=== PATIENT | female | born 1935 | race Caucasian/White ===

== ENCOUNTER 2018-02-20 09:49 | Observation (INO) | payer OTHER ==
[2018-02-20 10:09] LABS: Absolute Monocytes 0.6 K/uL (0.1-1.3); Absolute Neutrophil 5.6 K/uL (1.8-8.0); Basophils % 1.3 % (0-1.3); Eosinophils % 2.1 % (0-4.4); Hematocrit 35.9 % (36.0-45.0); Lymphocytes % 12.9 % (15.3-44.8); MCH 31.4 pg (27.0-35.0); MCV 96.4 fL (80-100); MPV 7.4 fL (7.6-11.3); Monocytes % 8.5 % (3.3-12.3); RBC Red Blood Cell Count 3.72 M/uL (3.86-4.86)
[2018-02-20 10:16] LABS: Protime INR 1.02
--- NOTE | 2018-02-20 10:17 | RAD REPORT ---
EXAM DESCRIPTION: CT - [id number] - 02/20/2018 10:03 am CLINICAL HISTORY: Syncope, fall, head and neck injury COMPARISON: CT head July 2016, CT spine September 2012 TECHNIQUE: Axial 5 mm thick images of the head were obtained. Axial 2 mm thick images of the cervic al spine were obtained with sagittal and coronal reconstruction images generated and reviewed. All CT scans are performed using dose optimization technique as appropriate and may include automated exposure control or mA/KV adjustment according to patient size. FINDINGS: No intracranial hemorrhage, mass, edema or acute intracranial finding. No acute cortical based infarc tion. The patient has underlying mild to moderate atrophy and chronic ischemic change. 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 This is stable. Ventricular size is in proportion to vo lume loss. No extra-axial fluid collections. Mastoid air cells and paranasal sinuses are clear. No gl obe or orbit abnormality seen. Cervical body height and alignment are normal. C4-5, C5-6 and C6-7 disc space narrowing present. Righ t C3-4 prominent facet degenerative change with mild right foraminal stenosis. There is mild right fo raminal stenosis at C4-5 and mild bilateral C5-6. Right C6-7 foramen shows a mild stenosis. No fractu re or acute bony abnormality. Central canal detail is inherently limited. No paraspinal mass or hematoma. 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 No hemorrhage or acute intracranial finding. Cervical spine degenerative changes are present. No acute finding and no significant change from 201 3.
[2018-02-20] MEDS ORDERED: NA CHLORIDE 0.9% 1,000 ML ONE (10:29)
--- NOTE | 2018-02-20 10:35 | RAD REPORT ---
EXAM DESCRIPTION: RAD - Chest Single View - 02/20/2018 10:29 am CLINICAL HISTORY: Hypertension, syncope. COMPARISON: 03/25/2017 FINDINGS: Portable technique limits examination quality. The lungs are grossly clear. The heart is normal in size. No displaced fractures. IMPRESSION: No acute intrathoracic process suspected.
[2018-02-20 10:40] LABS: Potassium 4.5 mEq/L (3.6-5.0)
[2018-02-20 10:47] LABS: Albumin 3.4 g/dL (3.2-5.5); Bilirubin Direct 0.1 mg/dL (0-0.2); Bilirubin Total 0.7 mg/dL (0.3-1.2); Magnesium 1.8 mg/dL (1.8-2.5); Protein, Total 6.2 g/dL (6.0-8.3)
[2018-02-20 10:48] LABS: CKMB Creatine Kinase MB 2.2 ng/ml (0.3-4.0)
--- NOTE | 2018-02-20 10:59 | RAD REPORT ---
EXAM DESCRIPTION: ANGE Montes CP - 02/20/2018 10:52 am CLINICAL HISTORY: Dizziness, syncope COMPARISON: None. TECHNIQUE: Real-time sonographic evaluation of both carotid systems was performed. Doppler interroga tion was performed with waveform tracing bilaterally. FINDINGS: Normal high resistance waveforms are noted in both external carotid arteries. The common c arotid arteries and internal carotid arteries show normal low resistance waveforms. Minimal plaquing changes are present in each carotid bulb. No significant luminal narrowing. No disse ction identified. Peak systolic and end diastolic velocity values and the ICA/CCA ratios are in the n on-hemodynamically significant range. Antegrade flow seen in both vertebral arteries. Velocity values and ratios were recorded and are retained in the patient's imaging records. IMPRESSION: Minimal carotid bulb atherosclerotic plaquing. No evidence of a hemodynamically significant stenosis.
--- NOTE | 2018-02-20 11:38 | EDPHYS ---
Physician Documentation [facility] Name: Connie Dos Santos Age: 82 yrs Sex: Female : 1935 Arrival Date: 02/20/2018 Time: 09:46 Bed External Waiting [facility] MD: Cheko Esquivel V ED Physician Joel Silverman HPI: 02/20 10:18 This 82 yrs old Female presents to ER via EMS with complaints of Fall Injury. caryl 10:18 Details of fall: The patient fell from an upright position, while standing. Onset: The caryl symptoms/episode began/occurred just prior to arrival. Associated injuries: The patient sustained injury to the head, neck injury. Severity of symptoms: At their worst the symptoms were mild, in the emergency department the symptoms are unchanged. The patient has not experienced similar symptoms in the past. Historical: - Allergies: 10:04 Sulfa (Sulfonamide Antibiotics); hb - Home Meds: 10:04 amitriptyline 25 mg Oral tab 1 tab once daily [Active]; Benicar 20 mg Oral tab 1 tab hb once daily [Active]; clopidogrel 75 mg Oral tab 1 tab once daily [Active]; metoprolol tartrate 50 mg Oral tab 1 tab once daily [Active]; paroxetine HCl 10 mg Oral tab 1 tab once daily [Active]; Vesicare 5 mg Oral tab 1 tab once daily [Active]; Vitamin B-12 Oral daily [Active]; Vitamin D Oral daily [Active]; - PMHx: 10:04 Hypertension; TIA; Depression; hb - PSHx: 10:04 Hysterectomy; ; hb - Immunization history:: Adult Immunizations up to date. - Social history:: Smoking status: Patient/guardian denies using tobacco. - Immunization history: Last tetanus immunization: - up to date. - Ebola Screening: : No symptoms or risks identified at this time. ROS: 10:18 Constitutional: Negative for fever, chills, and weight loss, Eyes: Negative for injury, caryl pain, redness, and discharge, ENT: Negative for injury, pain, and discharge, Neck: Negative for injury, pain, and swelling, Cardiovascular: Negative for chest pain, palpitations, and edema, Respiratory: Negative for shortness of breath, cough, wheezing, and pleuritic chest pain, Abdomen/GI: Negative for abdominal pain, nausea, vomiting, diarrhea, and constipation, Back: Negative for injury and pain, : Negative for injury, bleeding, discharge, and swelling, MS/Extremity: Negative for injury and deformity, Skin: Negative for injury, rash, and discoloration, Psych: Negative for depression, anxiety, suicide ideation, homicidal ideation, and hallucinations, Allergy/Immunology: Negative for hives, rash, and allergies, Endocrine: Negative for neck swelling, polydipsia, polyuria, polyphagia, and marked weight changes, Hematologic/Lymphatic: Negative for swollen nodes, abnormal bleeding, and unusual bruising. 10:18 Neuro: Positive for dizziness, syncope, weakness. Exam: 10:18 Constitutional: This is a well developed, well nourished patient who is awake, alert, caryl and in no acute distress. Head/Face: Normocephalic, atraumatic. Eyes: Pupils equal round and reactive to light, extra-ocular motions intact. Lids and lashes normal. Conjunctiva and sclera are non-icteric and not injected. Cornea within normal limits. Periorbital areas with no swelling, redness, or edema. ENT: Nares patent. No nasal discharge, no septal abnormalities noted. Tympanic membranes are normal and external auditory canals are clear. Oropharynx with no redness, swelling, or masses, exudates, or evidence of obstruction, uvula midline. Mucous membranes moist. Chest/axilla: Normal chest wall appearance and motion. Nontender with no deformity. No lesions are appreciated. Cardiovascular: Regular rate and rhythm with a normal S1 and S2. No gallops, murmurs, or rubs. Normal PMI, no JVD. No pulse deficits. Respiratory: Lungs have equal breath sounds bilaterally, clear to auscultation and percussion. No rales, rhonchi or wheezes noted. No increased work of breathing, no retractions or nasal flaring. Abdomen/GI: Soft, non-tender, with normal bowel sounds. No distension or tympany. No guarding or rebound. No evidence of tenderness throughout. Back: No spinal tenderness. No costovertebral tenderness. Full range of motion. Female : Normal external genitalia. Skin: Warm, dry with normal turgor. Normal color with no rashes, no lesions, and no evidence of cellulitis. MS/ Extremity: Pulses equal, no cyanosis. Neurovascular intact. Full, normal range of motion. Neuro: Awake and alert, GCS 15, oriented to person, place, time, and situation. Cranial nerves II-XII grossly intact. Motor strength 5/5 in all extremities. Sensory grossly intact. Cerebellar exam normal. Normal gait. Psych: Awake, alert, with orientation to person, place and time. Behavior, mood, and affect are within normal limits. 10:18 Neck: External neck: is normal, no acute changes, C-spine: no acute changes, Thyroid: appears normal, Trachea: is midline with no obvious abnormalities. Vital Signs: 09:51 BP 120 / 60; Pulse 66; Resp 15; Temp 98; Pulse Ox 100% on R/A; Pain 3/10; rv 10:48 BP 120 / 66; Pulse 66; Resp 17; Pulse Ox 100% on R/A; Pain 1/10; hb 11:58 BP 145 / 70; Pulse 63; Resp 18; Pulse Ox 100% ; sv 13:25 BP 153 / 74; Pulse 66; Resp 18; Pulse Ox 99% ; sv NIH Stroke Scale Scores: 13:37 NIHSS Score: 0 caryl Montrell Coma Score: 09:51 Eye Response: spontaneous(4). Verbal Response: oriented(5). Motor Response: obeys rv commands(6). Total: 15. Trauma Score (Adult): 09:51 Eye Response: spontaneous(1); Verbal Response: oriented(1); Motor Response: obeys rv commands(2); Systolic BP: > 89 mm Hg(4); Respiratory Rate: 10 to 29 per min(4); [place] Score: 15; Trauma Score: 12 10:48 Eye Response: spontaneous(1); Verbal Response: oriented(1); Motor Response: obeys hb commands(2); Systolic BP: > 89 mm Hg(4); Respiratory Rate: 10 to 29 per min(4); Montrell Score: 15; Trauma Score: 12 11:30 Eye Response: spontaneous(1); Verbal Response: oriented(1); Motor Response: obeys hb commands(2); Systolic BP: > 89 mm Hg(4); Respiratory Rate: 10 to 29 per min(4); Montrell Score: 15; Trauma Score: 12 12:30 Eye Response: spontaneous(1); Verbal Response: oriented(1); Motor Response: obeys hb commands(2); Systolic BP: > 89 mm Hg(4); Respiratory Rate: 10 to 29 per min(4); [place] Score: 15; Trauma Score: 12 13:30 Eye Response: spontaneous(1); Verbal Response: oriented(1); Motor Response: obeys hb commands(2); Systolic BP: > 89 mm Hg(4); Respiratory Rate: 10 to 29 per min(4); Montrell Score: 15; Trauma Score: 12 MDM: 09:54 Patient medically screened. [facility] 10:27 Data reviewed: vital signs, nurses notes, lab test result(s), EKG, radiologic studies, [facility] CT scan, doppler, plain films, ultrasound. 02/20 09:49 Order name: Basic Metabolic Panel; Complete Time: 11:35 02/20 09:49 Order name: BNP; Complete Time: 11:35 02/20 09:49 Order name: CBC with Diff; Complete Time: 10:25 02/20 09:49 Order name: Ckmb; Complete Time: 11:35 02/20 09:49 Order name: CPK; Complete Time: 11:35 02/20 09:49 Order name: LFT's; Complete Time: 11:35 02/20 09:49 Order name: Magnesium; Complete Time: 11:35 02/20 09:49 Order name: PT-INR; Complete Time: 11:35 02/20 09:49 Order name: Ptt, Activated; Complete Time: 11:35 02/20 09:49 Order name: Troponin (emerg Dept Use Only); Complete Time: 11:35 02/20 10:08 Order name: Urine Culture [facility] 02/20 11:51 Order name: Basic Metabolic Panel [facility] 02/20 11:51 Order name: Basic Metabolic Panel [facility] 02/20 11:51 Order name: CBC with Automated Diff [facility] 02/20 09:49 Order name: XRAY Chest (1 view); Complete Time: 11:35 02/20 09:49 Order name: EKG; Complete Time: 09:50 02/20 09:49 Order name: CT Head C Spine; Complete Time: 10:25 02/20 10:18 Order name: Echo w/ Doppler [facility] 02/20 10:18 Order name: US Carotid Artery Bilateral; Complete Time: 11:35 [facility] 02/20 11:49 Order name: MRI Stroke Protocol iw 02/20 11:51 Order name: Regular EDGA 02/20 11:51 Order name: CBC with Automated Diff [facility] 02/20 11:51 Order name: Troponin I [facility] 02/20 11:51 Order name: Troponin I [facility] 02/20 11:51 Order name: Troponin I [facility] 02/20 12:55 Order name: Urine Dipstick--Ancillary (enter results) ag 02/20 13:02 Order name: MRI EDGA 02/20 13:24 Order name: Urine Dipstick-Ancillary [facility] 02/20 09:49 Order name: Cardiac monitoring; Complete Time: 10:41 sv 02/20 09:49 Order name: EKG - Nurse/Tech; Complete Time: 10:41 sv 02/20 09:49 Order name: IV Saline Lock; Complete Time: 10:41 sv 02/20 09:49 Order name: Labs collected and sent; Complete Time: 10:41 sv 02/20 09:49 Order name: O2 Per Protocol; Complete Time: 10:42 sv 02/20 09:49 Order name: O2 Sat Monitoring; Complete Time: 10:42 sv 02/20 11:51 Order name: EKG Electrocardiogram [facility] 02/20 11:51 Order name: EKG Electrocardiogram [facility] 02/20 11:51 Order name: EKG Electrocardiogram [facility] 02/20 11:51 Order name: EKG Electrocardiogram EDGA Administered Medications: 10:15 Drug: NS 0.9% 500 ml Route: IV; Rate: bolus; Site: right femoral; hb 10:41 Drug: NS 0.9% 1000 ml Route: IV; Rate: 125 ml/hr; Site: right antecubital; hb Disposition: 02/20/18 11:38 Hospitalization ordered by Cheko Esquivel for Observation. Preliminary diagnosis are Syncope and collapse, Acute kidney failure. - Bed requested for Telemetry/MedSurg (observation). - Status is Observation. iw - Condition is Stable. - Problem is new. - Symptoms have improved. UTI on Admission? No NIH Stroke Scale - NIH Stroke Score Date: 02/20/2018 Time: 13:37 Total Score = 0 1a. Level of Consciousness (LOC) - 0(Alert) 1b. Level of Consciousness (LOC) (Year \T\ Age) - 0(Both) 1c. LOC Commands (Open \T\ Closes Eyes/Preparation Center Coordinator) - 0(Both) 2. Best Gaze (Lateral Gaze Paresis) - 0(Normal) 3. Visual Field Loss - 0(No visual loss) 4. Facial Palsy - 0(Normal) 5a. Left Arm: Motor (10-second hold) - 0(No drift) 5b. Right Arm: Motor (10-second hold) - 0(No drift) 6a. Left Leg: Motor (5-second hold - always test supine) - 0(No drift) 6b. Right Leg: Motor (5-second hold - always test supine) - 0(No drift) 7. Limb Ataxia (finger/nose \T\ heel/palafox - test with eyes open) - 0(Absent) 8. Sensory Loss (pinprick arms/legs/face) - 0(Normal) 9. Best Language: Aphasia (description/naming/reading) - 0(No aphasia) 10. Dysarthria (speech clarity - read or repeat words) - 0(Normal) 11. Extinction and Inattention (visual/tactile/auditory/spatial/personal) - 0(No abnormality) Initials: caryl Signatures: Dispatcher [employer] EDMS Cele Rutherford RN Mely Garces RN RN dw Anderson, Corey, MD MD cha Williams, Irene, RN RN iw Baxter, Heather, RN RN hb Vicente, Ronaldo RN RN rv Corrections: (The following items were deleted from the chart) 12:45 11:38 Hospitalization Ordered by Cheko Esquivel MD for Observation. Preliminary diagnosis is Syncope and collapse; Acute kidney failure. Bed requested for Telemetry/MedSurg (observation). Status is Observation. Condition is Stable. Problem is new. Symptoms have improved. UTI on Admission? No. caryl 13:27 12:45 02/20/2018 11:38 Hospitalization Ordered by Chkeo Esquivel MD for sv Observation. Preliminary diagnosis is Syncope and collapse; Acute kidney failure. Bed requested for Telemetry/MedSurg (observation). Status is Observation. Condition is Stable. Problem is new. Symptoms have improved. UTI on Admission? No. dw 13:39 13:27 02/20/2018 11:38 Hospitalization Ordered by Cheko Esquivel MD for iw Observation. Preliminary diagnosis is Syncope and collapse; Acute kidney failure. Bed requested for Telemetry/MedSurg (observation). Status is Observation. Condition is Stable. Problem is new. Symptoms have improved. UTI on Admission? No. sv
--- NOTE | 2018-02-20 11:38 | ER ---
Nurse's Notes [facility] Name: Connie Dos Santos Age: 82 yrs Sex: Female : 1935 Arrival Date: 02/20/2018 Time: 09:46 Bed External Waiting Private MD: Cheko Esquivel V Diagnosis: Syncope and collapse;Acute kidney failure Presentation: 02/20 09:27 Presenting complaint: EMS states: Pt was standing up, had witness syncopal episode, rv witness reported LOC for a few seconds. Dried blood noted to bilateral nares. Takes Plavix. Care prior to arrival: IV initiated. 22 GA, in the right antecubital area, Glucose check: 142. Mechanism of Injury: Fall from standing position. Trauma event details: Injury occurred in the [facility], Injury occurred: at home. Injury occurred: February 20, 2018 Injury occurred at: 09:30. 09:27 Acuity: BRANDY 2 rv 09:27 Method Of Arrival: EMS: [facility] rv 09:30 Transition of care: patient was not received from another setting of care. Onset of hb symptoms was February 20, 2018. Risk Assessment: Do you want to hurt yourself or someone else? Patient reports no desire to harm self or others. Initial Sepsis Screen: Does the patient meet any 2 criteria? No. Patient's initial sepsis screen is negative. Does the patient have a suspected source of infection? No. Patient's initial sepsis screen is negative. Trauma Activation: Alert Physician: ED Physician; Name: ; Notified At: ; Arrived At: Physician: General Surgeon; Name: ; Notified At: ; Arrived At: Physician: Radiology; Name: ; Notified At: ; Arrived At: Physician: Respiratory; Name: ; Notified At: ; Arrived At: Physician: Lab; Name: ; Notified At: ; Arrived At: Historical: - Allergies: 10:04 Sulfa (Sulfonamide Antibiotics); hb - Home Meds: 10:04 amitriptyline 25 mg Oral tab 1 tab once daily [Active]; Benicar 20 mg Oral tab 1 tab hb once daily [Active]; clopidogrel 75 mg Oral tab 1 tab once daily [Active]; metoprolol tartrate 50 mg Oral tab 1 tab once daily [Active]; paroxetine HCl 10 mg Oral tab 1 tab once daily [Active]; Vesicare 5 mg Oral tab 1 tab once daily [Active]; Vitamin B-12 Oral daily [Active]; Vitamin D Oral daily [Active]; - PMHx: 10:04 Hypertension; TIA; Depression; hb - PSHx: 10:04 Hysterectomy; ; hb - Immunization history:: Adult Immunizations up to date. - Social history:: Smoking status: Patient/guardian denies using tobacco. - Immunization history: Last tetanus immunization: - up to date. - Ebola Screening: : No symptoms or risks identified at this time. Screenin:30 Nutritional screening: No deficits noted. Fall Risk Total Newman Fall Scale indicates hb Low Risk Score (25-44 pts). Fall prevention measures have been instituted. Side Rails Up X 2 Frequent Obs/Assesments occuring As available Patient and Family Educated on Fall Prevention Program and strategies. 09:51 Abuse screen: Denies threats or abuse. Denies injuries from another. Tuberculosis rv screening: No symptoms or risk factors identified. 11:00 Patient has been NPO before screening. The patient is alert, able to follow commands. hb The patient does not exhibit slurred or garbled speech The patient is not exhibiting difficulty speaking. The patient does not exhibit difficulty understanding words. The patient is able to swallow own secretions with no drooling or need for suction. Patient tolerated one teaspoon of water. No drooling, immediate coughing, gurgling, or clearing of the throat was noted. The patient tolerated 90mL of water. No drooling, immediate coughing, gurgling, or clearing of the throat was noted. The patient passed the bedside swallow screening. Oral medications may be given as ordered. Contact Physician for further diet orders. Primary Survey: 09:52 A: Airway: patent, No supplemental oxygen in use on arrival. Breathing/Chest: hb Respiratory pattern: regular, Respiratory effort: spontaneous, unlabored, Breath sounds: clear, bilaterally. Chest inspection: symmetrical rise and fall of the chest. Circulation: Pulses: palpable . Skin color: pink, Skin temperature: warm, dry. Disability Alert. 10:45 Reassessment Airway Airway Patent Oxygen No O2 Breathing/Chest Respiratory pattern hb Regular Respiratory effort Spontaneous Unlabored Breath sounds Clear Chest inspection Symmetrical Circulation Color [place] Temperature Warm Dry Disability Alert. 11:45 Reassessment Airway Airway Patent Oxygen No O2 Breathing/Chest Respiratory pattern hb Regular Respiratory effort Spontaneous Unlabored Chest inspection Symmetrical Circulation Color [place] Temperature Warm Dry Disability Alert. 12:45 Reassessment Airway Airway Patent Oxygen No O2 Breathing/Chest Respiratory pattern hb Regular Respiratory effort Spontaneous Unlabored Chest inspection Symmetrical Circulation Color [place] Temperature Warm Dry Disability Alert. Secondary Survey: 09:52 HEENT: Head Other contusion to left occipital area noted. Gastrointestinal: No deficits hb noted. : No signs and/or symptoms were reported regarding the genitourinary system. Musculoskeletal: No signs and/or symptoms reported regarding the musculoskeletal system. Assessment: 09:55 General: Appears in no apparent distress. Behavior is calm, cooperative. Pain: Pain hb currently is 3 out of 10 on a pain scale. Neuro: Level of Consciousness is awake, alert, obeys commands, Oriented to person, place, time, situation, Pupils are PERRLA. EENT: Nares with bleeding noted. Cardiovascular: Heart tones S1 S2 present Capillary refill < 3 seconds Patient's skin is warm and dry. Rhythm is atrial fibrillation. Respiratory: Airway is patent Trachea midline Respiratory effort is even, unlabored, Respiratory pattern is regular, symmetrical, Breath sounds are clear bilaterally. GI: No signs and/or symptoms were reported involving the gastrointestinal system. : No signs and/or symptoms were reported regarding the genitourinary system. Derm: No signs and/or symptoms reported regarding the dermatologic system. Skin is intact, is healthy with good turgor, Skin is pink, warm \T\ dry. Musculoskeletal: No signs and/or symptoms reported regarding the musculoskeletal system. Circulation, motion, and sensation intact. Injury Description: contusion to left back of head. 10:05 Reassessment: Pt transported to radiology via stretcher with tech. 10:47 Reassessment: Pt returned from radiology via stretcher with tech. Family at bedside. hb 11:30 Reassessment: Patient appears in no apparent distress at this time. Patient and/or hb family updated on plan of care and expected duration. Pain level reassessed. Patient is alert, oriented x 3, equal unlabored respirations, skin warm/dry/pink. 12:30 Reassessment: Patient appears in no apparent distress at this time. No changes from hb previously documented assessment. Patient and/or family updated on plan of care and expected duration. Pain level reassessed. Patient is alert, oriented x 3, equal unlabored respirations, skin warm/dry/pink. Admission ordered, awaiting room assignment at this time. Family remains at bedside. 13:30 Reassessment: Patient appears in no apparent distress at this time. No changes from hb previously documented assessment. Patient and/or family updated on plan of care and expected duration. Pain level reassessed. Patient is alert, oriented x 3, equal unlabored respirations, skin warm/dry/pink. Vital Signs: 09:51 BP 120 / 60; Pulse 66; Resp 15; Temp 98; Pulse Ox 100% on R/A; Pain 3/10; rv 10:48 BP 120 / 66; Pulse 66; Resp 17; Pulse Ox 100% on R/A; Pain 1/10; hb 11:58 BP 145 / 70; Pulse 63; Resp 18; Pulse Ox 100% ; sv 13:25 BP 153 / 74; Pulse 66; Resp 18; Pulse Ox 99% ; sv [place] Coma Score: 09:51 Eye Response: spontaneous(4). Verbal Response: oriented(5). Motor Response: obeys rv commands(6). Total: 15. Trauma Score (Adult): 09:51 Eye Response: spontaneous(1); Verbal Response: oriented(1); Motor Response: obeys rv commands(2); Systolic BP: > 89 mm Hg(4); Respiratory Rate: 10 to 29 per min(4); [place] Score: 15; Trauma Score: 12 10:48 Eye Response: spontaneous(1); Verbal Response: oriented(1); Motor Response: obeys hb commands(2); Systolic BP: > 89 mm Hg(4); Respiratory Rate: 10 to 29 per min(4); [place] Score: 15; Trauma Score: 12 11:30 Eye Response: spontaneous(1); Verbal Response: oriented(1); Motor Response: obeys hb commands(2); Systolic BP: > 89 mm Hg(4); Respiratory Rate: 10 to 29 per min(4); [place] Score: 15; Trauma Score: 12 12:30 Eye Response: spontaneous(1); Verbal Response: oriented(1); Motor Response: obeys hb commands(2); Systolic BP: > 89 mm Hg(4); Respiratory Rate: 10 to 29 per min(4); [place] Score: 15; Trauma Score: 12 13:30 Eye Response: spontaneous(1); Verbal Response: oriented(1); Motor Response: obeys hb commands(2); Systolic BP: > 89 mm Hg(4); Respiratory Rate: 10 to 29 per min(4); [place] Score: 15; Trauma Score: 12 NIH Stroke Scale Scores: 13:37 NIHSS Score: 0 caryl ED Course: 09:35 Thermoregulation: warm blanket given to patient. hb 09:45 Patient has correct armband on for positive identification. Placed in gown. Bed in low hb position. Call light in reach. Side rails up X 1. 09:46 Patient arrived in ED. rv 09:51 Triage completed. rv 09:51 Patient maintains SpO2 saturation greater than 95% on room air. rv 09:52 Cassie Davalos RN is Primary Nurse. hb 09:52 Arm band placed on left wrist. rv 09:53 Joel Silverman MD is Attending Physician. caryl 10:00 EKG done, by process controls technician. reviewed by Joel Silverman MD. at1 10:02 CT completed. Patient tolerated procedure well. Patient moved to CT via stretcher. Patient moved back from CT. 10:03 CT Head C Spine In Process Unspecified. EDMS 10:22 Cheko Esquivel MD is Private Physician. sb2 10:27 X-ray completed. Portable x-ray completed in exam room. Patient tolerated procedure ml well. 10:29 XRAY Chest (1 view) In Process Unspecified. EDMS 10:50 Ultrasound completed. Patient tolerated well. sg3 10:52 US Carotid Artery Bilateral In Process Unspecified. EDMS 11:37 Cheko Esquivel MD is Hospitalizing Provider. caryl 12:28 Patient moved to MRI via wheelchair. em2 13:04 No provider procedures requiring assistance completed. Patient admitted, IV remains in sv place. intact. 13:37 Primary Nurse role handed off by Cassie Davalos, ALFIE ag Administered Medications: 10:15 Drug: NS 0.9% 500 ml Route: IV; Rate: bolus; Site: right femoral; hb 10:41 Drug: NS 0.9% 1000 ml Route: IV; Rate: 125 ml/hr; Site: right antecubital; hb Intake: 13:06 PO: 0ml; Total: 0ml. sv Output: 13:06 Urine: 300ml (Voided); Total: 300ml. sv Outcome: 11:38 Decision to Hospitalize by Provider. caryl 13:06 Admitted to Tele accompanied by tech, via stretcher, room 415, with chart, Report sv called to Yuli JUDGE 13:06 Condition: stable 13:06 Instructed on the need for admit. 13:27 Patient left the ED. sv 13:30 Patient's length of stay in the Emergency Department was greater than 2 hours. pt hb admitted, awaiting room assignmentPatient's length of stay extended due to 13:39 Patient left the ED. NIH Stroke Scale - NIH Stroke Score Date: 02/20/2018 Time: 13:37 Total Score = 0 1a. Level of Consciousness (LOC) - 0(Alert) 1b. Level of Consciousness (LOC) (Year \T\ Age) - 0(Both) 1c. LOC Commands (Open \T\ Closes Eyes/Regulator Mechanic) - 0(Both) 2. Best Gaze (Lateral Gaze Paresis) - 0(Normal) 3. Visual Field Loss - 0(No visual loss) 4. Facial Palsy - 0(Normal) 5a. Left Arm: Motor (10-second hold) - 0(No drift) 5b. Right Arm: Motor (10-second hold) - 0(No drift) 6a. Left Leg: Motor (5-second hold - always test supine) - 0(No drift) 6b. Right Leg: Motor (5-second hold - always test supine) - 0(No drift) 7. Limb Ataxia (finger/nose \T\ heel/palafox - test with eyes open) - 0(Absent) 8. Sensory Loss (pinprick arms/legs/face) - 0(Normal) 9. Best Language: Aphasia (description/naming/reading) - 0(No aphasia) 10. Dysarthria (speech clarity - read or repeat words) - 0(Normal) 11. Extinction and Inattention (visual/tactile/auditory/spatial/personal) - 0(No abnormality) Initials: caryl Signatures: Dispatcher [employer] Cele Beltran RN RN sv Anderson, Corey, MD MD cha Jones, Ronda Jovel RN RN iw Josette Hoover Enrique em2 kedar, Piper, sleep manager EKG Tat1 Ivana Granger ag Cassie Davalos RN RN Sally Andrade sg3 Tracey Shukla2 Josesito Maurice, RN RN rv
[2018-02-20] MEDS ORDERED: ONDANSETRON 4 MG/2 ML VIAL IV PRN (11:48)
[2018-02-20] MEDS ORDERED: ACETAMINOPHEN 500 MG TAB PO PRN (11:48)
[2018-02-20] MEDS ORDERED: NA CHLORIDE 0.9% 1,000 ML IV SCH (12:00)
--- NOTE | 2018-02-20 13:00 | RAD REPORT ---
EXAM DESCRIPTION: MRI - Brain Wo Cont - 02/20/2018 12:49 pm CLINICAL HISTORY: Syncope, fall, head injury. COMPARISON: 02/20/2018, 08/18/2016 TECHNIQUE: Multi-sequence, multiplanar MR imaging of the brain was performed without contrast. FINDINGS: No intracranial hemorrhage, hydrocephalus or extra-axial fluid collections.Left frontal lo be gliosis noted likely related to previous head trauma or CVA. Mild generalized brain atrophy is pre sent with mild periventricular and deep white matter chronic microvascular ischemic changes. No edema or shift of midline structures. No findings to suspect brain mass. DWI is negative for acute CVA. Midline structures are normally formed. Mastoid air cells and paranasal sinuses are clear. IMPRESSION: Negative for acute CVA or other acute intracranial abnormality. Gliosis is seen left frontal lobe compatible with old head trauma or CVA.
[2018-02-20 13:23] LABS: Urine Blood NEGATIVE (NEG); Urine Glucose NEGATIVE (NEG); Urine Protein NEGATIVE (NEG); Urine Specific Gravity 1.015 (1.005-1.030)
--- NOTE | 2018-02-20 13:35 | P.HP ---
Certification for Inpatient Patient admitted to: Observation With expected LOS: <2 Midnights Practitioner: I am a practitioner with admitting privileges, knowledge of patient current condition, hospital course, and medical plan of care. Services: Services provided to patient in accordance with Admission requirements found in Title 42 Section 412.3 of the Code of Federal Regulations Patient History Date of Service: 02/20/18 Reason for admission: PASSED OUT AT HOME History of Present Illness: MS. GREGORY WHILE STANDING AT HOME , TALKING TO FRIENDS SHE PASSED OUT AND FELL BACKWARDS , HIT A TABLE. SHE HAS NO CHEST PAIN, NAUSEA, WEAKNESS OR PARALYSIS. SHE HAS NO NAUSEA, VOMITING OR DIARRHEA. Allergies Sulfa (Sulf Allergy (Uncoded 10/30/17 11:04) Unknown Home Medications: Alprazolam [Xanax*] 0.25 mg PO DAILY 10/09/12 Amitriptyline [Elavil*] 50 mg PO BEDTIME 10/09/12 Cyanocobalamin (Vitamin B-12) [Vitamin B-12] 1,200 mcg PO DAILY 10/09/12 Metoprolol Succinate 50 mg PO BID 10/09/12 Olmesartan Medoxomil [Benicar] 20 mg PO [id number] 10/09/12 Vitamin D [Drisdol*] 50,000 unit PO DAILY 10/09/12 Clopidogrel Bisulfate [Plavix*] 75 mg PO DAILY #30 tablet 10/13/12 Cranberry Fruit Concentrate [[employer] [facility]] 450 mg PO DAILY 10/30/17 Vit A/Vit C/Vit E/Zinc/Copper [Icaps Areds Formula Dr Tablet] 1 each PO DAILY - Past Medical/Surgical History Diabetic: No - Social History Alcohol use: No CD- Drugs: No Caffeine use: Yes Review of Systems 10-point ROS is otherwise unremarkable General: Weakness, Malaise Physical Examination - Physical Exam General: Alert, In no apparent distress HEENT: Atraumatic, PERRLA, Mucous membr. moist/pink, EOMI, Sclerae nonicteric Neck: Supple, 2+ carotid pulse no bruit, No LAD, Without JVD or thyroid abnormality Respiratory: Clear to auscultation bilaterally, Normal air movement Cardiovascular: Regular rate/rhythm, Normal S1 S2 Gastrointestinal: Normal bowel sounds, No tenderness Musculoskeletal: No tenderness Integumentary: No rashes Neurological: Normal gait, Normal speech, Normal strength at 5/5 x4 extr, Normal tone, Normal affect Lymphatics: No axilla or inguinal lymphadenopathy - Studies Laboratory Data (last 24 hrs) 02/20/18 09:55: PT 12.0, INR 1.02, APTT 22.7 L 02/20/18 09:55: WBC 7.4, Hgb 11.7 L, Hct 35.9 L, Plt Count 225 02/20/18 09:55: B-Natriuretic Peptide 90 02/20/18 09:55: Sodium 138, Potassium 4.5, BUN 23 H, Creatinine 1.23 H, Glucose 111, Magnesium 1.8, Total Bilirubin 0.7, AST 23, ALT 16, Alkaline Phosphatase 47 Assessment and Plan - Problems (Diagnosis) (1) Syncope Current Visit: Yes Status: Acute Plan: DOES NOT LOOK LIKE STROKE. SHE HAS NO NEURO SYMPTOMS. NO CARDIAC SYMPTOMS I SEE HE BUN AND CREAT ARE MILD HIGH SUGGESTIVE OF DEHYDRATION. NONE OF HER MEDS DEHYDRATE HER. (2) Syncope due to orthostatic hypotension Current Visit: Yes Status: Acute Plan: ABOVE. STABLE WILL DO PT AND ADVISE ORAL INTAKE. - Advance Directives Does patient have a Living Will: Yes Does patient have a Durable POA for Healthcare: Yes
[2018-02-20 15:37] VITALS: BMI 21.2
[2018-02-20] MEDS: NA CHLORIDE 0.9% 1,000 ML IV SCH (17:07)
--- NOTE | 2018-02-20 17:39 | EKG ---
Test Date: 2018-02-20 Test Time: 09:49:22 Cabin Outfitter: MIGUEL MEASUREMENT RESULTS: Intervals: Rate: 62 WV: 142 QRSD: 80 QT: 426 QTc: 432 [place]: P: 79 WV: 142 QRS: 255 T: 57 INTERPRETIVE STATEMENTS: Normal sinus rhythm Right superior axis deviation Septal infarct, age undetermined Abnormal ECG Compared to ECG 03/25/2017 09:27:24 No significant changes Electronically Signed On 02-20-18 17:36:56 CDT by Quique Renteria
--- NOTE | 2018-02-20 18:01 | ECHO ---
HEIGHT: 5 ft 8 in WEIGHT: 140 lb 0 oz DATE OF STUDY: 02/20/[address]: Joel Silverman MD 2-DIMENSIONAL: YES M.MODE: YES DOPPLER: YES COLOR FLOW: YES TDS: PORTABLE: DEFINITY: BUBBLE STUDY: DIAGNOSIS: SYNCOPE CARDIAC HISTORY: CATHERIZATION: NO SURGERY: NO PROSTHETIC VALVE: NO PACEMAKER: NO MEASUREMENTS (cm) DIASTOLIC (NORMALS) SYSTOLIC (NORMALS) IVSd 0.9 (0.6-1.2) LA Diam 3.1 (1.9-4.0) LVEF 79% LVIDd 3.9 (3.5-5.7) LVIDs 2.1 (2.0-3.5) %FS 47% LVPWd 0.9 (0.6-1.2) Ao Diam 2.5 (2.0-3.7) 2 DIMENSIONAL ASSESSMENT: RIGHT ATRIUM: NORMAL LEFT ATRIUM: NORMAL RIGHT VENTRICLE: NORMAL LEFT VENTRICLE: NORMAL TRICUSPID VALVE: NORMAL MITRAL VALVE: NORMAL PULMONIC VALVE: NORMAL AORTIC VALVE: NORMAL PERICARDIAL EFFUSION: NONE AORTIC ROOT: NORMAL LEFT VENTRICULAR WALL MOTION: NORMAL DOPPLER/COLOR FLOW: NORMAL COMMENTS: NORMAL 2-DIMENSIONAL ECHOCARDIOGRAM WITH DOPPLER. NO WALL MOTION ABNORMALITY. NO EFFUSION. TECHNOLOGIST: YURIDIA MILLS
[2018-02-21 05:22] LABS: Absolute Lymphocytes (CBC) 0.8 K/uL (0.7-4.9); Absolute Monocytes 0.6 K/uL (0.1-1.3); Absolute Neutrophil 7.3 K/uL (1.8-8.0); Basophils % 0.5 % (0-1.3); Eosinophils % 1.7 % (0-4.4); Hematocrit 32.2 % (36.0-45.0); Lymphocytes % 9.4 % (15.3-44.8); MCH 32.7 pg (27.0-35.0); MCV 95.1 fL (80-100); MPV 7.2 fL (7.6-11.3); Monocytes % 6.9 % (3.3-12.3); RBC Red Blood Cell Count 3.39 M/uL (3.86-4.86)
[2018-02-21 05:46] LABS: Potassium 3.9 mEq/L (3.6-5.0)
[2018-02-21 08:00] VITALS: O2SAT 94
[2018-02-21] MEDS ORDERED: ASPIRIN EC 81 MG TAB PO SCH (09:00)
[2018-02-21] MEDS: NA CHLORIDE 0.9% 1,000 ML IV SCH (09:13)
--- NOTE | 2018-02-21 11:08 | P.DS ---
Admission Date: 02/20/18 Discharge Date: 02/21/18 Disposition: ROUTINE DISCHARGE Discharge Condition: FAIR Reason for Admission: PASSED OUT AT HOME - Problems (1) Syncope Current Visit: Yes Status: Acute (2) Syncope due to orthostatic hypotension Current Visit: Yes Status: Acute Brief History of Present Illness: MS. GREGORY WHILE STANDING AT HOME , TALKING TO FRIENDS SHE PASSED OUT AND FELL BACKWARDS , HIT A TABLE. SHE HAS NO CHEST PAIN, NAUSEA, WEAKNESS OR PARALYSIS. SHE HAS NO NAUSEA, VOMITING OR DIARRHEA. MS Magdalena GREGORY IS DOING GREAT, HAS NO SYMPTOMS, HAS WALKED AROUND WITHOUT ANY DIZZINESS OR SYNCOPE. HER RHYTHM HAS BEEN NORMAL SINUS. MRI NEG, CAROTID NEGATIVE AND SHE HAS BEEN TO DR. MAN. MOST LIKELY SHE HAD SYNCOPE FROM ORTHOSTASIS. HER MEDICINE ELAVIL CAN HAVE THAT EFFECT ESPECIALLY WITH HOT WEATHER. I REDUCED THE DOSE AND WILL TAPER HER OFF ELAVIL. SHE WILL COME TO OFFICE FOR FU. Vital Signs/Physical Exam: Temp Pulse Resp BP Pulse Ox 97.7 F 73 18 137/63 98 02/21/18 07:42 02/21/18 07:42 02/21/18 07:42 02/21/18 07:42 02/21/18 07:42 Laboratory Data at Discharge: WBC 9.0 K/uL (4.3-10.9) D 02/21/18 04:37 Hgb 11.1 g/dL (12.0-15.0) L 02/21/18 04:37 Hct 32.2 % (36.0-45.0) L 02/21/18 04:37 Plt Count 196 K/uL (152-406) 02/21/18 04:37 PT 12.0 SECONDS (9.5-12.5) 02/20/18 09:55 INR 1.02 02/20/18 09:55 APTT 22.7 SECONDS (24.3-36.9) L 02/20/18 09:55 Sodium 140 mEq/L (135-145) 02/21/18 04:37 Potassium 3.9 mEq/L (3.6-5.0) 02/21/18 04:37 BUN 17 mg/dL (6-20) 02/21/18 04:37 Creatinine 0.94 mg/dL (0.44-1.00) 02/21/18 04:37 Glucose 97 mg/dL (65-120) 02/21/18 04:37 Magnesium 1.8 mg/dL (1.8-2.5) 02/20/18 09:55 Total Bilirubin 0.7 mg/dL (0.3-1.2) 02/20/18 09:55 AST 23 IU/L (10-42) 02/20/18 09:55 ALT 16 IU/L (10-60) 02/20/18 09:55 Alkaline Phosphatase 47 IU/L (42-121) 02/20/18 09:55 Troponin I < 0.03 ng/mL (<0.03) 02/20/18 18:35 B-Natriuretic Peptide 90 pg/ml (<=100) 02/20/18 09:55 Home Medications: Metoprolol Succinate 50 mg PO BID 10/09/12 Olmesartan Medoxomil [Benicar] 20 mg PO [id number] 10/09/12 Clopidogrel Bisulfate [Plavix*] 75 mg PO DAILY #30 tablet 10/13/12 Cranberry Fruit Concentrate [[facility]] 450 mg PO DAILY 10/30/17 Paroxetine HCl [Paxil*] 10 mg PO BEDTIME 02/20/18 Amitriptyline [Elavil*] 25 mg PO BEDTIME #30 tab 02/21/18 New Medications: Amitriptyline [Elavil*] 25 mg PO BEDTIME #30 tab Patient Discharge Instructions: REDUCE ELAVIL TO HALF THE DOSE EVERY NIGHT. I WILL CALL IN 25 MG QHS. COME TO OFFICE IN 10 DAYS OR SO AND VISIT DR. MAN FOR SYNCOPE FOLLOW UP. Activity: Fall precautions
[2018-02-21 11:38] VITALS: BP 139/65; TEMP 98.6
== END 2018-02-21 12:53 | disposition home or self-care (01) ==
LOC: ER 09:49 → ERHOLD 11:46 → 4TH 13:06
PROVIDERS: ADMIT Internal Medicine; ATTEND Internal Medicine
DX: I95.2 Hypotension due to drugs (principal); T43.015A Adverse effect of tricyclic antidepressants, initial encounter; Y92.009 Unspecified place in unspecified non-institutional (private) residence as the place of occurrence of the external cause; Z88.2 Allergy status to sulfonamides
CPT/HCPCS: 36415; 70450; 70551; 71045; 72125; 80048 ×2; 80076; 81003; 82550; 82553; 83735; 83880; 84484 ×3; 85025 ×2; 85610; 85730; 87086; 87088; 93005; 93306; 93880; 97163; 99285; G0378 ×2; J7030 ×3

== ENCOUNTER 2019-11-12 09:48 | Emergency (ER) | payer OTHER ==
[2019-11-12 10:26] LABS: Protime INR 1.04
[2019-11-12 10:27] LABS: Basophils % 1.1 % (0-1.3); Hematocrit 37.3 % (36.0-45.0); Lymphocytes % 13.4 % (15.3-44.8); MPV 7.1 fL (7.6-11.3); RBC Red Blood Cell Count 3.87 M/uL (3.86-4.86)
[2019-11-12] MEDS ORDERED: NA CHLORIDE 0.9% 1,000 ML ONE (10:28)
--- NOTE | 2019-11-12 10:36 | RAD REPORT ---
EXAM DESCRIPTION: Nena Single View11/12/2019 10:24 am CLINICAL HISTORY: Chest pain COMPARISON: 2017 FINDINGS: The lungs appear clear of acute infiltrate. The heart is borderline enlarged IMPRESSION: No acute abnormalities displayed
[2019-11-12 10:44] LABS: ALT/SGPT 12 U/L (12-78); AST/SGOT 22 U/L (15-37); Albumin 3.2 g/dL (3.4-5.0); Alkaline Phosphatase 54 U/L (45-117); BUN Blood Urea Nitrogen 18 mg/dL (7-18); Bicarbonate 26 mmol/L (21-32); Bilirubin Direct 0.2 mg/dL (0-0.2); Bilirubin Total 0.6 mg/dL (0.2-1.0); Glucose Level 101 mg/dL (74-106); Magnesium 1.6 mg/dL (1.8-2.4); NT PRO-BNP 537 pg/mL (<450); Potassium 3.7 mmol/L (3.5-5.1); Protein, Total 6.5 g/dL (6.4-8.2); Sodium Level 141 mmol/L (136-145); Troponin (Emerg Dept Use Only) < 0.02 ng/mL (0.0-0.045)
[2019-11-12] MEDS ORDERED: Magnesium Sulfate 2gm IVPB 2 G/50 ML BAG IV ONE (11:25)
--- NOTE | 2019-11-12 11:58 | EDPHYS ---
Physician Documentation [facility] Name: Connie Dos Santos Age: 84 yrs Sex: Female : 1935 Arrival Date: 11/12/2019 Time: 09:55 Bed 13 Private MD: JILLIAN Physician Joel Silverman HPI: 11/12 11:51 This 84 yrs old Female presents to ER via EMS with complaints of Dizziness, kb General Weakness. 11:51 The patient presents with dizziness. Onset: The symptoms/episode began/occurred just kb prior to arrival. Context: occurred at home, occurred while the patient was standing, just prior to the episode the patient experienced no apparent symptoms. Modifying factors: The symptoms are alleviated by nothing, the symptoms are aggravated by changing position. Associated signs and symptoms: The patient has no apparent associated signs or symptoms. Severity of symptoms: At their worst the symptoms were moderate in the emergency department the symptoms have improved moderately. Patient's baseline: Neuro: alert and fully oriented, Motor: no deficits, Ambulation: walks without assistance, Speech: normal. The patient has not experienced similar symptoms in the past. The patient has not recently seen a physician. 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 When she went to sit down to eat she felt dizzy so they called 911. EMS reports hypotension on scene that has improved after IV fluids. . Historical: - Allergies: 10:01 Sulfa (Sulfonamide Antibiotics); tw2 - Home Meds: 10:01 amitriptyline 25 mg Oral tab 1 tab once daily [Active]; Benicar 20 mg Oral tab 1 tab tw2 once daily [Active]; clopidogrel 75 mg Oral tab 1 tab once daily [Active]; metoprolol tartrate 50 mg Oral tab 1 tab once daily [Active]; paroxetine HCl 10 mg Oral tab 1 tab once daily [Active]; Vesicare 5 mg Oral tab 1 tab once daily [Active]; Vitamin B-12 Oral daily [Active]; Vitamin D Oral daily [Active]; - PMHx: 10:01 Depression; Hypertension; TIA; tw2 - PSHx: 10:01 Hysterectomy; ; tw2 - Immunization history:: Adult Immunizations. - Coronavirus screen:: The patient has NOT traveled to [place] in the past 14 days. - Social history:: Smoking status: . - Ebola Screening: : Patient denies travel to an Ebola-affected area in the 21 days before illness onset. ROS: 11:51 Constitutional: Negative for fever, chills, and weight loss, Eyes: Negative for injury, kb pain, redness, and discharge, ENT: Negative for injury, pain, and discharge, Neck: Negative for injury, pain, and swelling, Cardiovascular: Negative for chest pain, palpitations, and edema, Respiratory: Negative for shortness of breath, cough, wheezing, and pleuritic chest pain, Abdomen/GI: Negative for abdominal pain, nausea, vomiting, diarrhea, and constipation, Back: Negative for injury and pain, MS/Extremity: Negative for injury and deformity, Skin: Negative for injury, rash, and discoloration. 11:51 Neuro: Positive for dizziness. Exam: 11:55 Constitutional: This is a well developed, well nourished patient who is awake, alert, kb and in no acute distress. Head/Face: Normocephalic, atraumatic. Eyes: Pupils equal round and reactive to light, extra-ocular motions intact. Lids and lashes normal. Conjunctiva and sclera are non-icteric and not injected. Cornea within normal limits. Periorbital areas with no swelling, redness, or edema. ENT: Nares patent. No nasal discharge, no septal abnormalities noted. Tympanic membranes are normal and external auditory canals are clear. Oropharynx with no redness, swelling, or masses, exudates, or evidence of obstruction, uvula midline. Mucous membranes moist. Neck: Trachea midline, no thyromegaly or masses palpated, and no cervical lymphadenopathy. Supple, full range of motion without nuchal rigidity, or vertebral point tenderness. No Meningismus. Chest/axilla: Normal chest wall appearance and motion. Nontender with no deformity. No lesions are appreciated. Cardiovascular: Regular rate and rhythm with a normal S1 and S2. No gallops, murmurs, or rubs. Normal PMI, no JVD. No pulse deficits. Respiratory: Lungs have equal breath sounds bilaterally, clear to auscultation and percussion. No rales, rhonchi or wheezes noted. No increased work of breathing, no retractions or nasal flaring. Abdomen/GI: Soft, non-tender, with normal bowel sounds. No distension or tympany. No guarding or rebound. No evidence of tenderness throughout. Skin: Warm, dry with normal turgor. Normal color with no rashes, no lesions, and no evidence of cellulitis. MS/ Extremity: Pulses equal, no cyanosis. Neurovascular intact. Full, normal range of motion. Neuro: Awake and alert, GCS 15, oriented to person, place, time, and situation. Cranial nerves II-XII grossly intact. Motor strength 5/5 in all extremities. Sensory grossly intact. Cerebellar exam normal. Normal gait. 13:22 ECG was reviewed by the Attending Physician. kb Vital Signs: 09:58 BP 119 / 58; Pulse 58; Resp 16; Temp 97.9(TE); Pulse Ox 95% on R/A; Weight 56.7 kg (R); tw2 Height 5 ft. 8 in. (172.72 cm); Pain 0/10; 10:12 BP 106 / 57 Supine; Pulse 63; tw2 10:12 BP 104 / 55 Sitting; Pulse 62; Resp 17; tw2 10:12 BP 87 / 56 Standing; Pulse 62; tw2 10:23 BP 134 / 66 Supine; Pulse 58; tw2 11:28 BP 138 / 75 Standing; Pulse 61; Resp 16; Pulse Ox 100% on R/A; tw2 09:58 Body Mass Index 19.01 (56.70 kg, 172.72 cm) tw2 10:12 "i feel like i need to sit on the bed" pt states when taking standing BP tw2 MDM: 09:57 Patient medically screened. kb 11:54 Data reviewed: vital signs, nurses notes. Data reviewed: lab test result(s), EKG, kb radiologic studies. Data interpreted: Pulse oximetry: on room air is 100 %. Interpretation: normal. Counseling: I had a detailed discussion with the patient and/or guardian regarding: the historical points, exam findings, and any diagnostic results supporting the discharge/admit diagnosis, lab results, radiology results, the need for outpatient follow up, a family practitioner, to return to the emergency department if symptoms worsen or persist or if there are any questions or concerns that arise at home. 11:55 ED course: Symptoms resolved after IV fluids. Pt able to change positions without kb dizziness and vital signs remain stable. . 11/12 10:01 Order name: Basic Metabolic Panel kb 11/12 10:01 Order name: CBC with Diff kb 11/12 10:01 Order name: LFT's kb 11/12 10:01 Order name: Magnesium kb 11/12 10:01 Order name: NT PRO-BNP kb 11/12 10:01 Order name: PT-INR kb 11/12 10:01 Order name: Troponin (emerg Dept Use Only) kb 11/12 10:31 Order name: CBC with Automated Diff; Complete Time: 11:03 EDMS 11/12 10:38 Order name: Protime (+INR); Complete Time: 11:03 EDMS 11/12 10:46 Order name: Basic Metabolic Panel; Complete Time: 11:03 EDMS 11/12 10:46 Order name: Liver (Hepatic) Function; Complete Time: 11:03 EDMS 11/12 10:46 Order name: Troponin (Emerg Dept Use Only); Complete Time: 11:03 EDMS 11/12 10:46 Order name: NT PRO-BNP; Complete Time: 11:03 EDMS 11/12 10:46 Order name: Magnesium; Complete Time: 11:03 EDMS 11/12 10:01 Order name: XRAY Chest (1 view) kb 11/12 10:01 Order name: EKG; Complete Time: 10:03 kb 11/12 10:01 Order name: Cardiac monitoring; Complete Time: 10:04 kb 11/12 10:01 Order name: EKG - Nurse/Tech; Complete Time: 10:04 kb 11/12 10:01 Order name: IV Saline Lock; Complete Time: 10:04 kb 11/12 10:01 Order name: Labs collected and sent; Complete Time: 10:04 kb 11/12 10:01 Order name: O2 Per Protocol; Complete Time: 10: kb 11/12 10:01 Order name: O2 Sat Monitoring; Complete Time: 10:22 kb 11/12 10:03 Order name: Orthostatics; Complete Time: 10: kb 11/12 10:52 Order name: RAD; Complete Time: 11:03 EDMS EC:22 Rate is 59 beats/min. Rhythm is regular. Left axis deviation noted. WI interval is kb normal at 144 msec. QRS interval is normal at 82 msec. QT interval is normal at 454 msec. Administered Medications: 10:27 Drug: NS 0.9% 1000 ml Route: IV; Rate: 1000 ml; Site: right antecubital; tw2 11:45 Follow up: Response: No adverse reaction; IV Status: Completed infusion; IV Intake: tw2 1000ml 11:29 Drug: Magnesium Sulfate 2 grams Route: IVPB; Infused Over: 1 hrs; Site: right tw2 antecubital; 12:29 Follow up: IV Status: Completed infusion aj1 Disposition: 13:47 Co-signature as Attending Physician, Joel Silverman MD I agree with the assessment and caryl plan of care. Disposition: 11/12/19 11:57 Discharged to Home. Impression: Hypomagnesemia, Dehydration, Orthostatic hypotension. - Condition is Stable. - Discharge Instructions: Dehydration, Elderly, Orthostatic Hypotension. - Medication Reconciliation Form, Thank You Letter, Antibiotic Education, Prescription Opioid Use form. - Follow up: Emergency Department; When: As needed; Reason: Worsening of condition. Follow up: Private Physician; When: 2 - 3 days; Reason: Recheck today's complaints, Continuance of care, Re-evaluation by your physician. Signatures: Dispatcher [employer] EDDebbie Wright, MAKAYLA-C MAKAYLA-Laurence Thomas, RN RN aj1 Joel Silverman MD MD cha Wise, Tara, RN RN tw2 Corrections: (The following items were deleted from the chart) 11:57 11:57 11/12/2019 11:57 Discharged to Home. Impression: Hypomagnesemia; Dehydration. kb Condition is Stable. Forms are Medication Reconciliation Form, Thank You Letter, Antibiotic Education, Prescription Opioid Use. Follow up: Emergency Department; When: As needed; Reason: Worsening of condition. Follow up: Private Physician; When: 2 - 3 days; Reason: Recheck today's complaints, Continuance of care, Re-evaluation by your physician. kb 12:31 11:57 11/12/2019 11:57 Discharged to Home. Impression: Hypomagnesemia; Dehydration; aj1 Orthostatic hypotension. Condition is Stable. Discharge Instructions: Dehydration, Elderly, Orthostatic Hypotension. Forms are Medication Reconciliation Form, Thank You Letter, Antibiotic Education, Prescription Opioid Use. Follow up: Emergency Department; When: As needed; Reason: Worsening of condition. Follow up: Private Physician; When: 2 - 3 days; Reason: Recheck today's complaints, Continuance of care, Re-evaluation by your physician. kb
--- NOTE | 2019-11-12 11:58 | ER ---
Nurse's Notes [facility] Name: Connie Dos Santos Age: 84 yrs Sex: Female : 1935 Arrival Date: 11/12/2019 Time: 09:55 Bed 13 Private MD: Diagnosis: Hypomagnesemia;Dehydration;Orthostatic hypotension Presentation: 11/12 09:47 Presenting complaint: EMS states: pt was at home playing bridge with friends, became tw2 weak, friends ambulated with her to her cough and she was sweating profusely, she said that this has happened before but she doesn't remember what the doctors said about it from about 2 years ago, initially bp 70/40's, then about 400 ns she said she feels better, her last bp was 90/60's hr 60, she did have increase in dizziness and hr when standing during orthostatic pressures. bgl 129. Transition of care: patient was not received from another setting of care. Onset of symptoms was November 12, 2019. Risk Assessment: Do you want to hurt yourself or someone else? Patient reports no desire to harm self or others. Initial Sepsis Screen: Does the patient meet any 2 criteria? No. Patient's initial sepsis screen is negative. Does the patient have a suspected source of infection? No. Patient's initial sepsis screen is negative. Care prior to arrival: None. 09:47 Method Of Arrival: EMS: [facility] tw2 09:47 Acuity: BRANDY 3 tw2 Triage Assessment: 09:47 General: Appears in no apparent distress. Behavior is calm, cooperative, appropriate tw2 for age. Pain: Denies pain. Historical: - Allergies: 10:01 Sulfa (Sulfonamide Antibiotics); tw2 - Home Meds: 10:01 amitriptyline 25 mg Oral tab 1 tab once daily [Active]; Benicar 20 mg Oral tab 1 tab tw2 once daily [Active]; clopidogrel 75 mg Oral tab 1 tab once daily [Active]; metoprolol tartrate 50 mg Oral tab 1 tab once daily [Active]; paroxetine HCl 10 mg Oral tab 1 tab once daily [Active]; Vesicare 5 mg Oral tab 1 tab once daily [Active]; Vitamin B-12 Oral daily [Active]; Vitamin D Oral daily [Active]; - PMHx: 10:01 Depression; Hypertension; TIA; tw2 - PSHx: 10:01 Hysterectomy; ; tw2 - Immunization history:: Adult Immunizations. - Coronavirus screen:: The patient has NOT traveled to [place] in the past 14 days. - Social history:: Smoking status: . - Ebola Screening: : Patient denies travel to an Ebola-affected area in the 21 days before illness onset. Screenin:31 Abuse screen: Denies threats or abuse. Nutritional screening: No deficits noted. tw2 Tuberculosis screening: No symptoms or risk factors identified. Fall Risk Secondary diagnosis (15 points) impaired mobility. Assessment: 09:55 General: Appears in no apparent distress. well groomed, Behavior is calm, cooperative, tw2 appropriate for age. Pain: Denies pain. Neuro: Level of Consciousness is awake, alert, obeys commands, Oriented to person, place, time, situation. Cardiovascular: Heart tones S1 S2 Patient's skin is warm and dry. Respiratory: Airway is patent Respiratory effort is even, unlabored, Respiratory pattern is regular, symmetrical, Breath sounds are clear bilaterally. GI: No signs and/or symptoms were reported involving the gastrointestinal system. Abdomen is flat, Bowel sounds present X 4 quads. : No signs and/or symptoms were reported regarding the genitourinary system. EENT: No signs and/or symptoms were reported regarding the EENT system. Derm: No signs and/or symptoms reported regarding the dermatologic system. Musculoskeletal: Circulation, motion, and sensation intact. Range of motion: intact in all extremities. 10:30 Reassessment: Patient appears in no apparent distress at this time. No changes from tw2 previously documented assessment. Patient and/or family updated on plan of care and expected duration. Pain level reassessed. Patient is alert, oriented x 3, equal unlabored respirations, skin warm/dry/pink. 11:31 Reassessment: Patient appears in no apparent distress at this time. No changes from tw2 previously documented assessment. Patient and/or family updated on plan of care and expected duration. Pain level reassessed. Patient is alert, oriented x 3, equal unlabored respirations, skin warm/dry/pink. 12:30 Reassessment: Patient discharge pending completion of IV Magnesium. aj1 Vital Signs: 09:58 BP 119 / 58; Pulse 58; Resp 16; Temp 97.9(TE); Pulse Ox 95% on R/A; Weight 56.7 kg (R); tw2 Height 5 ft. 8 in. (172.72 cm); Pain 0/10; 10:12 BP 106 / 57 Supine; Pulse 63; tw2 10:12 BP 104 / 55 Sitting; Pulse 62; Resp 17; tw2 10:12 BP 87 / 56 Standing; Pulse 62; tw2 10:23 BP 134 / 66 Supine; Pulse 58; tw2 11:28 BP 138 / 75 Standing; Pulse 61; Resp 16; Pulse Ox 100% on R/A; tw2 09:58 Body Mass Index 19.01 (56.70 kg, 172.72 cm) tw2 10:12 "i feel like i need to sit on the bed" pt states when taking standing BP tw2 ED Course: 09:47 Placed in gown. Bed in low position. Call light in reach. Side rails up X2. Cardiac tw2 monitor on. Pulse ox on. NIBP on. Warm blanket given. 09:55 Patient arrived in ED. tw2 09:57 Debbie Umanzor FNP-C is PHCP. kb 09:57 Joel Silverman MD is Attending Physician. kb 09:58 Triage completed. tw2 09:59 Arm band placed on. tw2 10:01 EKG done, by fibre technologist. reviewed by Debbie BERRY. at1 10:04 Shayy Garcia RN is Primary Nurse. tw2 12:00 Report given to ALFIE Jeong. tw2 12:30 No provider procedures requiring assistance completed. IV discontinued, intact, aj1 bleeding controlled, No redness/swelling at site. Pressure dressing applied. Administered Medications: 10:27 Drug: NS 0.9% 1000 ml Route: IV; Rate: 1000 ml; Site: right antecubital; tw2 11:45 Follow up: Response: No adverse reaction; IV Status: Completed infusion; IV Intake: tw2 1000ml 11:29 Drug: Magnesium Sulfate 2 grams Route: IVPB; Infused Over: 1 hrs; Site: right tw2 antecubital; 12:29 Follow up: IV Status: Completed infusion aj1 Intake: 11:45 IV: 1000ml; Total: 1000ml. tw2 Outcome: 11:57 Discharge ordered by . kb 12:30 Discharged to home via wheelchair, with family. aj1 12:30 Condition: good 12:30 Discharge instructions given to patient, family, Instructed on discharge instructions, follow up and referral plans. Demonstrated understanding of instructions, follow-up care. 12:31 Patient left the ED. aj1 Signatures: Debbie Umanzor, SOLID WASTE FACILITY OPERATOR-C SOLID WASTE FACILITY OPERATOR-Laurence Thomas, RN RN aj1 Piper Doyle, champion of sustainable design EKG Tat1 Shayy Garcia RN RN tw2
--- NOTE | 2019-11-12 13:33 | EKG ---
Test Date: 2019-11-12 Test Time: 09:53:05 [employer] Supervisor: MIGUEL MEASUREMENT RESULTS: Intervals: Rate: 59 TX: 144 QRSD: 82 QT: 454 QTc: 449 [place]: P: 70 TX: 144 QRS: -86 T: 58 INTERPRETIVE STATEMENTS: Sinus bradycardia Left axis deviation Septal infarct, age undetermined Abnormal ECG Compared to ECG 02/20/2018 09:49:22 Left-axis deviation now present Sinus rhythm no longer present Right superior axis no longer present Myocardial infarct finding still present Electronically Signed On 11-12-19 13:32:36 WORT EXTRACTOR by Angus Goodrich
[2019-11-12 19:39] VITALS: TEMP 97.9
[2019-11-12 19:42] VITALS: BP 138/75; O2SAT 100
== END 2019-11-12 12:31 | disposition home or self-care (01) ==
LOC: ER 09:48
DX: I95.1 Orthostatic hypotension (principal); E86.0 Dehydration; E83.42 Hypomagnesemia; Z88.2 Allergy status to sulfonamides; Z86.73 Personal history of transient ischemic attack (TIA), and cerebral infarction without residual deficits; F32.9 Major depressive disorder, single episode, unspecified
CPT/HCPCS: 96365; 96361; 93005; 85025; 80048; 36415; 83735; 85610; 80076; 84484; 83880; 71045; 99284; J3475; J7030

== ENCOUNTER 2020-09-04 05:22 | Emergency (ER) | payer OTHER ==
[2020-09-04] MEDS ORDERED: LORazepam 2 MG/ML VIAL ONE (05:40)
--- NOTE | 2020-09-04 06:49 | ER ---
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 Pt with no Hx of anxiety. Coronavirus screen: Client denies travel out of the [place] in the last 14 days. At this time, the client does not indicate any symptoms associated with coronavirus-19. Ebola Screen: Patient negative for fever greater than or equal to 101.5 degrees Fahrenheit, and additional compatible Ebola Virus Disease symptoms Patient denies exposure to infectious person. Initial Sepsis Screen: Does the patient meet any 2 criteria? RR > 20 per min. HR > 90 bpm. No. Patient's initial sepsis screen is negative. Does the patient have a suspected source of infection? No. Patient's initial sepsis screen is negative. Risk Assessment: Do you want to hurt yourself or someone else? Patient reports no desire to harm self or others. Onset of symptoms was September 04, 2020. 05:29 Method Of Arrival: EMS: [facility] 05:29 Acuity: BRANDY 4 Historical: - Allergies: 05:29 Sulfa (Sulfonamide Antibiotics); wh - PMHx: 05:29 Depression; Hypertension; TIA; wh - Immunization history:: Adult Immunizations unknown. - Social history:: Smoking status: Patient/guardian denies using. Screenin:30 Abuse screen: Denies threats or abuse. Denies injuries from another. Nutritional screening: No deficits noted. Tuberculosis screening: No symptoms or risk factors identified. Fall Risk None identified. Assessment: 05:31 General: Appears distressed, Behavior is anxious. Pain: Denies pain. Neuro: Level of wh Consciousness is awake, alert, obeys commands, Oriented to person, place, time, situation. Cardiovascular: Capillary refill < 3 seconds. Respiratory: Airway is patent Respiratory effort is even, unlabored, Respiratory pattern is hyperventilation. GI: Abdomen is flat, non-distended. : No signs and/or symptoms were reported regarding the genitourinary system. EENT: No signs and/or symptoms were reported regarding the EENT system. Derm: Skin is intact, is healthy with good turgor, Skin is pink, warm \T\ dry. normal. Musculoskeletal: Circulation, motion, and sensation intact. 06:30 Reassessment: Patient appears in no apparent distress at this time. Son at bedside with lp1 patient; Patient appears calm, happy, interactive with son. 06:47 Reassessment: Patient appears in no apparent distress at this time. No changes from previously documented assessment. Patient and/or family updated on plan of care and expected duration. Pain level reassessed. Patient is alert, oriented x 3, equal unlabored respirations, skin warm/dry/pink. Vital Signs: 05:29 BP 115 / 60; Pulse 108; Resp 24; Temp 97.5; Pulse Ox 100% on R/A; wh 06:00 BP 142 / 63; Pulse 96; Resp 20; Pulse Ox 100% on R/A; lp1 06:30 BP 135 / 76; Pulse 90; Resp 19; Pulse Ox 98% on R/A; lp1 ED Course: 05:23 Patient arrived in ED. ag3 05:27 Misty Patten is Primary Nurse. 05:30 Triage completed. 05:32 Patient has correct armband on for positive identification. Bed in low position. Call light in reach. Side rails up X 1. disintegrator operator on. Pulse ox on. NIBP on. 05:32 Arm band placed on right wrist. 05:36 Yousuf Hernandez MD is Attending Physician. tw4 05:57 Misty Patten is Primary Nurse. 07:08 No provider procedures requiring assistance completed. Patient did not have IV access during this emergency room visit. Administered Medications: 05:35 Drug: Ativan 1 mg {Note: RASS 0.} Route: IM; Site: right vastus lateralis; 06:48 Follow up: Response: No adverse reaction; RASS: Alert and Calm (0) Outcome: 06:49 Discharge ordered by . tw4 07:08 Discharged to home via wheelchair, with family. 07:08 Condition: stable 07:08 Discharge instructions given to patient, family, Instructed on discharge instructions, follow up and referral plans. no drinking with medication, no driving heavy equipment, medication usage, POC Demonstrated understanding of instructions, follow-up care, medications, POC Prescriptions given X 1. 07:09 Patient left the ED. Signatures: Ivana Cohen RN RN lp1 Misty Patten Terrence, MD MD tw4 Estela Zavaleta ag3 Corrections: (The following items were deleted from the chart) 05:59 05:31 Neuro: Level of Consciousness is awake, alert, obeys commands, Oriented to person, place, time, situation, Appropriate for age
--- NOTE | 2020-09-04 06:50 | EDPHYS ---
Physician Documentation [facility] Name: Connie Dos Santos Age: 85 yrs Sex: Female : 1935 Arrival Date: 09/04/2020 Time: 05:23 Bed 6 Private MD: ED Physician Yousuf Hernandez HPI: 09/04 05:39 This 85 yrs old Female presents to ER via EMS with complaints of Anxiety. tw4 05:39 The patient presents to the emergency department with anxiety, over unknown tw4 circumstances. Onset: The symptoms/episode began/occurred just prior to arrival. Past psychiatric history: Prior diagnosis: no previous psychiatric diagnosis known. Associated signs and symptoms: The patient has no apparent associated signs or symptoms. The patient has not experienced similar symptoms in the past. Historical: - Allergies: 05:29 Sulfa (Sulfonamide Antibiotics); wh - PMHx: 05:29 Depression; Hypertension; TIA; wh - Immunization history:: Adult Immunizations unknown. - Social history:: Smoking status: Patient/guardian denies using. ROS: 05:39 Constitutional: Negative for fever, chills, and weight loss, Eyes: Negative for injury, tw4 pain, redness, and discharge, Cardiovascular: Negative for chest pain, palpitations, and edema, Respiratory: Negative for shortness of breath, cough, wheezing, and pleuritic chest pain, Abdomen/GI: Negative for abdominal pain, nausea, vomiting, diarrhea, and constipation, Back: Negative for injury and pain, Skin: Negative for injury, rash, and discoloration, Neuro: Negative for headache, weakness, numbness, tingling, and seizure. Exam: 05:39 Constitutional: This is a well developed, well nourished patient who is awake, alert, tw4 and in no acute distress. Head/Face: Normocephalic, atraumatic. Chest/axilla: Normal chest wall appearance and motion. Nontender with no deformity. No lesions are appreciated. Cardiovascular: Regular rate and rhythm with a normal S1 and S2. No gallops, murmurs, or rubs. Normal PMI, no JVD. No pulse deficits. Respiratory: Lungs have equal breath sounds bilaterally, clear to auscultation and percussion. No rales, rhonchi or wheezes noted. No increased work of breathing, no retractions or nasal flaring. Abdomen/GI: Soft, non-tender, with normal bowel sounds. No distension or tympany. No guarding or rebound. No evidence of tenderness throughout. Back: No spinal tenderness. No costovertebral tenderness. Full range of motion. MS/ Extremity: Pulses equal, no cyanosis. Neurovascular intact. Full, normal range of motion. Neuro: Awake and alert, GCS 15, oriented to person, place, time, and situation. Cranial nerves II-XII grossly intact. Motor strength 5/5 in all extremities. Sensory grossly intact. Cerebellar exam normal. Normal gait. 05:39 Psych: Behavior/mood is anxious, Affect is animated, Patient has no thoughts/intents to harm self or others. Vital Signs: 05:29 BP 115 / 60; Pulse 108; Resp 24; Temp 97.5; Pulse Ox 100% on R/A; 06:00 BP 142 / 63; Pulse 96; Resp 20; Pulse Ox 100% on R/A; lp1 06:30 BP 135 / 76; Pulse 90; Resp 19; Pulse Ox 98% on R/A; lp1 MDM: 05:36 Patient medically screened. tw4 Administered Medications: 05:35 Drug: Ativan 1 mg {Note: RASS 0.} Route: IM; Site: right vastus lateralis; 06:48 Follow up: Response: No adverse reaction; RASS: Alert and Calm (0) Disposition: 09/04/20 06:49 Discharged to Home. Impression: Panic disorder [episodic paroxysmal anxiety] without agoraphobia. - Condition is Stable. - Discharge Instructions: Panic Attacks. - Prescriptions for Ativan 0.5 mg Oral Tablet - take 1 tablet by ORAL route every 8 hours As needed; 10 tablet. - Medication Reconciliation Form, Thank You Letter, Antibiotic Education, Prescription Opioid Use form. - Follow up: Private Physician; When: Upon discharge from the Emergency Department; Reason: Recheck today's complaints, Continuance of care, Re-evaluation by your physician. - Problem is new. - Symptoms have improved. Signatures: Misty Patten Yousuf Hernandez MD MD tw4 Corrections: (The following items were deleted from the chart) 07:09 06:49 09/04/2020 06:49 Discharged to Home. Impression: Panic disorder [episodic wh paroxysmal anxiety] without agoraphobia. Condition is Stable. Forms are Medication Reconciliation Form, Thank You Letter, Antibiotic Education, Prescription Opioid Use. Follow up: Private Physician; When: Upon discharge from the Emergency Department; Reason: Recheck today's complaints, Continuance of care, Re-evaluation by your physician. Problem is new. Symptoms have improved. tw4
[2020-09-07 18:21] VITALS: TEMP 97.5
[2020-09-07 18:23] VITALS: BP 135/76; O2SAT 98
== END 2020-09-04 07:09 | disposition home or self-care (01) ==
LOC: ER 05:22
DX: F41.0 Panic disorder [episodic paroxysmal anxiety] (principal); I10 Essential (primary) hypertension; Z88.2 Allergy status to sulfonamides
CPT/HCPCS: 96372; 99284

== ENCOUNTER 2020-09-06 05:25 | Observation (INO) | payer OTHER ==
[2020-09-06] MEDS ORDERED: NA CHLORIDE 0.9% 1,000 ML ONE (06:50)
[2020-09-06] MEDS ORDERED: NA CHLORIDE 0.9% 500 ML ONE (06:50)
[2020-09-06 07:08] LABS: Hematocrit 35.6 % (36.0-45.0); Lymphocytes % 14.7 % (15.3-44.8); MPV 7.4 fL (7.6-11.3); RBC Red Blood Cell Count 3.72 M/uL (3.86-4.86)
[2020-09-06 07:21] LABS: Protime INR 0.99
[2020-09-06 07:51] LABS: Albumin 3.2 g/dL (3.4-5.0); Bilirubin Direct 0.2 mg/dL (0-0.2); Bilirubin Total 0.9 mg/dL (0.2-1.0); Magnesium 2.1 mg/dL (1.8-2.4); Potassium 3.6 mmol/L (3.5-5.1); Protein, Total 7.1 g/dL (6.4-8.2); Troponin (Emerg Dept Use Only) 0.03 ng/mL (0.0-0.045)
--- NOTE | 2020-09-06 08:05 | EDPHYS ---
Physician Documentation [facility] Name: Connie Dos Santos Age: 85 yrs Sex: Female : 1935 Arrival Date: 09/06/2020 Time: 05:27 Bed 12 Private MD: ED Physician HPI: 09/06 05:51 This 85 yrs old Female presents to ER via Unassigned with complaints of caryl Breathing Difficulty. 05:51 The patient has shortness of breath at rest, with light activity. Onset: The caryl symptoms/episode began/occurred 2 day(s) ago. Duration: The symptoms are continuous, and are steadily getting worse. The patient's shortness of breath has no apparent modifying factors. Associated signs and symptoms: Pertinent positives: non-productive cough. Severity of symptoms: At their worst the symptoms were mild moderate in the emergency department the symptoms are unchanged. The patient has not experienced similar symptoms in the past. Historical: - Allergies: 05:55 Sulfa (Sulfonamide Antibiotics); sg - PMHx: 05:55 Depression; Hypertension; TIA; sg - Immunization history:: Adult Immunizations. - Social history:: Smoking status: Patient denies any tobacco usage or history of. - Family history:: not pertinent. ROS: 05:52 Constitutional: Negative for fever, chills, and weight loss, Eyes: Negative for injury, caryl pain, redness, and discharge, ENT: Negative for injury, pain, and discharge, Neck: Negative for injury, pain, and swelling, Cardiovascular: Negative for chest pain, palpitations, and edema, Respiratory: Negative for shortness of breath, cough, wheezing, and pleuritic chest pain, Abdomen/GI: Negative for abdominal pain, nausea, vomiting, diarrhea, and constipation, Back: Negative for injury and pain, : Negative for injury, bleeding, discharge, and swelling, MS/Extremity: Negative for injury and deformity, Psych: Negative for depression, anxiety, suicide ideation, homicidal ideation, and hallucinations, Allergy/Immunology: Negative for hives, rash, and allergies, Endocrine: Negative for neck swelling, polydipsia, polyuria, polyphagia, and marked weight changes, Hematologic/Lymphatic: Negative for swollen nodes, abnormal bleeding, and unusual bruising. 05:52 Skin: Positive for pallor. 05:52 Neuro: Positive for near syncope, weakness. Exam: 05:52 Constitutional: This is a well developed, well nourished patient who is awake, alert, caryl and in no acute distress. Head/Face: Normocephalic, atraumatic. Eyes: Pupils equal round and reactive to light, extra-ocular motions intact. Lids and lashes normal. Conjunctiva and sclera are non-icteric and not injected. Cornea within normal limits. Periorbital areas with no swelling, redness, or edema. ENT: Nares patent. No nasal discharge, no septal abnormalities noted. Tympanic membranes are normal and external auditory canals are clear. Oropharynx with no redness, swelling, or masses, exudates, or evidence of obstruction, uvula midline. Mucous membranes moist. Neck: Trachea midline, no thyromegaly or masses palpated, and no cervical lymphadenopathy. Supple, full range of motion without nuchal rigidity, or vertebral point tenderness. No Meningismus. Chest/axilla: Normal chest wall appearance and motion. Nontender with no deformity. No lesions are appreciated. Cardiovascular: Regular rate and rhythm with a normal S1 and S2. No gallops, murmurs, or rubs. Normal PMI, no JVD. No pulse deficits. Respiratory: Lungs have equal breath sounds bilaterally, clear to auscultation and percussion. No rales, rhonchi or wheezes noted. No increased work of breathing, no retractions or nasal flaring. Abdomen/GI: Soft, non-tender, with normal bowel sounds. No distension or tympany. No guarding or rebound. No evidence of tenderness throughout. Back: No spinal tenderness. No costovertebral tenderness. Full range of motion. Female : Normal external genitalia. MS/ Extremity: Pulses equal, no cyanosis. Neurovascular intact. Full, normal range of motion. Neuro: Awake and alert, GCS 15, oriented to person, place, time, and situation. Cranial nerves II-XII grossly intact. Motor strength 5/5 in all extremities. Sensory grossly intact. Cerebellar exam normal. Normal gait. 05:52 Musculoskeletal/extremity: Exam is negative for DVT Exam: No signs of deep vein thrombosis. no pain, no swelling, no tenderness, negative Homans' sign noted on exam, no appreciated bluish discoloration, no erythema, no increased warmth. 05:52 Skin: Appearance: Color: pale, Temperature: normal temperature, Moisture: normal moisture, petechiae, not noted, ecchymosis, not noted. 05:52 Psych: Behavior/mood is pleasant, cooperative, anxious, Affect is animated, Oriented to person, place, time, Patient has no thoughts/intents to harm self or others. Judgement / Insight is normal. Memory is normal. Delusions/hallucinations are not present. 06:31 ECG was reviewed by the Attending Physician. caryl Vital Signs: 05:52 Pulse 87; Resp 19 S; Pulse Ox 100% on R/A; sg 06:49 BP 141 / 85; Pulse 65; Resp 20; Temp 98.9; Pulse Ox 98% ; ea 08:14 Weight 66.2 kg (M); em NIH Stroke Scale Scores: 05:52 NIHSS Score: 0 caryl MDM: 05:30 Patient medically screened. caryl 05:54 Differential diagnosis: Anemia Anxiety Reaction CHF exacerbation, pulmonary edema, caryl reactive airway disease, Sepsis Unstable Angina. Antibiotic administration: Not indicated. Differential Diagnosis: emotional response, GI bleed, idiopathic syncope, vasovagal episode, electrolyte abnormality, hypoglycemia, pneumonia, TIA, UTI, volume depletion. The patient's Wells Deep Vein Thrombosis Score was calculated as follows: Total Score: 0-2 Pts- Low Risk. The patient's pulmonary embolism risk score was calculated as follows: Total Score: 0-2 points. This patient was found to be at low risk for a pulmonary embolism by using the Well's assessment criteria. Immunization status: Pneumococcal vaccine: Influenza vaccine: Data reviewed: vital signs, nurses notes, lab test result(s), EKG, radiologic studies, CT scan, plain films. Data interpreted: security monitor: rate is 65 beats/min, rhythm is regular, Pulse oximetry: on room air is 96 %. Test interpretation: by ED physician or midlevel provider: ECG, plain radiologic studies. 09/06 05:50 Order name: Basic Metabolic Panel [facility] 09/06 05:50 Order name: CBC with Diff [facility] 09/06 05:50 Order name: LFT's [facility] 09/06 05:50 Order name: Magnesium [facility] 09/06 05:50 Order name: NT PRO-BNP [facility] 09/06 05:50 Order name: PT-INR [facility] 09/06 05:50 Order name: Troponin (emerg Dept Use Only) [facility] 09/06 05:50 Order name: Lipase [facility] 09/06 05:50 Order name: ABG: room air [facility] 09/06 05:50 Order name: Urine Culture [facility] 09/06 05:50 Order name: Basic Metabolic Panel; Complete Time: 07:59 EDMS 09/06 05:50 Order name: CBC with Automated Diff; Complete Time: 07:24 EDMS 09/06 05:50 Order name: Liver (Hepatic) Function; Complete Time: 07:59 EDMS 09/06 05:51 Order name: COVID-19 [facility] 09/06 05:50 Order name: XRAY Chest (1 view); Complete Time: 18:52 [facility] 09/06 05:51 Order name: D-Dimer [facility] 09/06 07:11 Order name: Lipase; Complete Time: 07:24 EDMS 09/06 07:20 Order name: D-Dimer; Complete Time: 07:24 EDMS 09/06 07:35 Order name: Protime (+INR); Complete Time: 07:59 EDMS 12 07:56 Order name: Troponin (Emerg Dept Use Only); Complete Time: 07:59 EDMS 09/06 07:56 Order name: NT PRO-BNP; Complete Time: 07:59 EDMS 09/06 07:56 Order name: Magnesium; Complete Time: 07:59 EDMS 09/06 08:02 Order name: US Extremity Venous W Compression Ovi; Complete Time: 13:07 [facility] 09/06 09:07 Order name: [facility] 09/06 09:59 Order name: SARS-COV-2 RT PCR; Complete Time: 18:52 EDMS 12 10:31 Order name: Urine Culture [facility] 09/06 14:16 Order name: Troponin I; Complete Time: 18:52 [facility] 09/06 18:03 Order name: Troponin I; Complete Time: 18:52 [facility] 09/06 05:50 Order name: EKG; Complete Time: 05:51 [facility] 09/06 05:50 Order name: Cardiac monitoring; Complete Time: 06:32 [facility] 09/06 05:50 Order name: EKG - Nurse/Tech; Complete Time: 06:32 [facility] 09/06 05:50 Order name: IV Saline Lock; Complete Time: 06:32 [facility] 09/06 05:50 Order name: Labs collected and sent; Complete Time: 06:32 [facility] 09/06 05:50 Order name: O2 Per Protocol; Complete Time: 06:32 caryl 09/06 05:50 Order name: O2 Sat Monitoring; Complete Time: 06:32 caryl 09/06 12:18 Order name: Diet Ada 1800 Alhaji; Complete Time: 12:18 em EC:31 Rate is 70 beats/min. QRS [place] is Normal. NV interval is normal. QRS interval is caryl normal. QT interval is normal. No Q waves. T waves are Normal. No ST changes noted. Clinical impression: NSR w/ Non-specific ST/T Changes and No evidence of ischemia. Interpreted by me. Reviewed by me. Administered Medications: 06:48 Drug: NS 0.9% 500 ml Route: IV; Rate: bolus; Site: right forearm; ea 06:48 Drug: NS 0.9% 1000 ml Route: IV; Rate: 125 ml/hr; Site: right forearm; ea 09:46 Not Given (Patient Refused): Pepcid 20 mg IVP once em 09:46 Not Given (Patient Refused; states she takes plavix ): Lovenox 1 mg/kg Sub-Q once em Disposition: 09/06/20 08:05 Hospitalization ordered by Cheko Esquivel for Observation. Preliminary diagnosis are Dyspnea, Anxiety disorder, unspecified, Unspecified kidney failure - chronic. - Bed requested for [facility] ER HOLD. - Status is Observation. iw - Condition is Fair. - Problem is new. - Symptoms have improved. NIH Stroke Scale - NIH Stroke Score Date: 09/06/2020 Time: 05:52 Total Score = 0 1a. Level of Consciousness (LOC) - 0(Alert) 1b. Level of Consciousness (LOC) (Year \T\ Age) - 0(Both) 1c. LOC Commands (Open \T\ Closes Eyes/Photoengraving Etcher) - 0(Both) 2. Best Gaze (Lateral Gaze Paresis) - 0(Normal) 3. Visual Field Loss - 0(No visual loss) 4. Facial Palsy - 0(Normal) 5a. Left Arm: Motor (10-second hold) - 0(No drift) 5b. Right Arm: Motor (10-second hold) - 0(No drift) 6a. Left Leg: Motor (5-second hold - always test supine) - 0(No drift) 6b. Right Leg: Motor (5-second hold - always test supine) - 0(No drift) 7. Limb Ataxia (finger/nose \T\ heel/palafox - test with eyes open) - 0(Absent) 8. Sensory Loss (pinprick arms/legs/face) - 0(Normal) 9. Best Language: Aphasia (description/naming/reading) - 0(No aphasia) 10. Dysarthria (speech clarity - read or repeat words) - 0(Normal) 11. Extinction and Inattention (visual/tactile/auditory/spatial/personal) - 0(No abnormality) Initials: [facility] Signatures: Dispatcher [employer] EDMS Kaiser ElliCele Banerjee RN Rasheed Lara RN Joel Castro MD MD cha Mickail, Joel, PA PA jmm Williams, Irene RN ALFIE iw Mavis Carpio RN Azael Alan ea, RN em Corrections: (The following items were deleted from the chart) 08:00 07:26 Chest For PE Angio+CT.RAD.BRZ ordered. EDWY EDMS 10:29 08:05 Hospitalization Ordered by Cheko Esquivel MD for Observation. Preliminary bd diagnosis is Dyspnea; Anxiety disorder, unspecified; Unspecified kidney failure - chronic. Bed requested for Telemetry/MedSurg (observation). Status is Observation. Condition is Fair. Problem is new. Symptoms have improved. caryl 19:10 10:29 09/06/2020 08:05 Hospitalization Ordered by Cheko Esquivel MD for sv Observation. Preliminary diagnosis is Dyspnea; Anxiety disorder, unspecified; Unspecified kidney failure - chronic. Bed requested for [facility] ER HOLD. Status is Observation. Condition is Fair. Problem is new. Symptoms have improved. bd 21:09 19:10 09/06/2020 08:05 Hospitalization Ordered by Cheko Esquivel MD for iw Observation. Preliminary diagnosis is Dyspnea; Anxiety disorder, unspecified; Unspecified kidney failure - chronic. Bed requested for [facility] ER HOLD. Status is Observation. Condition is Fair. Problem is new. Symptoms have improved. sv
--- NOTE | 2020-09-06 08:05 | ER ---
Nurse's Notes [facility] Name: Connie Dos Santos Age: 85 yrs Sex: Female : 1935 Arrival Date: 09/06/2020 Time: 05:27 Bed 12 Private MD: Diagnosis: Dyspnea;Anxiety disorder, unspecified;Unspecified kidney failure-chronic Presentation: 09/06 05:52 Chief complaint: Patient's son or daughter states: She woke me up this morning and was sg shouting that she couldn't catch her breath, no fever chills at home, no other symptoms reported. pt appears anxious at this time. Coronavirus screen: shortness of breath, shaking Client presents with at least one sign or symptom that may indicate coronavirus-19. Provider contacted for isolation considerations. Ebola Screen: Patient negative for fever greater than or equal to 101.5 degrees Fahrenheit, and additional compatible Ebola Virus Disease symptoms Patient denies exposure to infectious person. Patient denies travel to an Ebola-affected area in the 21 days before illness onset. No symptoms or risks identified at this time. Initial Sepsis Screen: Does the patient meet any 2 criteria? No. Patient's initial sepsis screen is negative. Does the patient have a suspected source of infection? No. Patient's initial sepsis screen is negative. Risk Assessment: Do you want to hurt yourself or someone else? Patient reports no desire to harm self or others. Onset of symptoms was September 06, 2020. Care prior to arrival: None. Transition of care: patient was not received from another setting of care. 05:52 Method Of Arrival: Wheelchair 05:52 Acuity: BRANDY 3 sg Triage Assessment: 06:33 General: Appears in no apparent distress. Behavior is drowsy. Pain: Denies pain. Neuro: ea Level of Consciousness is obeys commands, Oriented to person. Neuro: Oriented to. Respiratory:. Respiratory: Airway is patent Respiratory effort is even, unlabored, Respiratory pattern is regular, symmetrical. Derm: Skin is pink, warm \T\ dry. Historical: - Allergies: 05:55 Sulfa (Sulfonamide Antibiotics); sg - PMHx: 05:55 Depression; Hypertension; TIA; sg - Immunization history:: Adult Immunizations. - Social history:: Smoking status: Patient denies any tobacco usage or history of. - Family history:: not pertinent. Screenin:32 Abuse screen: Denies threats or abuse. Nutritional screening: No deficits noted. ea Tuberculosis screening: No symptoms or risk factors identified. Fall Risk IV access (20 points). Assessment: 07:30 General: Appears in no apparent distress. comfortable, Behavior is calm, cooperative, em Denies fever. Pain: Denies pain. Neuro: Level of Consciousness is awake, alert, obeys commands, Oriented to person, place, time, situation, Appropriate for age. Cardiovascular: Rhythm is regular. Respiratory: Airway is patent Breath sounds are clear bilaterally. Derm: Skin is intact, is fragile, is thin, Skin is pink, warm \T\ dry. Musculoskeletal: Capillary refill < 3 seconds, Range of motion: intact in all extremities. 08:30 Reassessment: Patient appears in no apparent distress at this time. Patient and/or em family updated on plan of care and expected duration. Pain level reassessed. Patient is alert, oriented x 3, equal unlabored respirations, skin warm/dry/pink. 09:30 Reassessment: Patient appears in no apparent distress at this time. Patient and/or em family updated on plan of care and expected duration. Pain level reassessed. Patient is alert, oriented x 3, equal unlabored respirations, skin warm/dry/pink. 10:30 Reassessment: Patient appears in no apparent distress at this time. Patient and/or em family updated on plan of care and expected duration. Pain level reassessed. Patient is alert, oriented x 3, equal unlabored respirations, skin warm/dry/pink. 19:15 Reassessment: Pt son asking if she can get anxiolytic before going home, notified wh Primary Alvin asking for call back. 19:45 Reassessment: [facility] Primary Alvin with orders made and carried out. Awaiting Son who is wh just picking up prescription for meds at home. Vital Signs: 05:52 Pulse 87; Resp 19 S; Pulse Ox 100% on R/A; sg 06:49 BP 141 / 85; Pulse 65; Resp 20; Temp 98.9; Pulse Ox 98% ; ea 08:14 Weight 66.2 kg (M); em NIH Stroke Scale Scores: 05:52 NIHSS Score: 0 caryl ED Course: 05:27 Patient arrived in ED. ag3 05:30 Joel Silverman MD is Attending Physician. caryl 05:52 Arm band placed on. sg 05:55 Triage completed. sg 06:32 Patient has correct armband on for positive identification. Bed in low position. Call ea light in reach. Side rails up X2. site monitor on. Pulse ox on. NIBP on. 06:32 Inserted saline lock: 20 gauge in right forearm, using aseptic technique. Blood ea collected. 06:38 XRAY Chest (1 view) In Process Unspecified. EDMS 07:19 Azael Christianson RN is Primary Nurse. em 07:19 Notified ED physician of a critical lab result(s). DDIMER [id number]. hb 08:04 Cheko Esquivel MD is Hospitalizing Provider. caryl 08:40 US Extremity Venous W Compression Ovi In Process Unspecified. EDMS 16:19 No provider procedures requiring assistance completed. em 19:10 Primary Nurse role handed off by Azael Christianson RN mw2 19:18 Attending Physician role handed off by Joel Silverman MD wh Administered Medications: 06:48 Drug: NS 0.9% 500 ml Route: IV; Rate: bolus; Site: right forearm; ea 06:48 Drug: NS 0.9% 1000 ml Route: IV; Rate: 125 ml/hr; Site: right forearm; ea 09:46 Not Given (Patient Refused): Pepcid 20 mg IVP once em 09:46 Not Given (Patient Refused; states she takes plavix ): Lovenox 1 mg/kg Sub-Q once em Outcome: 08:05 Decision to Hospitalize by Provider. caryl 19:10 Patient left the ED. sv 21:09 Patient left the ED. iw NIH Stroke Scale - NIH Stroke Score Date: 09/06/2020 Time: 05:52 Total Score = 0 1a. Level of Consciousness (LOC) - 0(Alert) 1b. Level of Consciousness (LOC) (Year \T\ Age) - 0(Both) 1c. LOC Commands (Open \T\ Closes Eyes/Bariatric Physician) - 0(Both) 2. Best Gaze (Lateral Gaze Paresis) - 0(Normal) 3. Visual Field Loss - 0(No visual loss) 4. Facial Palsy - 0(Normal) 5a. Left Arm: Motor (10-second hold) - 0(No drift) 5b. Right Arm: Motor (10-second hold) - 0(No drift) 6a. Left Leg: Motor (5-second hold - always test supine) - 0(No drift) 6b. Right Leg: Motor (5-second hold - always test supine) - 0(No drift) 7. Limb Ataxia (finger/nose \T\ heel/palafox - test with eyes open) - 0(Absent) 8. Sensory Loss (pinprick arms/legs/face) - 0(Normal) 9. Best Language: Aphasia (description/naming/reading) - 0(No aphasia) 10. Dysarthria (speech clarity - read or repeat words) - 0(Normal) 11. Extinction and Inattention (visual/tactile/auditory/spatial/personal) - 0(No abnormality) Initials: caryl Signatures: Dispatcher [employer] Cele Beltran, Rasheed Lara RN RN Joel Castro MD MD cha Munoz, Edgar RN Ronda Herring, RN Cassie Hines RN RN hb Antunez, Elena RN Misty Savage ea, [facility] Estela Zavaleta 3
--- NOTE | 2020-09-06 09:23 | RAD REPORT ---
EXAM DESCRIPTION: RAD - Chest Single View - 09/06/2020 6:39 am CLINICAL HISTORY: DYSPNEA COMPARISON: Portable November 12 TECHNIQUE: AP portable chest image was obtained 09/06/2020 6:39 am . FINDINGS: Scattered interstitial fibrotic changes are present matching comparison. No failure, infil trate or mass identifiable. Heart and vasculature are normal. No measurable pleural effusion and no p neumothorax. No acute bony abnormality seen. No acute aortic findings suspected. IMPRESSION: No acute cardiopulmonary process. No significant change from comparison study.
--- NOTE | 2020-09-06 09:32 | RAD REPORT ---
EXAM DESCRIPTION: US - Extrem Venous W Compress Ovi - 09/06/2020 8:40 am CLINICAL HISTORY: PAIN COMPARISON: None. TECHNIQUE: Real-time sonographic evaluation of the bilateral lower extremity common femoral, superfi cial femoral, popliteal and posterior tibial veins was performed. FINDINGS: Normal compressibility, flow augmentation, phasic flow and spontaneous flow are identified in the left and right lower extremity common femoral, superficial femoral, popliteal and posterior t ibial veins. No intraluminal filling defects seen. IMPRESSION: No DVT in either lower extremity.
[2020-09-06] MEDS ORDERED: FAMOTIDINE 20 MG/2 ML VIAL IV SCH (10:27)
[2020-09-06] MEDS ORDERED: MORPHINE 2 MG/ML SYR IV PRN (10:27)
[2020-09-06] MEDS ORDERED: ASPIRIN EC 81 MG TAB PO SCH (10:27)
[2020-09-06] MEDS ORDERED: ONDANSETRON 4 MG/2 ML VIAL IV PRN (10:27)
[2020-09-06] MEDS ORDERED: ACETAMINOPHEN 325 MG TABLET PO PRN (10:27)
[2020-09-06] MEDS ORDERED: ENOXAPARIN 60 MG/0.6 ML SQ SCH (10:27)
[2020-09-06] MEDS ORDERED: LORazepam 2 MG/ML VIAL ONE (11:12)
[2020-09-06] MEDS ORDERED: LORazepam 2 MG/ML VIAL IV ONE (11:21)
--- NOTE | 2020-09-06 11:41 | EKG ---
Test Date: 2020-09-06 Test Time: 06:20:17 Mechanical Meter Tester: JONATHAN MEASUREMENT RESULTS: Intervals: Rate: 70 TX: 140 QRSD: 74 QT: 376 QTc: 406 [place]: P: 67 TX: 140 QRS: -83 T: 101 INTERPRETIVE STATEMENTS: Sinus rhythm with premature atrial complexes Left axis deviation Pulmonary disease pattern Septal infarct, age undetermined Abnormal ECG Compared to ECG 11/12/2019 09:53:05 Atrial premature complex(es) now present Sinus bradycardia no longer present Myocardial infarct finding still present Electronically Signed On 09-06-20 11:40:41 LOSS PREVENTION OPERATIONS MANAGER by Quique Renteria
[2020-09-06 13:15] VITALS: O2SAT 100
[2020-09-06] MEDS ORDERED: ENOXAPARIN 60 MG/0.6 ML SQ ONE (15:06)
[2020-09-06] MEDS ORDERED: ASPIRIN 81 MG CHEWABLE TABLET ONE (15:06)
[2020-09-06] MEDS ORDERED: FAMOTIDINE 20 MG/2 ML VIAL IV ONE (15:06)
[2020-09-06 16:35] VITALS: BP 137/89; TEMP 98.8
[2020-09-06 18:35] VITALS: BMI 22.7
--- NOTE | 2020-09-06 18:44 | P.SSS ---
Patient History Date of Service: 09/06/20 Reason for admission: ANXIETY AND PANIC History of Present Illness: MS. GREGORY WHO HAS CHRONIC ANXIETY AND MILD TO MODERATE DEMENTIA IS NOW HAVING PANIC ATTACKS. SHAKING ALL OVER [place] PER SON. HE BRINGS HER TO ER. SOMEHOW DR. GOLDEN ORDERS D DIMER AND IT IS MILD HIGH. HE WANTED TO ADMIT HER . SHE HAS NO MAJLOR RISKS FOR D DIMER. SHE COULD NOT TOLERATE THE MASK FOR VQ SCAN. SHE CAN'T DO CT ANGIO CREAT IS MILD HIGH. PER [facility] CRITERIA SHE IS LOW RISK FOR PE. SHE REALLY CALMED DOWN WHEN WE GAVE HER IV ATIVAN. SON LIVES WITH HER. I CALLED JESSICA AND RAISED PAXIL TO CONTROL HER DISORDER. SON IS HAVING HARD TIME CONTROLLING HER AT HOME. SHE WILL END UP IN GERIPSYCH IF SHE IS GETS UNCONTROLLED AGAIN. SHE IS STABLE TO GO HOME. THERE IS NO ACUTE MEDICAL REASON TO ADMIT. SHE HAS MILD DEHYDRATION THAT WILL IMPROVE IF SHE EATS AND DR HALL WELL. Allergies Sulfa (Sulfonamide Antibiotics) Allergy (Verified 02/20/18 14:21) Unknown Home Medications: Metoprolol Succinate 50 mg PO BID 10/09/12 Olmesartan Medoxomil [Benicar] 20 mg PO [id number] 10/09/12 Clopidogrel Bisulfate [Plavix*] 75 mg PO DAILY #30 tablet 10/13/12 Cranberry Fruit Concentrate [[employer]] 450 mg PO DAILY 10/30/17 PARoxetine HCL [Paxil*] 10 mg PO BEDTIME 02/20/18 Amitriptyline [Elavil*] 25 mg PO BEDTIME #30 tab 02/21/18 - Past Medical/Surgical History Diabetic: No -: HTN -: Hysterectomy -: appenectomy - Social History Alcohol use: Yes CD- Drugs: Yes Caffeine use: Yes Physical Examination - Vital Signs Temperature: 98.8 F Blood Pressure: 137/89 Pulse: 78 Respirations: 18 Pulse Ox (%): 100 - Physical Exam General: Oriented x3, Moderate distress (ANXIOUS , PANICKY FACIAL EXPRESSIONS.) HEENT: Atraumatic, PERRLA, Mucous membr. moist/pink, EOMI, Sclerae nonicteric Neck: Supple, 2+ carotid pulse no bruit, No LAD, Without JVD or thyroid abnormality Respiratory: Clear to auscultation bilaterally, Normal air movement Cardiovascular: Regular rate/rhythm, Normal S1 S2 Gastrointestinal: Normal bowel sounds, No tenderness Musculoskeletal: No tenderness Integumentary: No rashes Neurological: Normal gait, Normal speech, Normal strength at 5/5 x4 extr, Normal tone, Normal affect Lymphatics: No axilla or inguinal lymphadenopathy - Studies Laboratory Data (last 24 hrs) 09/06/20 06:27: Lipase 150 09/06/20 06:27: PT 11.7, INR 0.99 09/06/20 06:27: WBC 6.5, Hgb 11.9 L, Hct 35.6 L, Plt Count 235 09/06/20 06:27: Sodium 142, Potassium 3.6, BUN 22 H, Creatinine 1.86 H, Glucose 93, Magnesium 2.1 D, Total Bilirubin 0.9, AST 35, ALT 26, Alkaline Phosphatase 49 - Diagnosis (Problem(s)) (1) Panic anxiety syndrome Current Visit: Yes Status: Acute Plan: MED CHANGED KLONPIN GIVE YESTERDAY AT OFFICE. NOW ADDED XANAX PRN AND PAXIL RAISED. PSYCH REF. OP BASIS. (2) D-dimer, elevated Current Visit: Yes Status: Acute Plan: THERE WAS NO MEDICAL REASON TO ORDER THIS TEST. - Disposition Disposition: ROUTINE DISCHARGE Condition: FAIR
[2020-09-06] MEDS ORDERED: LORAZEPAM 0.5 MG TABLET PO ONE (19:46)
--- NOTE | 2020-09-07 12:56 | ECHO ---
HEIGHT: 5 ft 7 in WEIGHT: 145 lb 0 oz DATE OF STUDY: 09/06/[address]: Joel Silverman MD 2-DIMENSIONAL: YES M.MODE: YES DOPPLER: YES COLOR FLOW: YES TDS: YES PORTABLE: YES DEFINITY: NO BUBBLE STUDY: NO DIAGNOSIS: SHORTNESS OF BREATH, CONGESTIVE HEART FAILURE CARDIAC HISTORY: CATHERIZATION: NO SURGERY: NO PROSTHETIC VALVE: NO PACEMAKER: NO MEASUREMENTS (cm) DIASTOLIC (NORMALS) SYSTOLIC (NORMALS) IVSd 1.0 (0.6-1.2) LA Diam 2.8 (1.9-4.0) LVEF 65% LVIDd 4.0 (3.5-5.7) LVIDs 2.6 (2.0-3.5) %FS 35% LVPWd 1.0 (0.6-1.2) Ao Diam 2.0 (2.0-3.7) 2 DIMENSIONAL ASSESSMENT: RIGHT ATRIUM: NORMAL LEFT ATRIUM: NORMAL RIGHT VENTRICLE: NORMAL LEFT VENTRICLE: NORMAL TRICUSPID VALVE: NORMAL MITRAL VALVE: NORAML PULMONIC VALVE: NORMAL AORTIC VALVE: NORMAL PERICARDIAL EFFUSION: NONE AORTIC ROOT: NORMAL LEFT VENTRICULAR WALL MOTION: NORMAL DOPPLER/COLOR FLOW: NORMAL COMMENTS: NORMAL 2D ECHOCARDIOGRAM. NO WALL MOTION ABNORMALITY. NO MITRAL VALVE PROLAPSE. TECHNOLOGIST: Hieu CLEMONS
== END 2020-09-06 19:09 | disposition home or self-care (01) ==
LOC: ER 05:25 → ERHOLD 08:54
PROVIDERS: ADMIT Internal Medicine; ATTEND Internal Medicine
DX: F41.0 Panic disorder [episodic paroxysmal anxiety] (principal); I10 Essential (primary) hypertension; F03.90 Unspecified dementia, unspecified severity, without behavioral disturbance, psychotic disturbance, mood disturbance, and anxiety; R79.1 Abnormal coagulation profile; Z20.828 Contact with and (suspected) exposure to other viral communicable diseases; R94.31 Abnormal electrocardiogram [ECG] [EKG]
CPT/HCPCS: 93005; 93306; 85025; 80048; 36415; 83735; 85610; 85379; 80076; 84484 ×3; 83690; 83880; 71045; 93970; 99284; U0003; J1650; J7040; J7030; G0378 ×2

== ENCOUNTER 2021-10-03 09:08 | Inpatient (IN) | payer OTHER ==
--- NOTE | 2021-10-03 10:19 | RAD REPORT ---
EXAM DESCRIPTION: RAD - Chest Single View - 10/03/2021 9:56 am CLINICAL HISTORY: COUGH COMPARISON: Chest Single View dated 09/06/2020; Chest Single View dated 11/12/2019; Chest Single View dated 02/20/2018; Chest Single View dated 03/25/2017 FINDINGS: Lines: None. Lungs: Opacities present the left lung base. Pleural: Blunted left costophrenic angle. Cardiac: The heart size is within normal limits. Bones: No acute fractures. Other: IMPRESSION: Partial obscuration of the left lung base may be secondary to underpenetration versus un derlying airspace disease/effusion. A standard PA and lateral could better evaluate.
[2021-10-03 10:37] LABS: Urine Blood 1+ (Negative); Urine Glucose Negative (Negative); Urine Protein 2+ (Negative); Urine Specific Gravity 1.015 (1.005-1.030)
[2021-10-03 10:50] LABS: Urine Bacteria <20 /HPF (<20); Urine RBC <5 /HPF (NONE SEEN)
[2021-10-03 10:51] LABS: Urine Amorphous Sediment 1+ /HPF (NONE SEEN)
[2021-10-03 10:58] LABS: Protime INR 1.25
[2021-10-03 11:15] LABS: ALT/SGPT 25 U/L (12-78); AST/SGOT 13 U/L (15-37); Albumin 1.9 g/dL (3.4-5.0); Alkaline Phosphatase 120 U/L (45-117); BUN Blood Urea Nitrogen 72 mg/dL (7-18); Bicarbonate 23 mmol/L (21-32); Bilirubin Direct 0.7 mg/dL (0-0.2); Bilirubin Total 1.3 mg/dL (0.2-1.0); Ferritin 549.7 ng/mL (8-388); Glucose Level 116 mg/dL (74-106); Lipase 227 U/L (73-393); Potassium 3.2 mmol/L (3.5-5.1); Protein, Total 6.6 g/dL (6.4-8.2); Sodium Level 137 mmol/L (136-145); Troponin (Emerg Dept Use Only) < 0.02 ng/mL (0.0-0.045)
[2021-10-03 11:46] LABS: Absolute Lymphocytes (CBC) 0.5 K/uL (0.7-4.9); Hematocrit 36.4 % (36.0-45.0); Lymphocytes % 3.2 % (15.3-44.8); MPV 10.1 fL (7.6-11.3); RBC Red Blood Cell Count 3.99 M/uL (3.86-4.86)
--- NOTE | 2021-10-03 12:00 | ER ---
Nurse's Notes [facility] Name: Connie Dos Santos Age: 86 yrs Sex: Female : 1935 Arrival Date: 10/03/2021 Time: 09:14 Bed 15 Private MD: Diagnosis: Weakness;Dehydration;Coronavirus infection, unspecified Presentation: 10/03 09:18 Chief complaint: EMS states: son called for generalized weakness that started this am. cb5 Pt was dx with COVID this last Friday and has no current s/s other than the weakness this am. Coronavirus screen: Vaccine status: Patient reports receiving the 2nd dose of the covid vaccine. Ebola Screen: Patient denies travel to an Ebola-affected area in the 21 days before illness onset. Initial Sepsis Screen: Does the patient meet any 2 criteria? Temp <36.0*C (96.8*F)) or > 38.3*C (100.9*F). Does the patient have a suspected source of infection? Yes: Other: covid +. Risk Assessment: Do you want to hurt yourself or someone else? Patient reports no desire to harm self or others. Onset of symptoms was October 03, 2021. 09:18 Method Of Arrival: EMS: [facility] cb5 09:18 Acuity: BRANDY 2 cb5 Triage Assessment: : General: Appears ill, slender, well groomed, well nourished, Behavior is calm, cb5 cooperative. Pain: Pain currently is 3 out of 10 on a pain scale. Quality of pain is described as aching, Pain began 2-3 days ago. Is continuous, Alleviated by repositioning, Aggravated by exercise, increased activity. Historical: - Allergies: : Sulfa (Sulfonamide Antibiotics); cb5 - PMHx: : Depression; Hypertension; TIA; cb5 - Immunization history:: Client reports receiving the 2nd dose of the Covid vaccine. - Social history:: Smoking status: Patient denies any tobacco usage or history of. Screenin:21 Abuse screen: Denies threats or abuse. Nutritional screening: No deficits noted. cb5 Tuberculosis screening: No symptoms or risk factors identified. Fall Risk Secondary diagnosis (15 points) impaired mobility, IV access (20 points). Assessment: 09:24 General: Appears in no apparent distress. comfortable, Behavior is calm, cooperative. cb5 Pain:. Neuro: No deficits noted. Cardiovascular: No deficits noted. Respiratory: Airway is patent Trachea midline Respiratory effort is even, unlabored, Respiratory pattern is regular, symmetrical. 10/04 08:00 Reassessment: Pt awake and alert, states "I don't feel well", BG checked 174, temp eo2 98.5, other vitals stable, IV site redressed, confirmed to be working. Pt otherwise in NAD. Comfort measures met, will continue to monitor. Vital Signs: 10/03 09:18 BP 123 / 59; Pulse 57; Resp 20; Temp 96.6(O); Pulse Ox 98% on R/A; Weight 57.15 kg; cb5 Height 5 ft. 8 in. (172.72 cm); Pain 3/10; 09:50 BP 122 / 50; Pulse 65; Resp 20; Pulse Ox 100% ; jh6 10/04 08:00 BP 150 / 73; Pulse 77; Resp 22; Temp 98.5; Pulse Ox 100% on R/A; Pain 0/10; eo2 10/03 09:18 Body Mass Index 19.16 (57.15 kg, 172.72 cm) cb5 Vitals: 10/03 09:50 Cardiac Rhythm Assessment Regular. [facility] ED Course: 09:14 Patient arrived in ED. 5 09:15 Debbie [facility]zor [facility]C [facility]. kb 09:15 Rogelio Gillette MD is Attending Physician. kb 09:18 Susanna Collado, ALFIE is Primary Nurse. cb5 09:21 Triage completed. cb5 09:23 Arm band placed on Patient placed on a stretcher. cb5 09:25 Bed in low position. Call light in reach. Side rails up X2. cb5 09:32 EKG done, by ED staff, reviewed by Rogelio Gillette MD. Inserted saline lock: 20 gauge in [facility] right antecubital area, using aseptic technique. Maintain EMS IV. Dressing intact. Good blood return noted. Site clean \\T\\ dry. Gauge \\T\\ site: 20g rt ac. 09:45 X-ray(s) taken. 6 09:45 Inserted saline lock: 20 gauge antecubital area, using aseptic technique. [facility] 09:56 Chest Single View XRAY In Process Unspecified. EDMS 11:59 Cheko Esquivel MD is Hospitalizing Provider. kb 10/04 09:31 Report given to Nicholas JUDGE. eo2 09:36 No provider procedures requiring assistance completed. eo2 09:36 Inserted Patient admitted, IV remains in place. eo2 Administered Medications: 10/03 12:39 Drug: NS 0.9% 1000 ml Route: IV; Rate: 1000 ml; Site: right forearm; cb5 21:44 Drug: Rocephin (cefTRIAXone) 1 grams Route: IV; Rate: calculated rate; Site: left mr2 antecubital; Intake: 11:54 PO: 100ml; Total: 100ml. cb5 Output: 11:54 Urine: 400ml; Total: 400ml. cb5 Outcome: 11:59 Decision to Hospitalize by Provider. kb 10/04 09:36 Admitted to Tele accompanied by tech. eo2 Condition: stable Instructed on the need for admit. 09:50 Patient left the ED. ss Signatures: Dispatcher [employer] EDMS Debbie Umanzor, ELECTROLYTIC ETCHER-C ELECTROLYTIC ETCHER-Rox Ashley RN RN China Rosales [facility] Campbell Remy RN RN mr2 Arlene De Los Santos RN RN jh6 Shoshana Samson RN RN eo2 Susanna Collado, RN RN cb5
--- NOTE | 2021-10-03 12:00 | EDPHYS ---
Physician Documentation [facility] Name: Connie Dos Santos Age: 86 yrs Sex: Female : 1935 Arrival Date: 10/03/2021 Time: 09:14 Bed 15 Private MD: ED Physician Rogelio Gillette HPI: 10/03 10:31 This 86 yrs old Female presents to ER via EMS with complaints of weakness. kb 10:31 The patient presents with generalized weakness. Onset: The symptoms/episode kb began/occurred this morning. Context: occurred at home, occurred while the patient was sitting. Modifying factors: The symptoms are alleviated by nothing, the symptoms are aggravated by nothing. Associated signs and symptoms: The patient has no apparent associated signs or symptoms. Severity of symptoms: At their worst the symptoms were moderate in the emergency department the symptoms are unchanged. The patient has not experienced similar symptoms in the past. The patient has not recently seen a physician. EMS reports pt lives with son. He told them pt tested positive for covid on Friday and today was unable to ambulate on her own due to weakness. States she normally ambulates without assist. EMS also reports pt urinated when they were on scene and it had a foul odor. . 11:56 Patient's baseline: Neuro: alert but confused, Motor: no deficits, Ambulation: walks kb without assistance, Speech: normal. Historical: - Allergies: 09:22 Sulfa (Sulfonamide Antibiotics); cb5 - PMHx: 09:22 Depression; Hypertension; TIA; cb5 - Immunization history:: Client reports receiving the 2nd dose of the Covid vaccine. - Social history:: Smoking status: Patient denies any tobacco usage or history of. ROS: 11:56 Constitutional: Negative for fever, chills, and weight loss. kb 11:56 MS/extremity: Positive for pain, of the right knee. 11:56 Neuro: Positive for weakness. 11:56 All other systems are negative. Exam: 11:57 Constitutional: This is a well developed, well nourished patient who is awake, alert, kb and in no acute distress. Head/Face: Normocephalic, atraumatic. ENT: Moist Mucous membranes Cardiovascular: Regular rate and rhythm with a normal S1 and S2. No gallops, murmurs, or rubs. No pulse deficits. Respiratory: Respirations even and unlabored. No increased work of breathing. Talking in full sentences Skin: Warm, dry with normal turgor. Normal color. 11:57 Musculoskeletal/extremity: Extremities: grossly normal except: noted in the right knee: pain, ROM: limited active range of motion due to pain, in the right knee, Circulation is intact in all extremities. Sensation intact. 11:57 Neuro: Exam negative for acute changes. Vital Signs: 09:18 BP 123 / 59; Pulse 57; Resp 20; Temp 96.6(O); Pulse Ox 98% on R/A; Weight 57.15 kg; cb5 Height 5 ft. 8 in. (172.72 cm); Pain 3/10; 09:50 BP 122 / 50; Pulse 65; Resp 20; Pulse Ox 100% ; jh6 10/04 08:00 BP 150 / 73; Pulse 77; Resp 22; Temp 98.5; Pulse Ox 100% on R/A; Pain 0/10; eo2 10/03 09:18 Body Mass Index 19.16 (57.15 kg, 172.72 cm) cb5 MDM: 10/03 09:15 Patient medically screened. kb 10:33 Data reviewed: vital signs, nurses notes. Data interpreted: Pulse oximetry: on room air kb is 100 %. Interpretation: normal. 11:56 Counseling: I had a detailed discussion with the patient and/or guardian regarding: the kb historical points, exam findings, and any diagnostic results supporting the discharge/admit diagnosis, lab results, radiology results, the need for further work-up and treatment in the hospital. Physician consultation: Cheko Esquivel MD was contacted at 11:56, regarding admission, to the medical/surgical unit. patient's condition, and will see patient in inpatient room. 10/03 09:16 Order name: BMP; Complete Time: 11:18 kb 10/03 09:16 Order name: Blood Culture Adult (2) kb 10/03 09:16 Order name: C-Reactive Protein; Complete Time: 11:18 kb 10/03 09:16 Order name: CBC with Diff; Complete Time: 12:30 kb 10/03 09:16 Order name: Ferritin; Complete Time: 11:18 kb 10/03 09:16 Order name: LFT's; Complete Time: 11:18 kb 10/03 09:16 Order name: Lactate; Complete Time: 11:18 kb 10/03 09:16 Order name: Lipase; Complete Time: 11:18 kb 10/03 09:16 Order name: PT-INR; Complete Time: 11:58 kb 10/03 09:16 Order name: Procalcitonin; Complete Time: 12:00 kb 10/03 09:16 Order name: Ptt, Activated; Complete Time: 11:58 kb 10/03 09:16 Order name: Strep; Complete Time: 11:02 kb 10/03 09:16 Order name: Troponin (emerg Dept Use Only); Complete Time: 11:18 kb 10/03 09:16 Order name: Urine Microscopic Only; Complete Time: 10:56 kb 10/03 09:16 Order name: EKG; Complete Time: 09:17 kb 10/03 09:16 Order name: Cardiac monitoring; Complete Time: 09:25 kb 10/03 09:16 Order name: Droplet/Contact Precautions; Complete Time: 09:25 kb 10/03 09:16 Order name: EKG - Nurse/Tech; Complete Time: 09:25 kb 10/03 09:16 Order name: COVID-19 SARS RT PCR (Document "Date of Onset" if Symptomatic); Complete kb Time: 10:33 10/03 09:16 Order name: Chest Single View XRAY; Complete Time: 10:20 kb 10/03 10:37 Order name: Urine Dipstick-Ancillary; Complete Time: 10:37 EDMS 10/03 11:02 Order name: Throat Culture EDMS 10/03 11:58 Order name: Knee Right 3 View XRAY kb 10/03 12:29 Order name: Manual Differential; Complete Time: 12:30 EDMS 10/03 12:42 Order name: RAD; Complete Time: 12:42 EDMS 10/04 03:26 Order name: CBC with Automated Diff EDMS 10/04 04:21 Order name: Basic Metabolic Panel EDMS 10/04 08:15 Order name: Glucose, Ancillary Testing EDMS 10/03 09:16 Order name: IV Start; Complete Time: 09:25 kb 10/03 09:16 Order name: Labs collected and sent; Complete Time: 09:25 kb 10/03 09:16 Order name: O2 Per Protocol; Complete Time: 09:26 kb 10/03 09:16 Order name: O2 Sat Monitoring; Complete Time: 09:26 kb 10/03 09:16 Order name: Urine Dipstick-Ancillary (obtain specimen); Complete Time: 10:38 kb 10/03 10:57 Order name: Labs - recollect needed; Complete Time: 14:59 mh5 Administered Medications: 12:39 Drug: NS 0.9% 1000 ml Route: IV; Rate: 1000 ml; Site: right forearm; cb5 21:44 Drug: Rocephin (cefTRIAXone) 1 grams Route: IV; Rate: calculated rate; Site: left mr2 antecubital; Disposition: 18:58 Co-signature as Attending Physician, Rogelio Gillette MD I agree with the assessment and rn plan of care. Attestation: The patient's history, exam findings, diagnostics, and a summary of any interventions or procedures was reviewed in detail with Debbie BERRY. Disposition Summary: 10/03/21 11:59 Hospitalization Ordered Hospitalization Status: Observation kb Provider: Cheko Esquivel Condition: Stable kb Problem: new kb Symptoms: are unchanged kb Bed/Room Type: Standard kb Location: Telemetry/MedSurg (Inpatient)(10/04/21 07:09) ds4 Room Assignment: 408(10/04/21 07:09) ds4 Diagnosis - Weakness kb - Dehydration kb - Coronavirus infection, unspecified kb Forms: - Medication Reconciliation Form kb - SBAR form kb Signatures: Dispatcher [employer] EDMS Debbie Umanzor FNP-C FNP-Malathi Yang RN RN bb Nieto, Roman, MD MD rn Smirch, Shelby, RN RN [place]ango [place] 4 China Rosales Campbell Rodriguez RN RN mr2 Susanna Collado, RN RN cb5 Corrections: (The following items were deleted from the chart) 11:56 11:56 Physician consultation: Cheko Esquivel MD was contacted at 11:56, regarding kb admission, to the medical/surgical unit. patient's condition, and will see patient in ED, kb 14:57 11:59 Telemetry/MedSurg (observation) kb ss 14:57 11:59 kb ss 10/04 07:09 10/03 14:57 [facility] ER HOLD ss ds4 10/04 07:09 10/03 14:57 ERHOLD- ss ds4
[2021-10-03 12:28] LABS: Blood Morphology Comment NOT SEEN (NOT SEEN); Platelet Estimate ADEQ
[2021-10-03] MEDS ORDERED: NA CHLORIDE 0.9% 1,000 ML ONE (12:35)
--- NOTE | 2021-10-03 12:42 | RAD REPORT ---
EXAM DESCRIPTION: RAD - Knee Right 3 View - 10/03/2021 12:34 pm CLINICAL HISTORY: Right knee pain FINDINGS: No fracture or dislocation is seen. Mild narrowing of the joint spaces. Chondrocalcinosis is present. Bony/calcific density within the in tercondylar notch may indicate a loose body
--- NOTE | 2021-10-03 21:03 | P.HP ---
Certification for Inpatient Patient admitted to: Inpatient With expected LOS: >2 Midnights Practitioner: I am a practitioner with admitting privileges, knowledge of patient current condition, hospital course, and medical plan of care. Services: Services provided to patient in accordance with Admission requirements found in Title 42 Section 412.3 of the Code of Federal Regulations Patient History Date of Service: 10/03/21 Reason for admission: WEAKNESS, NOT ABLE TO WALK History of Present Illness: CHARLES HAS BASELINE MILD TO MODERATE ALZHEIMER'S DISEASE. SHE COMES AFTER GETTING SICK AT HOME WITH COVID. SHE GOT WEAKER, DID NOT EAT WELL AND IS DEHYDRATED NOW. SHE IS NOT COMPLAINING OF ANYTHING AT PRESENT. I SAW HER AT LUNCH TIME. TALKED TO SON AND DISCUSSED THE PLAN. Allergies Sulfa (Sulfonamide Antibiotics) Allergy (Verified 02/20/18 14:21) Unknown Home medications list reviewed: Yes Home Medications: Metoprolol Succinate 50 mg PO BID 10/09/12 Olmesartan Medoxomil [Benicar] 20 mg PO [id number] 10/09/12 Clopidogrel Bisulfate [Plavix*] 75 mg PO DAILY #30 tablet 10/13/12 Cranberry Fruit Concentrate [[employer]] 450 mg PO DAILY 10/30/17 PARoxetine HCL [Paxil*] 10 mg PO BEDTIME 02/20/18 Amitriptyline [Elavil*] 25 mg PO BEDTIME #30 tab 02/21/18 - Past Medical/Surgical History Diabetic: No -: HTN -: Hysterectomy -: appenectomy - Social History Alcohol use: Yes CD- Drugs: Yes Caffeine use: Yes Review of Systems 10-point ROS is otherwise unremarkable General: Weakness, Malaise Physical Examination - Physical Exam General: Alert, Oriented x2, Mild distress, Moderate distress HEENT: Atraumatic, PERRLA, Mucous membr. moist/pink, EOMI, Sclerae nonicteric Neck: Supple, 2+ carotid pulse no bruit, No LAD, Without JVD or thyroid abnormality Respiratory: Clear to auscultation bilaterally, Normal air movement Cardiovascular: Regular rate/rhythm, Normal S1 S2 Gastrointestinal: Normal bowel sounds, No tenderness Musculoskeletal: No tenderness Integumentary: No rashes Neurological: Normal gait, Normal speech, Normal strength at 5/5 x4 extr, Normal tone, Normal affect Lymphatics: No axilla or inguinal lymphadenopathy - Studies Laboratory Data (last 24 hrs) 10/03/21 11:20: PT 14.4 H, INR 1.25, APTT 20.4 L 10/03/21 11:20: WBC 16.80 H, Hgb 12.0, Hct 36.4, Plt Count 83 L 10/03/21 10:43: Sodium 137, Potassium 3.2 L, BUN 72 H, Creatinine 1.55 H, Glucose 116 H, Total Bilirubin 1.3 H, AST 13 L, ALT 25, Alkaline Phosphatase 120 H, Lipase 227 Microbiology Data (last 24 hrs): 10/03/21 10:30 Throat Group A Streptococcus Rapid Screen - Final Assessment and Plan - Problems (Diagnosis) (1) Pneumonia due to COVID-19 virus Current Visit: Yes Status: Acute Plan: SUPPORTIVE CARE. SHE IS STABLE AND WILL NEED ANTIBODY THAT IS OUT OF SUPPLY AT [facility] ANYWAY. (2) Bacterial pneumonia Current Visit: Yes Status: Acute Plan: WBC IS HIGH AT 16K PROCALCITONIN IS HIGH. SUPER ADDED BACTERIAL PNEUMONIA IS POSSIBLE. ADDED ROCEPHIN AND CALLED DR. SANTIZO TO TAKE CARE OF IT TONIGHT. (3) Dehydration Current Visit: Yes Status: Acute Plan: I ASKED THE ER INTERNAL GRINDER TENDER TO ADD D5HALF NS AT 75 ML PER HOUR AND ORDER DAILY LAB. (4) Alzheimer disease Current Visit: Yes Status: Chronic Plan: AT THIS POINT SON IS NOT ABLE TO TAKE CARE OF HER. SHE WILL NEED NH AND THEN ASSISTED LIVING OR [facility]IDENTIAL. (5) Hypokalemia Current Visit: Yes Status: Acute - Advance Directives Does patient have a Living Will: No Does patient have a Durable POA for Healthcare: Yes
[2021-10-03] MEDS ORDERED: CEFTRIAXONE 1000 MG/VIAL ONE (21:55)
[2021-10-03] MEDS ORDERED: POTASSIUM CL SA 10 MEQ TAB PO SCH (22:00)
[2021-10-03] MEDS: D5 0.45 NS 1,000 ML IV SCH (23:44)
[2021-10-04 03:22] LABS: Absolute Lymphocytes (CBC) 0.4 K/uL (0.7-4.9); Hematocrit 37.2 % (36.0-45.0); Lymphocytes % 2.2 % (15.3-44.8); MPV 9.7 fL (7.6-11.3); RBC Red Blood Cell Count 4.09 M/uL (3.86-4.86)
[2021-10-04] MEDS ORDERED: D5 0.45 NS 1,000 ML IV ONE (04:23)
[2021-10-04] MEDS ORDERED: CEFTRIAXONE 1,000 MG in NA CHLORIDE 0.9% 50 ML IVPB SCH (09:00)
[2021-10-04] MEDS: D5 0.45 NS 1,000 ML IV SCH (12:32)
[2021-10-04 12:40] VITALS: BMI 19.1
--- NOTE | 2021-10-04 13:16 | P.PN ---
Subjective Date of Service: 10/04/21 Chief Complaint: WEAKNESS, NOT ABLE TO WALK Subjective: Improving SHE IS STRONGER AND FEELS BETTER. Physical Examination - Vital Signs Temperature: 99.3 F Blood Pressure: 141/72 Pulse: 77 Respirations: 24 Pulse Ox (%): 97 - Physical Exam General: Mild distress HEENT: Atraumatic, PERRLA, EOMI Neck: Supple, JVD not distended Respiratory: Clear to auscultation bilaterally, Normal air movement Cardiovascular: Regular rate/rhythm, Normal S1 S2 Gastrointestinal: Normal bowel sounds, No tenderness Musculoskeletal: No tenderness Integumentary: No rashes Neurological: Normal speech, Normal tone, Normal affect Lymphatics: No axilla or inguinal lymphadenopathy - Studies Microbiology Data (last 24 hrs): 10/03/21 10:30 Throat Group A Streptococcus Rapid Screen - Final Medications List Reviewed: Yes Assessment And Plan - Current Problems (Diagnosis) (1) Pneumonia due to COVID-19 virus Current Visit: Yes Status: Acute Plan: SUPPORTIVE CARE. SHE IS STABLE AND WILL NEED ANTIBODY THAT IS OUT OF SUPPLY AT [facility] ANYWAY. PT CONSULT (2) Bacterial pneumonia Current Visit: Yes Status: Acute Plan: WBC IS HIGH AT 16K PROCALCITONIN IS HIGH. SUPER ADDED BACTERIAL PNEUMONIA IS POSSIBLE. ADDED ROCEPHIN AND CALLED DR. SANTIZO TO TAKE CARE OF IT TONIGHT. (3) Dehydration Current Visit: Yes Status: Acute Plan: I ASKED THE ER STEM MAKER TO ADD D5HALF NS AT 75 ML PER HOUR AND ORDER DAILY LAB. IMPROVED CLINICALLY. (4) Alzheimer disease Current Visit: Yes Status: Chronic Plan: AT THIS POINT SON IS NOT ABLE TO TAKE CARE OF HER. SHE WILL NEED NH AND THEN ASSISTED LIVING OR [facility]. (5) Hypokalemia Current Visit: Yes Status: Acute Plan: CONT RX.
[2021-10-04] MEDS: POTASSIUM CL SA 10 MEQ TAB PO SCH (13:44)
[2021-10-04] MEDS: ACETAMINOPHEN 500 MG TAB PO PRN (16:39)
[2021-10-05] MEDS: D5 0.45 NS 1,000 ML IV SCH ×3 (02:24→15:44)
[2021-10-05 06:41] LABS: Absolute Lymphocytes (CBC) 0.5 K/uL (0.7-4.9); Hematocrit 34.5 % (36.0-45.0); MPV 9.7 fL (7.6-11.3); RBC Red Blood Cell Count 3.81 M/uL (3.86-4.86)
[2021-10-05 07:03] LABS: Albumin 1.7 g/dL (3.4-5.0); Bilirubin Direct 0.7 mg/dL (0-0.2); Bilirubin Total 1.9 mg/dL (0.2-1.0); Magnesium 1.6 mg/dL (1.8-2.4); Protein, Total 6.1 g/dL (6.4-8.2)
[2021-10-05 07:07] LABS: Potassium 2.9 mmol/L (3.5-5.1)
[2021-10-05] MEDS: METOPROLOL XL 50 MG TAB PO SCH ×2 (08:38→20:42)
[2021-10-05] MEDS: CEFTRIAXONE 1,000 MG in NA CHLORIDE 0.9% 50 ML IVPB SCH (08:38)
[2021-10-05] MEDS: CLOPIDOGREL 75 MG TABLET PO SCH (08:38)
[2021-10-05] MEDS: AZITHROMYCIN IV 500 MG in NA CHLORIDE 0.9% 250 ML IVPB SCH (08:40)
[2021-10-05] MEDS: KCL 20 MEQ/100 mL IVPB 20 MEQ/100 ML BAG IV SCH ×3 (08:41→20:40)
[2021-10-05] MEDS: POTASSIUM CL SA 10 MEQ TAB PO SCH (08:41)
[2021-10-05] MEDS ORDERED: JUVEN PACKET PO SCH (09:00)
[2021-10-05] MEDS ORDERED: VALSARTAN 80 MG TAB PO SCH (09:00)
--- NOTE | 2021-10-05 10:23 | RAD REPORT ---
EXAM DESCRIPTION: CT - Chest For Pe Angio - 10/05/2021 9:40 am CLINICAL HISTORY: D DIMER ELEVATION. COMPARISON: Chest Single View dated 10/03/2021 TECHNIQUE: Dynamically enhanced 3 mm thick images of the chest were obtained during administration o f approximately 150mL Isovue 370 IV contrast. Coronal and oblique MIP reconstruction images were gene rated and reviewed. Exam utilizes a protocol to evaluate the pulmonary arterial tree. All CT scans are performed using dose optimization technique as appropriate and may include automated exposure control or mA/KV adjustment according to patient size. FINDINGS: No pulmonary emboli are identified. The aorta as imaged shows no acute or suspicious finding. No pericardial thickening or effusion. Posterior left gutter parenchymal opacification is believed to be atelectasis rather than pneumonia. Trace atelectasis noted posterior gutter on the right. A few areas of subpleural scarring noted. No p neumothorax. No mediastinal or hilar suspicious masses. No chest wall masses or abnormal axillary lymphadenopathy. IMPRESSION: No pulmonary emboli identified. Posterior left gutter parenchymal opacification is favored to be atelectasis rather than infiltrate.
[2021-10-05] MEDS: RIVASTIGMINE 4.6 MG/24 HR PATCH TD SCH (11:10)
[2021-10-05] MEDS ORDERED: MAGNESIUM SULFATE 1 gm IVPB 1 GM/100 ML BAG IV ONE (11:22)
[2021-10-05] MEDS: ACETAMINOPHEN 500 MG TAB PO PRN ×2 (12:02→20:42)
--- NOTE | 2021-10-05 17:06 | P.PN ---
Subjective Date of Service: 10/05/21 Chief Complaint: WEAKNESS, NOT ABLE TO WALK Subjective: No new changes SHE IS STRONGER AND FEELS BETTER. SHE IS CONFUSED AT BASELINE. IS ABLE TO BREATH, DOES NOT SEEM IN DISTRESS. Physical Examination - Vital Signs Temperature: 97.9 F Blood Pressure: 132/66 Pulse: 92 Respirations: 24 Pulse Ox (%): 96 - Physical Exam General: Mild distress, Confused HEENT: Atraumatic, PERRLA, EOMI Neck: Supple, JVD not distended Respiratory: Clear to auscultation bilaterally, Normal air movement Cardiovascular: Regular rate/rhythm, Normal S1 S2 Gastrointestinal: Normal bowel sounds, No tenderness Musculoskeletal: No tenderness Integumentary: No rashes Neurological: Normal speech, Normal tone, Normal affect Lymphatics: No axilla or inguinal lymphadenopathy - Studies Microbiology Data (last 24 hrs): 10/03/21 10:30 Throat Culture & Sensitivity - Final NORMAL UPPER RESPIRATORY GEOVANNA GROWN. Medications List Reviewed: Yes Assessment And Plan - Current Problems (Diagnosis) (1) Pneumonia due to COVID-19 virus Current Visit: Yes Status: Acute Plan: SUPPORTIVE CARE. SHE IS STABLE AND WILL NEED ANTIBODY THAT IS OUT OF SUPPLY AT [facility] ANYWAY. PT CONSULT CT SCAN SHOWS ATELECTASIS MORE THAN PNEUMONIA CONTINUE ABX HER WBC COUNT IS HIGH. (2) Bacterial pneumonia Current Visit: Yes Status: Acute Plan: WBC IS HIGH AT 16K PROCALCITONIN IS HIGH. SUPER ADDED BACTERIAL PNEUMONIA IS POSSIBLE. ADDED ROCEPHIN AND CALLED DR. SANTIZO TO TAKE CARE OF IT TONIGHT. (3) Dehydration Current Visit: Yes Status: Acute Plan: I ASKED THE ER FOAM RUBBER FABRICATOR TO ADD D5HALF NS AT 75 ML PER HOUR AND ORDER DAILY LAB. IMPROVED CLINICALLY. (4) Alzheimer disease Current Visit: Yes Status: Chronic Plan: AT THIS POINT SON IS NOT ABLE TO TAKE CARE OF HER. SHE WILL NEED NH AND THEN ASSISTED LIVING OR [facility]. (5) Hypokalemia Current Visit: Yes Status: Acute Plan: CONT RX. (6) Protein calorie malnutrition Current Visit: Yes Status: Acute Plan: CONSULT TELEPHONE DIRECTORY DELIVERER SHE IS NOT EATING WELL. ZORAIDA BID DAILY. TALKED TO SON ON DAY OF ADMISSION AND TODAY. Qualifiers: Protein-calorie malnutrition severity: moderate Qualified Code(s): E44.0 - Moderate protein-calorie malnutrition
[2021-10-05 17:56] LABS: MPV 9.2 fL (7.6-11.3)
[2021-10-05] MEDS: ENSURE ENLIVE 237 ML CAN PO SCH (20:41)
[2021-10-05] MEDS: TRAMADOL HCL 50 MG TAB PO PRN (23:09)
[2021-10-05] MEDS: QUETIAPINE 25 MG TAB PO SCH (23:09)
[2021-10-06 04:22] LABS: Magnesium 1.7 mg/dL (1.8-2.4); Potassium 3.6 mmol/L (3.5-5.1)
[2021-10-06] MEDS ORDERED: MAGNESIUM SULFATE 1 gm IVPB 1 GM/100 ML BAG IV ONE (05:32)
[2021-10-06] MEDS ORDERED: HOME MED 1 EA UNK (Olmesartan Medoxomil [Benicar] 20 MG Tablet) PO SCH (06:00)
[2021-10-06] MEDS: D5 0.45 NS 1,000 ML IV SCH ×2 (06:29→14:06)
[2021-10-06] MEDS: KCL 20 MEQ/100 mL IVPB 20 MEQ/100 ML BAG IV SCH ×2 (06:30→06:40)
[2021-10-06] MEDS: VALSARTAN 80 MG TAB PO SCH (06:32)
[2021-10-06] MEDS ORDERED: CEFTRIAXONE 1000 MG/VIAL ONE (07:27)
[2021-10-06] MEDS ORDERED: AZITHROMYCIN 500 MG INJ IVPB ONE (07:39)
[2021-10-06] MEDS ORDERED: NA CHLORIDE 0.9% 50 ML ONE (07:40)
[2021-10-06] MEDS: AZITHROMYCIN IV 500 MG in NA CHLORIDE 0.9% 250 ML IVPB SCH (07:57)
[2021-10-06] MEDS: CEFTRIAXONE 1,000 MG in NA CHLORIDE 0.9% 50 ML IVPB SCH (07:57)
[2021-10-06] MEDS: CLOPIDOGREL 75 MG TABLET PO SCH (07:58)
[2021-10-06] MEDS: ENOXAPARIN 40 MG/0.4 ML SQ SCH (07:58)
[2021-10-06] MEDS: POTASSIUM CL SA 10 MEQ TAB PO SCH (07:58)
[2021-10-06] MEDS: RIVASTIGMINE 4.6 MG/24 HR PATCH TD SCH (07:58)
[2021-10-06] MEDS: ENSURE ENLIVE 237 ML CAN PO SCH ×2 (08:00→20:06)
[2021-10-06] MEDS: METOPROLOL XL 50 MG TAB PO SCH ×2 (08:02→20:09)
--- NOTE | 2021-10-06 11:43 | RAD REPORT ---
EXAM DESCRIPTION: RAD - Hip Right 2 View - 10/06/2021 10:29 am CLINICAL HISTORY: pain COMPARISON: No comparisons FINDINGS: The bones are significantly demineralized. Moderate osteoarthritis affects the right hip. No definitive fracture seen. Given the degree of osteopenia, if patient pain persists, MR imaging wou ld be suggested.
--- NOTE | 2021-10-06 13:55 | P.PN ---
Subjective Date of Service: 10/06/21 Chief Complaint: WEAKNESS, NOT ABLE TO WALK Subjective: Improving SHE IS STRONGER AND FEELS BETTER. SHE IS CONFUSED AT BASELINE. IS ABLE TO BREATH, DOES NOT SEEM IN DISTRESS. SHE IS WEAK, CONFUSED MORE HERE. R KNEE PAIN WHEN MOVED. DR. CONN IS CALLED IN. Review of Systems 10-point ROS is otherwise unremarkable General: Weakness Neurological: Confusion Physical Examination - Vital Signs Temperature: 98.0 F Blood Pressure: 149/65 Pulse: 111 Respirations: 23 Pulse Ox (%): 95 - Physical Exam General: Oriented x2, Oriented x1, Mild distress, Confused HEENT: Atraumatic, PERRLA, EOMI Neck: Supple, JVD not distended Respiratory: Clear to auscultation bilaterally, Normal air movement Cardiovascular: Regular rate/rhythm, Normal S1 S2 Gastrointestinal: Normal bowel sounds, No tenderness Musculoskeletal: No tenderness, Swelling (R KNEE) Integumentary: No rashes Neurological: Normal speech, Normal tone, Normal affect Lymphatics: No axilla or inguinal lymphadenopathy - Studies Microbiology Data (last 24 hrs): 10/03/21 10:30 Throat Culture & Sensitivity - Final NORMAL UPPER RESPIRATORY GEOVANNA GROWN. Medications List Reviewed: Yes Assessment And Plan - Current Problems (Diagnosis) (1) Pneumonia due to COVID-19 virus Current Visit: Yes Status: Acute Plan: SUPPORTIVE CARE. SHE IS STABLE AND WILL NEED ANTIBODY THAT IS OUT OF SUPPLY AT [facility] ANYWAY. PT CONSULT CT SCAN SHOWS ATELECTASIS MORE THAN PNEUMONIA CONTINUE ABX HER WBC COUNT IS HIGH. (2) Bacterial pneumonia Current Visit: Yes Status: Acute Plan: WBC IS HIGH AT 16K PROCALCITONIN IS HIGH. SUPER ADDED BACTERIAL PNEUMONIA IS POSSIBLE. ADDED ROCEPHIN AND CALLED DR. SANTIZO TO TAKE CARE OF IT TONIGHT. CT DOES NOT SUPPORT THIS BUT HAS LEUKOCYTOSIS WILL REDO LAB IN AM. I SEE NO OTHER ISSUES TO EXPLAIN LEUKOCYTOSIS. (3) Dehydration Current Visit: Yes Status: Acute Plan: I ASKED THE ER GEOLOGICAL E LOGGER TO ADD D5HALF NS AT 75 ML PER HOUR AND ORDER DAILY LAB. IMPROVED CLINICALLY. (4) Alzheimer disease Current Visit: Yes Status: Chronic Plan: AT THIS POINT SON IS NOT ABLE TO TAKE CARE OF HER. SHE WILL NEED NH AND THEN ASSISTED LIVING OR [facility]. (5) Hypokalemia Current Visit: Yes Status: Acute Plan: CONT RX. (6) Protein calorie malnutrition Current Visit: Yes Status: Acute Plan: CONSULT CUSTOMER SUPPORT AGENT SHE IS NOT EATING WELL. ZORAIDA BID DAILY. TALKED TO SON ON DAY OF ADMISSION AND TODAY. Qualifiers: Protein-calorie malnutrition severity: moderate Qualified Code(s): E44.0 - Moderate protein-calorie malnutrition
[2021-10-06] MEDS: TRAMADOL HCL 50 MG TAB PO PRN ×2 (17:45→23:04)
[2021-10-06] MEDS: QUETIAPINE 25 MG TAB PO SCH (20:05)
--- NOTE | 2021-10-06 20:45 | CON ---
Date of Consultation: 10/06/2021 History Of Present Illness: I came to see Ms. Dos Santos who is an 86-year-old female who unfortunately does apparently have a touch of pneumonia. She also has a swollen right knee. She is also complaining of neck pain. She was admitted by her primary care physician for these issues. On review of x-rays, she had multiple view x-ray of right knee which demonstrates significant arthritic changes, especially of the patellofemoral joint. Also seen is some changes which may be consistent with chondrocalcinosis. An x-ray was taken of her hip and this was without any fracture or dislocation. Upon physical examination, she does have a 1+ effusion to her right knee. She has pain with palpation and manipulation with pain behaviors for any body part. She does hold her right knee, however, in a position of flexion. There is no erythema to the right knee, and gentle range of motion of the knee does not appear to cause more pain than she has with a simple palpation of any other body part. Moving of the right hip generally does not cause any increase in pain response, but again she does have pain response with throughout the examination. Assessment: This is an 86-year-old female, now with a 1+ effusion to her right knee. I spoke with her PCP that could be from simple trauma or chondrocalcinosis, could be an arthritic flare. Although she does have a high white count, I think that this is not consistent at all with a septic knee. Plan: I spoke with Dr. Esquivel as well as the clinical course appears to be doing better today than she was doing yesterday. Difficult to tell from patient because of mentation. Dr. Esquivel says that she is [id number] demented and normally walks and they could not get her out of the bed. At this point, we will probably see how she does tomorrow and if she fails to improve, I have spoken with Dr. Esquivel with a consideration of a corticosteroid injection in the knee. SE/MODL Voice ID: [id number] Report ID: [id number] CAYLA
[2021-10-07 04:46] LABS: Absolute Lymphocytes (CBC) 0.9 K/uL (0.7-4.9); Hematocrit 31.1 % (36.0-45.0); Lymphocytes % 5.1 % (15.3-44.8); MPV 9.3 fL (7.6-11.3); RBC Red Blood Cell Count 3.37 M/uL (3.86-4.86)
[2021-10-07 05:07] LABS: Potassium 3.8 mmol/L (3.5-5.1)
[2021-10-07] MEDS: VALSARTAN 80 MG TAB PO SCH (06:25)
[2021-10-07] MEDS: AZITHROMYCIN IV 500 MG in NA CHLORIDE 0.9% 250 ML IVPB SCH (08:24)
[2021-10-07] MEDS: CEFTRIAXONE 1,000 MG in NA CHLORIDE 0.9% 50 ML IVPB SCH (08:24)
[2021-10-07] MEDS: ENOXAPARIN 40 MG/0.4 ML SQ SCH (08:25)
[2021-10-07] MEDS: THIAMINE 200 MG/2 ML INJ IVP SCH (08:25)
[2021-10-07] MEDS: ENSURE ENLIVE 237 ML CAN PO SCH ×2 (08:26→21:47)
[2021-10-07] MEDS: RIVASTIGMINE 4.6 MG/24 HR PATCH TD SCH (08:26)
[2021-10-07] MEDS: METOPROLOL XL 50 MG TAB PO SCH ×2 (08:26→21:46)
[2021-10-07] MEDS: CLOPIDOGREL 75 MG TABLET PO SCH (08:26)
[2021-10-07] MEDS: POTASSIUM CL SA 10 MEQ TAB PO SCH (08:26)
[2021-10-07] MEDS ORDERED: POTASSIUM 25 MEQ EFFERV TAB PO ONE (09:00)
[2021-10-07] MEDS: D5 0.45 NS 1,000 ML IV SCH ×2 (10:06→21:56)
--- NOTE | 2021-10-07 11:30 | RAD REPORT ---
EXAM DESCRIPTION: US - Abdomen Exam Complete - 10/06/2021 10:42 pm CLINICAL HISTORY: Abdominal pain. Leukocytosis COMPARISON: none FINDINGS: Evaluation of distal abdominal aorta, gallbladder, spleen, pancreas and portion of the lef t kidney limited secondary to patient being unable to suspend breathing. . Liver has a normal echotexture. The right kidney measures 10 centimeters with a normal echotexture. The left kidney measures 10 centimeters with a normal echotexture. The proximal and mid abdominal aorta and inferior vena cava appear unremarkable IMPRESSION: Limited examination demonstrating no gross abnormality
--- NOTE | 2021-10-07 11:33 | P.PN ---
Subjective Date of Service: 10/07/21 Chief Complaint: HIGH WBC COUNT, FEVER BLISTERS. Subjective: Worsening SHE IS WEAK, FATIGUED, LAYING SHIRLEY. HAS FEVER BLISTERS. DENIES ANY DYSPNEA OR COUGH. Review of Systems 10-point ROS is otherwise unremarkable General: Weakness, Malaise Physical Examination - Vital Signs Temperature: 98.7 F Blood Pressure: 168/68 Pulse: 91 Respirations: 19 Pulse Ox (%): 93 - Physical Exam General: Mild distress, Confused (AT BASELINE.) HEENT: Atraumatic, PERRLA, EOMI Neck: Supple, JVD not distended Respiratory: Clear to auscultation bilaterally, Normal air movement Cardiovascular: Regular rate/rhythm, Normal S1 S2 Gastrointestinal: Normal bowel sounds, No tenderness Musculoskeletal: No tenderness Integumentary: No rashes Neurological: Normal speech, Normal tone, Normal affect Lymphatics: No axilla or inguinal lymphadenopathy - Studies Medications List Reviewed: Yes Assessment And Plan - Current Problems (Diagnosis) (1) Pneumonia due to COVID-19 virus Current Visit: Yes Status: Acute Plan: SUPPORTIVE CARE. SHE IS STABLE AND WILL NEED ANTIBODY THAT IS OUT OF SUPPLY AT [facility] ANYWAY. I CHANGES ABX TO LEVAQUIN WBC IS HIGH AND ROCEPHIN/ZITH DID NOT WORK. CXR SHOWS BIBASILAR PNEUMONIA NEW FROM BEFORE PER DR. LACKEY SONOGRAM SHOWS NO ISSUES. (2) Bacterial pneumonia Current Visit: Yes Status: Acute Plan: WBC IS HIGH AT 16K PROCALCITONIN IS HIGH. SUPER ADDED BACTERIAL PNEUMONIA IS POSSIBLE. ADDED ROCEPHIN AND CALLED DR. SANTIZO TO TAKE CARE OF IT TONIGHT. CT DOES NOT SUPPORT THIS BUT HAS LEUKOCYTOSIS WILL REDO LAB IN AM. I SEE NO OTHER ISSUES TO EXPLAIN LEUKOCYTOSIS. (3) Dehydration Current Visit: Yes Status: Acute Plan: I ASKED THE ER TOLL SETTLEMENT CLERK TO ADD D5HALF NS AT 75 ML PER HOUR AND ORDER DAILY LAB. IMPROVED CLINICALLY. (4) Alzheimer disease Current Visit: Yes Status: Chronic Plan: AT THIS POINT SON IS NOT ABLE TO TAKE CARE OF HER. SHE WILL NEED NH AND THEN ASSISTED LIVING OR ASSISTED [facility]. (5) Hypokalemia Current Visit: Yes Status: Acute Plan: CONT RX. (6) Protein calorie malnutrition Current Visit: Yes Status: Acute Plan: CONSULT STRATEGY CONSULTANT SHE IS NOT EATING WELL. ZORAIDA BID DAILY. TALKED TO SON ON DAY OF ADMISSION AND TODAY. Qualifiers: Protein-calorie malnutrition severity: moderate Qualified Code(s): E44.0 - Moderate protein-calorie malnutrition
--- NOTE | 2021-10-07 11:36 | RAD REPORT ---
EXAM DESCRIPTION: Nena Single View10/07/2021 10:31 am CLINICAL HISTORY: Chest pain COMPARISON: October 05, 2020 FINDINGS: Mild bilateral pulmonary opacities. Heart remains enlarged IMPRESSION: Mild bilateral pulmonary opacities may represent pneumonia or pulmonary edema
[2021-10-07] MEDS: ACYCLOVIR IVPB SCH ×2 (11:51→16:38)
[2021-10-07] MEDS: NA CHLORIDE 0.9% IVPB SCH ×2 (11:51→16:38)
--- NOTE | 2021-10-07 11:59 | P.CNS ---
Date of Consult: 10/07/21 Reason for Consult: Elevated white count Chief Complaint: HIGH WBC COUNT, FEVER BLISTERS. History of Present Illness: Patient is 86 years of age with significant dementia was diagnosed with coronavirus. Recent fever blisters elevated white count she currently denies any shortness of breath poor appetite Allergies Sulfa (Sulfonamide Antibiotics) Allergy (Verified 02/20/18 14:21) Unknown Home Medications: Metoprolol Succinate 50 mg PO BID 10/09/12 Olmesartan Medoxomil [Benicar] 20 mg PO [id number] 10/09/12 Clopidogrel Bisulfate [Plavix*] 75 mg PO DAILY #30 tablet 10/13/12 Rivastigmine Patch [Exelon 4.6 mg Patch] 1 each TD DAILY 10/04/21 - Past Medical/Surgical History Diabetic: No -: HTN -: Hysterectomy -: appenectomy - Social History Smoking Status: Never smoker Alcohol use: Yes CD- Drugs: Yes Caffeine use: Yes Review of Systems 10-point ROS is otherwise unremarkable Physical Examination Temp Pulse Resp BP Pulse Ox 98.7 F 91 H 19 168/68 H 93 10/07/21 11:37 10/07/21 11:37 10/07/21 11:37 10/07/21 11:37 10/07/21 11:37 General: Alert, Oriented x2 Respiratory: Clear to auscultation bilaterally Cardiovascular: No edema, Regular rate/rhythm Gastrointestinal: Normal bowel sounds, Soft and benign - Problems (1) Coronavirus infection Current Visit: Yes Status: Acute Plan: Patient is 86 years of age admitted with coronavirus infection not eating or drinking poor appetite White count remains persistently elevated CT pulmonary angiogram does not show any evidence of coronavirus lung damage or pulmonary embolism patient has some cardiomegaly fever blisters vital signs oxygenation all stable patient's white count was elevated on admission patient has tested positive for coronavirus white count was elevated on admission no obvious etiology of her elevated white count cultures are also all negative recommend withholding antibiotics for now
[2021-10-07] MEDS ORDERED: Levofloxacin500mg IV 500 MG/100 ML BAG IV SCH (13:00)
[2021-10-07] MEDS: TRAMADOL HCL 50 MG TAB PO PRN (18:34)
[2021-10-07] MEDS: QUETIAPINE 25 MG TAB PO SCH (21:47)
[2021-10-08] MEDS: NA CHLORIDE 0.9% IVPB SCH ×3 (01:10→17:19)
[2021-10-08] MEDS: ACYCLOVIR IVPB SCH ×3 (01:10→17:19)
[2021-10-08 04:23] LABS: Potassium 4.3 mmol/L (3.5-5.1)
[2021-10-08] MEDS: D5 0.45 NS 1,000 ML IV SCH ×2 (06:06→17:20)
[2021-10-08] MEDS: VALSARTAN 80 MG TAB PO SCH (06:11)
[2021-10-08 06:43] LABS: Absolute Lymphocytes (CBC) 0.9 K/uL (0.7-4.9); Hematocrit 31.1 % (36.0-45.0); Lymphocytes % 4.8 % (15.3-44.8); MPV 9.5 fL (7.6-11.3); RBC Red Blood Cell Count 3.34 M/uL (3.86-4.86)
[2021-10-08 07:44] LABS: Blood Morphology Comment NOT SEEN (NOT SEEN); Platelet Estimate ADEQ
[2021-10-08] MEDS: ENSURE ENLIVE 237 ML CAN PO SCH ×2 (09:00→20:01)
[2021-10-08] MEDS: ENOXAPARIN 40 MG/0.4 ML SQ SCH (09:15)
[2021-10-08] MEDS: THIAMINE 200 MG/2 ML INJ IVP SCH (09:16)
[2021-10-08] MEDS: METOPROLOL XL 50 MG TAB PO SCH ×2 (09:16→20:01)
[2021-10-08] MEDS: POTASSIUM CL SA 10 MEQ TAB PO SCH (09:16)
[2021-10-08] MEDS: CLOPIDOGREL 75 MG TABLET PO SCH (09:17)
[2021-10-08] MEDS: RIVASTIGMINE 4.6 MG/24 HR PATCH TD SCH (09:17)
[2021-10-08] MEDS: Levofloxacin 250mg IV 250 MG/50 ML BAG IV SCH (13:38)
[2021-10-08] MEDS: TRAMADOL HCL 50 MG TAB PO PRN (16:44)
[2021-10-08] MEDS: QUETIAPINE 25 MG TAB PO SCH (20:01)
--- NOTE | 2021-10-08 20:50 | P.PN ---
Subjective Date of Service: 10/08/21 Chief Complaint: HIGH WBC COUNT, FEVER BLISTERS. Subjective: No new changes SHE IS WEAK, FATIGUED, LAYING SHIRLEY. HAS FEVER BLISTERS. DENIES ANY DYSPNEA OR COUGH. CHARLES IS STABLE BUT WEAK, NOT IMPROVING. SHE IS NOT ABLE TO EXPRESS ANY COMPLAINTS SHE HAS DEMENTIA. THIS AM SHE WAS COLD AND I ASKED THE AIDE TO BRING ONE MORE BLANKET. Review of Systems is unable to be obtained Physical Examination - Vital Signs Temperature: 98.3 F Blood Pressure: 125/61 Pulse: 94 Respirations: 19 Pulse Ox (%): 99 - Physical Exam General: Oriented x1, Mild distress, Confused HEENT: Atraumatic, PERRLA, Other (HERPES LABIALIS BOTH LIPS.), EOMI Neck: Supple, JVD not distended Respiratory: Diminished Cardiovascular: Regular rate/rhythm, Normal S1 S2 Gastrointestinal: Normal bowel sounds, No tenderness Musculoskeletal: No tenderness Integumentary: No rashes Neurological: Normal speech, Normal tone, Normal affect Lymphatics: No axilla or inguinal lymphadenopathy - Studies Microbiology Data (last 24 hrs): 10/03/21 09:48 Blood - Blood Aerobic Blood Culture - Final No growth in 5 days. 10/03/21 09:48 Blood - Blood Anaerobic Blood Culture - Final No growth in 5 days. 10/03/21 09:58 Blood - Blood Aerobic Blood Culture - Final No growth in 5 days. 10/03/21 09:58 Blood - Blood Anaerobic Blood Culture - Final No growth in 5 days. Medications List Reviewed: Yes Assessment And Plan - Current Problems (Diagnosis) (1) Pneumonia due to COVID-19 virus Current Visit: Yes Status: Acute Plan: SUPPORTIVE CARE. SHE IS STABLE AND WILL NEED ANTIBODY THAT IS OUT OF SUPPLY AT [facility]WAY. I CHANGES ABX TO LEVAQUIN WBC IS HIGH AND ROCEPHIN/ZITH DID NOT WORK. CXR SHOWS BIBASILAR PNEUMONIA NEW FROM BEFORE PER DR. LACKEY SONOGRAM SHOWS NO ISSUES. (2) Bacterial pneumonia Current Visit: Yes Status: Acute Plan: WBC IS STILL RISING DESPITE LEVAQUIN SHE DOES NOT HAVE ANY BIG PNEUMONIA TO WORRY ABOUT BUT WE ARE STILL TREATING THIS ATYPICAL PNEUMONIA. (3) Dehydration Current Visit: Yes Status: Acute Plan: I ASKED THE ER SEWING ROOM SUPERVISOR TO ADD D5HALF NS AT 75 ML PER HOUR AND ORDER DAILY LAB. IMPROVED CLINICALLY. (4) Alzheimer disease Current Visit: Yes Status: Chronic Plan: AT THIS POINT SON IS NOT ABLE TO TAKE CARE OF HER. SHE WILL NEED NH AND THEN ASSISTED LIVING OR [facility]. (5) Hypokalemia Current Visit: Yes Status: Acute Plan: CONT RX. (6) Protein calorie malnutrition Current Visit: Yes Status: Acute Plan: CONSULT VIBRATING SCREED OPERATOR SHE IS NOT EATING WELL. ZORAIDA BID DAILY. TALKED TO SON ON DAY OF ADMISSION AND TODAY. Qualifiers: Protein-calorie malnutrition severity: moderate Qualified Code(s): E44.0 - Moderate protein-calorie malnutrition
[2021-10-09] MEDS: TRAMADOL HCL 50 MG TAB PO PRN ×3 (01:21→18:09)
[2021-10-09] MEDS: D5 0.45 NS 1,000 ML IV SCH ×3 (01:40→22:06)
[2021-10-09] MEDS: ACETAMINOPHEN 500 MG TAB PO PRN (03:10)
[2021-10-09] MEDS: VALSARTAN 80 MG TAB PO SCH (05:22)
[2021-10-09 05:53] LABS: Potassium 3.8 mmol/L (3.5-5.1)
[2021-10-09 07:22] LABS: Hematocrit 27.8 % (36.0-45.0); Lymphocytes % 8.1 % (15.3-44.8); RBC Red Blood Cell Count 3.08 M/uL (3.86-4.86)
[2021-10-09] MEDS: ENOXAPARIN 40 MG/0.4 ML SQ SCH (08:08)
[2021-10-09] MEDS: POTASSIUM CL SA 10 MEQ TAB PO SCH (08:08)
[2021-10-09] MEDS: CLOPIDOGREL 75 MG TABLET PO SCH (08:08)
[2021-10-09] MEDS: METOPROLOL XL 50 MG TAB PO SCH ×2 (08:08→20:26)
[2021-10-09] MEDS: RIVASTIGMINE 4.6 MG/24 HR PATCH TD SCH (08:09)
[2021-10-09] MEDS: THIAMINE 200 MG/2 ML INJ IVP SCH (08:09)
[2021-10-09] MEDS: ENSURE ENLIVE 237 ML CAN PO SCH ×2 (08:11→20:27)
[2021-10-09] MEDS: ACYCLOVIR IVPB SCH ×3 (10:05)
[2021-10-09] MEDS: NA CHLORIDE 0.9% IVPB SCH ×3 (10:05)
--- NOTE | 2021-10-09 12:42 | RAD REPORT ---
EXAM DESCRIPTION: RAD - Chest Single View - 10/09/2021 12:34 pm CLINICAL HISTORY: pneumonia COMPARISON: Portable October 07, CT chest October 05 TECHNIQUE: AP portable chest image was obtained 10/09/2021 12:34 pm . FINDINGS: Lung volumes remain low. Left base pleural and parenchymal opacification remain obscuring the left heart border and left hemidiaphragm. No new or progressive lung parenchymal finding. Heart and vasculature are normal. No pneumothorax. Minimal left pleural effusion has not changed. Pa tient could have a small right pleural effusion. There is atelectasis at the right base. No acute bon y abnormality seen. No acute aortic findings suspected. IMPRESSION: Left base pleural and parenchymal opacification similar to October 07. No new or progressive finding confirmed on this study.
--- NOTE | 2021-10-09 13:00 | P.PN ---
Subjective Date of Service: 10/09/21 Chief Complaint: HIGH WBC COUNT, FEVER BLISTERS. Subjective: Improving SHE IS WEAK, FATIGUED, LAYING SHIRLEY. HAS FEVER BLISTERS. DENIES ANY DYSPNEA OR COUGH. CHARLES IS STABLE BUT WEAK, NOT IMPROVING. SHE IS NOT ABLE TO EXPRESS ANY COMPLAINTS SHE HAS DEMENTIA. THIS AM SHE WAS COLD AND I ASKED THE AIDE TO BRING ONE MORE BLANKET. SHE IS IN PAIN FROM R KNEE. DR. GIL IS WORKING ON IT. SHE ALSO HAS BACK PAIN. Physical Examination - Vital Signs Temperature: 98.1 F Blood Pressure: 140/66 Pulse: 90 Respirations: 20 Pulse Ox (%): 97 - Physical Exam General: Moderate distress, Confused HEENT: Atraumatic, PERRLA, EOMI Neck: Supple, JVD not distended Respiratory: Clear to auscultation bilaterally, Normal air movement Cardiovascular: Regular rate/rhythm, Normal S1 S2 Gastrointestinal: Normal bowel sounds, No tenderness Musculoskeletal: No tenderness Integumentary: No rashes Neurological: Normal speech, Normal tone, Normal affect Lymphatics: No axilla or inguinal lymphadenopathy - Studies Microbiology Data (last 24 hrs): 10/03/21 09:48 Blood - Blood Aerobic Blood Culture - Final No growth in 5 days. 10/03/21 09:48 Blood - Blood Anaerobic Blood Culture - Final No growth in 5 days. 10/03/21 09:58 Blood - Blood Aerobic Blood Culture - Final No growth in 5 days. 10/03/21 09:58 Blood - Blood Anaerobic Blood Culture - Final No growth in 5 days. Medications List Reviewed: Yes Assessment And Plan - Current Problems (Diagnosis) (1) Pneumonia due to COVID-19 virus Current Visit: Yes Status: Acute Plan: SUPPORTIVE CARE. SHE IS STABLE AND WILL NEED ANTIBODY THAT IS OUT OF SUPPLY AT [facility] ANYWAY. I CHANGES ABX TO LEVAQUIN WBC IS HIGH AND ROCEPHIN/ZITH DID NOT WORK. CXR SHOWS BIBASILAR PNEUMONIA NEW FROM BEFORE PER DR. LACKEY SONOGRAM SHOWS NO ISSUES. (2) Bacterial pneumonia Current Visit: Yes Status: Acute Plan: WBC IS STILL RISING DESPITE LEVAQUIN SHE DOES NOT HAVE ANY BIG PNEUMONIA TO WORRY ABOUT BUT WE ARE STILL TREATING THIS ATYPICAL PNEUMONIA. WBC COMING DOWN ON LEVAQUIN. (3) Dehydration Current Visit: Yes Status: Acute Plan: I ASKED THE ER STEAM SHOVEL OPERATING ENGINEER TO ADD D5HALF NS AT 75 ML PER HOUR AND ORDER DAILY LAB. IMPROVED CLINICALLY. (4) Alzheimer disease Current Visit: Yes Status: Chronic Plan: AT THIS POINT SON IS NOT ABLE TO TAKE CARE OF HER. SHE WILL NEED NH AND THEN ASSISTED LIVING OR [facility] LONG [facility]. I TALKED TO SON AND ADVISED NH SHE IS NOT GOOD ENOUGH FOR ASSISTED LIVING. (5) Hypokalemia Current Visit: Yes Status: Acute Plan: CONT RX. (6) Protein calorie malnutrition Current Visit: Yes Status: Acute Plan: CONSULT EPILEPSY PHYSICIAN SHE IS NOT EATING WELL. ZORAIDA BID DAILY. TALKED TO SON ON DAY OF ADMISSION AND TODAY. Qualifiers: Protein-calorie malnutrition severity: moderate Qualified Code(s): E44.0 - Moderate protein-calorie malnutrition
[2021-10-09] MEDS: Levofloxacin 250mg IV 250 MG/50 ML BAG IV SCH (13:39)
[2021-10-09] MEDS: ACYCLOVIR 400 MG TABLET PO SCH ×2 (14:21→20:26)
[2021-10-09] MEDS: QUETIAPINE 25 MG TAB PO SCH (20:26)
[2021-10-10 04:51] LABS: Hematocrit 30.2 % (36.0-45.0); Lymphocytes % 7.9 % (15.3-44.8); MPV 8.2 fL (7.6-11.3)
[2021-10-10] MEDS: VALSARTAN 80 MG TAB PO SCH (06:00)
--- NOTE | 2021-10-10 07:05 | RAD REPORT ---
EXAM DESCRIPTION: RAD - Chest Single View - 10/10/2021 5:13 am CLINICAL HISTORY: pneumonia COMPARISON: Portable October 09 TECHNIQUE: AP portable chest image was obtained 10/10/2021 5:13 am . FINDINGS: Left base pleural and parenchymal opacification are still present. Left hemidiaphragm ori ins obscured. Right heart border is partially obscured with hazy right base opacification also stable . No new upper lung field finding. Trachea is midline. Heart size and upper lobe vasculature within range of normal for portable imaging . No pneumothorax seen. No enlarging pleural effusion. No acute bony abnormality seen. No acute aortic findings suspected. IMPRESSION: Stable portable chest as detailed.
[2021-10-10] MEDS: THIAMINE 200 MG/2 ML INJ IVP SCH (09:05)
[2021-10-10] MEDS: METOPROLOL XL 50 MG TAB PO SCH ×2 (09:07→20:53)
[2021-10-10] MEDS: CLOPIDOGREL 75 MG TABLET PO SCH (09:08)
[2021-10-10] MEDS: ACYCLOVIR 400 MG TABLET PO SCH ×3 (09:08→20:53)
[2021-10-10] MEDS: ENOXAPARIN 40 MG/0.4 ML SQ SCH (09:08)
[2021-10-10] MEDS: RIVASTIGMINE 4.6 MG/24 HR PATCH TD SCH (09:08)
[2021-10-10] MEDS: POTASSIUM CL SA 10 MEQ TAB PO SCH (09:08)
[2021-10-10] MEDS: ENSURE ENLIVE 237 ML CAN PO SCH ×2 (09:09→20:53)
[2021-10-10] MEDS: TRAMADOL HCL 50 MG TAB PO PRN ×2 (09:11→22:47)
[2021-10-10] MEDS: Levofloxacin 250mg IV 250 MG/50 ML BAG IV SCH (13:09)
--- NOTE | 2021-10-10 13:37 | RAD REPORT ---
EXAM DESCRIPTION: RAD - Lumbar Spine 3 Views - 10/10/2021 12:16 pm CLINICAL HISTORY: PAIN COMPARISON: LUMBAR SPINE 3 VIEWS dated 10/22/2012 FINDINGS/IMPRESSION: No acute fracture lumbar spine. Dextroscoliotic curvature centered at L4. Multi level degenerative disc disease is present with moderate to severe disc height loss which is diffuse. Vacuum disc phenomenon is present at L4-5.
[2021-10-10] MEDS: D5 0.45 NS 1,000 ML IV SCH ×2 (13:50→18:06)
[2021-10-10 14:39] LABS: Arterial Blood Carboxyhemoglob 1.6 % (0-1.5); Blood Gas Oxyhemoglobin 95.2 % (94-97); Blood O2 Saturation 97.8 % (92-98.5)
[2021-10-10] MEDS ORDERED: LORazepam 2 MG/ML VIAL IV ONE (16:50)
--- NOTE | 2021-10-10 20:35 | P.PN ---
Subjective Date of Service: 10/10/21 Chief Complaint: CONFUSION WORSE Subjective: No C/O voiced SHE IS WEAK, FATIGUED, LAYING SHIRLEY. HAS FEVER BLISTERS. DENIES ANY DYSPNEA OR COUGH. CHARLES IS STABLE BUT WEAK, NOT IMPROVING. SHE IS NOT ABLE TO EXPRESS ANY COMPLAINTS SHE HAS DEMENTIA. THIS AM SHE WAS COLD AND I ASKED THE AIDE TO BRING ONE MORE BLANKET. SHE IS IN PAIN FROM R KNEE. DR. GIL IS WORKING ON IT. SHE ALSO HAS BACK PAIN. SHE IS NOT ABLE TO COMPLAIN A WHOLE LOT WITH DEMENTIA. SHE COULD NOT DO MRI EVEN AFTER ATIVAN IV SHE WAS NOT ABLE TO COOPERATE. NURSE NOTED MORE CONFUSION SO MRI WAS ORDERED. I EXPECT IT OF LOW YIELD. Review of Systems is unable to be obtained Physical Examination - Vital Signs Temperature: 97.2 F Blood Pressure: 149/66 Pulse: 88 Respirations: 18 Pulse Ox (%): 95 - Physical Exam General: Oriented x1, Mild distress, Other (AGITATED.) HEENT: Atraumatic, PERRLA, EOMI Neck: Supple, JVD not distended Respiratory: Clear to auscultation bilaterally, Normal air movement Cardiovascular: Regular rate/rhythm, Normal S1 S2 Gastrointestinal: Normal bowel sounds, No tenderness Musculoskeletal: No tenderness Integumentary: No rashes Neurological: Normal speech, Normal tone, Normal affect Lymphatics: No axilla or inguinal lymphadenopathy - Studies Medications List Reviewed: Yes Assessment And Plan - Current Problems (Diagnosis) (1) Pneumonia due to COVID-19 virus Current Visit: Yes Status: Acute Plan: SUPPORTIVE CARE. SHE IS STABLE AND WILL NEED ANTIBODY THAT IS OUT OF SUPPLY AT [facility] ANYWAY. I CHANGES ABX TO LEVAQUIN WBC IS HIGH AND ROCEPHIN/ZITH DID NOT WORK. CXR SHOWS BIBASILAR PNEUMONIA NEW FROM BEFORE PER DR. LACKEY SONOGRAM SHOWS NO ISSUES. I AM NOT SURE IF COVID CAN LEAVE SOMEONE WITH ENCEPHALOPATHY BUT IT IS ALWAYS POSSIBLE. (2) Bacterial pneumonia Current Visit: Yes Status: Acute Plan: WBC IS STILL RISING DESPITE LEVAQUIN SHE DOES NOT HAVE ANY BIG PNEUMONIA TO WORRY ABOUT BUT WE ARE STILL TREATING THIS ATYPICAL PNEUMONIA. WBC COMING DOWN ON LEVAQUIN. WBC IS DOWN TO 12.5 K. (3) Dehydration Current Visit: Yes Status: Acute Plan: I ASKED THE ER SEED CLEANER TO ADD D5HALF NS AT 75 ML PER HOUR AND ORDER DAILY LAB. IMPROVED CLINICALLY. (4) Alzheimer disease Current Visit: Yes Status: Chronic Plan: AT THIS POINT SON IS NOT ABLE TO TAKE CARE OF HER. SHE WILL NEED NH AND THEN ASSISTED LIVING OR PRISON SENIOR LIVING. I TALKED TO SON AND ADVISED NH SHE IS NOT GOOD ENOUGH FOR ASSISTED LIVING. INSURANCE e[employer] by [employer] IS TAKING ITS SWEET TIME TO DECIDE ABOUT HER PLACEMENT USUAL. THEY DON'T CARE ABOUT OCCUPATION OF A BED WHEN MANY SICK PATIENTS ARE WAITING IN ER. (5) Hypokalemia Current Visit: Yes Status: Acute Plan: CONT RX. (6) Protein calorie malnutrition Current Visit: Yes Status: Acute Plan: CONSULT THREADER SHE IS NOT EATING WELL. ZORAIDA BID DAILY. TALKED TO SON ON DAY OF ADMISSION AND TODAY. Qualifiers: Protein-calorie malnutrition severity: moderate Qualified Code(s): E44.0 - Moderate protein-calorie malnutrition
[2021-10-10] MEDS: QUETIAPINE 25 MG TAB PO SCH (20:53)
[2021-10-11 04:23] LABS: Absolute Lymphocytes (CBC) 1.3 K/uL (0.7-4.9); Hematocrit 26.6 % (36.0-45.0); Lymphocytes % 11.2 % (15.3-44.8); MPV 8.1 fL (7.6-11.3)
[2021-10-11] MEDS: VALSARTAN 80 MG TAB PO SCH (05:56)
[2021-10-11] MEDS: ENSURE ENLIVE 237 ML CAN PO SCH ×2 (09:00→20:04)
[2021-10-11] MEDS: CLOPIDOGREL 75 MG TABLET PO SCH (10:00)
[2021-10-11] MEDS: POTASSIUM CL SA 10 MEQ TAB PO SCH (10:00)
[2021-10-11] MEDS: METOPROLOL XL 50 MG TAB PO SCH ×2 (10:00→20:07)
[2021-10-11] MEDS: RIVASTIGMINE 4.6 MG/24 HR PATCH TD SCH (10:00)
[2021-10-11] MEDS: ENOXAPARIN 40 MG/0.4 ML SQ SCH (10:00)
[2021-10-11] MEDS: ACYCLOVIR 400 MG TABLET PO SCH ×3 (10:01→20:04)
[2021-10-11] MEDS: THIAMINE 200 MG/2 ML INJ IVP SCH (10:13)
[2021-10-11] MEDS: Levofloxacin 250mg IV 250 MG/50 ML BAG IV SCH (12:22)
--- NOTE | 2021-10-11 12:49 | P.PN ---
Subjective Date of Service: 10/11/21 Chief Complaint: CONFUSION WORSE Subjective: No new changes SHE IS WEAK, FATIGUED, LAYING SHIRLEY. HAS FEVER BLISTERS. DENIES ANY DYSPNEA OR COUGH. CHARLES IS STABLE BUT WEAK, NOT IMPROVING. SHE IS NOT ABLE TO EXPRESS ANY COMPLAINTS SHE HAS DEMENTIA. THIS AM SHE WAS COLD AND I ASKED THE AIDE TO BRING ONE MORE BLANKET. SHE IS IN PAIN FROM R KNEE. DR. GIL IS WORKING ON IT. SHE ALSO HAS BACK PAIN. SHE IS NOT ABLE TO COMPLAIN A WHOLE LOT WITH DEMENTIA. SHE COULD NOT DO MRI EVEN AFTER ATIVAN IV SHE WAS NOT ABLE TO COOPERATE. NURSE NOTED MORE CONFUSION SO MRI WAS ORDERED. I EXPECT IT OF LOW YIELD. SHE HAS NO NEW ACUTE FINDINGS. SHE RECOGNIZED ME TODAY. Physical Examination - Vital Signs Temperature: 98 F Blood Pressure: 128/57 Pulse: 90 Respirations: 22 Pulse Ox (%): 98 - Physical Exam General: Oriented x1, Mild distress HEENT: Atraumatic, PERRLA, EOMI Neck: Supple, JVD not distended Respiratory: Clear to auscultation bilaterally, Normal air movement Cardiovascular: Regular rate/rhythm, Normal S1 S2 Gastrointestinal: Normal bowel sounds, No tenderness Musculoskeletal: No tenderness Integumentary: No rashes Neurological: Normal speech, Normal tone, Normal affect Lymphatics: No axilla or inguinal lymphadenopathy - Studies Medications List Reviewed: Yes Assessment And Plan - Current Problems (Diagnosis) (1) Pneumonia due to COVID-19 virus Current Visit: Yes Status: Acute Plan: SUPPORTIVE CARE. SHE IS STABLE AND WILL NEED ANTIBODY THAT IS OUT OF SUPPLY AT [facility] ANYWAY. I CHANGES ABX TO LEVAQUIN WBC IS HIGH AND ROCEPHIN/ZITH DID NOT WORK. CXR SHOWS BIBASILAR PNEUMONIA NEW FROM BEFORE PER DR. LACKEY SONOGRAM SHOWS NO ISSUES. I AM NOT SURE IF COVID CAN LEAVE SOMEONE WITH ENCEPHALOPATHY BUT IT IS ALWAYS POSSIBLE. (2) Bacterial pneumonia Current Visit: Yes Status: Acute Plan: WBC IS STILL RISING DESPITE LEVAQUIN SHE DOES NOT HAVE ANY BIG PNEUMONIA TO WORRY ABOUT BUT WE ARE STILL TREATING THIS ATYPICAL PNEUMONIA. WBC COMING DOWN ON LEVAQUIN. WBC IS DOWN TO 12.5 K. (3) Dehydration Current Visit: Yes Status: Acute Plan: I ASKED THE ER SAFETY SPECIALIST TO ADD D5HALF NS AT 75 ML PER HOUR AND ORDER DAILY LAB. IMPROVED CLINICALLY. (4) Alzheimer disease Current Visit: Yes Status: Chronic Plan: AT THIS POINT SON IS NOT ABLE TO TAKE CARE OF HER. SHE WILL NEED NH AND THEN ASSISTED LIVING OR TILE FIN[employer]ER [employer]RECTION. I TALKED TO SON AND ADVISED NH SHE IS NOT GOOD ENOUGH FOR ASSISTED LIVING. INSURANCE COMPANY IS TAKING ITS SWEET TIME TO DECIDE ABOUT HER PLACEMENT USUAL. THEY DON'T CARE ABOUT OCCUPATION OF A BED WHEN MANY SICK PATIENTS ARE WAITING IN ER. SHE MAY TRY EXELON AGAIN. SOMEHOW IT WAS STOPPED BEFORE. (5) Hypokalemia Current Visit: Yes Status: Acute Plan: CONT RX. (6) Protein calorie malnutrition Current Visit: Yes Status: Acute Plan: CONSULT AGILE TEST LEAD SHE IS NOT EATING WELL. ZORAIDA BID DAILY. TALKED TO SON ON DAY OF ADMISSION AND TODAY. Qualifiers: Protein-calorie malnutrition severity: moderate Qualified Code(s): E44.0 - Moderate protein-calorie malnutrition
[2021-10-11] MEDS: D5 0.45 NS 1,000 ML IV SCH (13:15)
[2021-10-11] MEDS: QUETIAPINE 25 MG TAB PO SCH (20:04)
[2021-10-12 05:55] LABS: Absolute Lymphocytes (CBC) 1.4 K/uL (0.7-4.9); Hematocrit 27.2 % (36.0-45.0); Lymphocytes % 11.9 % (15.3-44.8); MPV 7.8 fL (7.6-11.3); RBC Red Blood Cell Count 2.99 M/uL (3.86-4.86)
[2021-10-12] MEDS: VALSARTAN 80 MG TAB PO SCH (06:21)
[2021-10-12] MEDS: ACYCLOVIR 400 MG TABLET PO SCH ×3 (08:43→22:20)
[2021-10-12] MEDS: METOPROLOL XL 50 MG TAB PO SCH ×2 (08:43→22:20)
[2021-10-12] MEDS: CLOPIDOGREL 75 MG TABLET PO SCH (08:43)
[2021-10-12] MEDS: POTASSIUM CL SA 10 MEQ TAB PO SCH (08:43)
[2021-10-12] MEDS: THIAMINE 200 MG/2 ML INJ IVP SCH (08:44)
[2021-10-12] MEDS: ENSURE ENLIVE 237 ML CAN PO SCH ×2 (08:45→21:00)
[2021-10-12] MEDS: RIVASTIGMINE 9.5 MG/24 HR PATCH TD SCH (08:45)
[2021-10-12] MEDS: D5 0.45 NS 1,000 ML IV SCH ×2 (08:47→10:06)
[2021-10-12] MEDS: Levofloxacin 250mg IV 250 MG/50 ML BAG IV SCH (12:32)
[2021-10-12] MEDS: ACETAMINOPHEN 500 MG TAB PO PRN (13:18)
--- NOTE | 2021-10-12 16:30 | P.PN ---
Subjective Date of Service: 10/12/21 Chief Complaint: CONFUSION WORSE Subjective: No new changes SHE IS WEAK, FATIGUED, LAYING SHIRLEY. HAS FEVER BLISTERS. DENIES ANY DYSPNEA OR COUGH. CHARLES IS STABLE BUT WEAK, NOT IMPROVING. SHE IS NOT ABLE TO EXPRESS ANY COMPLAINTS SHE HAS DEMENTIA. THIS AM SHE WAS COLD AND I ASKED THE AIDE TO BRING ONE MORE BLANKET. SHE IS IN PAIN FROM R KNEE. DR. GIL IS WORKING ON IT. SHE ALSO HAS BACK PAIN. SHE IS NOT ABLE TO COMPLAIN A WHOLE LOT WITH DEMENTIA. SHE COULD NOT DO MRI EVEN AFTER ATIVAN IV SHE WAS NOT ABLE TO COOPERATE. NURSE NOTED MORE CONFUSION SO MRI WAS ORDERED. I EXPECT IT OF LOW YIELD. SHE HAS NO NEW ACUTE FINDINGS. SHE RECOGNIZED ME TODAY. SHE IS CONFUSED ENOUGH NOT TO HAVE MUCH OF INTELLIGENT CONVERSATION. THERE ARE NO NEW ISSUES. Review of Systems 10-point ROS is otherwise unremarkable General: Weakness, Malaise Physical Examination - Vital Signs Temperature: 98.6 F Blood Pressure: 146/70 Pulse: 80 Respirations: 16 Pulse Ox (%): 97 - Physical Exam General: Oriented x1, Mild distress HEENT: Atraumatic, PERRLA, EOMI Neck: Supple, JVD not distended Respiratory: Clear to auscultation bilaterally, Normal air movement Cardiovascular: Regular rate/rhythm, Normal S1 S2 Gastrointestinal: Normal bowel sounds, No tenderness Musculoskeletal: No tenderness Integumentary: No rashes Neurological: Normal speech, Normal tone, Normal affect, Dementia Lymphatics: No axilla or inguinal lymphadenopathy - Studies Medications List Reviewed: Yes Assessment And Plan - Current Problems (Diagnosis) (1) Pneumonia due to COVID-19 virus Current Visit: Yes Status: Acute Plan: SUPPORTIVE CARE. SHE IS STABLE AND WILL NEED ANTIBODY THAT IS OUT OF SUPPLY AT [facility] ANYWAY. I CHANGES ABX TO LEVAQUIN WBC IS HIGH AND ROCEPHIN/ZITH DID NOT WORK. CXR SHOWS BIBASILAR PNEUMONIA NEW FROM BEFORE PER DR. LACKEY SONOGRAM SHOWS NO ISSUES. I AM NOT SURE IF COVID CAN LEAVE SOMEONE WITH ENCEPHALOPATHY BUT IT IS ALWAYS POSSIBLE. (2) Bacterial pneumonia Current Visit: Yes Status: Acute Plan: WBC IS STILL RISING DESPITE LEVAQUIN SHE DOES NOT HAVE ANY BIG PNEUMONIA TO WORRY ABOUT BUT WE ARE STILL TREATING THIS ATYPICAL PNEUMONIA. WBC COMING DOWN ON LEVAQUIN. WBC IS DOWN TO 12.5 K. WBC CONTINUES TO GO DOWN (3) Dehydration Current Visit: Yes Status: Acute Plan: I ASKED THE ER MOTORCYCLE MAKER TO ADD D5HALF NS AT 75 ML PER HOUR AND ORDER DAILY LAB. IMPROVED CLINICALLY. (4) Alzheimer disease Current Visit: Yes Status: Chronic Plan: CONTINUES TO HAVE CONFUSION AT BASELINE DESPITE EXELON, SEROQUEL AND THIAMINE. NH IS A GOOD IDEA AT THIS POINT. DISCUSSED WITH SON IN DETAIL AGAIN YESTERDAY. (5) Hypokalemia Current Visit: Yes Status: Acute Plan: CONT RX. (6) Protein calorie malnutrition Current Visit: Yes Status: Acute Plan: CONSULT DESIZING MACHINE BACK TENDER SHE IS NOT EATING WELL. ZORAIDA BID DAILY. TALKED TO SON ON DAY OF ADMISSION AND TODAY. Qualifiers: Protein-calorie malnutrition severity: moderate Qualified Code(s): E44.0 - Moderate protein-calorie malnutrition
[2021-10-12] MEDS: QUETIAPINE 25 MG TAB PO SCH (22:20)
[2021-10-13 04:36] LABS: Absolute Lymphocytes (CBC) 1.2 K/uL (0.7-4.9); Hematocrit 27.3 % (36.0-45.0); Lymphocytes % 10.5 % (15.3-44.8); MPV 7.9 fL (7.6-11.3); RBC Red Blood Cell Count 2.94 M/uL (3.86-4.86)
[2021-10-13] MEDS: VALSARTAN 80 MG TAB PO SCH (05:10)
[2021-10-13] MEDS: D5 0.45 NS 1,000 ML IV SCH (05:10)
[2021-10-13] MEDS: THIAMINE 200 MG/2 ML INJ IVP SCH (08:55)
[2021-10-13] MEDS: ACYCLOVIR 400 MG TABLET PO SCH ×2 (08:56→14:17)
[2021-10-13] MEDS: RIVASTIGMINE 9.5 MG/24 HR PATCH TD SCH (08:56)
[2021-10-13] MEDS: METOPROLOL XL 50 MG TAB PO SCH (08:56)
[2021-10-13] MEDS: CLOPIDOGREL 75 MG TABLET PO SCH (08:56)
[2021-10-13] MEDS: POTASSIUM CL SA 10 MEQ TAB PO SCH (08:56)
[2021-10-13] MEDS: ENSURE ENLIVE 237 ML CAN PO SCH (08:57)
[2021-10-13] MEDS: Levofloxacin 250mg IV 250 MG/50 ML BAG IV SCH (12:13)
[2021-10-13 12:37] VITALS: O2SAT 97
[2021-10-13 17:14] VITALS: BP 164/67; TEMP 97.1
--- NOTE | 2021-10-14 10:42 | DS ---
Date of Discharge: 10/13/2021 Hospital Course: Connie comes in with COVID related pneumonia and dehydration with obtundation, confu yrn, disorientation, encephalopathy. It takes a few days to improve her, white count did not come d own until we started her on Levaquin, which I will continue for about 10 days. She also has severe f ever blisters in the lips area which has been treated by acyclovir IV and then p.o. She continues to deteriorate regarding her dementia, does not eat properly. Her abdomen stays low, immunosuppressed condition continues because of aging and hypoalbuminemia. She went to [facility] from here with ho pe of recovery, but I am not sure whether she will recover or not. She should be in [facility] for long duration. At the same time, I recommended to son that if she continues to deteriorate, conside r hospice care for dementia as I see no point of putting her back to emergency room and going to the same routine again, which in the long run is not helping her. She is deteriorating clinically. Her prognosis remains overall poor. RVD/MODL Voice ID: [id number] Report ID: [id number]
--- NOTE | 2021-10-15 02:32 | P.DS ---
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 SHE COMES AFTER GETTING SICK AT HOME WITH COVID. SHE GOT WEAKER, DID NOT EAT WELL AND IS DEHYDRATED NOW. SHE IS NOT COMPLAINING OF ANYTHING AT PRESENT. I SAW HER AT LUNCH TIME. TALKED TO SON AND DISCUSSED THE PLAN. Hospital Course: Patient done well during hospital stay. Patient clinically is stable to transfer back to [facility]. Vital Signs/Physical Exam: Temp Pulse Resp BP Pulse Ox 97.1 F 77 18 164/67 H 97 10/13/21 16:00 10/13/21 16:00 10/13/21 16:00 10/13/21 16:00 10/13/21 16:00 General: Alert, In no apparent distress, Demented Laboratory Data at Discharge: WBC 11.90 K/uL (4.3-10.9) H 10/13/21 03:37 Hgb 9.1 g/dL (12.0-15.0) L 10/13/21 03:37 Hct 27.3 % (36.0-45.0) L 10/13/21 03:37 Plt Count 488 K/uL (152-406) H 10/13/21 03:37 PT 14.4 SECONDS (9.5-12.5) H 10/03/21 11:20 INR 1.25 10/03/21 11:20 APTT 20.4 SECONDS (24.3-36.9) L 10/03/21 11:20 Sodium 139 mmol/L (136-145) 10/09/21 05:22 Potassium 3.8 mmol/L (3.5-5.1) 10/09/21 05:22 BUN 26 mg/dL (7-18) H 10/09/21 05:22 Creatinine 1.00 mg/dL (0.55-1.3) 10/09/21 05:22 Glucose 106 mg/dL (74-106) 10/09/21 05:22 Magnesium Cancelled 10/06/21 05:00 Total Bilirubin 1.9 mg/dL (0.2-1.0) H 10/05/21 06:03 AST 17 U/L (15-37) 10/05/21 06:03 ALT 19 U/L (12-78) 10/05/21 06:03 Alkaline Phosphatase 143 U/L (45-117) H 10/05/21 06:03 Lipase 227 U/L (73-393) 10/03/21 10:43 Home Medications: Metoprolol Succinate 50 mg PO BID 10/09/12 Olmesartan Medoxomil [Benicar] 20 mg PO [id number] 10/09/12 Clopidogrel Bisulfate [Plavix*] 75 mg PO DAILY #30 tablet 10/13/12 Quetiapine [Seroquel*] 25 mg PO DAILY #30 tab 10/12/21 Rivastigmine Patch [Exelon 9.5 mg Patch] 9.5 mg TD DAILY patch 10/12/21 Thiamine HCl [Vitamin B-1*] 100 mg PO DAILY #100 tablet 10/12/21 levoFLOXacin [Levaquin*] 500 mg PO DAILY #5 tab 10/13/21 New Medications: levoFLOXacin [Levaquin*] 500 mg PO DAILY #5 tab Quetiapine [Seroquel*] 25 mg PO DAILY #30 tab Thiamine HCl [Vitamin B-1*] 100 mg PO DAILY #100 tablet Physician Discharge Instructions: OK TO DC IV AND discharge back to [facility] FOLLOW-UP WITH PRIMARY CARE PROVIDER IN 1-2 WEEKS RETURN TO THE ER IF symptoms worsen CALL or TEXT DR. MARTINEZ AT [phone] IF ANY QUESTIONS REGARDING HOSPITAL STAY. PLEASE CALL THE FLOOR AT [phone] IF ANY MEDICATION OR NURSING QUESTIONS. Diet: Regular Activity: Fall precautions Followup: Cheko Esquivel MD [Primary Care Provider] - Time spent managing pt's care (in minutes): 35
== END 2021-10-13 17:52 | DRG 177 ==
LOC: ER 09:08 → ERHOLD 12:02 → OBSVTOIN 21:37 → 4TH 10-04 07:54
PROVIDERS: ADMIT Internal Medicine; ATTEND Internal Medicine
DX: U07.1 COVID-19 (principal); J12.82 Pneumonia due to coronavirus disease 2019; J15.9 Unspecified bacterial pneumonia; E44.0 Moderate protein-calorie malnutrition; Z68.1 Body mass index [BMI] 19.9 or less, adult; G93.40 Encephalopathy, unspecified; M25.461 Effusion, right knee; M54.2 Cervicalgia; E88.09 Other disorders of plasma-protein metabolism, not elsewhere classified; E87.6 Hypokalemia; I10 Essential (primary) hypertension; E86.0 Dehydration; G30.9 Alzheimer's disease, unspecified; F02.80 Dementia in other diseases classified elsewhere, unspecified severity, without behavioral disturbance, psychotic disturbance, mood disturbance, and anxiety; S00.521A Blister (nonthermal) of lip, initial encounter; Z86.73 Personal history of transient ischemic attack (TIA), and cerebral infarction without residual deficits; Z79.02 Long term (current) use of antithrombotics/antiplatelets; Z88.1 Allergy status to other antibiotic agents; Z79.899 Other long term (current) drug therapy; Z90.710 Acquired absence of both cervix and uterus
CPT/HCPCS: 36415; 71045; 71275; 72100; 76700; 80048; 80076; 81003; 81015; 82607; 82728; 82805; 82947; 83605; 83690; 83735; 83880; 84132; 84145; 84443; 84484; 85025; 85049; 85610; 85730; 86140; 87040; 87070; 87081; 87086; 87088; 93005; 96374; 97110; 97161; 97530; 99285; G0378; J0133; J0456; J1650; J3411; J3475; J3480; J7030; J7050; J7799; Q9967; U0003

== ENCOUNTER 2022-12-18 00:42 | Emergency (ER) | payer OTHER ==
--- OUTSIDE RECORDS SUMMARY | 2022-12-18 00:45 | XMS REPORT | Continuity of Care Document ---
:1935 Author Organization [facility] t Address [address] [facility] [address] [place] [address] Care Team Providers Name Role Phone Diego Bravo Attending Clinician Problems Condition Condition Condition Status Onset Resolution Last Treating Co mments Source Name Details Category Date Date Treatment Clinician Date Amnesia Amnesia Problem Active 2022-07-27 Me moria (finding) (finding) 05:05:22 l Active [place] [facility] Ess[facility] Essential Problem Active 2022-07-27 Memoria tremor tremor 05:05:22 l (disorder) (disorder) He rmann Active Problem [facility]20[facility] Hypertensi Hypertens Problem Active 2022-07-27 Memoria ve eddie 05:05:22 l disorder, disorder, Herm jian systemic systemic arterial arterial (disorder) (disorder) Active Problem 07[place]20[place] [facility] D[place] Dementia Problem Active 2022-07-27 Memoria (disorder) (disorder) 05:05:22 l Active [place] Problem 07/27/20[place] [facility] Allergies, Adverse Reactions, Alerts This patient has no known allergies or adverse reactions. Social History Smoking Status Start Date Stop Date Source Tobacco smoking status [facility] Medications Ordered Filled Start Stop Current Ordering Indication Dosage Frequency Signature Comments Components Source Medication Medication Date Date Medication? Clinician (SIG) Name Name Namenda 2021-09 Yes 5 mg = 1 Juanjose torri mg oral 0-18 tab, PO, l tablet 20:18: BID, # 180 Anny nn 00 tab, 3 Refill(s), Pharmacy: [facility], 165.1, cm, 02/22/22 14:56:00 CDT, Height, 54.545, kg, 02/22/22 14:56:00 CDT, Weight Namenda 5 Yes 5 mg = 1 Juanjose torri mg oral 5-09 tab, PO, l tablet 15:27: BID, # 180 Anny nn 00 tab, 3 Refill(s), Pharmacy: [facility] #[id number], 165.1, cm, 01/11/22 15:35:00 CDT, Height, 55, kg, 01/11/22 15:35:00 CDT, Weight Namenda 5 Yes 5 mg = 1 Juanjoes torri mg oral 4-15 tab, PO, l tablet 21:22: BID, # 60 Sal n 00 tab, 3 Refill(s), 165.1, cm, 01/11/22 15:35:00 CDT, Height, 55, kg, 01/11/22 15:35:00 CDT, Weight trazodone Yes 50 mg = 1 Mem oria 50 mg oral 4-15 tab, PO, l tablet 21:15: Bedtime, # Anny nn 00 30 tab, 1 Refill(s) LORazepam Yes 0.5 mg = 1 Me moria 0.5 mg oral 4-15 tab, PO, l tablet 20:48: PRN, 0 [place] 00 Refill(s) mirtazapine Yes 30 mg = 1 M emoria 30 mg oral 4-15 tab, PO, l tablet 20:47: Bedtime, # Anny nn 00 90 tab, 0 Refill(s) divalproex Yes 500 mg = 2 M emoria sodium 250 4-15 tab, PO, l mg oral 20:47: Daily, 0 Sal n tablet, 00 Refill(s) extended release (Depakote ER) divalproex No 500 mg = 2 M emoria sodium 250 4-15 tab, PO, l mg oral 20:46: Daily, 0 Sal n tablet, 00 Refill(s) extended release (Depakote ER) 24 HR Yes = 1 patch, Memori a rivastigmin 1-12 TOP, l e 0.192 21:41: Daily, [place] MG/HR 00 apply to Transdermal area that Patch is [Exelon] clean/dry/ hairless & free of redness/ir ritation/b urns/cuts, # 30 patch, 3 Refill(s), Pharmacy: [facility] #[id number], 172.72, cm, 10/10/20 15:14:00 INFORMATICS MANAGER, Height, 64.091, kg, 10/10/20 15:14:00 INFORMATICS MANAGER, Weight 24 HR 2020-0 Yes = 1 patch, Memori a rivastigmin 1-12 TOP, l e 0.192 21:41: Daily, [place] MG/HR 00 apply to Transdermal area that Patch is [Exelon] clean/dry/ hairless & free of redness/ir ritation/b urns/cuts, # 30 patch, 3 Refill(s), Pharmacy: [facility] #[id number], 172.72, cm, 10/10/20 15:14:00 INFORMATICS MANAGER, Height, 64.091, kg, 10/10/20 15:14:00 INFORMATICS MANAGER, Weight metoprolol 2019-09 Yes 50 mg = 1 Me moria tartrate 50 2-15 tab, PO, l mg oral 22:26: BID, 0 [place] tablet 00 Refill(s) clopidogrel 2019-09 Yes 75 mg = 1 M emoria 75 MG Oral 2-15 tab, PO, l Tablet 22:26: Daily, 0 [place] [Plavix] 00 Refill(s) citalopram 2019-09 Yes 10 mg = 1 Me moria 10 mg oral 2-15 tab, PO, l tablet 22:26: Daily, 0 [place] 00 Refill(s) olmesartan 2019-09 Yes 20 mg = 1 Me moria 20 mg oral 2-15 tab, PO, l tablet 22:26: Daily, 0 [place] 00 Refill(s) amitriptyli 2019-09 Yes 10 mg = 1 M emoria ne 10 mg 2-15 tab, PO, l oral tablet 22:26: Bedtime, 0 [place] 00 Refill(s) Plavix 75 2019-09 Yes 75 mg = 1 Mem oria mg oral 2-15 tab, PO, l tablet 22:26: Daily, 0 [place] 00 Refill(s) metoprolol 2019-09 Yes 50 mg = 1 Me moria tartrate 50 2-15 tab, PO, l mg oral 22:26: BID, 0 [place] tablet 00 Refill(s) clopidogrel 2019-09 Yes 75 mg = 1 M emoria 75 MG Oral 2-15 tab, PO, l Tablet 22:26: Daily, 0 [place] [Plavix] 00 Refill(s) citalopram 2019-09 Yes 10 mg = 1 Me moria 10 mg oral 2-15 tab, PO, l tablet 22:26: Daily, 0 [place] 00 Refill(s) olmesartan 2019-09 Yes 20 mg = 1 Me moria 20 mg oral 2-15 tab, PO, l tablet 22:26: Daily, 0 [place] 00 Refill(s) amitriptyli 2019-09 Yes 10 mg = 1 M emoria ne 10 mg 2-15 tab, PO, l oral tablet 22:26: Bedtime, 0 [place] 00 Refill(s) Vital Signs Vital Name Observation Time Observation Value Comments Source Systolic (mm Hg) 2022-07-24 20:24:00 Juanjose rial [place] Diastolic (mm Hg) 2022-07-24 20:24:00 Mem orial [place] Heart Rate 2022-07-24 20:24:00 [facility] [place] Height 2022-07-24 20:24:00 5 [ft_i] [facility] [place] Weight 2022-07-24 20:24:00 [facility] [place] BMI Calculated 2022-07-24 20:24:00 Memori al [place] Systolic (mm Hg) 2022-02-22 19:50:00 Juanjose rial [place] Diastolic (mm Hg) 2022-02-22 19:50:00 Mem orial [place] Heart Rate 2022-02-22 19:50:00 [facility] [place] Respitory Rate 2022-02-22 19:50:00 Memori al [place] Height 2022-02-22 19:50:00 165.1 cm [facility] [place] Weight 2022-02-22 19:50:00 [facility] Calculated 2022-02-22 19:50:00 Memori al [place] Systolic (mm Hg) 2022-01-11 20:35:00 Juanjose rial [place] Diastolic (mm Hg) 2022-01-11 20:35:00 Mem orial [place] Heart Rate 2022-01-11 20:35:00 [facility] [place] Respitory Rate 2022-01-11 20:35:00 Memori al [place] Height 2022-01-11 20:35:00 165.1 cm [facility] [place] Weight 2022-01-11 20:35:00 [facility] [place] BMI Calculated 2022-01-11 20:35:00 Memori al [place] Systolic (mm Hg) 2020-12-06 16:30:00 Juanjose rial [place] Diastolic (mm Hg) 2020-12-06 16:30:00 Mem orial [place] Heart Rate 2020-12-06 16:30:00 [facility] [place] Respitory Rate 2020-12-06 16:30:00 Memori al [place] Height 2020-12-06 16:30:00 167.64 cm [facility] [place] Weight 2020-12-06 16:30:00 [facility] [place] BMI Calculated 2020-12-06 16:30:00 Memori al [place] Systolic (mm Hg) 2020-10-10 20:50:00 Juanjose rial [place] Diastolic (mm Hg) 2020-10-10 20:50:00 Mem orial [place] Heart Rate 2020-10-10 20:50:00 [facility] [place] Respitory Rate 2020-10-10 20:50:00 Memori al [place] Height 2020-10-10 20:50:00 172.72 cm [facility] [place] Weight 2020-10-10 20:50:00 [facility] [place] BMI Calculated 2020-10-10 20:50:00 Memori al [place] Systolic (mm Hg) 2020-09-12 22:19:00 Juanjose rial [place] Diastolic (mm Hg) 2020-09-12 22:19:00 Mem orial [place] Heart Rate 2020-09-12 22:19:00 [facility] [place] Respitory Rate 2020-09-12 22:19:00 Memori al [place] Height 2020-09-12 22:19:00 165.1 cm [facility] [place] Weight 2020-09-12 22:19:00 [facility] [place] BMI Calculated 2020-09-12 22:19:00 Memori al [place] Procedures This patient has no known procedures. Encounters Start End Encounter Admission Attending Care Care Encounter Source Date/Time Date/Time Type Type Clinicians Facility Department ID 2023-01-22 2023-01-22 [id number] Memoria 13:15:00 13:15:00 09 guadalupe Escobedo 2022-07-24 2022-07-25 Outpatient nullFlavo MNA [id number] Memoria 20:15:00 04:59:59 r Neurology 08 guadalupe Escobedo 2022-07-24 2022-07-24 [id number] 15:15:00 23:59:59 Diego 08 Sung 2022-07-24 2022-07-24 Outpatient MHIE MHIE [id number] Memoria 15:15:00 15:15:00 08 guadalupe Escobedo 2022-05-31 2022-05-31 Ambulatory nullFlavo MNA [id number] Memoria 19:45:00 19:45:00 Pre-Reg r Neurology 07 guadalupe Stanfordann 2022-05-31 2022-05-31 Outpatient MHIE MHIE [id number] Memoria 14:45:00 14:45:00 07 guadalupe [place] 2022-05-31 2022-05-31 [facility] [id number] 14:45:00 14:45:00 Diego 07 Sung 2022-02-22 2022-02-23 Outpatient nullFlavo MNA [id number] Memoria 20:00:00 04:59:59 r Neurology 06 guadalupe Cornejo [place] 2022-02-22 2022-02-22 [facility] [id number] 15:00:00 23:59:59 Diego 06 Sung 2022-02-22 2022-02-22 Outpatient MHIE MHIE [id number] Memoria 15:00:00 15:00:00 06 guadalupe [place] 2022-01-11 2022-01-12 Outpatient nullFlavo MNA [id number] Memoria 20:45:00 04:59:59 r Neurology 05 guadalupe [place] 2022-01-11 2022-01-11 Outpatient FAUSTINO BravoARSCHER MHMISCHER [id number] 15:45:00 23:59:59 Diego 05 Sung 2022-01-11 2022-01-11 Outpatient MHIE MHIE [id number] Memoria 15:45:00 15:45:00 05 guadalupe Escobedo 2021-12-05 2021-12-05 Ambulatory nullFlavo MNA [id number] Memoria 15:30:00 15:30:00 Pre-Reg r Neurology 04 l Clemente Escobedo 2021-12-05 2021-12-05 Outpatient MHIE MHIE [id number] Memoria 09:30:00 09:30:00 04 guadalupe Escobedo 2021-12-05 2021-12-05 Outpatient MHIE MHIE [id number] Memoria 09:30:00 09:30:00 04 guadalupe Escobedo 2021-12-05 2021-12-05 Outpatient Shelly MISCHER MHMISCHER [id number] 09:30:00 09:30:00 Diego 04 Sung 2021-06-07 2021-06-08 Outpatient nullFlavo MNA [id number] Memoria 14:15:00 04:59:59 r Neurology 03 l Clemente Escobedo 2021-06-07 2021-06-08 Outpatient nullFlavo MNA [id number] Memoria 14:15:00 04:59:59 r Neurology 03 l Clemente Escobedo 2021-06-07 2021-06-07 [facility] [id number] 09:15:00 23:59:59 Diego 03 Sung 2021-06-07 2021-06-07 Outpatient MHIE IE [id number] Memoria 09:15:00 09:15:00 03 guadalupe Escobedo 2020-12-06 2020-12-07 Outpatient nullFlavo MNA [id number] Memoria 16:30:00 05:59:59 r Neurology 02 l Clemente Escobedo 2020-12-06 2020-12-07 Outpatient nullFlavo MNA [id number] Memoria 16:30:00 05:59:59 r Neurology 02 l Clemente Escobedo 2020-12-06 2020-12-06 Outpatient FAUSTINO BravoMISCHER MHMISCHER [id number] 10:30:00 23:59:59 Diego 02 Sung 2020-12-06 2020-12-06 Outpatient MHIE MHIE [id number] Memoria 10:30:00 10:30:00 02 l [place] 2020-10-10 2020-10-11 Outpatient nullFlavo MNA [id number] Memoria 20:45:00 05:59:59 r Neurology 01 l Clemente Escobedo 2020-10-10 2020-10-11 Outpatient nullFlavo MNA [id number] Memoria 20:45:00 05:59:59 r Neurology 01 l Clemente Escobedo 2020-10-10 2020-10-10 [facility] [id number] 14:45:00 23:59:59 Diego 01 Sung 2020-10-10 2020-10-10 Outpatient MHIE MHIE [id number] Memoria 14:45:00 14:45:00 01 guadalupe Escobedo 2020-09-12 2020-09-13 Outpatient nullFlavo MNA [id number] Memoria 22:00:00 05:59:59 r Neurology 00 l Clemente Stanfordann 2020-09-12 2020-09-13 Outpatient nullFlavo MNA [id number] Memoria 22:00:00 05:59:59 r Neurology 00 l Clemente Stanfordann 2020-09-12 2020-09-12 [facility] [id number] 16:00:00 23:59:59 Diego 00 Sung 2020-09-12 2020-09-12 Outpatient MHIE MHIE [id number] Memoria 16:00:00 16:00:00 00 [facility] Results Test Description Test Time Test Comments Results Result Comments Source CHEM PANEL 2022-02-13 12:39:00 Test Item Value Reference Range Interpretation Comme nts BUN (test code = BUN) 24 - [facility] [id number] 12:39:00 Test Item Value Reference Range Interpretation Comments Creatinine Lvl (test code = Creatinine 1.17 0.60-0.88 Lvl) [facility] [id number] 12:39:00 Test Item Value Reference Range Interpretation Comments eGFR NON-AFR. IVORIAN (test code = 43 eGFR NON-AFR. IVORIAN) [facility] [id number] 12:39:00 Test Item Value Reference Range Interpretation Comments eGFR (test code = eGFR 50 ) [facility] [id number] 12:39:00 Test Item Value Reference Range Interpretation Comments B/C Ratio (test code = B/C Ratio) 03-20 [facility]
--- NOTE | 2022-12-18 01:49 | EDPHYS ---
Physician Documentation [facility] Name: Connie Dos Santos Age: 87 yrs Sex: Female : 1935 Arrival Date: 12/18/2022 Time: 00:44 Bed 3 Private MD: ED Physician Bari Garcia HPI: 12/18 01:01 This 87 yrs old Female presents to ER via Unassigned with complaints of head injury. jmm 01:01 The patient or guardian reports injury. The complaints affect the forehead, right eye jmm and left eye. Onset: The symptoms/episode began/occurred today. Is an 87-year-old female with history of dementia that presents emerged department with complaints of swelling to her face, right wrist and hand pain. Patient was found by staff at alf in her bed with facial swelling. Unsure of the time the patient injured herself.. Historical: - Allergies: 01:11 Sulfa (Sulfonamide Antibiotics); lg3 - Home Meds: 01:11 Plavix Oral [Active]; Depakote Oral [Active]; Ativan Oral [Active]; lg3 - PMHx: 01:11 Depression; Hypertension; TIA; Alzheimer's disease; Dementia; lg3 - PSHx: 01:11 Unable to Obtain; lg3 - Immunization history: Last tetanus immunization: unknown. - Social history:: Smoking status: Patient denies any tobacco usage or history of. Patient/guardian denies using alcohol, street drugs. ROS: 01:01 Constitutional: Negative for fever, chills, and weight loss, Cardiovascular: Negative jmm for chest pain, palpitations, and edema, Respiratory: Negative for shortness of breath, cough, wheezing, and pleuritic chest pain. 01:01 MS/extremity: Positive for pain. 01:01 Neuro: Positive for headache. 01:01 All other systems are negative. Exam: 01:01 Constitutional: This is a well developed, well nourished patient who is awake, alert, jmm and in no acute distress. 01:01 ENT: Moist Mucus Membranes Neck: Trachea midline, Supple Chest/axilla: Normal chest wall appearance and motion. Cardiovascular: Regular rate and rhythm. No edema appreciated Respiratory: Normal respirations, no respiratory distress appreciated Abdomen/GI: Non distended Back: Normal ROM 01:01 Head/face: Noted is hematoma, that is moderate, of the forehead, raccoon eye(s), on the right, on the left. 01:01 Musculoskeletal/extremity: ROM: intact in all extremities. 01:01 Skin: Ecchymosis noted to the right hand. 01:01 Neuro: Orientation: unable to test, the patient has a history of dementia, Mentation: no acute changes, per EMS. 01:01 Psych: Behavior/mood is pleasant, cooperative. Vital Signs: 01:00 BP 137 / 69; Pulse 85; Resp 18 S; Temp 97.6(O); Pulse Ox 100% on R/A; Weight 77.11 kg lg3 (R); Height 5 ft. 5 in. (R); 01:00 Body Mass Index 28.29 (77.11 kg, 165.1 cm) lg3 Montrell Coma Score: 01:00 Eye Response: spontaneous(4). Motor Response: obeys commands(6). Verbal Response: lg3 oriented(5). Total: 15. Trauma Score (Adult): 01:00 Eye Response: spontaneous(1); Verbal Response: oriented(1); Motor Response: obeys lg3 commands(2); Systolic BP: > 89 mm Hg(4); Respiratory Rate: 10 to 29 per min(4); Montrell Score: 15; Trauma Score: 12 MDM: 00:50 Patient medically screened. mauricio 01:46 Differential diagnosis: Hematoma on Intracranial bleed- Concussion cerebral contusion. cathie Data reviewed: vital signs, nurses notes, radiologic studies. Independent interpretation of the following test(s) in the Emergency Department X-Ray: My interpretation is No fracture appreciated. Counseling: I had a detailed discussion with the patient and/or guardian regarding: the historical points, exam findings, and any diagnostic results supporting the discharge/admit diagnosis, radiology results, the need for outpatient follow up, to return to the emergency department if symptoms worsen or persist or if there are any questions or concerns that arise at home. 12/18 01:16 Order name: Glucose, Ancillary Testing; Complete Time: 01:29 EDPR 12/18 00:54 Order name: CT Head C Spine [facility] 12/18 00:54 Order name: CT Facial Bones W/O Con [facility] 12/18 00:55 Order name: Hand Right 3 View XRAY mauricio Administered Medications: No medications were administered Disposition Summary: 12/18/22 01:49 Discharge Ordered Location: Home [facility] Condition: Stable jm Diagnosis - Unspecified injury of head, initial encounter jmm - Contusion of hand jm Followup: jmm - With: Private Physician - When: 2 - 3 days - Reason: Recheck today's complaints, Continuance of care, Re-evaluation by your physician Discharge Instructions: - Discharge Summary Sheet jmm - Hand Contusion jmm - Head Injury, Adult jmm - Hematoma jm Forms: - Medication Reconciliation Form jm - Thank You Letter jmm - Antibiotic Education jmm - Prescription Opioid Use jm Signatures: Dispatcher [employer] EDMS Liban Giang PA PA jmm Gibson, Lacie, RN RN lg3 Corrections: (The following items were deleted from the chart) 00:59 00:56 Wrist Right 3 View+[id number] ordered. EDMS EDMS
--- NOTE | 2022-12-18 01:49 | ER ---
Nurse's Notes [facility] Name: Connie Dos Santos Age: 87 yrs Sex: Female : 1935 Arrival Date: 12/18/2022 Time: 00:44 Bed 3 Private MD: Diagnosis: Unspecified injury of head, initial encounter;Contusion of hand Presentation: 12/18 01:00 Chief complaint: EMS states: toned out to memory care facility for unwitnessed fall. pt lg3 found in bed with facial swelling and bruising. pt with history of dementia and Alzheimer's and does not recall falling. complaints of pain to forehead and right arm. unknown LOC. Care prior to arrival: None. Mechanism of Injury: Fall. Trauma event details: Injury occurred in the [facility], Injury occurred: at home. Injury occurred: December 18, 2022. 01:00 Acuity: BRANDY 2 lg3 01:00 Method Of Arrival: EMS: [facility] lg3 01:11 Coronavirus screen: Client denies travel out of the [place] in the last 14 days. At this lg3 time, the client does not indicate any symptoms associated with coronavirus-19. Ebola Screen: No symptoms or risks identified at this time. Initial Sepsis Screen: Does the patient meet any 2 criteria? No. Patient's initial sepsis screen is negative. Does the patient have a suspected source of infection? No. Patient's initial sepsis screen is negative. Risk Assessment: Do you want to hurt yourself or someone else? Patient reports no desire to harm self or others. Onset of symptoms is unknown. Triage Assessment: 01:11 Pain: Complains of pain in right arm and left eye and right eye and forehead. lg3 Trauma Activation: Alert Physician: ED Physician; Name: ; Notified At: 00:39; Arrived At: Physician: General Surgeon; Name: ; Notified At: 00:39; Arrived At: Physician: Radiology; Name: ; Notified At: 00:39; Arrived At: Physician: Respiratory; Name: ; Notified At: 00:39; Arrived At: Physician: Lab; Name: ; Notified At: 00:39; Arrived At: Historical: - Allergies: 01:11 Sulfa (Sulfonamide Antibiotics); lg3 - Home Meds: 01:11 Plavix Oral [Active]; Depakote Oral [Active]; Ativan Oral [Active]; lg3 - PMHx: 01:11 Depression; Hypertension; TIA; Alzheimer's disease; Dementia; lg3 - PSHx: 01:11 Unable to Obtain; lg3 - Immunization history: Last tetanus immunization: unknown. - Social history:: Smoking status: Patient denies any tobacco usage or history of. Patient/guardian denies using alcohol, street drugs. Screenin:00 Abuse screen: Denies threats or abuse. Denies injuries from another. Tuberculosis lg3 screening: No symptoms or risk factors identified. 01:14 [facility] ED Fall Risk Assessment (Adult) History of falling in the last 3 months, lg3 including since admission Yes- fall prone (multiple falls) (3 pts) Confusion or Disorientation Yes (5 pts) Intoxicated or Sedated No (0 pts) Impaired Gait Yes (1 pt) Mobility Assist Device Used Yes (1 pt) Altered Elimination No (0 pt) Score/Fall Risk Level 3 or more points = High Risk Oriented to surroundings, Maintained a safe environment, Educated pt \T\ family on fall prevention, incl call for assistance when getting out of bed, Provided non-skid footwear, Apply high fall risk patient identification: yellow non skid footwear/ fall signage, Offered frequent toileting (1:1 observation). Nutritional screening: No deficits noted. Primary Survey: 01:00 NO uncontrolled hemorrhage observed. A: The client is awake and alert. The airway is lg3 patent. The client responds to verbal stimuli. Airway: patent. Breathing/Chest: Spontaneous respiratory effort, equal unlabored respirations, breath sounds clear bilaterally, regular pattern, symmetrical chest rise and fall. Respiratory effort: spontaneous, unlabored. Circulation: No external hemorrhage present. Regular and strong central pulse, skin warm/dry/normal color. Disability Pupils are equal, round, reactive to light and accommodation. Client is alert. Client responds to verbal stimuli. Exposure/Environment: All clothing and personal items were removed. Forensic evidence collection is not deemed to be indicated at this time. Items placed in patient belonging bag. There is no evidence of uncontrolled external bleeding. A warming method has been applied: A warm blanket has been provided to the patient. Reassessment Alertness and Airway: Awake and alert. The airway is patent. Airway Patent Breathing: Spontaneous respiratory effort, equal unlabored respirations, breath sounds clear bilaterally, regular pattern with symmetrical chest rise and fall. Respiratory effort Spontaneous Unlabored Circulation: No external hemorrhage noted. Regular and strong central pulse, skin warm/dry/normal color. Disability: Pupils Pupils are equal, round, reactive to light and accomodation. Alert Verbal stimuli. Assessment: 01:00 General: Appears in no apparent distress. comfortable, Behavior is calm, cooperative, lg3 appropriate for age. Pain: Complains of pain in right arm and left eye and right eye and forehead. Neuro: Rivas Agitation-Sedation Scale (RASS): 0 - Alert and Calm Level of Consciousness is awake, alert, obeys commands, Oriented to person, place. EENT: Eyes swelling and bruising noted. Reports pain in left eye and right eye. Cardiovascular: No deficits noted. Denies chest pain, shortness of breath, Capillary refill < 3 seconds Clubbing of nail beds is absent JVD is absent Patient's skin is warm and dry. Respiratory: No deficits noted. Airway is patent Trachea midline Respiratory effort is even, unlabored, Respiratory pattern is regular, symmetrical. GI: No deficits noted. No signs and/or symptoms were reported involving the gastrointestinal system. Abdomen is round non-distended, Bowel sounds present X 4 quads. Abd is soft and non tender X 4 quads. : No deficits noted. No signs and/or symptoms were reported regarding the genitourinary system. Derm: Bruising that is dark purple, on right arm and left eye and right eye and forehead. Musculoskeletal: Swelling present in right arm and left eye and right eye and forehead. Injury Description: Head injury. Vital Signs: 01:00 BP 137 / 69; Pulse 85; Resp 18 S; Temp 97.6(O); Pulse Ox 100% on R/A; Weight 77.11 kg lg3 (R); Height 5 ft. 5 in. (R); 01:00 Body Mass Index 28.29 (77.11 kg, 165.1 cm) lg3 Montrell Coma Score: 01:00 Eye Response: spontaneous(4). Motor Response: obeys commands(6). Verbal Response: lg3 oriented(5). Total: 15. Trauma Score (Adult): 01:00 Eye Response: spontaneous(1); Verbal Response: oriented(1); Motor Response: obeys lg3 commands(2); Systolic BP: > 89 mm Hg(4); Respiratory Rate: 10 to 29 per min(4); Montrell Score: 15; Trauma Score: 12 ED Course: 00:44 Patient arrived in ED. em1 00:50 Liban Giang PA is PHCP. jmm 00:50 Bari Garcia MD is Attending Physician. jmm 00:56 CT Head C Spine In Process Unspecified. EDMS 00:59 CT Facial Bones W/O Con In Process Unspecified. EDMS 01:00 Ana Laura Alvarez, ALFIE is Primary Nurse. lg3 01:00 Patient has correct armband on for positive identification. Placed in gown. Bed in low lg3 position. Call light in reach. Side rails up X2. Patient maintains SpO2 saturation greater than 95% on room air. Client placed on continuous cardiac and pulse oximetry monitoring. NIBP monitoring applied. fire chief on. 01:00 Patient maintains SpO2 saturation greater than 95% on room air. lg3 01:04 Triage completed. lg3 01:11 Arm band placed on left wrist. lg3 01:13 Hand Right 3 View XRAY In Process Unspecified. EDMS 01:14 Door closed. Noise minimized. Warm blanket given. lg3 01:15 Thermoregulation: warm blanket given to patient. lg3 02:40 Patient did not have IV access during this emergency room visit. pf1 02:40 No provider procedures requiring assistance completed. pf1 Administered Medications: No medications were administered Medication: 02:40 VIS not applicable for this client. pf1 Intake: 02:40 PO: 0ml; Total: 0ml. pf1 Output: 02:40 Urine: 0ml; Total: 0ml. pf1 Outcome: 01:49 Discharge ordered by . jmm 02:40 Patient's length of stay was not longer than 2 hours. pf1 02:44 Discharged to custodial. pf1 02:44 Condition: stable 02:44 Discharge instructions given to custodial, Instructed on discharge instructions, follow up and referral plans. Demonstrated understanding of instructions, follow-up care. 03:19 Patient left the ED. pf1 Signatures: Dispatcher [employer] EDKY Liban Giang PA PA jmm Bobby, Osbaldo em1 Ana Laura Alvarez, RN RN lg3 Sloane grant, RN RN pf1
[2022-12-18 03:24] VITALS: BP 137/69; TEMP 97.6; O2SAT 100
--- NOTE | 2022-12-18 12:29 | RAD REPORT ---
EXAM DESCRIPTION: CT - Facial Bones W/ Mpr - 12/18/2022 6:44 am CLINICAL HISTORY: The patient is 87 years old and is Female; fall TECHNIQUE: Axial computed tomography images of the face without intravenous contrast. Sagittal and coronal reformatted images were created and reviewed. This CT exam was performed using one or more of the following dose reduction techniques: automated exposure control, adjustment of the mA and/o r kV according to patient size, and/or use of iterative reconstruction technique. COMPARISON: No relevant prior studies available. FINDINGS: BONES/JOINTS: The orbital floors and rivas are intact. The zygomatic arches and pteryg oid plates are intact. The visualized maxilla and mandible are intact. SOFT TISSUES: Large frontal scalp hematoma is present. ORBITS: The globes, extraocular muscles, and optic nerve complexes are within normal limits. SINUSES: Mucoperiosteal thickening of the ethmoid air cells and maxillary sinuses is noted. Th e visualized paranasal sinuses are clear. No air-fluid levels. NASAL CAVITY/SEPTUM: The nasal bones are intact. IMPRESSION: No acute facial fracture. Large frontal scalp hematoma. Electronically signed by: Radha Bell MD 12/18/2022 1:11 AM CDT Due to temporary technical issues with the PACS/Fluency reporting system, reports are being signed by the in house radiologists without review as a courtesy to insure prompt reporting. The interpreting radiologist is fully responsible for the content of the report.
--- NOTE | 2022-12-18 12:37 | RAD REPORT ---
EXAM DESCRIPTION: RAD - Hand Right 3 View - 12/18/2022 1:11 am CLINICAL HISTORY: The patient is 87 years old and is Female; fall TECHNIQUE: Frontal, lateral and oblique views of the right hand. COMPARISON: No relevant prior studies available. FINDINGS: BONES/JOINTS: The bones are diffusely osteopenic. Degenerative change of the bones of th e hand is noted with joint space narrowing and sclerosis. No acute fracture. No dislocation. SOFT TISSUES: Extensive soft tissue swelling along the dorsum of the hand is present. No radio paque foreign body. IMPRESSION: Extensive soft tissue swelling along the dorsum of the hand is present. No underlying acute bony abnormality. Electronically signed by: Radha Bell MD 12/18/2022 2:08 AM CDT Due to temporary technical issues with the PACS/Fluency reporting system, reports are being signed by the in house radiologists without review as a courtesy to insure prompt reporting. The interpreting radiologist is fully responsible for the content of the report.
--- NOTE | 2022-12-18 12:41 | RAD REPORT ---
EXAM DESCRIPTION: CT - Head C Spine Mpr Wo Con - 12/18/2022 6:44 am CLINICAL HISTORY: The patient is 87 years old and is Female; fall TECHNIQUE: Axial computed tomography images of the head/brain and cervical spine without intravenous contrast. Sagittal and coronal reformatted images were created and reviewed. This CT exam was pe rformed using one or more of the following dose reduction techniques: automated exposure control, a djustment of the mA and/or kV according to patient size, and/or use of iterative reconstruction techn ique. COMPARISON: CT February 20, 2018 FINDINGS: BRAIN: Encephalomalacia within the left frontal lobe is noted. There is diffuse cerebral atrophy present, consistent with this patient's age. There is patchy hypoattenuation of the deep w roberto carlos matter which is non-specific, but most likely owing to chronic small vessel ischemic change in a patient of this age group. No intracranial hemorrhage, mass effect or midline shift is seen. There are no extra-axial fluid collections. VENTRICLES: Unremarkable. No ventriculomegaly. SKULL: Linear lucency along the right occipital bone extending into the foramen magnum is presen t. This is unchanged from prior exam and may be secondary to a nutrient groove versus chronic fractur e. There is no acute skull fracture noted. SINUSES: Unremarkable as visualized. No acute sinusitis. MASTOID AIR CELLS: Unremarkable as visualized. No mastoid effusion. VERTEBRAE: Straightening of the normal cervical curvature is present. The vertebral body heigh ts and alignment are maintained. There is no acute fracture. DISCS/SPINAL CANAL/NEURAL FORAMINA: There is multi-level intervertebral disc height loss. There are disc-osteophyte complexes at several levels, with associated mild spinal canal narrowing. There i s also facet hypertrophy and uncovertebral joint osteophytosis, with associated multilevel neural for aminal narrowing. SOFT TISSUES: Large frontal scalp hematoma is present. LUNG APICES: Unremarkable as visualized. IMPRESSION: 1. No acute intracranial hemorrhage. Large frontal scalp hematoma. 2. Straightening of the normal cervical curvature is present. Findings may be secondary to patien t position versus muscle spasm. Electronically signed by: Radha Bell MD 12/18/2022 1:18 AM CDT Due to temporary technical issues with the PACS/Fluency reporting system, reports are being signed by the in house radiologists without review as a courtesy to insure prompt reporting. The interpreting radiologist is fully responsible for the content of the report.
== END 2022-12-18 03:19 | disposition home or self-care (01) ==
LOC: ER 00:42
DX: S00.83XA Contusion of other part of head, initial encounter (principal); S60.221A Contusion of right hand, initial encounter; G30.9 Alzheimer's disease, unspecified; F02.80 Dementia in other diseases classified elsewhere, unspecified severity, without behavioral disturbance, psychotic disturbance, mood disturbance, and anxiety; I10 Essential (primary) hypertension; Z86.73 Personal history of transient ischemic attack (TIA), and cerebral infarction without residual deficits; Z79.01 Long term (current) use of anticoagulants; Z88.2 Allergy status to sulfonamides
CPT/HCPCS: 70450; 70486; 72125; 76377; 82947; 99284

== ENCOUNTER 2023-09-24 18:29 | Inpatient (IN) | payer OTHER ==
[2023-09-24] MEDS ORDERED: NA CHLORIDE 0.9% 1,000 ML ONE (19:21)
[2023-09-24] MEDS ORDERED: METOPROLOL TARTRATE 5 MG/5 ML INJ IV ONE ×2 (19:21→22:23)
[2023-09-24 19:30] LABS: Hematocrit 35.6 % (36.0-45.0); Lymphocytes % 12.5 % (15.3-44.8); MCV 100.6 fL (80-100); MPV 7.5 fL (7.6-11.3); Platelets 225 thou/uL (152-406); RBC Red Blood Cell Count 3.54 M/uL (3.86-4.86)
[2023-09-24 19:48] LABS: Potassium 3.8 mEq/L (3.5-5.1); Troponin High Sensitivity 22.8 pg/mL (<58.9)
[2023-09-24 19:57] LABS: Protime INR 1.06
--- NOTE | 2023-09-24 20:17 | RAD REPORT ---
EXAM DESCRIPTION: RAD - Chest Single View - 09/24/2023 7:49 pm CLINICAL HISTORY: PALPITATIONS Chest pain. COMPARISON: Chest Single View dated 10/10/2021; Chest Single View dated 10/09/2021; Chest Single View dated 10/07/2021; Chest Single View dated 10/03/2021 FINDINGS: Portable technique limits examination quality. The lungs are emphysematous but grossly clear. The heart is mildly enlarged in size. No displaced fra ctures. IMPRESSION: COPD.
[2023-09-24] MEDS ORDERED: DIGOXIN 0.25 MG/ML AMP ONE (20:44)
[2023-09-24] MEDS ORDERED: MAGNESIUM SULFATE 1 gm IVPB 1 GM/100 ML BAG IV ONE (20:45)
--- NOTE | 2023-09-24 22:03 | RAD REPORT ---
EXAM DESCRIPTION: CT - Chest For Pe Angio - 09/24/2023 9:49 pm CLINICAL HISTORY: Chest pain. eval for pe COMPARISON: Chest For Pe Angio dated 10/05/2021 TECHNIQUE: CT angiogram of the pulmonary arteries was performed with MIP. All CT scans are performed using dose optimization technique as appropriate and may include automated exposure control or mA/KV adjustment according to patient size. FINDINGS: No evidence of pulmonary thromboembolism. No acute aortic finding demonstrated. Mild emphysema with linear atelectasis in both lung bases. Trace bilateral pleural effusions. No concerning bony finding. IMPRESSION: No evidence of pulmonary thromboembolism. Mild atelectasis in both lung bases with trace pleural effusions.
[2023-09-24] MEDS ORDERED: METOPROLOL TAR 50 MG TAB ONE (22:22)
--- NOTE | 2023-09-24 22:26 | ER ---
Nurse's Notes [facility] Name: Connie Dos Santos Age: 88 yrs Sex: Female : 1935 Arrival Date: 09/24/2023 Time: 18:29 Bed 13 Private MD: Diagnosis: Unspecified atrial flutter-2:1;Tachycardia, unspecified;Dementia in other diseases classified elsewhere without behavioral disturbance;Persistent atrial fibrillation Presentation: 09/24 18:46 Chief complaint: EMS states: Pt was sent from the memory care unit at [facility]. The kd3 doctor was making his evening rounds and noted that the patient had a heart rate in the 140's. Doctor put in an order to send to the ED. Pt takes metoprolol twice a day for heart rate and had not received her evening dose this afternoon. Pt is alert and oriented and has no complaints; states "I don't really know why i am here". Coronavirus screen: Vaccine status: unknown. Ebola Screen: No symptoms or risks identified at this time. Risk Assessment: Do you want to hurt yourself or someone else? Patient reports no desire to harm self or others. Onset of symptoms was September 24, 2023. 18:46 Method Of Arrival: EMS: [facility] 3 18:46 Acuity: BRANDY 3 kd3 09/25 01:52 Initial Sepsis Screen: Does the patient meet any 2 criteria? HR > 90 bpm. No. Patient's tm6 initial sepsis screen is negative. Does the patient have a suspected source of infection? No. Patient's initial sepsis screen is negative. Triage Assessment: 09/24 18:49 General: Appears in no apparent distress. Behavior is calm, cooperative. Pain: Denies kd3 pain. Historical: - Allergies: 18:49 Sulfa (Sulfonamide Antibiotics); kd3 - PMHx: 18:49 Alzheimer's disease; Dementia; Depression; Hypertension; TIA; kd3 - Immunization history:: Adult Immunizations up to date. - Social history:: Smoking status: unknown. Screenin/28 00:13 [facility] ED Fall Risk Assessment (Adult) History of falling in the last 3 months, tm6 including since admission No falls in past 3 months (0 pts). Abuse screen: Denies threats or abuse. Denies injuries from another. Nutritional screening: No deficits noted. Tuberculosis screening: No symptoms or risk factors identified. Assessment: 09/24 19:18 General: Appears in no apparent distress. Behavior is calm, cooperative. Pain: Denies kd3 pain. Neuro: Level of Consciousness is awake, alert, obeys commands, Oriented to person, place, time, situation. Cardiovascular: Capillary refill < 3 seconds Patient's skin is warm and dry. Respiratory: Airway is patent Trachea midline Respiratory effort is even, unlabored, Respiratory pattern is regular, symmetrical. 19:51 Reassessment: Patient appears in no apparent distress at this time. Patient and/or tm6 family updated on plan of care and expected duration. Pain level reassessed. Patient is alert, oriented x 3, equal unlabored respirations, skin warm/dry/pink. 20:24 Reassessment: patient assisted to bedside commode. tm6 22:16 Reassessment: Patient appears in no apparent distress at this time. Patient and/or tm6 family updated on plan of care and expected duration. Pain level reassessed. 09/25 00:11 Reassessment: Patient and/or family updated on plan of care and expected duration. Pain tm6 level reassessed. patient not oriented to time, place, or situation. Patient agitated. Patient refusing EKG. Patient refusing to move to hospital bed. Patient trying to remove VS monitoring. ER MD notified. 00:20 Reassessment: patient refusing medications. tm6 Vital Signs: 09/24 19:18 BP 129 / 92; Pulse 144; Resp 15; Temp 98.2(O); Pulse Ox 98% on R/A; kd3 19:31 BP 128 / 85; Pulse 144; Resp 24; Pulse Ox 99% ; tm6 19:39 BP 123 / 84; Pulse 142; Resp 19; Pulse Ox 100% ; tm6 19:47 BP 121 / 89; Pulse 140; Resp 16; Pulse Ox 98% ; tm6 20:57 BP 132 / 82; Pulse 140; Pulse Ox 99% on R/A; tm6 22:16 BP 134 / 90; Pulse 110; Resp 20; Pulse Ox 99% on R/A; tm6 09/25 00:11 BP 139 / 96; Pulse 96; Pulse Ox 94% on R/A; tm6 01:52 Pulse 76; tm6 ED Course: 09/24 18:41 Patient arrived in ED. iw 18:41 Christine, Marvel, MD is Attending Physician. ec2 18:46 Rosita Mohr, ALFIE is Primary Nurse. kd3 18:49 Triage completed. kd3 18:49 Arm band placed on right wrist. kd3 19:51 XRAY Chest (1 view) In Process Unspecified. EDMS 20:29 Attending Physician role handed off by Marvel Christine MD caryl 20:29 Joel Silverman MD is Attending Physician. caryl 21:51 CT Chest For PE Angio In Process Unspecified. EDMS 22:24 Cheko Esquivel MD is Hospitalizing Provider. caryl 09/25 00:13 Patient has correct armband on for positive identification. Placed in gown. Call light tm6 in reach. Side rails up X2. sitter at bedside. Provided Education on: plan of care. Client placed on continuous cardiac and pulse oximetry monitoring. NIBP monitoring applied. jig hand on. Door closed. Noise minimized. Lights dimmed. 00:13 Warm blanket given. Pillow given. tm6 00:13 No provider procedures requiring assistance completed. Inserted saline lock: 22 gauge tm6 in right antecubital area, using aseptic technique. Maintain EMS IV. Dressing intact. Good blood return noted. Site clean \\T\\ dry. Gauge \\T\\ site: 22g LFA. IV is patent. 01:34 Tom Chappell MD is Hospitalizing Provider. [facility] 01:53 Patient admitted, IV remains in place. tm6 Administered Medications: 09/24 19:34 Drug: Metoprolol IVP 5 mg IVP every 5 minutes; Hold for SBP < 100 or HR < 60. x3 Route: tm6 IVP; Site: left forearm; 19:34 Drug: NS 0.9% IV 1000 ml IV at 1 bolus Per protocol; 1000 mL bolus Route: IV; Rate: 1 tm6 bolus; Site: left forearm; 19:39 Drug: Metoprolol IVP 5 mg IVP every 5 minutes; Hold for SBP < 100 or HR < 60. x3 Route: tm6 IVP; Site: left forearm; 19:47 Drug: Metoprolol IVP 5 mg IVP every 5 minutes; Hold for SBP < 100 or HR < 60. x3 Route: tm6 IVP; Site: left forearm; 21:07 Drug: Magnesium Sulfate IVPB 1 grams IVPB once over 1 hrs Route: IVPB; Infused Over: 1 tm6 hrs; Site: left forearm; 21:07 Drug: Digoxin IVP 0.5 mg IVP once Route: IVP; Site: left forearm; tm6 22:23 Not Given (Duplicate Order): metoprolol5 mg IVP once; Hold for SBP <100 or HR <60. [facility] 23:11 Drug: Metoprolol PO 50 mg PO once Route: PO; tm6 23:11 Drug: Metoprolol IVP 2.5 mg IVP once; Hold for SBP <100 or HR <60. Route: IVP; Site: tm6 right antecubital; 23:24 Drug: Metoprolol IVP 2.5 mg IVP once; Hold for SBP <100 or HR <60. Route: IVP; Site: tm6 right antecubital; Medication: 09/25 01:52 VIS not applicable for this client. tm6 Outcome: 09/24 22:26 Decision to Hospitalize by Provider. [facility] 09/25 01:53 Admitted to Med/surg accompanied by tech, via stretcher, room 230, with chart, Report tm6 called to Taty RN Condition: stable Instructed on the need for admit, 01:57 Patient left the ED. tm6 Signatures: Dispatcher [employer] Joel Li MD MD cha Williams, Irene, RN RN iw Doucette, Kyli, RN RN kd3 Marvel Christine MD MD ec2 Madelaine Ceja RN RN tm6 Corrections: (The following items were deleted from the chart) 00:12 09/24 22:16 Reassessment: Patient appears in no apparent distress at this time. Patient tm6 and/or family updated on plan of care and expected duration. Pain level reassessed. Patient is alert, oriented x 3, equal unlabored respirations, skin warm/dry/pink. tm6 09/25 00:13 00:11 Reassessment: Patient and/or family updated on plan of care and expected tm6 duration. Pain level reassessed. Patient is alert, oriented x 3, equal unlabored respirations, skin warm/dry/pink. tm6 00:21 00:11 Reassessment: Patient and/or family updated on plan of care and expected tm6 duration. Pain level reassessed. patient not oriented to time, place, or situation. Patient agitated. Patient refusing EKG. Patient refusing to move to hospital bed. Patient trying to remove VS monitoring. tm6
--- NOTE | 2023-09-24 22:26 | EDPHYS ---
Physician Documentation [facility] Name: Connie Dos Santos Age: 88 yrs Sex: Female : 1935 Arrival Date: 09/24/2023 Time: 18:29 Bed 13 Private MD: ED Physician Joel Silverman HPI: 09/24 19:03 This 88 yrs old Female presents to ER via EMS with complaints of fast heart rate. ec2 19:03 Patient arrives today for evaluation of tachycardia. Patient was having her typical ec2 vital signs taken at her nursing facility and they noted her have a heart rate in the 140s and subsequently sent her here for evaluation. Patient reports no chest pain, no difficulty breathing, no leg swelling. Patient is on Plavix. Patient also takes metoprolol. Looking at their external records it shows that they have had documented heart rates in the 140s that have been responsive to metoprolol in the past.. 22:22 The patient presents with a history of irregular heart beat, heart racing. Context: The caryl symptoms occur at rest. Onset: The symptoms/episode began/occurred today. Duration: The patient or guardian reports a single episode, that is still ongoing. Modifying factors: The symptoms are aggravated by nothing. The symptoms are alleviated by nothing. Associated signs and symptoms: The patient has no apparent associated signs or symptoms. Severity of symptoms: At their worst the symptoms were moderate in the emergency department the symptoms are unchanged. It is unknown whether or not the patient has had similar symptoms in the past. Historical: - Allergies: 18:49 Sulfa (Sulfonamide Antibiotics); kd3 - PMHx: 18:49 Alzheimer's disease; Dementia; Depression; Hypertension; TIA; kd3 - Immunization history:: Adult Immunizations up to date. - Social history:: Smoking status: unknown. ROS: 19:03 Constitutional: as per hpi ec2 Exam: 19:03 Constitutional: GEN: NAD Head: atraumatic Eyes: EOMI Ears: External ears are ec2 normal. CV: Tachycardia noted, no lower extremity edema LUNGS: no respiratory distress ABD: non-distended SKIN: no evidence of rashes MSK: no evidence of trauma NEURO: moves all extremities equally 09/25 01:50 ECG was reviewed by the Attending Physician. caryl 01:51 ECG was reviewed by the Attending Physician. caryl Vital Signs: 09/24 19:18 BP 129 / 92; Pulse 144; Resp 15; Temp 98.2(O); Pulse Ox 98% on R/A; kd3 19:31 BP 128 / 85; Pulse 144; Resp 24; Pulse Ox 99% ; tm6 19:39 BP 123 / 84; Pulse 142; Resp 19; Pulse Ox 100% ; tm6 19:47 BP 121 / 89; Pulse 140; Resp 16; Pulse Ox 98% ; tm6 20:57 BP 132 / 82; Pulse 140; Pulse Ox 99% on R/A; tm6 22:16 BP 134 / 90; Pulse 110; Resp 20; Pulse Ox 99% on R/A; tm6 09/25 00:11 BP 139 / 96; Pulse 96; Pulse Ox 94% on R/A; tm6 01:52 Pulse 76; tm6 MDM: 09/24 19:02 Patient medically screened. ec2 19:03 Data reviewed: vital signs. ED course: Patient arrives today for evaluation of ec2 tachycardia. Examination remarkable for tachycardic individual was otherwise in no acute distress with reassuring cardiopulmonary examination otherwise. Will obtain lab work, EKG, chest x-ray for further assessment of the patient complaint. Currently considering arrhythmia, electrolyte disturbances, ACS, PE. Will also send a D-dimer.. 19:04 ED course: EKG independently reviewed and interpreted by me, shows tachycardia, rate ec2 144, no acute ST segment elevations however does have diffuse ST depressions in the inferior leads. Rhythm is possibly A flutter with flutter waves vs sinus tachycardia. Given nursing facilities were giving metoprolol with good response, I will also attempt this.. 20:08 ED course: Metabolic profile is reassuring, electrolytes reassuring, renal function is ec2 diminished with a GFR of 34 and a creatinine 1.5. CBC is reassuring. BNP is elevated at 7500, D-dimer is below our upper limit threshold. Troponin is within normal ranges at 22.8. After metoprolol interventions, patient with no improvement in heart rate control. Will proceed with CT scan. Patient signed out to Dr. Silverman with pending imaging and reassessment.. 22:21 Differential diagnosis: arrythmia, dehydration. Consideration of Admission/Observation caryl Patient was admitted/placed on observation. Escalation of care including admission/observation considered. I considered the following discharge prescriptions or medication management in the emergency department Medications were administered in the Emergency Department. See MAR. Independent interpretation of the following test(s) in the Emergency Department EKG: See my EKG interpretation above. Test considered but Not performed: Ultrasound NO 2 D ECHO. Historians other than the Patient: EMS: EMS WELL INFORMED. Care significantly affected by the following chronic conditions: Hypertension, Chronic Kidney Disease, DEMENTIA , DEPRESSION. 09/24 19:03 Order name: Basic Metabolic Panel; Complete Time: 20:07 2 09/24 19:03 Order name: CBC with Diff; Complete Time: 20:07 ec2 09/24 19:03 Order name: D-Dimer; Complete Time: 20:07 ec2 09/24 19:03 Order name: NT PRO-BNP; Complete Time: 20:07 2 09/24 19:03 Order name: Troponin HS; Complete Time: 20:07 2 09/24 19:53 Order name: Protime (+INR); Complete Time: 20:07 [facility] 09/24 19:53 Order name: PTT, Activated Partial Thromb; Complete Time: 20:07 EDAR 09/24 19:03 Order name: XRAY Chest (1 view); Complete Time: 20:24 2 09/24 20:08 Order name: CT Chest For PE Angio; Complete Time: 22:11 ec2 09/24 19:03 Order name: EKG; Complete Time: 19:03 ec2 09/24 22:33 Order name: CONS Physician Consult [facility] 09/24 22:46 Order name: EKG; Complete Time: 22:46 [facility] 09/24 19:03 Order name: Cardiac monitoring; Complete Time: 19:10 2 09/24 19:03 Order name: EKG - Nurse/Tech; Complete Time: 19:10 ec2 09/24 19:03 Order name: IV Saline Lock; Complete Time: 19:10 ec2 09/24 19:03 Order name: Labs collected and sent; Complete Time: 19:19 ec2 09/24 19:03 Order name: O2 Per Protocol; Complete Time: 19:10 ec2 09/24 19:03 Order name: O2 Sat Monitoring; Complete Time: 19:10 ec2 EC/28 01:50 Rate is 130 beats/min. Rhythm is regular. QRS [place] is Normal. HI interval is normal. caryl QRS interval is normal. QT interval is normal. No Q waves. T waves are Normal. No ST changes noted. Clinical impression: Atrial Flutter. Interpreted by me. Reviewed by me. 01:51 Rate is 76 beats/min. Rhythm is regular. QRS [place] is Normal. HI interval is normal. QRS caryl interval is normal. QT interval is normal. No Q waves. T waves are Normal. No ST changes noted. Clinical impression: Atrial Flutter. Interpreted by me. Reviewed by me. Administered Medications: 09/24 19:34 Drug: Metoprolol IVP 5 mg IVP every 5 minutes; Hold for SBP < 100 or HR < 60. x3 Route: tm6 IVP; Site: left forearm; 19:34 Drug: NS 0.9% IV 1000 ml IV at 1 bolus Per protocol; 1000 mL bolus Route: IV; Rate: 1 tm6 bolus; Site: left forearm; 19:39 Drug: Metoprolol IVP 5 mg IVP every 5 minutes; Hold for SBP < 100 or HR < 60. x3 Route: tm6 IVP; Site: left forearm; 19:47 Drug: Metoprolol IVP 5 mg IVP every 5 minutes; Hold for SBP < 100 or HR < 60. x3 Route: tm6 IVP; Site: left forearm; 21:07 Drug: Magnesium Sulfate IVPB 1 grams IVPB once over 1 hrs Route: IVPB; Infused Over: 1 tm6 hrs; Site: left forearm; 21:07 Drug: Digoxin IVP 0.5 mg IVP once Route: IVP; Site: left forearm; tm6 22:23 Not Given (Duplicate Order): metoprolol5 mg IVP once; Hold for SBP <100 or HR <60. caryl 23:11 Drug: Metoprolol PO 50 mg PO once Route: PO; tm6 23:11 Drug: Metoprolol IVP 2.5 mg IVP once; Hold for SBP <100 or HR <60. Route: IVP; Site: tm6 right antecubital; 23:24 Drug: Metoprolol IVP 2.5 mg IVP once; Hold for SBP <100 or HR <60. Route: IVP; Site: tm6 right antecubital; Disposition Summary: 09/24/23 22:26 Hospitalization Ordered Notes: Hospitalization Status: Inpatient Admission caryl Location: Telemetry/[facility] (Inpatient) caryl Condition: Stable caryl Problem: new caryl Symptoms: have improved caryl Bed/Room Type: Standard [facility] Room Assignment: [facility](09/25/23 00:39) Provider: Tom Chappell(09/25/23 01:49) caryl Diagnosis - Unspecified atrial flutter - 2:1 caryl - Tachycardia, unspecified caryl - Dementia in other diseases classified elsewhere without behavioral disturbance caryl - Persistent atrial fibrillation caryl Forms: - Medication Reconciliation Form caryl - SBAR form caryl - Leadership Thank You Letter caryl Signatures: Dispatcher [employer] EDMS Garima Kellogg RN RN Joel Duenas MD MD cha Doucette, Kyli, RN RN kd3 Marvel Christine MD MD ec2 Madelaine Ceja RN RN tm6 Corrections: (The following items were deleted from the chart) 19:51 19:48 PROTIME (+INR)+COAG.LAB.BRZ ordered. EDAR EDAR 19:51 19:48 PTT, ACTIVATED+COAG.LAB.BRZ ordered. EDAR EDAR 09/25 00:17 09/24 22:46 EKG - Nurse/Tech ordered. caryl jb4 09/25 00:39 09/24 22:26 caryl kl 09/25 01:49 09/24 22:26 Cheko Esquivel cha caryl 09/25 09:03 09/24 20:08 ED course: Metabolic profile is reassuring, electrolytes reassuring, renal ec2 function is diminished with a GFR of 34 and a creatinine 1.5. CBC is reassuring. BNP is elevated at 7500, D-dimer is below our upper limit threshold. Troponin is within normal ranges at 22.8. . ec2
[2023-09-25] MEDS ORDERED: ONDANSETRON 4 MG/2 ML VIAL IV PRN (01:01)
[2023-09-25] MEDS ORDERED: ACETAMINOPHEN 500 MG TAB PO PRN (01:01)
[2023-09-25] MEDS: DIGOXIN 0.25 MG/ML AMP IV SCH ×2 (01:01→05:16)
[2023-09-25] MEDS ORDERED: MORPHINE 4 MG/ML SYR IV PRN (01:01)
--- NOTE | 2023-09-25 01:56 | P.HP ---
Certification for Inpatient With expected LOS: >2 Midnights Practitioner: I am a practitioner with admitting privileges, knowledge of patient current condition, hospital course, and medical plan of care. Services: Services provided to patient in accordance with Admission requirements found in Title 42 Section 412.3 of the Code of Federal Regulations Patient History Date of Service: 09/25/23 Reason for admission: atrial flutter History of Present Illness: Ms. Dos Santos was in her usual state of health when her vital signs were taken at her memory care facility. She denied symptoms but her heartrate was 140. This has apparently occurred before and Ms. Dos aSntos began taking plavix and metoprolol regularly. Treatment in the emergency room included a one liter normal saline bolus, metoprolol 5mg IV q 10min, without much result, digoxin 0.5mg x 1doses, repeated Metoprolol 2.5mg IV x 2 doses and Metoprolol 50mg po. Ms. Dos Santos received Lovenox 60mg sc in the emergency department. Allergies Sulfa (Sulfonamide Antibiotics) Allergy (Verified 02/20/18 14:21) Unknown Home Medications: Metoprolol Succinate 50 mg PO BID 10/09/12 Olmesartan Medoxomil [Benicar] 20 mg PO [id number] 10/09/12 Clopidogrel Bisulfate [Plavix*] 75 mg PO DAILY #30 tablet 10/13/12 Quetiapine [Seroquel*] 25 mg PO DAILY #30 tab 10/12/21 Rivastigmine Patch [Exelon 9.5 mg Patch] 9.5 mg TD DAILY patch 10/12/21 Thiamine HCl [Vitamin B-1*] 100 mg PO DAILY #100 tablet 10/12/21 levoFLOXacin [Levaquin*] 500 mg PO DAILY #5 tab 10/13/21 - Past Medical/Surgical History Diabetic: No -: HTN -: Dementia -: pneumonia -: syncope -: Hysterectomy -: appendectomy Psychosocial/ Personal History: Lives in a memory care center - Social History Smoking Status: Unknown if ever smoked Alcohol use: Yes CD- Drugs: Yes Caffeine use: Yes Place of Residence: Residential Review of Systems 10-point ROS is otherwise unremarkable Cardiovascular: As per HPI Physical Examination - Physical Exam General: Alert, In no apparent distress, Cooperative HEENT: Atraumatic, Normocephalic, PERRLA Neck: Supple, 2+ carotid pulse no bruit Respiratory: Clear to auscultation bilaterally Cardiovascular: No edema, Irregular heart rate/rhythm Capillary refill: <2 Seconds Gastrointestinal: Normal bowel sounds, Soft and benign Musculoskeletal: No clubbing Integumentary: No rashes Neurological: Normal speech, Normal tone External genitalia: Deferred Rectal: Deferred - Studies Laboratory Data (last 24 hrs) 09/24/23 09/24/23 09/24/23 19:48 19:17 19:17 WBC 8.40 Hgb 11.8 L Hct 35.6 L Plt Count 225 PT Cancelled 11.6 INR Cancelled 1.06 APTT Cancelled 28.8 Sodium Potassium BUN Creatinine Glucose 09/24/23 19:17 WBC Hgb Hct Plt Count PT INR APTT Sodium 140 Potassium 3.8 BUN 31 H Creatinine 1.50 H Glucose 124 H Assessment and Plan - Problems (Diagnosis) (1) Atrial fibrillation and flutter Current Visit: Yes Status: Acute Plan: Telemetry Continue to load with Digoxin per Dr. Madden Continue Metoprolol 50mg po BID Continue Lovenox 60mg sc BID Cardiology consulted (2) Renal insufficiency, mild Current Visit: Yes Status: Acute Plan: Monitor electrolytes/ replenish as warranted - Advance Directives Does patient have a Living Will: No Does patient have a Durable POA for Healthcare: Yes
[2023-09-25] MEDS: NA CHLORIDE 0.9% 1,000 ML IV SCH ×4 (02:24→21:16)
[2023-09-25 03:01] VITALS: BMI 19.8
[2023-09-25 03:13] LABS: Absolute Lymphocytes (CBC) 1.4 K/uL (0.7-4.9); Hematocrit 33.8 % (36.0-45.0); Lymphocytes % 14.8 % (15.3-44.8); MCV 100.8 fL (80-100); MPV 7.7 fL (7.6-11.3); Platelets 203 thou/uL (152-406); RBC Red Blood Cell Count 3.35 M/uL (3.86-4.86)
[2023-09-25 03:32] LABS: Digoxin Level 1.5 ng/mL (0.80-2.00); Potassium 4.1 mEq/L (3.5-5.1); Troponin High Sensitivity 29.2 pg/mL (<58.9)
--- NOTE | 2023-09-25 07:58 | P.HP ---
Patient History Date of Service: 09/25/23 Reason for admission: atrial flutter History of Present Illness: Ms. Dos Santos was in her usual state of health when her vital signs were taken at her memory care facility. She denied symptoms but her heartrate was 140. This has apparently occurred before and Ms. Dos Santos began taking plavix and metoprolol regularly. Treatment in the emergency room included a one liter normal saline bolus, metoprolol 5mg IV q 10min, without much result, digoxin 0.5mg x 1doses, repeated Metoprolol 2.5mg IV x 2 doses and Metoprolol 50mg po. Ms. Dos Santos received Lovenox 60mg sc in the emergency department Allergies Sulfa (Sulfonamide Antibiotics) Allergy (Verified 02/20/18 14:21) Unknown Home medications list reviewed: Yes Home Medications: Clopidogrel Bisulfate [Plavix*] 75 mg PO DAILY #30 tablet 10/13/12 Acetaminophen [Pain Relief] 650 mg PO TIDP PRN 09/25/23 Carbidopa/Levodopa [Carbidopa-Levo 25-100 mg Odt] 1 each PO TID 09/25/23 Divalproex Sodium 250 mg PO BID 09/25/23 Memantine HCl [Namenda] 5 mg PO BID 09/25/23 Metoprolol Tartrate [Lopressor] 100 mg PO BID 09/25/23 Mirtazapine [Remeron] 30 mg PO BEDTIME 09/25/23 Trazodone [Desyrel] 75 mg PO BEDTIME 09/25/23 - Past Medical/Surgical History Diabetic: No -: HTN -: Dementia -: pneumonia -: syncope -: Hysterectomy -: appendectomy Psychosocial/ Personal History: Lives in a memory care center - Social History Smoking Status: Unknown if ever smoked Alcohol use: Yes CD- Drugs: Yes Caffeine use: Yes Place of Residence: [facility] Review of Systems 10-point ROS is otherwise unremarkable Cardiovascular: As per HPI Physical Examination - Vital Signs Temperature: 98.0 F Blood Pressure: 140/84 Pulse: 97 Respirations: 18 Pulse Ox (%): 95 - Physical Exam General: Alert, In no apparent distress HEENT: Atraumatic, Normocephalic Neck: Supple, 2+ carotid pulse no bruit Respiratory: Normal air movement Cardiovascular: Irregular heart rate/rhythm Capillary refill: <2 Seconds Gastrointestinal: Normal bowel sounds, Soft and benign Musculoskeletal: No clubbing Integumentary: No rashes Neurological: Normal speech Lymphatics: No axilla or inguinal lymphadenopathy External genitalia: Deferred Rectal: Deferred - Studies Laboratory Data (last 24 hrs) 09/24/23 09/24/23 09/24/23 19:48 19:17 19:17 WBC 8.40 Hgb 11.8 L Hct 35.6 L Plt Count 225 PT Cancelled 11.6 INR Cancelled 1.06 APTT Cancelled 28.8 Sodium Potassium BUN Creatinine Glucose 09/24/23 19:17 WBC Hgb Hct Plt Count PT INR APTT Sodium 140 Potassium 3.8 BUN 31 H Creatinine 1.50 H Glucose 124 H Assessment and Plan - Problems (Diagnosis) (1) Atrial fibrillation and flutter Current Visit: Yes Status: Acute Plan: telemetry ECHO Load with digoxin continue metoprolol (2) Renal insufficiency, mild Current Visit: Yes Status: Acute Plan: I&O daily weight monitor electrolytes, replete as necessary - Advance Directives Does patient have a Living Will: No Does patient have a Durable POA for Healthcare: Yes
--- NOTE | 2023-09-25 08:23 | P.PN ---
Subjective Date of Service: 09/25/23 Chief Complaint: atrial flutter Physical Examination - Vital Signs Temperature: 98.0 F Blood Pressure: 140/84 Pulse: 97 Respirations: 18 Pulse Ox (%): 95 - Studies Laboratory Data (last 24 hrs) 09/24/23 09/24/23 09/24/23 19:48 19:17 19:17 WBC 8.40 Hgb 11.8 L Hct 35.6 L Plt Count 225 PT Cancelled 11.6 INR Cancelled 1.06 APTT Cancelled 28.8 Sodium Potassium BUN Creatinine Glucose 09/24/23 19:17 WBC Hgb Hct Plt Count PT INR APTT Sodium 140 Potassium 3.8 BUN 31 H Creatinine 1.50 H Glucose 124 H
[2023-09-25] MEDS ORDERED: ENOXAPARIN 60 MG/0.6 ML SQ SCH (09:00)
[2023-09-25] MEDS: ASPIRIN EC 81 MG TAB PO SCH (09:44)
[2023-09-25] MEDS: METOPROLOL TAR 50 MG TAB PO SCH ×2 (09:44→21:15)
[2023-09-25] MEDS: ENOXAPARIN 60 MG/0.6 ML SQ SCH (09:45)
[2023-09-25] MEDS: FAMOTIDINE 20 MG/2 ML VIAL IV SCH (09:45)
[2023-09-25] MEDS: ACETYLCYST 20% 800 MG/4 ML VIAL PO SCH ×2 (09:46→21:22)
[2023-09-25 12:15] LABS: Thyroid Stimulating Hormone 1.63 uIU/mL (0.358-3.740)
--- NOTE | 2023-09-25 13:19 | EKG ---
Test Date: 2023-09-25 Test Time: 01:46:28 Metal Refiner: LOUIS MEASUREMENT RESULTS: Intervals: Rate: 76 AL: QRSD: 96 QT: 378 QTc: 425 [place]: P: 243 AL: QRS: 190 T: 217 INTERPRETIVE STATEMENTS: Atrial flutter with variable AV block with premature ventricular or aberrantly conducted complexes Right superior axis deviation Incomplete right bundle branch block Anterior infarct, age undetermined ST & T wave abnormality, consider inferolateral ischemia Abnormal ECG Compared to ECG 09/24/2023 18:56:26 Ventricular premature complex(es) now present Right superior axis now present Incomplete right bundle-branch block now present Electronically Signed On 09-25-23 13:18:06 AUTOMOTIVE DRIVABILITY TECHNICIAN by Masood Madden
--- NOTE | 2023-09-25 13:20 | EKG ---
Test Date: 2023-09-24 Test Time: 18:56:26 Wood Barrel Reconditioner: KEVIN MEASUREMENT RESULTS: Intervals: Rate: 144 [place]: 146 QRSD: 126 QT: 270 QTc: 418 [place]: P: [place]: 146 QRS: 157 T: 251 INTERPRETIVE STATEMENTS: Sinus tachycardia Right bundle branch block T wave abnormality, consider inferolateral ischemia Abnormal ECG Compared to ECG 10/03/2021 09:38:39 Right bundle-branch block now present T-wave abnormality now present Possible ischemia now present Sinus bradycardia no longer present Right-axis deviation no longer present Incomplete right bundle-branch block no longer present Myocardial infarct finding no longer present Electronically Signed On 09-25-23 13:18:32 VENEREAL DISEASE INVESTIGATOR by Masood Madden
[2023-09-25] MEDS: JUVEN PACKET PO SCH (21:00)
[2023-09-25] MEDS: TRAZODONE 50 MG TABLET PO SCH (23:38)
[2023-09-25] MEDS: MIRTAZAPINE 15 MG TAB PO SCH (23:38)
--- NOTE | 2023-09-26 06:24 | ECHO ---
HEIGHT: 5 ft 8 in WEIGHT: 130 lb 0 oz DATE OF STUDY: 09/25/[address]: Anh Oviedo GAME PRESERVE MANAGER-BC 2-DIMENSIONAL: YES M.MODE: YES DOPPLER: YES COLOR FLOW: YES TDS: PORTABLE: YES DEFINITY: BUBBLE STUDY: DIAGNOSIS: ATRIAL FLUTTER CARDIAC HISTORY: CATHERIZATION: NO SURGERY: NO PROSTHETIC VALVE: NO PACEMAKER: NO MEASUREMENTS (cm) DIASTOLIC (NORMALS) SYSTOLIC (NORMALS) IVSd 1.0 (0.6-1.2) LA Diam 2.9 (1.9-4.0) LVEF 55-60% LVIDd 3.7 (3.5-5.7) LVIDs 2.9 (2.0-3.5) %FS 24% LVPWd 1.0 (0.6-1.2) Ao Diam 2.4 (2.0-3.7) 2 DIMENSIONAL ASSESSMENT: RIGHT ATRIUM: NORMAL LEFT ATRIUM: NORMAL RIGHT VENTRICLE: NORMAL LEFT VENTRICLE: NORMAL TRICUSPID VALVE: MILD TRICUSPID REGURGITATION MITRAL VALVE: NORMAL PULMONIC VALVE: NORMAL AORTIC VALVE: NORMAL PERICARDIAL EFFUSION: NONE AORTIC ROOT: NORMAL LEFT VENTRICULAR WALL MOTION: NORMAL DOPPLER/COLOR FLOW: SEE BELOW COMMENTS: 1. NORMAL LEFT VENTRICULAR EJECTION FRACTION 55-60% WITH NORMAL WALL MOTION 2. MILD TRICUSPID REGURGITATION 3. RIGHT VENTRICULAR SYSTOLIC PRESSURE IS MILDLY ELEVATED 40-45 mmHg TECHNOLOGIST: BETH DIAZ
[2023-09-26] MEDS: NA CHLORIDE 0.9% 1,000 ML IV SCH (07:01)
[2023-09-26] MEDS: FUROSEMIDE 40 MG/4 ML VIAL IV SCH ×2 (07:34→16:16)
[2023-09-26] MEDS: JUVEN PACKET PO SCH ×2 (09:00→20:57)
[2023-09-26] MEDS: ASPIRIN EC 81 MG TAB PO SCH (09:33)
[2023-09-26] MEDS: METOPROLOL TAR 50 MG TAB PO SCH ×2 (09:33→20:57)
[2023-09-26] MEDS: ENOXAPARIN 60 MG/0.6 ML SQ SCH (09:33)
[2023-09-26] MEDS: ACETYLCYST 20% 800 MG/4 ML VIAL PO SCH ×2 (09:34→20:56)
[2023-09-26] MEDS: FAMOTIDINE 20 MG/2 ML VIAL IV SCH (09:34)
--- NOTE | 2023-09-26 11:45 | P.PN ---
Subjective Date of Service: 09/26/23 <Ammon Peralta - Last Filed: 09/26/23 16:46> Date of Service: 09/26/23 Chief Complaint: atrial flutter On bipap for shortness of breath, - Physical Exam General: Alert, In no apparent distress, Cooperative HEENT: Atraumatic, Normocephalic, PERRLA Neck: Supple, 2+ carotid pulse no bruit Respiratory: crackles, on bipap Cardiovascular: No edema, Irregular heart rate/rhythm Capillary refill: <2 Seconds Gastrointestinal: Normal bowel sounds, Soft and benign Musculoskeletal: No clubbing Integumentary: No rashes Neurological: Normal speech, Normal tone External genitalia: Deferred Rectal: Deferred <VancekiaraBrit - Last Filed: 09/26/23 18:44> Review of Systems per HPI <Brit Goetz - Last Filed: 09/26/23 18:44> Physical Examination - Vital Signs Temperature: 97.7 F Blood Pressure: 186/79 Pulse: 86 Respirations: 16 Pulse Ox (%): 100 <BishnuBrit Last Filed: 09/26/23 18:44> Assessment And Plan Physician Review: Patient Assessed, Agree with Above Assessment and Plan Physician Review Additional Text: This morning, she appeared more short of breath. On exam, pulmonary crackles were auscultated. Suspect that she has developed pulmonary edema. Normal Saline was discontinued and she was started on IV furosemide. She was placed on BiPAP support. I have updated her son, Mr. Hudson. Will wean off BiPAP as soon as able to do so. Ammon Peralta M.D. <Ammon Peralta - Last Filed: 09/26/23 16:46> - Plan Assessment and Plan Acute hypoxic respiratory failure secondary to fluid volume overload Elevated BNP BNP 7999, trend BNP Dig level 1.50 BiPAP, Lasix 40 IV BID Discontinued, IO, daily wt Atrial fibrillation and flutter Current Visit: Yes Status: Acute Plan: Cardiology consult, telemetry Continue to load with Digoxin per Dr. Madden Continue Metoprolol 50mg po BID Continue Lovenox 60mg sc BID Cardiology consulted Acute on chronic kidney injury Renal insufficiency, mild Current Visit: Yes Status: Acute Plan: Monitor electrolytes/ replenish as warranted BUN 31/1.50 estimated GFR 34-> 27/1.29 estimated GFR 40 Macrocytic anemia HH 11.8->11.3-> Alzheimer's/Dementia Fall precautions Dispostion, pt. lives at [facility] care unit and has been doing well. Does patient have a Living Will: No Does patient have a Durable POA for Healthcare: Yes Discharge Plan: [facility]pc - Code Status/Comfort Care Code Status: Full Code Critical Care: No Time Spent Managing PTS Care (In Minutes): 35 <Brit Goetz - Last Filed: 09/26/23 18:44>
[2023-09-26 12:36] LABS: Arterial Blood Carboxyhemoglob 0.9 % (0-1.5); Blood Gas Oxyhemoglobin 96.6 % (94-97); Blood O2 Saturation 98.7 % (92-98.5)
--- NOTE | 2023-09-26 15:31 | EKG ---
Test Date: 2023-09-25 Test Time: 08:44:42 Computer Bookkeeper: MIGUEL MEASUREMENT RESULTS: Intervals: Rate: 73 NH: 180 QRSD: 86 QT: 382 QTc: 420 [place]: P: 73 NH: 180 QRS: 238 T: 207 INTERPRETIVE STATEMENTS: Sinus rhythm with premature atrial complexes with aberrant conduction Indeterminate axis Cannot rule out Anterior infarct, age undetermined ST & T wave abnormality, consider inferolateral ischemia Abnormal ECG Compared to ECG 09/25/2023 01:46:28 Atrial premature complex(es) now present Aberrant conduction of supraventricular beat(s) now present Indeterminate axis now present Atrial flutter no longer present Electronically Signed On 09-26-23 15:28:12 PULPER OPERATOR by Masood Madden
--- NOTE | 2023-09-26 18:55 | RAD REPORT ---
EXAM DESCRIPTION: RADChest Single View09/26/2023 5:38 pm CLINICAL HISTORY: shortness of breath COMPARISON: Chest Single View dated 09/24/2023; Chest Single View dated 10/10/2021; Chest Single View dated 10/09/2021; Chest Single View dated 10/07/2021 TECHNIQUE: Portable AP view of the chest. FINDINGS: Central interstitial prominence and hazy bibasilar opacities. Trace effusion along the ri ght minor fissure. No pneumothorax or sizable effusion. The cardiomediastinal contours are unremarkab le. IMPRESSION: Findings suggestive of pulmonary edema.
[2023-09-26] MEDS: TRAZODONE 50 MG TABLET PO SCH (20:56)
[2023-09-26] MEDS: MIRTAZAPINE 15 MG TAB PO SCH (20:56)
[2023-09-26] MEDS ORDERED: FUROSEMIDE 20 MG/ 2ML VIAL IV ONE (22:22)
--- NOTE | 2023-09-27 01:00 | P.PN ---
Subjective Date of Service: 09/27/23 (2388) Chief Complaint: atrial flutter Subjective: Other Review of Systems General: Chills Respiratory: Shortness of Breath Physical Examination - Vital Signs Temperature: 98.4 F Blood Pressure: 165/61 Pulse: 69 Respirations: 18 Pulse Ox (%): 94 - Physical Exam General: Mild distress, Other (flushed, chills, rigors) HEENT: Atraumatic, Normocephalic, Other (dry mucous membranes) Neck: 2+ carotid pulse no bruit Respiratory: Diminished, Crackles/rales Cardiovascular: No edema, Regular rate/rhythm Capillary refill: <2 Seconds Gastrointestinal: Soft and benign Musculoskeletal: No clubbing Lymphatics: No axilla or inguinal lymphadenopathy Urinary: Other (pure wick) External genitalia: Deferred Rectal: Deferred Assessment And Plan - Current Problems (Diagnosis) (1) Atrial fibrillation and flutter Current Visit: Yes Status: Acute Plan: Telemetry Continue to load with Digoxin per Dr. Madden Continue Metoprolol 50mg po BID Continue Lovenox 60mg sc BID Cardiology consulted (2) Renal insufficiency, mild Current Visit: Yes Status: Acute Plan: Monitor electrolytes/ replenish as warranted (3) Fluid overload Current Visit: Yes Status: Acute Plan: checking on patient 2nd to pulmonary edema necessitating bi-pap and then down to high flow at 10L. Pt flushed, +chills Ordered flu/covid/rsv swab Will closely monitor Physician Review: Patient Assessed, Agree with Above Assessment and Plan
--- NOTE | 2023-09-27 01:05 | P.PN ---
Date of Service: 09/27/23 Pt continue with flushing, head of bead raised to 30 degrees, patient maintaining SpO2 at 94-96% on high flow but asked RC to place back on bi-pap as pt had shallow respirations. Chills remain, no noted fever. Doing nasal swab at this time. 0200 Respiratory swabs negative
[2023-09-27 02:10] LABS: SARS-COV-2 RT PCR NEGATIVE (NEGATIVE)
[2023-09-27 04:45] LABS: Urine Bacteria 20-50 /HPF (<20); Urine RBC <5 /HPF (None Seen)
--- NOTE | 2023-09-27 07:13 | P.PN ---
Subjective Date of Service: 09/27/23 Chief Complaint: atrial flutter Patient removed BiPAP this a.m., placed on high flow, will repeat ABG this a.m. Patient is awake and alert, responds to verbal, AOx1 - Physical Exam General: Alert, In no apparent distress, Cooperative HEENT: Atraumatic, Normocephalic, PERRLA Neck: Supple, 2+ carotid pulse no bruit Respiratory: crackles bases Cardiovascular: No edema, Irregular heart rate/rhythm Capillary refill: <2 Seconds Gastrointestinal: Normal bowel sounds, Soft and benign Musculoskeletal: No clubbing Integumentary: No rashes Neurological: confused, Normal speech, Normal tone External genitalia: Deferred Rectal: Deferred <Brit Goetz - Last Filed: 09/27/23 15:22> Date of Service: 09/27/23 <Ammon Peralta - Last Filed: 09/27/23 17:55> Review of Systems per HPI <Brit Goetz - Last Filed: 09/27/23 15:22> Physical Examination - Vital Signs Temperature: 97.7 F Blood Pressure: 122/60 Pulse: 76 Respirations: 23 Pulse Ox (%): 95 <Brit Goetz - Last Filed: 09/27/23 15:22> Assessment And Plan - Plan Assessment and Plan Acute hypoxic respiratory failure secondary to fluid volume overload Elevated BNP BNP 7999, BNP 44483 Dig level 1.50 Patient removed BiPAP, Lasix 40 IV ordered for elevated BNP Discontinued, IO, daily wt Cardilogy consulted, echo ordered 09/27/ Repeat ABG ordered ABG pH 3.42, CO2 42.7, O2 88.2, HCO3 27.4, Respiratory consulted for O2 nasal cannula, educated nursing to wean 02 keep sats 92-94% Atrial fibrillation and flutter Current Visit: Yes Status: Acute Plan: Cardiology consult, telemetry Continue to load with Digoxin per Dr. Madden Continue Metoprolol 50mg po BID Continue Lovenox 60mg sc BID Cardiology consulted Acute on chronic kidney injury unkn baseline Renal insufficiency, mild Current Visit: Yes Status: Acute Plan: Monitor electrolytes/ replenish as warranted BUN 31/1.50 estimated GFR 34-> 27/1.29 estimated GFR 40, BUN 31 creatinine 1.61 nephrology consulted, Lasix ordered, Gentle IV fluids Hypokalemia Potassium 3.4 Trend electrolyte replace as needed Macrocytic anemia HH 11.8->11.3-> Alzheimer's/Dementia Fall precautions Dispostion, pt. lives at [facility] care unit and has been doing well. Does patient have a Living Will: No Does patient have a Durable POA for Healthcare: Yes - Code Status/Comfort Care Code Status: Full Code Critical Care: No Time Spent Managing PTS Care (In Minutes): 35 <Brit Goetz - Last Filed: 09/27/23 15:22> Physician Review: Patient Assessed, Agree with Above Assessment and Plan Physician Review Additional Text: Clinically, she appears well this morning. She has been taken off the BiPAP and is currently on high flow nasal cannula (10 L). Her creatinine has up-trended slightly, which may be due to cardiorenal syndrome. Nephrology has been consulted for assistance in her care. I have updated her son, Campbell. All questions were answered to the best my ability. Ammon Peralta M.D. <Ammon Peralta - Last Filed: 09/27/23 17:55>
[2023-09-27 07:17] LABS: Potassium 3.4 mEq/L (3.5-5.1)
--- NOTE | 2023-09-27 07:44 | RAD REPORT ---
EXAM DESCRIPTION: Nena Single View09/27/2023 6:37 am CLINICAL HISTORY: Shortness of breath COMPARISON: September 25 2023 and 2021 FINDINGS: Mild haziness overlies the lungs Heart is moderately enlarged IMPRESSION: Mild haziness overlies the lungs. This has been present on multiple prior exams and of t he majority of this represents overlying soft tissue. There may be minimal interstitial pulmonary zach ma present
[2023-09-27] MEDS: FUROSEMIDE 40 MG/4 ML VIAL IV SCH (09:00)
[2023-09-27] MEDS ORDERED: FUROSEMIDE 40 MG/4 ML VIAL IV ONE (09:40)
[2023-09-27] MEDS: ENOXAPARIN 60 MG/0.6 ML SQ SCH (09:56)
[2023-09-27] MEDS: ASPIRIN EC 81 MG TAB PO SCH (09:56)
[2023-09-27] MEDS: METOPROLOL TAR 50 MG TAB PO SCH ×2 (09:57→20:44)
[2023-09-27] MEDS: FAMOTIDINE 20 MG/2 ML VIAL IV SCH (09:57)
[2023-09-27] MEDS: JUVEN PACKET PO SCH ×2 (09:58→21:00)
[2023-09-27 11:09] LABS: Blood O2 Saturation 94.8 % (92-98.5)
[2023-09-27] MEDS ORDERED: POTASSIUM CL SA 10 MEQ TAB PO ONE (15:20)
[2023-09-27 16:12] LABS: Potassium 3.5 mEq/L (3.5-5.1)
--- NOTE | 2023-09-27 18:12 | CON ---
Date of Consultation: 09/27/2023 Reason For Consult: Acute renal failure. History Of Present Illness: Ms. Dos Santos is an 88-year-old female with advanced dementia, hypertensio n, pneumonia, stage III CKD, who presented to [facility], was sent over for h er heart rate being tachycardic. However, upon presentation to the hospital, she was found to have a trial fibrillation with flutter and she had already been taking Plavix and metoprolol regularly. She was given some normal saline in the emergency room and metoprolol without much benefit and digoxin w as given which slowed her heart rate down a little bit. The patient has been since admitted to the h ospital and is currently being managed for her atrial fibrillation and renal function was noted to be worse with creatinine of 1.61 and hence Nephrology is being consulted for further evaluation and stef atment. Past Medical History: Significant for history of advanced dementia, hypertension, pneumonia, syncope , history of hysterectomy, and appendectomy. Review of Systems: Unable to be obtained as the patient has advanced dementia. Family History: Also unable to be obtained. Social History: She lives at the [facility]. No history of smoking or alcohol use reporte d. Home Medications: Have been reviewed. Physical Examination: Vital Signs: At this time are showing temperature of 97.7, pulse rate of 96, respiratory rate of 23, and blood pressure 122/60. General: She appears elderly female in no acute distress. HEENT: Atraumatic head. Heart: Irregular rate and rhythm. Abdomen: Soft and nontender. Lungs: Clear. Extremities: No evidence of edema. Neurologic: She is alert and awake, but confused. Laboratory Data: At this time are showing sodium of 140, potassium of 3.4, chloride of 106, BUN of 3 1, and creatinine of 1.61. CBC showing stable hemoglobin, hematocrit, and platelet count. Current Medications: Include Lovenox 60 mg subcu daily, Lasix 20 mg IV b.i.d., Remeron, trazodone, a nd morphine p.r.n. She has also had a CT chest and thorax with contrast which showed no evidence of pulmonary thromboemb olism and mild atelectasis with trace pleural effusions. Impression: 1.Acute renal failure, possibly secondary to cardiorenal syndrome. The patient's BNP was elevated, and hence, she has been started on Lasix at this time. Her volume status, however, does seem to be i mproved. The patient is also being followed by Cardiology. I will continue with the Lasix at this t mariela. However, if creatinine continues to get worse, we will need to discontinue the Lasix and monito r her closely. 2.Atrial fibrillation and flutter. The patient is currently on metoprolol and Lovenox for anticoagu lation. Plan per Cardiology. 3.Hypokalemia. Gentle replacement with potassium chloride. 4.Advanced Alzheimer's dementia. Resume home medications when appropriate. Plan: Overall the patient's renal function is worse, possibly secondary to underlying cardiorenal sy ndrome. Continue gentle IV diuresis at this time and replete potassium. If renal function worsens, we will hold diuresis as clinically she appears stable and does not appear volume overloaded, even th ough her chest x-ray showed some mild pleural effusions. Thank you very much for this consultation. Please do not hesitate to call us with any questions or c oncerns. VV/MODL Voice ID: [id number] Report ID: [id number]
[2023-09-27] MEDS: TRAZODONE 50 MG TABLET PO SCH (20:42)
[2023-09-27] MEDS: FUROSEMIDE 20 MG/ 2ML VIAL IV SCH (20:44)
[2023-09-27] MEDS: MIRTAZAPINE 15 MG TAB PO SCH (20:45)
--- NOTE | 2023-09-28 02:16 | P.PN ---
Subjective Date of Service: 09/26/23 Chief Complaint: atrial flutter Subjective: No new changes Review of Systems 10-point ROS is otherwise unremarkable Physical Examination - Vital Signs Temperature: 97.4 F Blood Pressure: 132/60 Pulse: 73 Respirations: 16 Pulse Ox (%): 96 - Physical Exam General: Alert, In no apparent distress HEENT: Atraumatic, Normocephalic Neck: 2+ carotid pulse no bruit, JVD not distended Respiratory: Normal air movement Cardiovascular: No edema Capillary refill: <2 Seconds Gastrointestinal: Soft and benign Musculoskeletal: No clubbing Integumentary: No rashes Neurological: Normal tone Lymphatics: No axilla or inguinal lymphadenopathy External genitalia: Deferred Rectal: Deferred Assessment And Plan - Current Problems (Diagnosis) (1) Atrial fibrillation and flutter Current Visit: Yes Status: Acute Plan: telemetry ECHO 09/25/23 @ 1600 dictated ECHO ventricular ejection fraction 55-60 continue beta-kim Cardiology will sign off (2) Renal insufficiency, mild Current Visit: Yes Status: Acute Plan: I&O daily weight monitor electrolytes, replete as necessary Physician Review: Patient Assessed, Agree with Above Assessment and Plan
--- NOTE | 2023-09-28 07:11 | P.PN ---
Subjective Date of Service: 09/28/23 Chief Complaint: atrial flutter placed on high flow, will repeat ABG this a.m is improved, no respiratory distress Patient is awake and alert, responds to verbal, AOx1 - Physical Exam General: Alert, In no apparent distress, Cooperative HEENT: Atraumatic, Normocephalic, PERRLA Neck: Supple, 2+ carotid pulse no bruit Respiratory: crackes bases, equal unlabored Cardiovascular: No edema, egular heart rate/rhythm Capillary refill: <2 Seconds Gastrointestinal: Normal bowel sounds, Soft and benign Musculoskeletal: No clubbing Integumentary: No rashes Neurological: confused, Normal speech, Normal tone External genitalia: Deferred Rectal: Deferred <Brit Goetz - Last Filed: 09/28/23 12:15> Date of Service: 09/28/23 <Ammon Peralta - Last Filed: 09/28/23 16:56> Review of Systems 10-point ROS is otherwise unremarkable <Brit Goetz - Last Filed: 09/28/23 12:15> Physical Examination - Vital Signs Temperature: 96.8 F Blood Pressure: 151/67 Pulse: 63 Respirations: 16 Pulse Ox (%): 93 <Brit Goetz - Last Filed: 09/28/23 12:15> Assessment And Plan - Plan Assessment and Plan Acute hypoxic respiratory failure secondary to fluid volume overload improving Elevated BNP BNP 7999, BNP 62636->BNP 00941 Dig level 1.50 Patient removed BiPAP, Lasix 40 IV ordered for elevated BNP Discontinued, IO, daily wt Cardilogy consulted, echo ordered 09/27/ Repeat ABG ordered ABG pH 3.42, CO2 42.7, O2 88.2, HCO3 27.4, ABG improving PH 7.44/C02 45.3/PO2 94.1/HCC03 30.5 Respiratory consulted for O2 nasal cannula, educated nursing to wean 02 keep sats 92-94% Atrial fibrillation and flutter-resolved 09/28 currently NSR rate 10 Current Visit: Yes Status: Acute Plan: Cardiology consult, telemetry Continue to load with Digoxin per Dr. Madden Continue Metoprolol 50mg po BID Continue Lovenox 60mg sc BID Cardiology consulted signed off Acute on chronic kidney injury unkn baseline acute likely prerenal vs dehyrdation vs diuretic use Renal insufficiency, mild Current Visit: Yes Status: Acute Plan: Monitor electrolytes/ replenish as warranted BUN 31/1.50 estimated GFR 34-> 27/1.29 estimated GFR 40, BUN 31 creatinine 1.61- >BUN 35/1.64 est GFR 30-> BUN 42/1.52 est gfr 33 (lasix for CHF) nephrology consulted, Lasix ordered, Gentle IV fluids Hypokalemia resolved Potassium 3.4 Trend electrolyte replace as needed Macrocytic anemia stable HH 11.8->11.3-> Alzheimer's/Dementia Fall precautions PT/OT eval for DC planning Dispostion, pt. lives at [facility] care unit and has been doing well. Does patient have a Living Will: No Does patient have a Durable POA for Healthcare: Yes Discharge Plan: Alf Critical Care: No Time Spent Managing PTS Care (In Minutes): 35 <Brit Goetz - Last Filed: 09/28/23 12:15> Physician Review: Patient Assessed, Agree with Above Assessment and Plan Physician Review Additional Text: She appears improved this morning. She has been weaned to 3 L nasal cannula. Creatinine is mildly improved. Appreciate Nephrology recommendations. Ammon Peralta M.D. <Ammon Peralta - Last Filed: 09/28/23 16:56>
[2023-09-28 08:06] LABS: Hematocrit 41.7 % (36.0-45.0); Lymphocytes % 9.4 % (15.3-44.8); MCV 100.6 fL (80-100); MPV 8.3 fL (7.6-11.3); Platelets 173 thou/uL (152-406); RBC Red Blood Cell Count 4.15 M/uL (3.86-4.86)
[2023-09-28] MEDS: ENOXAPARIN 60 MG/0.6 ML SQ SCH (08:13)
[2023-09-28] MEDS: JUVEN PACKET PO SCH ×2 (08:13→21:26)
[2023-09-28] MEDS: ASPIRIN EC 81 MG TAB PO SCH (08:14)
[2023-09-28] MEDS: METOPROLOL TAR 50 MG TAB PO SCH ×2 (08:14→21:25)
[2023-09-28] MEDS: FAMOTIDINE 20 MG/2 ML VIAL IV SCH (08:14)
[2023-09-28] MEDS: FUROSEMIDE 20 MG/ 2ML VIAL IV SCH ×2 (08:15→16:20)
[2023-09-28 08:42] LABS: Magnesium 2.2 mg/dL (1.6-2.4); Potassium 3.9 mEq/L (3.5-5.1)
[2023-09-28 11:14] LABS: Specific Gravity 1.015 (1.005-1.030); Urine Bacteria >50 /HPF (<20); Urine Bilirubin NEGATIVE (Negative); Urine Blood 1+ (Negative); Urine Clarity Extremely Turbid (Clear); Urine Color Light-Orange (Yellow); Urine Glucose NEGATIVE (Negative); Urine Mucus Slight /HPF (None Seen); Urine Protein 1+ (Negative); Urine Urobilinogen Normal (Normal); Urine WBC Clump Rare /HPF (None Seen)
[2023-09-28] MEDS ORDERED: ACETAMINOPHEN 325 MG TABLET PO PRN (12:44)
[2023-09-28] MEDS: MIRTAZAPINE 15 MG TAB PO SCH (21:25)
[2023-09-28] MEDS: TRAZODONE 50 MG TABLET PO SCH (21:25)
--- NOTE | 2023-09-28 23:31 | P.PN ---
Date of Service: 09/28/23 Vital Signs Temp Pulse Resp BP Pulse Ox 97.2 F 60 17 135/66 95 09/28/23 20:00 09/28/23 21:25 09/28/23 20:00 09/28/23 21:25 09/28/23 20:00 Medications Acetaminophen (Acetaminophen 325 Mg Tablet) 650 mg PO Q6H PRN PRN Reason: TEMP > 100' F Aspirin (Aspirin Ec 81 Mg Tab) 81 mg PO DAILY [facility] Last Admin: 09/28/23 08:14 Dose: 81 mg Enoxaparin Sodium (Enoxaparin 60 Mg/0.6 Ml) 60 mg SQ DAILY [facility] Last Admin: 09/28/23 08:13 Dose: 60 mg Famotidine (Famotidine 20 Mg/2 Ml Vial) 20 mg IV DAILY [facility]; Protocol Last Admin: 09/28/23 08:14 Dose: 20 mg Furosemide (Furosemide 20 Mg/ 2ml Vial) 20 mg IV BIDL [facility] Last Admin: 09/28/23 16:20 Dose: 20 mg L-Arginine/L-Glutamine/HMB (Nico Packet) 1 pkt PO BID [facility] Last Admin: 09/28/23 21:26 Dose: 1 pkt Metoprolol Tartrate (Metoprolol Tar 50 Mg Tab) 50 mg PO BID [facility] Last Admin: 09/28/23 21:25 Dose: 50 mg Mirtazapine (Mirtazapine 15 Mg Tab) 30 mg PO BEDTIME [facility] Last Admin: 09/28/23 21:25 Dose: 30 mg Morphine Sulfate (Morphine 4 Mg/Ml Syr) 2 mg IV Q4H PRN PRN Reason: Pain scale 8-10 (Severe) Ondansetron HCl (Ondansetron 4 Mg/2 Ml Vial) 4 mg IV Q6H PRN PRN Reason: NAUSEA / VOMITING Last Admin: 09/26/23 07:53 Dose: 4 mg Trazodone HCl (Trazodone 50 Mg Tablet) 75 mg PO BEDTIME [facility] Last Admin: 09/28/23 21:25 Dose: 75 mg Assessment/ Plan: Nephrology No dyspnea No chest pain Fair appetite No pain No acute events overnight Vitals, medications, blood work and imaging reviewed in the chart. NAD. NCAT. MMM. Neck supple. Normal respiratory effort. RRR. Abd ND. No C/C. LE Edema none. No rash. AAO. Normal speech. Stage I DEEPTI CKD III with Proteinuria -No NSAIDs Hypokalemia likely due to diuresis -Replete as ordered HTN with CKD/ CHF -Continue Metoprolol Diastolic CHF, A/C -Continue furosemide Anemia in chronic illness -Monitor H&H Case reviewed with Dr. Peralta
[2023-09-29 06:17] LABS: Absolute Lymphocytes (CBC) 1.7 K/uL (0.7-4.9); Hematocrit 34.5 % (36.0-45.0); Lymphocytes % 17.1 % (15.3-44.8); MCV 99.2 fL (80-100); MPV 7.6 fL (7.6-11.3); Platelets 254 thou/uL (152-406); RBC Red Blood Cell Count 3.48 M/uL (3.86-4.86)
[2023-09-29 06:35] LABS: Magnesium 2.1 mg/dL (1.6-2.4); Potassium 3.3 mEq/L (3.5-5.1)
--- NOTE | 2023-09-29 07:53 | P.PN ---
Subjective Date of Service: 09/29/23 Chief Complaint: atrial flutter no respiratory distress, Patient is awake and alert, responds to verbal, AOx1 - Physical Exam General: Alert, In no apparent distress, Cooperative HEENT: Atraumatic, Normocephalic, PERRLA Neck: Supple, 2+ carotid pulse no bruit Respiratory: crackes bases, equal unlabored Cardiovascular: No edema, regular heart rate/rhythm Capillary refill: <2 Seconds Gastrointestinal: Normal bowel sounds, Soft and benign Musculoskeletal: No clubbing Integumentary: No rashes Neurological: confused, Normal speech, Normal tone External genitalia: Deferred Rectal: Deferred <Brit Goetz - Last Filed: 09/29/23 18:21> Date of Service: 09/29/23 <Kirti Holder - Last Filed: 09/29/23 19:08> Review of Systems per HPI <Brit Goetz - Last Filed: 09/29/23 18:21> Physical Examination - Vital Signs Temperature: 97.9 F Blood Pressure: 141/67 Pulse: 65 Respirations: 17 Pulse Ox (%): 93 <BishnuBrit - Last Filed: 09/29/23 18:21> Assessment And Plan - Plan Assessment and Plan Acute hypoxic respiratory failure secondary to fluid volume overload improving Elevated BNP BNP 7999, BNP 43962->BNP 98618 Dig level 1.50 Patient removed BiPAP, Lasix 40 IV ordered for elevated BNP Discontinued, IO, daily wt Cardilogy consulted, echo ordered 09/27/ Repeat ABG ordered ABG pH 3.42, CO2 42.7, O2 88.2, HCO3 27.4, ABG improving PH 7.44/C02 45.3/PO2 94.1/HCC03 30.5 Respiratory consulted for O2 nasal cannula, educated nursing to wean 02 keep sats 92-94% Ambulation sats to eval home 02 PT eval for DME DC planning Atrial fibrillation and flutter-resolved 09/28 currently NSR rate 10 Current Visit: Yes Status: Acute Plan: Cardiology consult, telemetry Continue to load with Digoxin per Dr. Madden Continue Metoprolol 50mg po BID Continue Lovenox 60mg sc BID Cardiology consulted signed off Acute on chronic kidney injury unkn baseline acute likely prerenal vs dehyrdation vs diuretic use Renal insufficiency, mild Current Visit: Yes Status: Acute Plan: Monitor electrolytes/ replenish as warranted BUN 31/1.50 estimated GFR 34-> 27/1.29 estimated GFR 40, BUN 31 creatinine 1.61- >BUN 35/1.64 est GFR 30-> BUN 42/1.52 est gfr 33 (lasix for CHF) nephrology consulted, Lasix ordered, Gentle IV fluids Hypokalemia resolved Potassium 3.4 Trend electrolyte replace as needed Macrocytic anemia stable HH 11.8->11.3-> Alzheimer's/Dementia Fall precautions PT/OT eval for DC planning Dispostion, pt. lives at [facility] unit and has been doing well. Does patient have a Living Will: No Does patient have a Durable POA for Healthcare: Yes Discharge Plan: Retirement - Code Status/Comfort Care Code Status: Full Code Critical Care: No Time Spent Managing PTS Care (In Minutes): 35 <Brit Goetz - Last Filed: 09/29/23 18:21> - Plan Pt seen and examined. I agree with the note by the RN PROGRESSIVE CARE. <Kirti Holder - Last Filed: 09/29/23 19:08>
--- NOTE | 2023-09-29 07:58 | P.DS ---
Admission Date: 09/24/23 Discharge Date: 10/08/23 Disposition: TRANSFER TO [facility] Discharge Condition: FAIR Reason for Admission: atrial flutter Brief History of Present Illness: Ms. Dos Santos was in her usual state of health when her vital signs were taken at her memory care facility. She denied symptoms but her heartrate was 140. This has apparently occurred before and Ms. Dos Santos began taking plavix and metoprolol regularly. Treatment in the emergency room included a one liter normal saline bolus, metoprolol 5mg IV q 10min, without much result, digoxin 0.5mg x 1doses, repeated Metoprolol 2.5mg IV x 2 doses and Metoprolol 50mg po. Ms. Dos Santos received Lovenox 60mg sc in the emergency department. - Physical Exam General: Alert, In no apparent distress, Cooperative HEENT: Atraumatic, Normocephalic, PERRLA Neck: Supple, 2+ carotid pulse no bruit Respiratory: crackes bases, equal unlabored Cardiovascular: No edema, regular heart rate/rhythm Capillary refill: <2 Seconds Gastrointestinal: Normal bowel sounds, Soft and benign Musculoskeletal: No clubbing Integumentary: No rashes Neurological: confused, Normal speech, Normal tone External genitalia: Deferred Hospital Course: Patient presented with shortness of breath. Was noted to have fluid volume overload, atrial fibrillation, acute on kidney injury, Alzheimer's dementia. Was seen by cardiology. Was treated with p.o. metoprolol, antiarrhythmics, IV diuretics, IV fluids. Condition improved with with treatment plan. Stable for discharge to [facility] care unit and has been doing well. follow-up appointment primary care/cardiology appointment . PROBLEM: fluid volume overload, atrial fibrillation, acute on kidney injury, Alzheimer's dementia. GOAL: Clear understanding of disease process Follow-up with cardiology in 1 to 2 weeks after discharge Daily blood pressure monitoring Resume cardiac medications as prescribed Cardiac diet, low-sodium Fall precautions INSTRUCTIONS: Physician Discharge Instructions: -DC IV and DC home -Follow-up with PCP in 1 to 2 weeks -Please call Dr. Chappell at [phone] if any questions regarding hospital stay -Please call nursing station at [phone] if any nursing or medication questions -Return to the emergency room if symptoms worsen Diet: ADA, low sodium Activity: Fall precautions DME: Date Ordered: Name of Company: [employer] Services Needed: None Date or Referral: IMMUNIZATION Influenza Vaccine Indicated: Influenza Vaccine Given: Date Given: Pneumonia Vaccine Indicated: Pneumonia Vaccine Given: Date Given: Vital Signs/Physical Exam: Temp Pulse Resp BP Pulse Ox 97.9 F 65 17 141/67 H 93 09/29/23 07:58 09/29/23 07:58 09/29/23 07:58 09/29/23 07:58 09/29/23 07:58 Laboratory Data at Discharge: WBC 9.70 thou/uL (4.3-10.9) 09/29/23 05:19 Hgb 11.6 g/dL (12.0-15.0) L D 09/29/23 05:19 Hct 34.5 % (36.0-45.0) L 09/29/23 05:19 Plt Count 254 thou/uL (152-406) D 09/29/23 05:19 PT Cancelled 09/24/23 19:48 INR Cancelled 09/24/23 19:48 APTT Cancelled 09/24/23 19:48 Sodium 143 mEq/L (136-145) 09/29/23 05:19 Potassium 3.3 mEq/L (3.5-5.1) L D 09/29/23 05:19 BUN 50 mg/dL (7-18) H 09/29/23 05:19 Creatinine 1.43 mg/dL (0.55-1.02) H 09/29/23 05:19 Glucose 90 mg/dL (74-106) 09/29/23 05:19 Magnesium 2.1 mg/dL (1.6-2.4) 09/29/23 05:19 Home Medications: Clopidogrel Bisulfate [Plavix*] 75 mg PO DAILY #30 tablet 10/13/12 Acetaminophen [Pain Relief] 650 mg PO TIDP PRN 09/25/23 Carbidopa/Levodopa [Carbidopa-Levo 25-100 mg Odt] 1 each PO TID 09/25/23 Divalproex Sodium 250 mg PO BID 09/25/23 Memantine HCl [Namenda] 5 mg PO BID 09/25/23 Mirtazapine [Remeron] 30 mg PO BEDTIME 09/25/23 Trazodone [Desyrel*] 75 mg PO BEDTIME 09/25/23 Aspirin [Aspirin EC 81 MG] 81 mg PO DAILY 30 Days #30 mg 09/29/23 Furosemide [Lasix] 20 mg PO DAILY 30 Days #30 tab 09/29/23 Nico [Nico*] 1 pkt PO BID 09/29/23 Metoprolol Tartrate [Lopressor*] 50 mg PO BID tab 09/29/23 Trazodone [Desyrel*] 75 mg PO BEDTIME 09/29/23 Amiodarone HCl [Cordarone*] 200 mg PO BID #60 tab 10/08/23 Cefdinir [Cefdinir*] 300 mg PO BID #14 cap 10/08/23 Ensure Enlive 237 ml PO BID #60 can 10/08/23 Famotidine [Pepcid*] 20 mg PO DAILY #30 tab 10/08/23 Furosemide [Lasix*] 20 mg PO DAILY #30 tab 10/08/23 Spironolactone [Aldactone*] 25 mg PO DAILY #30 tab 10/08/23 New Medications: Spironolactone [Aldactone*] 25 mg PO DAILY #30 tab Aspirin [Aspirin EC 81 MG] 81 mg PO DAILY 30 Days #30 mg Cefdinir [Cefdinir*] 300 mg PO BID #14 cap Amiodarone HCl [Cordarone*] 200 mg PO BID #60 tab Ensure Enlive 237 ml PO BID #60 can Furosemide [Lasix] 20 mg PO DAILY 30 Days #30 tab Furosemide [Lasix*] 20 mg PO DAILY #30 tab Famotidine [Pepcid*] 20 mg PO DAILY #30 tab Physician Discharge Instructions: Diet: ADA, low sodium Activity: Fall precautions DME: Date Ordered: Name of Company: [employer] Services Needed: None Date or Referral: IMMUNIZATION Influenza Vaccine Indicated: Influenza Vaccine Given: Date Given: Pneumonia Vaccine Indicated: Pneumonia Vaccine Given: Date Given: Acute on chronic kidney injury unkn baseline acute likely prerenal vs dehyrdation vs diuretic use Renal insufficiency, mild Current Visit: Yes Status: Acute Plan: Monitor electrolytes/ replenish as warranted BUN 31/1.50 estimated GFR 34-> 27/1.29 estimated GFR 40, BUN 31 creatinine 1.61- >BUN 35/1.64 est GFR 30-> BUN 42/1.52 est gfr 33 (lasix for CHF) nephrology consulted, Lasix ordered, Gentle IV fluids Hypokalemia resolved Potassium 3.4 Trend electrolyte replace as needed Macrocytic anemia stable HH 11.8->11.3-> Alzheimer's/Dementia Fall precautions PT/OT eval for DC planning Dispostion, pt. lives at [facility] unit and has been doing well. INSTRUCTIONS: Physician Discharge Instructions: -DC IV and DC home -Follow-up with PCP in 1 to 2 weeks -Please call if any questions regarding hospital stay -Please call nursing station at [phone] if any nursing or medication questions -Return to the emergency room if symptoms worsen Followup: NONE,NONE [Primary Care Provider] -
[2023-09-29] MEDS: JUVEN PACKET PO SCH ×2 (09:00→21:00)
[2023-09-29] MEDS: METOPROLOL TAR 50 MG TAB PO SCH ×2 (09:34→21:34)
[2023-09-29] MEDS: ASPIRIN EC 81 MG TAB PO SCH (09:34)
[2023-09-29] MEDS: FUROSEMIDE 20 MG/ 2ML VIAL IV SCH (09:35)
[2023-09-29] MEDS: FAMOTIDINE 20 MG/2 ML VIAL IV SCH (09:35)
[2023-09-29] MEDS ORDERED: POTASSIUM CL SA 10 MEQ TAB PO ONE (13:00)
[2023-09-29] MEDS ORDERED: METOLAZONE 5 MG TABLET PO SCH (13:00)
[2023-09-29] MEDS: SPIRONOLACTONE 25 MG TABLET PO SCH (13:16)
--- NOTE | 2023-09-29 19:32 | P.PN ---
Date of Service: 09/29/23 Vital Signs Temp Pulse Resp BP Pulse Ox 97.9 F 65 17 141/67 H 93 09/29/23 18:21 09/29/23 18:21 09/29/23 18:21 09/29/23 18:21 09/29/23 18:21 Medications Acetaminophen (Acetaminophen 325 Mg Tablet) 650 mg PO Q6H PRN PRN Reason: TEMP > 100' F Aspirin (Aspirin Ec 81 Mg Tab) 81 mg PO DAILY [facility] Last Admin: 09/29/23 09:34 Dose: 81 mg Famotidine (Famotidine 20 Mg/2 Ml Vial) 20 mg IV DAILY [facility]; Protocol Last Admin: 09/29/23 09:35 Dose: 20 mg Furosemide (Furosemide 40 Mg Tablet) 40 mg PO BIDL [facility] L-Arginine/L-Glutamine/HMB (Nico Packet) 1 pkt PO BID [facility] Last Admin: 09/29/23 09:00 Dose: 1 pkt Metoprolol Tartrate (Metoprolol Tar 50 Mg Tab) 50 mg PO BID [facility] Last Admin: 09/29/23 09:34 Dose: 50 mg Mirtazapine (Mirtazapine 15 Mg Tab) 30 mg PO BEDTIME [facility] Last Admin: 09/28/23 21:25 Dose: 30 mg Ondansetron HCl (Ondansetron 4 Mg/2 Ml Vial) 4 mg IV Q6H PRN PRN Reason: NAUSEA / VOMITING Last Admin: 09/26/23 07:53 Dose: 4 mg Spironolactone (Spironolactone 25 Mg Tablet) 25 mg PO DAILY [facility] Last Admin: 09/29/23 13:16 Dose: 25 mg Trazodone HCl (Trazodone 50 Mg Tablet) 75 mg PO BEDTIME [facility] Last Admin: 09/28/23 21:25 Dose: 75 mg Assessment/ Plan: Nephrology Intermittent dyspnea No chest pain Fair appetite Anxious No acute events overnight Vitals, medications, blood work and imaging reviewed in the chart. NAD. NCAT. MMM. Neck supple. Normal respiratory effort. RRR. Abd ND. No C/C. Hip Edema trace. No rash. AAO. Normal speech. Stage I DEEPTI CKD III with Proteinuria -No NSAIDs Hypokalemia likely due to diuresis -Replete as ordered HTN with CKD/ CHF -Continue Metoprolol Diastolic CHF, A/C -Change Lasix PO -Start Spironolactone daily -Metolazone X1 Anemia in chronic illness -Monitor H&H Hospitalist note reviewed
[2023-09-29] MEDS: MIRTAZAPINE 15 MG TAB PO SCH (21:34)
[2023-09-29] MEDS: TRAZODONE 50 MG TABLET PO SCH (21:35)
[2023-09-30 02:18] LABS: Absolute Lymphocytes (CBC) 2.2 K/uL (0.7-4.9); Hematocrit 34.3 % (36.0-45.0); Lymphocytes % 18.8 % (15.3-44.8); MCV 98.8 fL (80-100); MPV 7.8 fL (7.6-11.3); Platelets 260 thou/uL (152-406); RBC Red Blood Cell Count 3.47 M/uL (3.86-4.86)
[2023-09-30 02:41] LABS: Magnesium 2.1 mg/dL (1.6-2.4); Potassium 3.7 mEq/L (3.5-5.1)
[2023-09-30] MEDS: JUVEN PACKET PO SCH ×2 (08:43→20:06)
[2023-09-30] MEDS: FAMOTIDINE 20 MG/2 ML VIAL IV SCH (08:43)
[2023-09-30] MEDS: SPIRONOLACTONE 25 MG TABLET PO SCH (08:44)
[2023-09-30] MEDS: FUROSEMIDE 40 MG TABLET PO SCH ×3 (08:45→16:34)
[2023-09-30] MEDS: METOPROLOL TAR 50 MG TAB PO SCH ×2 (08:45→20:06)
[2023-09-30] MEDS: ASPIRIN EC 81 MG TAB PO SCH (08:45)
[2023-09-30] MEDS: CEFTRIAXONE 1,000 MG in NA CHLORIDE 0.9% 50 ML IVPB SCH (08:46)
--- NOTE | 2023-09-30 10:42 | P.PN ---
Subjective Date of Service: 09/30/23 Chief Complaint: atrial flutter Subjective: No new changes, Improving, Doing well Alert and answering questions appropriately Breathing normally on oxygen 2 L via nasal cannula Vital signs stable NAD Positive urine culture with E. coli <Bria Weldon - Last Filed: 09/30/23 10:54> Date of Service: 10/01/23 <Kirti Holder - Last Filed: 10/01/23 16:15> Review of Systems 10-point ROS is otherwise unremarkable <Bria Weldon - Last Filed: 09/30/23 10:54> Physical Examination - Vital Signs Temperature: 97.4 F Blood Pressure: 127/60 Pulse: 73 Respirations: 16 Pulse Ox (%): 94 - Physical Exam General: Alert, Oriented x3 HEENT: Atraumatic, Normocephalic Neck: Supple, 2+ carotid pulse no bruit Respiratory: Clear to auscultation bilaterally, Normal air movement Cardiovascular: No edema, Normal pulses Capillary refill: <2 Seconds Gastrointestinal: Normal bowel sounds, Soft and benign Musculoskeletal: No clubbing, No swelling, No contractures Integumentary: No rashes, No breakdown Neurological: Normal speech, Normal tone, Normal affect <Bria Weldon - Last Filed: 09/30/23 10:54> Assessment And Plan - Current Problems (Diagnosis) (1) Acute respiratory failure Current Visit: Yes Status: Acute Plan: Likely due to fluid overload Patient is improving, breathing normally on O2 2 L via nasal cannula Air entry is clear, no wheezes/crackles Denies any respiratory distress Continue the current management (2) A-fib Current Visit: Yes Status: Chronic Plan: Chronic, stable on aspirin and metoprolol Denies palpitation or chest pain Qualifiers: Atrial fibrillation type: unspecified chronic Qualified Code(s): I48.20 - Chronic atrial fibrillation, unspecified; I48.2 - Chronic atrial fibrillation (3) CKD (chronic kidney disease) stage 3, GFR 30-59 ml/min Current Visit: Yes Status: Acute Plan: Chronic GFR 31 today, BUN 53, creatinine 1.6 Blood pressure maintained Avoid NSAIDs and nephrotoxins Renal dose medications Followed by movie extra Dr. 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 coli Current Visit: Yes Status: Acute Plan: Urine culture positive for E. coli Started on Rocephin Discussed the results with the patient Discharge Plan: Home Plan to discharge in: 48 Hours - Code Status/Comfort Care Code Status Assessed: Yes (Full code) Code Status: Full Code Physician Review: Patient Assessed, Agree with Above Assessment and Plan Critical Care: No Time Spent Managing PTS Care (In Minutes): 35 (Minutes) <Bria Weldon - Last Filed: 09/30/23 10:54> Physician Review Additional Text: 10/01/23 16:15 Pt seen and examined. I agree with the note by the [employer] <Kirti Holder - Last Filed: 10/01/23 16:15>
[2023-09-30] MEDS ORDERED: AMIODARONE HCL 150 MG in D5W 100 ML IV STA (12:57)
[2023-09-30] MEDS ORDERED: AMIODARONE HCL 900 MG in Dextrose 5%-Water 482 ML IV SCH (13:15)
--- NOTE | 2023-09-30 19:07 | P.PN ---
Date of Service: 09/30/23 Vital Signs Temp Pulse Resp BP Pulse Ox 97.3 F 149 H 18 90/72 94 09/30/23 16:00 09/30/23 16:34 09/30/23 16:00 09/30/23 16:34 09/30/23 16:00 Medications Acetaminophen (Acetaminophen 325 Mg Tablet) 650 mg PO Q6H PRN PRN Reason: TEMP > 100' F Aspirin (Aspirin Ec 81 Mg Tab) 81 mg PO DAILY [facility] Last Admin: 09/30/23 08:45 Dose: 81 mg Famotidine (Famotidine 20 Mg/2 Ml Vial) 20 mg IV DAILY [facility]; Protocol Last Admin: 09/30/23 08:43 Dose: 20 mg Furosemide (Furosemide 40 Mg Tablet) 40 mg PO BIDL [facility] Last Admin: 09/30/23 16:34 Dose: Not Given Ceftriaxone Sodium 1,000 mg/ (Sodium Chloride) 50 mls @ 100 mls/hr IVPB DAILY [facility]; Protocol Last Admin: 09/30/23 08:46 Dose: 50 mls Amiodarone HCl 900 mg/ (Dextrose) 500 mls @ 0 mls/hr IV CONT [facility]; Protocol Last Admin: 09/30/23 13:47 Dose: 500 mls L-Arginine/L-Glutamine/HMB (Nico Packet) 1 pkt PO BID [facility] Last Admin: 09/30/23 08:43 Dose: 1 pkt Metoprolol Tartrate (Metoprolol Tar 50 Mg Tab) 50 mg PO BID [facility] Last Admin: 09/30/23 08:45 Dose: 50 mg Mirtazapine (Mirtazapine 15 Mg Tab) 30 mg PO BEDTIME [facility] Last Admin: 09/29/23 21:34 Dose: 30 mg Ondansetron HCl (Ondansetron 4 Mg/2 Ml Vial) 4 mg IV Q6H PRN PRN Reason: NAUSEA / VOMITING Last Admin: 09/26/23 07:53 Dose: 4 mg Spironolactone (Spironolactone 25 Mg Tablet) 25 mg PO DAILY [facility] Last Admin: 09/30/23 08:44 Dose: 25 mg Trazodone HCl (Trazodone 50 Mg Tablet) 75 mg PO BEDTIME [facility] Last Admin: 09/29/23 21:35 Dose: 75 mg Assessment/ Plan: Nephrology No chest pain No dyspnea No acute events overnight Vitals, medications, blood work and imaging reviewed in the chart. NAD. NCAT. MMM. Neck supple. Normal respiratory effort. RRR. Abd ND. No C/C. LE Edema none. No rash. AAO. Normal speech. Stage I DEEPTI CKD III with Proteinuria -No NSAIDs Hypokalemia likely due to diuresis -Replete as ordered HTN with CKD/ CHF -Continue Metoprolol Diastolic CHF, A/C -Continue Lasix PO -Continue Spironolactone daily Anemia in chronic illness -Monitor H&H Hospitalist note reviewed
[2023-09-30] MEDS: TRAZODONE 50 MG TABLET PO SCH (20:05)
[2023-09-30] MEDS: MIRTAZAPINE 15 MG TAB PO SCH (20:06)
[2023-10-01] MEDS: FAMOTIDINE 20 MG/2 ML VIAL IV SCH (08:38)
[2023-10-01] MEDS: FUROSEMIDE 40 MG TABLET PO SCH (08:39)
[2023-10-01] MEDS: CEFTRIAXONE 1,000 MG in NA CHLORIDE 0.9% 50 ML IVPB SCH (08:39)
[2023-10-01] MEDS: JUVEN PACKET PO SCH ×2 (08:40→20:59)
[2023-10-01] MEDS: ASPIRIN EC 81 MG TAB PO SCH (08:40)
[2023-10-01] MEDS: METOPROLOL TAR 50 MG TAB PO SCH ×2 (08:40→20:56)
[2023-10-01] MEDS: SPIRONOLACTONE 25 MG TABLET PO SCH (08:40)
--- NOTE | 2023-10-01 10:53 | P.PN ---
Subjective Date of Service: 10/01/23 Chief Complaint: atrial flutter Subjective: No C/O voiced Alert and answering questions appropriately Breathing normally on oxygen 2 L via nasal cannula Vital signs stable Report run of v-tach yesterday x 1, started on amiodarone gtt as per Crdiologist Dr. Madden IV infiltrated this morning, unable to get peripheral IV at this time Ordered Mid/ PICC line NAD Positive for E-coli Urine on vanc. <Bria Weldon - Last Filed: 10/01/23 10:48> Date of Service: 10/02/23 <Kirti Holder C - Last Filed: 10/02/23 06:56> Physical Examination - Vital Signs Temperature: 97.3 F Blood Pressure: 109/65 Pulse: 80 Respirations: 78 Pulse Ox (%): 91 - Physical Exam General: Alert, Oriented x2, Oriented x1 HEENT: Atraumatic, PERRLA Neck: Supple, 2+ carotid pulse no bruit Respiratory: Clear to auscultation bilaterally, Diminished (at the bases) Cardiovascular: No edema, Normal pulses, Regular rate/rhythm Capillary refill: <2 Seconds Gastrointestinal: Normal bowel sounds, Soft and benign Musculoskeletal: No clubbing, No swelling Integumentary: No rashes, No breakdown Neurological: Normal speech, Sensation intact <Bria Weldon - Last Filed: 10/01/23 10:48> Assessment And Plan - Current Problems (Diagnosis) (1) Acute respiratory failure Current Visit: Yes Status: Acute Plan: Likely due to fluid overload Patient is improving, breathing normally on O2 2 L via nasal cannula Air entry is clear, no wheezes/crackles Denies any respiratory distress Continue the current management (2) A-fib Current Visit: Yes Status: Chronic Plan: Chronic,had a run of v-tach yesterday, started on amiodarone gtt by Dr. Madden. -on aspirin and metoprolol Denies palpitation or chest pain Qualifiers: Atrial fibrillation type: unspecified chronic Qualified Code(s): I48.20 - Chronic atrial fibrillation, unspecified; I48.2 - Chronic atrial fibrillation (3) CKD (chronic kidney disease) stage 3, GFR 30-59 ml/min Current Visit: Yes Status: Acute Plan: Chronic GFR 31 today, BUN 53, creatinine 1.6 Blood pressure maintained Avoid NSAIDs and nephrotoxins Renal dose medications Followed by paver operator Dr. 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 coli Current Visit: Yes Status: Acute Plan: Urine culture positive for E. coli Started on Rocephin Discussed the results with the patient Discharge Plan: Home Plan to discharge in: 48 Hours - Code Status/Comfort Care Code Status Assessed: Yes (full code) Code Status: Full Code Physician Review: Patient Assessed, Agree with Above Assessment and Plan Critical Care: No Time Spent Managing PTS Care (In Minutes): 35 (miutes) <Bria Weldon - Last Filed: 10/01/23 10:48> Physician Review Additional Text: 10/02/23 06:55 Pt seen and examined. I agree with the note by the [employer] O[employer]. Pt had V-tach yesterday and cardiology started amiodarone drip. Will continue other meds. <Kirti Holder - Last Filed: 10/02/23 06:56>
[2023-10-01 11:21] LABS: Absolute Lymphocytes (CBC) 1.3 K/uL (0.7-4.9); Hematocrit 39.3 % (36.0-45.0); Lymphocytes % 9.2 % (15.3-44.8); MPV 7.5 fL (7.6-11.3); Platelets 313 thou/uL (152-406); RBC Red Blood Cell Count 4.05 M/uL (3.86-4.86)
[2023-10-01 11:36] LABS: Magnesium 1.8 mg/dL (1.6-2.4); Phosphorus 3.2 mg/dL (2.5-4.9); Potassium 3.4 mEq/L (3.5-5.1)
[2023-10-01 11:37] LABS: Magnesium 1.7 mg/dL (1.6-2.4); Phosphorus 3.1 mg/dL (2.5-4.9); Potassium 3.4 mEq/L (3.5-5.1)
--- NOTE | 2023-10-01 13:17 | P.PN ---
Date of Service: 10/01/23 Vital Signs Temp Pulse Resp BP Pulse Ox 97.3 F 80 78 H 109/65 91 10/01/23 10:55 10/01/23 10:55 10/01/23 10:55 10/01/23 10:55 10/01/23 10:55 Medications Acetaminophen (Acetaminophen 325 Mg Tablet) 650 mg PO Q6H PRN PRN Reason: TEMP > 100' F Aspirin (Aspirin Ec 81 Mg Tab) 81 mg PO DAILY [facility] Last Admin: 10/01/23 08:40 Dose: 81 mg Famotidine (Famotidine 20 Mg/2 Ml Vial) 20 mg IV DAILY [facility]; Protocol Last Admin: 10/01/23 08:38 Dose: 20 mg Furosemide (Furosemide 40 Mg Tablet) 40 mg PO DAILY [facility] Ceftriaxone Sodium 1,000 mg/ (Sodium Chloride) 50 mls @ 100 mls/hr IVPB [facility]ILY [facility]; Protocol Last Admin: 10/01/23 08:39 Dose: 50 mls Amiodarone HCl 900 mg/ (Dextrose) 500 mls @ 0 mls/hr IV CONT [facility]; Protocol Last Admin: 09/30/23 13:47 Dose: 500 mls L-Arginine/L-Glutamine/HMB (Nico Packet) 1 pkt PO BID [facility] Last Admin: 10/01/23 08:40 Dose: 1 pkt Metoprolol Tartrate (Metoprolol Tar 50 Mg Tab) 50 mg PO BID [facility] Last Admin: 10/01/23 08:40 Dose: 50 mg Mirtazapine (Mirtazapine 15 Mg Tab) 30 mg PO BEDTIME [facility] Last Admin: 09/30/23 20:06 Dose: 30 mg Ondansetron HCl (Ondansetron 4 Mg/2 Ml Vial) 4 mg IV Q6H PRN PRN Reason: NAUSEA / VOMITING Last Admin: 09/26/23 07:53 Dose: 4 mg Potassium Chloride (Potassium Cl Sa 10 Meq Tab) 20 meq PO 1X ONE Stop: 10/01/23 13:16 Spironolactone (Spironolactone 25 Mg Tablet) 25 mg PO DAILY [facility] Last Admin: 10/01/23 08:40 Dose: 25 mg Trazodone HCl (Trazodone 50 Mg Tablet) 75 mg PO BEDTIME [facility] Last Admin: 09/30/23 20:05 Dose: 75 mg Assessment/ Plan: Nephrology No chest pain No dyspnea No acute events overnight Vitals, medications, blood work and imaging reviewed in the chart. NAD. NCAT. MMM. Neck supple. Normal respiratory effort. RRR. Abd ND. No C/C. LE Edema none. No rash. AAO. Normal speech. Stage I DEEPTI in the setting of diuresis CKD III with Proteinuria -No NSAIDs -Reduce diuresis Hypokalemia likely due to diuresis -Replete as ordered HTN with CKD/ CHF -Continue Metoprolol Diastolic CHF, A/C -Reduce Furosemide once daily -Continue Spironolactone daily Anemia in chronic illness -Monitor H&H Hospitalist note reviewed
[2023-10-01] MEDS ORDERED: POTASSIUM CL SA 10 MEQ TAB PO ONE (13:30)
[2023-10-01] MEDS: AMIODARONE HCL 200 MG TAB PO SCH ×2 (13:39→20:52)
[2023-10-01] MEDS ORDERED: Levofloxacin 750mg IV 750 MG/150 ML BAG IV ONE (18:30)
[2023-10-01] MEDS ORDERED: levoFLOXacin 750 MG TAB PO ONE (18:30)
[2023-10-01] MEDS: MIRTAZAPINE 15 MG TAB PO SCH (20:50)
[2023-10-01] MEDS: TRAZODONE 50 MG TABLET PO SCH (20:51)
[2023-10-02 02:46] LABS: Absolute Lymphocytes (CBC) 1.3 K/uL (0.7-4.9); Hematocrit 36.4 % (36.0-45.0); Lymphocytes % 7.7 % (15.3-44.8); MCV 96.9 fL (80-100); MPV 7.4 fL (7.6-11.3); Platelets 321 thou/uL (152-406); RBC Red Blood Cell Count 3.75 M/uL (3.86-4.86)
[2023-10-02 03:22] LABS: Albumin 2.6 g/dL (3.4-5.0); Bilirubin Total 0.7 mg/dL (0.2-1.0); Potassium 3.9 mEq/L (3.5-5.1); Protein, Total 7.4 g/dL (6.4-8.2)
[2023-10-02] MEDS: FAMOTIDINE 20 MG/2 ML VIAL IV SCH ×2 (09:00→10:47)
[2023-10-02] MEDS ORDERED: FUROSEMIDE 40 MG TABLET PO SCH (09:00)
--- NOTE | 2023-10-02 10:33 | P.PN ---
Subjective Date of Service: 10/02/23 Chief Complaint: atrial flutter Subjective: No new changes, Improving, Doing well Alert and answering questions appropriately Breathing normally on oxygen 2 L via nasal cannula Vital signs stable IV infiltrated , no IV access For PICC line today NAD Positive for E-coli Urine- on Levofloxacin orally <Bria Weldon - Last Filed: 10/02/23 10:28> Date of Service: 10/04/23 <Kirti Holder Arm[place] - Last Filed: 10/04/23 13:39> Review of Systems 10-point ROS is otherwise unremarkable <Bria Weldon - Last Filed: 10/02/23 10:28> Physical Examination - Vital Signs Temperature: 97.4 F Blood Pressure: 131/61 Pulse: 90 Respirations: 26 Pulse Ox (%): 94 - Physical Exam General: Alert, Oriented x3 HEENT: Atraumatic, Normocephalic Neck: Supple Respiratory: Clear to auscultation bilaterally, Normal air movement Capillary refill: <2 Seconds Gastrointestinal: Normal bowel sounds, Soft and benign Musculoskeletal: No clubbing, No swelling Integumentary: No rashes, No breakdown Neurological: Normal gait, Normal speech <Bria Weldon - Last Filed: 10/02/23 10:28> Assessment And Plan - Current Problems (Diagnosis) (1) Acute respiratory failure Current Visit: Yes Status: Acute Plan: Likely due to fluid overload Patient is improving, breathing normally on O2 2 L via nasal cannula Air entry is clear, no wheezes/crackles Denies any respiratory distress Continue the current management (2) A-fib Current Visit: Yes Status: Chronic Plan: Chronic, controlled rate, on tele monitoring -on aspirin and metoprolol Denies palpitation or chest pain Qualifiers: Atrial fibrillation type: unspecified chronic Qualified Code(s): I48.20 - Chronic atrial fibrillation, unspecified; I48.2 - Chronic atrial fibrillation (3) CKD (chronic kidney disease) stage 3, GFR 30-59 ml/min Current Visit: Yes Status: Acute Plan: Chronic GFR 26 today, BUN 56 creatinine 1.88 Blood pressure maintained Avoid NSAIDs and nephrotoxins Renal dose medications Followed by cleaning and washing equipment operator Dr. 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 coli Current Visit: Yes Status: Acute Plan: Urine culture positive for E. coli Started onLevofloxacin po Discussed the results with the patient Physician Review: Patient Assessed, Agree with Above Assessment and Plan <Bria Weldon - Last Filed: 10/02/23 10:28> Physician Review Additional Text: 10/04/23 13:39 Pt seen and examined. I agree with the note by the TONGSMAN. Continue current treatment <Kirti Holder - Last Filed: 10/04/23 13:39>
[2023-10-02] MEDS: JUVEN PACKET PO SCH ×2 (10:44→20:28)
[2023-10-02] MEDS: SPIRONOLACTONE 25 MG TABLET PO SCH (10:45)
[2023-10-02] MEDS: METOPROLOL TAR 50 MG TAB PO SCH ×2 (10:46→20:27)
[2023-10-02] MEDS: AMIODARONE HCL 200 MG TAB PO SCH ×2 (10:47→20:28)
[2023-10-02] MEDS: ASPIRIN EC 81 MG TAB PO SCH (10:47)
--- NOTE | 2023-10-02 11:17 | P.PN ---
Date of Service: 10/02/23 Vital Signs Temp Pulse Resp BP Pulse Ox 97.4 F 90 26 H 131/61 94 10/02/23 10:34 10/02/23 10:46 10/02/23 10:34 10/02/23 10:46 10/02/23 10:34 Medications Acetaminophen (Acetaminophen 325 Mg Tablet) 650 mg PO Q6H PRN PRN Reason: TEMP > 100' F Amiodarone HCl (Amiodarone Hcl 200 Mg Tab) 200 mg PO BID [facility] Last Admin: 10/02/23 10:47 Dose: 200 mg Aspirin (Aspirin Ec 81 Mg Tab) 81 mg PO DAILY [facility] Last Admin: 10/02/23 10:47 Dose: 81 mg Famotidine (Famotidine 20 Mg/2 Ml Vial) 20 mg IV DAILY [facility]; Protocol Last Admin: 10/02/23 09:00 Dose: Not Given Furosemide (Furosemide 40 Mg Tablet) 40 mg PO DAILY [facility] Last Admin: 10/02/23 10:46 Dose: 40 mg L-Arginine/L-Glutamine/HMB (Nico Packet) 1 pkt PO BID [facility] Last Admin: 10/02/23 10:44 Dose: 1 pkt Levofloxacin (Levofloxacin 500 Mg Tab) 500 mg PO Q48H [facility] Metoprolol Tartrate (Metoprolol Tar 50 Mg Tab) 50 mg PO BID [facility] Last Admin: 10/02/23 10:46 Dose: 50 mg Mirtazapine (Mirtazapine 15 Mg Tab) 30 mg PO BEDTIME [facility] Last Admin: 10/01/23 20:50 Dose: 30 mg Mupirocin (Mupirocin Nasal 2 Appl/1 Gm Tube) 1 appl DANNIE BID [facility] Stop: 10/06/23 21:01 Ondansetron HCl (Ondansetron 4 Mg/2 Ml Vial) 4 mg IV Q6H PRN PRN Reason: NAUSEA / VOMITING Last Admin: 09/26/23 07:53 Dose: 4 mg Spironolactone (Spironolactone 25 Mg Tablet) 25 mg PO DAILY [facility] Last Admin: 10/02/23 10:45 Dose: 25 mg Trazodone HCl (Trazodone 50 Mg Tablet) 75 mg PO BEDTIME [facility] Last Admin: 10/01/23 20:51 Dose: 75 mg Assessment/ Plan: Nephrology No chest pain No dyspnea Feeling better today No acute events overnight Vitals, medications, blood work and imaging reviewed in the chart. NAD. NCAT. MMM. Neck supple. Normal respiratory effort. RRR. Abd ND. No C/C. LE Edema none. No rash. AAO. Normal speech. Stage I DEEPTI in the setting of diuresis CKD III with Proteinuria -No NSAIDs Hypokalemia likely due to diuresis -Replete prn HTN with CKD/ CHF -Continue Metoprolol Diastolic CHF, A/C -Continue Furosemide once daily -Continue Spironolactone daily Anemia in chronic illness -Monitor H&H Hospitalist note reviewed
[2023-10-02 11:59] LABS: Phosphorus 3.1 mg/dL (2.5-4.9)
[2023-10-02] MEDS: Mupirocin NASAL 2 APPL/1 GM TUBE NAS SCH ×2 (15:51→21:32)
[2023-10-02] MEDS: ENSURE ENLIVE 237 ML CAN PO SCH (20:28)
[2023-10-02] MEDS: TRAZODONE 50 MG TABLET PO SCH (20:28)
[2023-10-02] MEDS: MIRTAZAPINE 15 MG TAB PO SCH (20:28)
[2023-10-03 03:08] LABS: Absolute Lymphocytes (CBC) 1.7 K/uL (0.7-4.9); Hematocrit 36.7 % (36.0-45.0); Lymphocytes % 9.4 % (15.3-44.8); MCV 96.5 fL (80-100); MPV 7.8 fL (7.6-11.3); Platelets 318 thou/uL (152-406)
[2023-10-03 03:22] LABS: Albumin 2.6 g/dL (3.4-5.0); Phosphorus 4.5 mg/dL (2.5-4.9); Potassium 3.6 mEq/L (3.5-5.1)
[2023-10-03 03:29] LABS: Phosphorus 4.4 mg/dL (2.5-4.9)
[2023-10-03 04:23] LABS: Magnesium 2.2 mg/dL (1.6-2.4)
[2023-10-03] MEDS: Mupirocin NASAL 2 APPL/1 GM TUBE NAS SCH ×2 (09:00→21:21)
--- NOTE | 2023-10-03 09:16 | P.PN ---
Subjective Date of Service: 10/03/23 Chief Complaint: atrial flutter Subjective: No new changes, Improving, Doing well Alert and answering questions appropriately Breathing normally on oxygen 2 L via nasal cannula Vital signs stable NAD Positive for E-coli Urine- on Levofloxacin orally Review of Systems 10-point ROS is otherwise unremarkable Physical Examination - Vital Signs Temperature: 96.8 F Blood Pressure: 107/60 Pulse: 63 Respirations: 18 Pulse Ox (%): 95 - Physical Exam General: Alert, Oriented x2 HEENT: Atraumatic, Normocephalic Neck: Supple, 2+ carotid pulse no bruit Respiratory: Clear to auscultation bilaterally, Normal air movement Cardiovascular: No edema, Normal pulses, Regular rate/rhythm Capillary refill: <2 Seconds Gastrointestinal: Normal bowel sounds, Soft and benign Musculoskeletal: No clubbing, No swelling Integumentary: Other (IV infiltration right arm) Neurological: Normal speech, Normal tone, Normal affect Assessment And Plan - Current Problems (Diagnosis) (1) Acute respiratory failure Current Visit: Yes Status: Acute Plan: Likely due to fluid overload Patient is improving, breathing normally on O2 2 L via nasal cannula Air entry is clear, no wheezes/crackles Denies any respiratory distress Continue the current management (2) A-fib Current Visit: Yes Status: Chronic Plan: Chronic, controlled rate, on tele monitoring -on aspirin and metoprolol Denies palpitation or chest pain Qualifiers: Atrial fibrillation type: unspecified chronic Qualified Code(s): I48.20 - Chronic atrial fibrillation, unspecified; I48.2 - Chronic atrial fibrillation (3) CKD (chronic kidney disease) stage 3, GFR 30-59 ml/min Current Visit: Yes Status: Acute Plan: Chronic GFR 21 today, BUN 67 creatinine 2.26 Blood pressure maintained Avoid NSAIDs and nephrotoxins Renal dose medications Followed by car hop Dr. 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 coli Current Visit: Yes Status: Acute Plan: Urine culture positive for E. coli Started on Levofloxacin po Discussed the results with the patient Discharge Plan: Home Plan to discharge in: 48 Hours - Code Status/Comfort Care Code Status Assessed: Yes (full code) Code Status: Full Code Physician Review: Patient Assessed, Agree with Above Assessment and Plan Critical Care: No Time Spent Managing PTS Care (In Minutes): 35 (minutes)
[2023-10-03] MEDS: METOPROLOL TAR 50 MG TAB PO SCH ×2 (09:39→21:00)
[2023-10-03] MEDS: AMIODARONE HCL 200 MG TAB PO SCH ×2 (09:41→21:00)
[2023-10-03] MEDS: FAMOTIDINE 20 MG/2 ML VIAL IV SCH (09:41)
[2023-10-03] MEDS: ASPIRIN EC 81 MG TAB PO SCH (09:41)
[2023-10-03] MEDS: JUVEN PACKET PO SCH ×2 (09:43→21:00)
[2023-10-03] MEDS: ENSURE ENLIVE 237 ML CAN PO SCH ×2 (09:43→21:22)
[2023-10-03] MEDS ORDERED: NA CHLORIDE 0.9% 1,000 ML IV SCH (11:00)
--- NOTE | 2023-10-03 13:07 | P.PN ---
Nephrology note (S) Pt denies any active complaints such as CP, dyspnea or abd pain, N/V Vitals, medications, blood work and imaging reviewed in the chart. NAD b/l air entry RRR Soft, ND, NT No sig LE edema, shins are non tender Awake, responds appropriately Stage I DEEPTI that is multifactorial but coinciding with some soft BP at times (systolic 90s), placement on diuretics and in the setting of UTI Underlying CKD III unspecified -Suspend diuretics, place on gentle hydration with NS IVF Diastolic CHF, chronic -Now compensated, BNP was > 00109 and now sig lower. Suspend diuretics as mentioned above Ecoli cystitis -Cont Abx treatment as ordered by IM, dose for reduced CrCl Dilip Medel MD, [place]
--- NOTE | 2023-10-03 13:48 | EKG ---
Test Date: 2023-09-30 Test Time: 11:49:59 Waste Examiner: MIGUEL MEASUREMENT RESULTS: Intervals: Rate: 145 NH: QRSD: 78 QT: 318 QTc: 493 [place]: P: NH: QRS: 145 T: 86 INTERPRETIVE STATEMENTS: Atrial fibrillation with rapid ventricular response Right axis deviation Right ventricular hypertrophy Septal infarct, age undetermined Abnormal ECG Compared to ECG 09/25/2023 08:44:42 Right-axis deviation now present Right ventricular hypertrophy now present Sinus rhythm no longer present Atrial premature complex(es) no longer present Aberrant conduction of supraventricular beat(s) no longer present Indeterminate axis no longer present Electronically Signed On 10-03-23 13:41:54 [employer] by Masood Madden
[2023-10-03] MEDS ORDERED: Levofloxacin500mg IV 500 MG/100 ML BAG IV SCH (21:00)
[2023-10-03] MEDS ORDERED: levoFLOXacin 500 MG TAB PO SCH (21:00)
[2023-10-03] MEDS: MIRTAZAPINE 15 MG TAB PO SCH (21:21)
[2023-10-03] MEDS: TRAZODONE 50 MG TABLET PO SCH (21:21)
[2023-10-04 06:00] LABS: Absolute Lymphocytes (CBC) 1.4 K/uL (0.7-4.9); Hematocrit 33.8 % (36.0-45.0); Lymphocytes % 8.3 % (15.3-44.8); MCV 96.2 fL (80-100); MPV 8.1 fL (7.6-11.3); Platelets 367 thou/uL (152-406); RBC Red Blood Cell Count 3.51 M/uL (3.86-4.86)
[2023-10-04] MEDS: SPIRONOLACTONE 25 MG TABLET PO SCH (07:44)
[2023-10-04] MEDS: FAMOTIDINE 20 MG TAB PO SCH (07:44)
[2023-10-04] MEDS: METOPROLOL TAR 50 MG TAB PO SCH ×2 (07:45→21:22)
[2023-10-04] MEDS: AMIODARONE HCL 200 MG TAB PO SCH ×2 (07:45→21:19)
[2023-10-04] MEDS: ASPIRIN EC 81 MG TAB PO SCH (07:45)
[2023-10-04] MEDS: ENSURE ENLIVE 237 ML CAN PO SCH ×2 (07:46→21:19)
[2023-10-04] MEDS: Mupirocin NASAL 2 APPL/1 GM TUBE NAS SCH ×2 (07:46→21:18)
[2023-10-04] MEDS: JUVEN PACKET PO SCH ×2 (07:46→21:00)
[2023-10-04] MEDS ORDERED: FUROSEMIDE 40 MG TABLET PO SCH (09:00)
--- NOTE | 2023-10-04 10:35 | P.PN ---
Subjective Date of Service: 10/04/23 Chief Complaint: atrial flutter Subjective: No new changes, Improving, Doing well Alert and answering questions appropriately Breathing normally on oxygen 2 L via nasal cannula Vital signs stable NAD Positive for E-coli Urine- on Levofloxacin orally <Bria Weldon - Last Filed: 10/04/23 10:31> Date of Service: 10/05/23 <Kirti Holder - Last Filed: 10/05/23 12:00> Review of Systems 10-point ROS is otherwise unremarkable <Bria Weldon - Last Filed: 10/04/23 10:31> Physical Examination - Vital Signs Temperature: 97.2 F Blood Pressure: 132/71 Pulse: 75 Respirations: 18 Pulse Ox (%): 94 - Physical Exam General: Alert, Oriented x3 HEENT: Atraumatic, Normocephalic Neck: Supple, 2+ carotid pulse no bruit Respiratory: Clear to auscultation bilaterally, Normal air movement Cardiovascular: No edema, Regular rate/rhythm Capillary refill: <2 Seconds Gastrointestinal: Normal bowel sounds, Soft and benign Musculoskeletal: No clubbing, No swelling Integumentary: No rashes, No breakdown Neurological: Normal speech, Normal tone <Bria Weldon - Last Filed: 10/04/23 10:31> Assessment And Plan - Current Problems (Diagnosis) (1) Acute respiratory failure Current Visit: Yes Status: Acute Plan: Patient is improving, breathing normally on O2 2 L via nasal cannula Air entry is clear, no wheezes/crackles Denies any respiratory distress Continue the current management (2) A-fib Current Visit: Yes Status: Chronic Plan: Chronic, controlled rate, on tele monitoring -on aspirin and metoprolol Denies palpitation or chest pain Qualifiers: Atrial fibrillation type: unspecified chronic Qualified Code(s): I48.20 - Chronic atrial fibrillation, unspecified; I48.2 - Chronic atrial fibrillation (3) CKD (chronic kidney disease) stage 3, GFR 30-59 ml/min Current Visit: Yes Status: Acute Plan: Chronic Last GFR 21 , BUN 67 creatinine 2.26 Blood pressure maintained Avoid NSAIDs and nephrotoxins Renal dose medications Followed by custom frame assembler Dr. 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 coli Current Visit: Yes Status: Acute Plan: Urine culture positive for E. coli Started on Levofloxacin po Discussed the results with the patient Discharge Plan: Home Plan to discharge in: 48 Hours - Code Status/Comfort Care Code Status Assessed: Yes (full code) Code Status: Full Code Physician Review: Patient Assessed, Agree with Above Assessment and Plan Critical Care: No Time Spent Managing PTS Care (In Minutes): 35 (minutes) <Bria Weldon - Last Filed: 10/04/23 10:31> Physician Review Additional Text: 10/05/23 12:00 Pt seen and examined. I agree with the note by the MALTHOU[employer] LABORER <Kirti Holder - Last Filed: 10/05/23 12:00>
[2023-10-04] MEDS: CEFTRIAXONE 1,000 MG in NA CHLORIDE 0.9% 50 ML IVPB SCH ×2 (11:24→14:11)
[2023-10-04] MEDS: DIVALPROEX DR 250 MG TAB PO SCH ×2 (12:26→21:19)
--- NOTE | 2023-10-04 13:11 | P.PN ---
Date of Service: 10/04/23 Vital Signs Temp Pulse Resp BP Pulse Ox 97.2 F 75 18 132/71 94 10/04/23 10:34 10/04/23 10:34 10/04/23 10:34 10/04/23 10:34 10/04/23 10:34 Medications Acetaminophen (Acetaminophen 325 Mg Tablet) 650 mg PO Q6H PRN PRN Reason: TEMP > 100' F Amiodarone HCl (Amiodarone Hcl 200 Mg Tab) 200 mg PO BID [facility] Last Admin: 10/04/23 07:45 Dose: 200 mg Aspirin (Aspirin Ec 81 Mg Tab) 81 mg PO DAILY [facility] Last Admin: 10/04/23 07:45 Dose: 81 mg Carbidopa/Levodopa (Carbidopa/Levodopa 25/100 Tab) 1 tab PO TID [facility] Clopidogrel Bisulfate (Clopidogrel 75 Mg Tablet) 75 mg PO DAILY [facility] Divalproex Sodium (Divalproex Dr 250 Mg Tab) 250 mg PO BID [facility] Last Admin: 10/04/23 12:26 Dose: 250 mg Famotidine (Famotidine 20 Mg Tab) 20 mg PO DAILY [facility]; Protocol Last Admin: 10/04/23 07:44 Dose: 20 mg Furosemide (Furosemide 40 Mg Tablet) 40 mg PO DAILY [facility] Last Admin: 10/04/23 07:45 Dose: 40 mg Ceftriaxone Sodium 1,000 mg/ (Sodium Chloride) 50 mls @ 100 mls/hr IVPB DAILY [facility]; Protocol L-Arginine/L-Glutamine/HMB (Nico Packet) 1 pkt PO BID [facility] Last Admin: 10/04/23 07:46 Dose: Not Given Memantine (Memantine Hcl 10 Mg Tablet) 5 mg PO BID [facility] Metoprolol Tartrate (Metoprolol Tar 50 Mg Tab) 50 mg PO BID [facility] Last Admin: 10/04/23 07:45 Dose: 50 mg Mirtazapine (Mirtazapine 15 Mg Tab) 15 mg PO BEDTIME [facility] Last Admin: 10/03/23 21:21 Dose: 15 mg Mirtazapine (Mirtazapine 15 Mg Tab) 30 mg PO BEDTIME [facility] Mupirocin (Mupirocin Nasal 2 Appl/1 Gm Tube) 1 appl DANNIE BID [facility] Stop: 10/08/23 09:01 Last Admin: 10/04/23 07:46 Dose: 1 appl Nutritional Formula (Ensure Enlive 237 Ml Can) 237 ml PO BID [facility] Last Admin: 10/04/23 07:46 Dose: 237 ml Ondansetron HCl (Ondansetron 4 Mg/2 Ml Vial) 4 mg IV Q6H PRN PRN Reason: NAUSEA / VOMITING Last Admin: 09/26/23 07:53 Dose: 4 mg Spironolactone (Spironolactone 25 Mg Tablet) 25 mg PO DAILY [facility] Last Admin: 10/04/23 07:44 Dose: 25 mg Trazodone HCl (Trazodone 50 Mg Tablet) 75 mg PO BEDTIME [facility] Last Admin: 10/03/23 21:21 Dose: 75 mg Assessment/ Plan: Nephrology No chest pain No dyspnea Feeling better today No acute events overnight Vitals, medications, blood work and imaging reviewed in the chart. NAD. NCAT. MMM. Neck supple. Normal respiratory effort. RRR. Abd ND. No C/C. LE Edema none. No rash. AAO. Normal speech. Stage I DEEPTI in the setting of diuresis CKD III with Proteinuria -No NSAIDs Hypokalemia likely due to diuresis -Replete prn HTN with CKD/ CHF -Continue Metoprolol Diastolic CHF, A/C -Reduce Furosemide 20mg once daily -Continue Spironolactone daily Anemia in chronic illness -Monitor H&H Hospitalist note reviewed
[2023-10-04] MEDS: CARBIDOPA/LEVODOPA 25/100 TAB PO SCH ×2 (14:02→21:20)
[2023-10-04 14:28] LABS: Albumin 2.6 g/dL (3.4-5.0); Phosphorus 3.2 mg/dL (2.5-4.9); Potassium 3.8 mEq/L (3.5-5.1)
[2023-10-04] MEDS ORDERED: MIRTAZAPINE 15 MG TAB PO SCH (21:00)
[2023-10-04] MEDS: TRAZODONE 50 MG TABLET PO SCH (21:19)
[2023-10-04] MEDS: MIRTAZAPINE 15 MG TAB PO SCH (21:21)
[2023-10-04] MEDS: MEMANTINE HCL 10 MG TABLET PO SCH (21:21)
[2023-10-04] MEDS ORDERED: NA CHLORIDE 0.9% 250 ML IV SCH (22:00)
--- NOTE | 2023-10-05 07:42 | P.PN ---
Subjective Date of Service: 10/05/23 Chief Complaint: atrial flutter On 02 2L, no respiratory distress, Patient is awake and alert, responds to verbal, AOx1 - Physical Exam General: Alert, In no apparent distress, Cooperative HEENT: Atraumatic, Normocephalic, PERRLA Neck: Supple, 2+ carotid pulse no bruit Respiratory: equal, unlabored Cardiovascular: No edema, regular heart rate/rhythm Capillary refill: <2 Seconds Gastrointestinal: Normal bowel sounds, Soft and benign Musculoskeletal: No clubbing Integumentary: No rashes Neurological: confused, Normal speech, Normal tone External genitalia: Deferred Rectal: Deferred <Brit Goetz - Last Filed: 10/05/23 15:00> Date of Service: 10/07/23 <Kirti Holder - Last Filed: 10/07/23 20:52> Review of Systems per hpi <Brit oGetz - Last Filed: 10/05/23 15:00> Physical Examination - Vital Signs Temperature: 97.4 F Blood Pressure: 104/48 Pulse: 66 Respirations: 16 Pulse Ox (%): 94 <Brit Goetz - Last Filed: 10/05/23 15:00> Assessment And Plan - Plan Assessment and Plan Acute hypoxic respiratory failure secondary to fluid volume overload improving Elevated BNP BNP 7999, BNP 79477->BNP 86734 Dig level 1.50 Patient removed BiPAP, Lasix 40 IV ordered for elevated BNP Discontinued, IO, daily wt Cardilogy consulted, echo ordered 09/27/ Repeat ABG ordered ABG pH 3.42, CO2 42.7, O2 88.2, HCO3 27.4, ABG improving PH 7.44/C02 45.3/PO2 94.1/HCC03 30.5 Respiratory consulted for O2 nasal cannula, educated nursing to wean 02 keep sats 92-94% Ambulation sats to eval home 02 PT eval for DME DC planning Leukocytosis improving Developed on 09/29/2023, WBCs 11.7 now, 14.0, 17.30, 16.50, 1231 UA greater than 500 leukoesterase, RBCs 11-20, started on Levaquin, ceftriaxone Blood culture negative, urine culture positive for E. coli Atrial fibrillation and flutter-resolved 09/28 currently NSR rate 10 Current Visit: Yes Status: Acute Plan: Cardiology consult, telemetry Continue to load with Digoxin per Dr. Madden Continue Metoprolol 50mg po BID Continue Lovenox 60mg sc BID Started on amiodarone 200 twice daily on 1 3 Acute on chronic kidney injury unkn baseline acute likely prerenal vs dehyrdation vs diuretic use Renal insufficiency, mild Current Visit: Yes Status: Acute Plan: Monitor electrolytes/ replenish as warranted BUN 31/1.50 estimated GFR 34-> 27/1.29 estimated GFR 40, BUN 31 creatinine 1.61- >BUN 35/1.64 est GFR 30-> BUN 42/1.52 est gfr 33 (lasix for CHF) nephrology consulted, Lasix ordered, Gentle IV fluids Hypokalemia resolved Potassium 3.4 Trend electrolyte replace as needed Macrocytic anemia stable HH 11.8->11.3-> Alzheimer's/Dementia Fall precautions PT/OT eval for DC planning Dispostion, pt. lives at [facility] unit and has been doing well. Does patient have a Living Will: No Does patient have a Durable POA for Healthcare: Yes Discharge Plan: [facility] Critical Care: No Time Spent Managing PTS Care (In Minutes): 35 <Brit Goetz - Last Filed: 10/05/23 15:00> - Plan Pt seen and examined. I agree with the note by the FINANCIAL INVESTMENT MANAGER. Continue lasix for volume overload <Kirti Holder - Last Filed: 10/07/23 20:52>
[2023-10-05] MEDS: DIVALPROEX DR 250 MG TAB PO SCH ×2 (08:22→21:50)
[2023-10-05] MEDS: CARBIDOPA/LEVODOPA 25/100 TAB PO SCH ×3 (08:23→21:49)
[2023-10-05] MEDS: AMIODARONE HCL 200 MG TAB PO SCH ×2 (08:23→21:52)
[2023-10-05] MEDS: CLOPIDOGREL 75 MG TABLET PO SCH (08:23)
[2023-10-05] MEDS: FAMOTIDINE 20 MG TAB PO SCH (08:25)
[2023-10-05] MEDS: ASPIRIN EC 81 MG TAB PO SCH (08:25)
[2023-10-05] MEDS: MEMANTINE HCL 10 MG TABLET PO SCH ×2 (08:25→21:49)
[2023-10-05] MEDS: ENSURE ENLIVE 237 ML CAN PO SCH ×2 (08:26→22:02)
[2023-10-05] MEDS: Mupirocin NASAL 2 APPL/1 GM TUBE NAS SCH ×2 (08:26→21:48)
[2023-10-05] MEDS: METOPROLOL TAR 50 MG TAB PO SCH ×2 (08:30→21:49)
[2023-10-05] MEDS: CEFTRIAXONE 1,000 MG in NA CHLORIDE 0.9% 50 ML IVPB SCH (08:31)
[2023-10-05] MEDS: JUVEN PACKET PO SCH ×2 (08:31→21:00)
[2023-10-05 10:06] LABS: Absolute Lymphocytes (CBC) 1.9 K/uL (0.7-4.9); Hematocrit 36.9 % (36.0-45.0); Lymphocytes % 14.7 % (15.3-44.8); MCV 98.1 fL (80-100); MPV 7.9 fL (7.6-11.3); Platelets 377 thou/uL (152-406); RBC Red Blood Cell Count 3.76 M/uL (3.86-4.86)
[2023-10-05 10:25] LABS: Potassium 3.7 mEq/L (3.5-5.1); Uric Acid 11.1 mg/dL (2.6-6.0)
[2023-10-05] MEDS: MIRTAZAPINE 15 MG TAB PO SCH (21:50)
[2023-10-05] MEDS: TRAZODONE 50 MG TABLET PO SCH (21:51)
[2023-10-06 06:24] LABS: Absolute Lymphocytes (CBC) 1.7 K/uL (0.7-4.9); Hematocrit 34.9 % (36.0-45.0); Lymphocytes % 13.9 % (15.3-44.8); MCV 96.9 fL (80-100); MPV 7.8 fL (7.6-11.3); Platelets 371 thou/uL (152-406)
[2023-10-06 06:39] LABS: AST/SGOT 12 U/L (15-37); Albumin 2.3 g/dL (3.4-5.0); Alkaline Phosphatase 65 U/L (45-117); BUN Blood Urea Nitrogen 72 mg/dL (7-18); Bicarbonate 25 mEq/L (21-32); Bilirubin Total 0.4 mg/dL (0.2-1.0); Glomerular Filtration Rate 22 ml/min (=/>90); Glucose Level 88 mg/dL (74-106); Magnesium 2.5 mg/dL (1.6-2.4); NT PRO-BNP 572 pg/mL (<450); Potassium 4.1 mEq/L (3.5-5.1); Sodium Level 137 mEq/L (136-145)
[2023-10-06 06:45] LABS: ALT/SGPT < 10 U/L (13-56)
--- NOTE | 2023-10-06 07:42 | P.PN ---
Subjective Date of Service: 10/06/23 Chief Complaint: atrial flutter On 02 2L, no respiratory distress, Patient is awake and alert, responds to verbal, AOx1 - Physical Exam General: Alert, In no apparent distress, Cooperative HEENT: Atraumatic, Normocephalic, PERRLA Neck: Supple, 2+ carotid pulse no bruit Respiratory: equal, unlabored Cardiovascular: No edema, regular heart rate/rhythm Capillary refill: <2 Seconds Gastrointestinal: Normal bowel sounds, Soft and benign Musculoskeletal: No clubbing Integumentary: No rashes Neurological: confused, Normal speech, Normal tone External genitalia: Deferred Rectal: Deferred Review of Systems per HPI Physical Examination - Vital Signs Temperature: 97.2 F Blood Pressure: 114/58 Pulse: 56 Respirations: 18 Pulse Ox (%): 97 Assessment And Plan - Plan Assessment and Plan Acute hypoxic respiratory failure secondary to fluid volume overload improving Elevated BNP BNP 7999, BNP 77820->BNP 15613->572 Dig level 1.50 Patient removed BiPAP, Lasix 40 IV ordered for elevated BNP Discontinued, IO, daily wt Cardilogy consulted, echo ordered 09/27/ Repeat ABG ordered ABG pH 3.42, CO2 42.7, O2 88.2, HCO3 27.4, ABG improving PH 7.44/C02 45.3/PO2 94.1/HCC03 30.5 Respiratory consulted for O2 nasal cannula, educated nursing to wean 02 keep sats 92-94% Ambulation sats to eval home 02 PT eval for DME DC planning Leukocytosis improving Developed on 09/29/2023, WBCs 11.7 now, 14.0, 17.30, 16.50,->12.00 1231 UA greater than 500 leukoesterase, RBCs 11-20, started on Levaquin, ceftriaxone 10/06 on ceftriaxone Blood culture negative, urine culture positive for E. coli Atrial fibrillation and flutter-resolved 09/28 currently NSR rate 10 Current Visit: Yes Status: Acute Plan: Cardiology consult, telemetry Continue to load with Digoxin per Dr. Madden Continue Metoprolol 50mg po BID Continue Lovenox 60mg sc BID Started on amiodarone 200 twice daily on 1 3 Acute on chronic kidney injury unkn baseline acute likely prerenal vs dehyrdation vs diuretic use Renal insufficiency, mild Current Visit: Yes Status: Acute Plan: Monitor electrolytes/ replenish as warranted BUN 31/1.50 estimated GFR 34-> 27/1.29 estimated GFR 40, BUN 31 creatinine 1.61- >BUN 35/1.64 est GFR 30-> BUN 42/1.52 est gfr 33 ->BUN 72/2.13 lasix po 2o daily nephrology consulted, Hypokalemia resolved Potassium 3.4 Trend electrolyte replace as needed Macrocytic anemia stable HH 11.8->11.3-> Alzheimer's/Dementia Fall precautions PT/OT eval for DC planning Dispostion, pt. lives at [facility] unit and has been doing well. Does patient have a Living Will: No Does patient have a Durable POA for Healthcare: Yes Discharge Plan: [facility] - Code Status/Comfort Care Code Status: Full Code Critical Care: No Time Spent Managing PTS Care (In Minutes): 35
[2023-10-06] MEDS: Mupirocin NASAL 2 APPL/1 GM TUBE NAS SCH ×2 (08:56→21:14)
[2023-10-06] MEDS: CEFTRIAXONE 1,000 MG in NA CHLORIDE 0.9% 50 ML IVPB SCH (08:56)
[2023-10-06] MEDS: DIVALPROEX DR 250 MG TAB PO SCH ×2 (08:56→21:14)
[2023-10-06] MEDS: ASPIRIN EC 81 MG TAB PO SCH (08:56)
[2023-10-06] MEDS: CARBIDOPA/LEVODOPA 25/100 TAB PO SCH ×3 (08:56→21:13)
[2023-10-06] MEDS: MEMANTINE HCL 10 MG TABLET PO SCH ×2 (08:56→21:15)
[2023-10-06] MEDS: METOPROLOL TAR 50 MG TAB PO SCH ×2 (08:57→21:14)
[2023-10-06] MEDS: AMIODARONE HCL 200 MG TAB PO SCH ×2 (08:57→21:14)
[2023-10-06] MEDS: ENSURE ENLIVE 237 ML CAN PO SCH ×2 (08:57→21:00)
[2023-10-06] MEDS: CLOPIDOGREL 75 MG TABLET PO SCH (08:57)
[2023-10-06] MEDS: JUVEN PACKET PO SCH ×2 (08:57→21:00)
[2023-10-06] MEDS: FAMOTIDINE 20 MG TAB PO SCH (08:57)
--- NOTE | 2023-10-06 11:55 | PN ---
Date of Progress Note: 10/06/2023 Subjective: Seen by bedside. Doing well. No specific complaints. Review of Systems: No chest pain, shortness of breath, nausea, vomiting, or diarrhea. All other systems reviewed are ne gative. Generally, she is very weak. Physical Examination: Vital Signs: Reviewed. Head and Neck: Pupils are equal and reactive to light. Intact eye movements. No JVD. No cervical lymphadenopathy. Neck is supple. Thyroid is not enlarged. Lungs: Clear to auscultation bilaterally. No rhonchi, wheezing, or crackles. No accessory muscle u se. Heart: Regular rate and rhythm. No extra sounds. Abdomen: Soft, nontender. Bowel sounds positive. No organomegaly. No masses or hernia. No rigidi ty or rebound. Extremities: No edema, clubbing, or cyanosis. Intact pulses. Skin: No rash. Neurologic: Alert, awake, oriented x3. No acute focal deficits appreciated. Investigations: Labs reviewed. Assessment And Recommendations: 1.Atrial fibrillation with rapid ventricular response. She is in sinus now. Continue amiodarone an d recommend low-dose Eliquis 2.5 mg twice a day. 2.Acute on chronic heart failure exacerbation. She appears to be euvolemic. Continue oral Lasix. Monitor BUN and creatinine. 3.Chronic kidney disease. Creatinine is improving. Cardiology will sign off and the patient can be followed as an outpatient. /JEREMY Voice ID: [id number] Report ID: [id number]
[2023-10-06] MEDS ORDERED: NA CHLORIDE 0.9% 250 ML IV SCH ×2 (16:00→21:00)
[2023-10-06] MEDS ORDERED: ALBUMIN HUMAN 25% 100 ML IV ONE (16:00)
--- NOTE | 2023-10-06 20:45 | P.PN ---
Date of Service: 10/06/23 Vital Signs Temp Pulse Resp BP Pulse Ox 97.3 F 57 20 121/52 L 97 10/06/23 16:00 10/06/23 16:00 10/06/23 16:00 10/06/23 16:00 10/06/23 16:00 Medications Acetaminophen (Acetaminophen 325 Mg Tablet) 650 mg PO Q6H PRN PRN Reason: TEMP > 100' F Amiodarone HCl (Amiodarone Hcl 200 Mg Tab) 200 mg PO BID [facility] Last Admin: 10/06/23 08:57 Dose: 200 mg Aspirin (Aspirin Ec 81 Mg Tab) 81 mg PO DAILY [facility] Last Admin: 10/06/23 08:56 Dose: 81 mg Carbidopa/Levodopa (Carbidopa/Levodopa 25/100 Tab) 1 tab PO TID [facility] Last Admin: 10/06/23 15:03 Dose: 1 tab Clopidogrel Bisulfate (Clopidogrel 75 Mg Tablet) 75 mg PO DAILY [facility] Last Admin: 10/06/23 08:57 Dose: 75 mg Divalproex Sodium (Divalproex Dr 250 Mg Tab) 250 mg PO BID [facility] Last Admin: 10/06/23 08:56 Dose: 250 mg Famotidine (Famotidine 20 Mg Tab) 20 mg PO DAILY [facility]; Protocol Last Admin: 10/06/23 08:57 Dose: 20 mg Furosemide (Furosemide 20 Mg Tablet) 20 mg PO DAILY [facility] Ceftriaxone Sodium 1,000 mg/ (Sodium Chloride) 50 mls @ 100 mls/hr IVPB DAILY [facility]; Protocol Last Admin: 10/06/23 08:56 Dose: 50 mls Sodium Chloride (Sodium Chloride) 250 mls @ 999 mls/hr IV .Q16M [facility] Last Admin: 10/06/23 16:45 Dose: 250 mls L-Arginine/L-Glutamine/HMB (Nico Packet) 1 pkt PO BID [facility] Last Admin: 10/06/23 08:57 Dose: Not Given Memantine (Memantine Hcl 10 Mg Tablet) 5 mg PO BID [facility] Last Admin: 10/06/23 08:56 Dose: 5 mg Metoprolol Tartrate (Metoprolol Tar 50 Mg Tab) 50 mg PO BID [facility] Last Admin: 10/06/23 08:57 Dose: 50 mg Mirtazapine (Mirtazapine 15 Mg Tab) 15 mg PO BEDTIME [facility] Last Admin: 10/05/23 21:50 Dose: 15 mg Mupirocin (Mupirocin Nasal 2 Appl/1 Gm Tube) 1 appl DANNIE BID [facility] Stop: 10/08/23 09:01 Last Admin: 10/06/23 08:56 Dose: 1 appl Nutritional Formula (Ensure Enlive 237 Ml Can) 237 ml PO BID [facility] Last Admin: 10/06/23 08:57 Dose: Not Given Ondansetron HCl (Ondansetron 4 Mg/2 Ml Vial) 4 mg IV Q6H PRN PRN Reason: NAUSEA / VOMITING Last Admin: 09/26/23 07:53 Dose: 4 mg Spironolactone (Spironolactone 25 Mg Tablet) 25 mg PO DAILY [facility] Last Admin: 10/04/23 07:44 Dose: 25 mg Trazodone HCl (Trazodone 50 Mg Tablet) 75 mg PO BEDTIME [facility] Last Admin: 10/05/23 21:51 Dose: 75 mg Assessment/ Plan: Nephrology No chest pain No dyspnea Feeling better today No acute events overnight Vitals, medications, blood work and imaging reviewed in the chart. NAD. NCAT. MMM. Neck supple. Normal respiratory effort. RRR. Abd ND. No C/C. LE Edema none. No rash. Awake. Normal speech. Stage I DEEPTI in the setting of diuresis CKD III with Proteinuria -No NSAIDs -IVF bolus as ordered Hyponatremia -Agree with IVF Hypokalemia likely due to diuresis -Replete prn HTN with CKD/ CHF -Continue Metoprolol Diastolic CHF, A/C -Continue Furosemide 20mg once daily -Continue Spironolactone daily Anemia in chronic illness -Monitor H&H Hospitalist note reviewed
[2023-10-06] MEDS: TRAZODONE 50 MG TABLET PO SCH (21:13)
[2023-10-06] MEDS: MIRTAZAPINE 15 MG TAB PO SCH (21:15)
--- NOTE | 2023-10-07 06:44 | P.PN ---
Subjective Date of Service: 10/07/23 Chief Complaint: atrial flutter On 02 2L, no respiratory distress, Patient is awake and alert, responds to verbal, AOx1 - Physical Exam General: Alert, In no apparent distress, Cooperative HEENT: Atraumatic, Normocephalic, PERRLA Neck: Supple, 2+ carotid pulse no bruit Respiratory: equal, unlabored Cardiovascular: No edema, regular heart rate/rhythm Capillary refill: <2 Seconds Gastrointestinal: Normal bowel sounds, Soft and benign Musculoskeletal: No clubbing Integumentary: No rashes Neurological: confused, Normal speech, Normal tone External genitalia: Deferred Rectal: Deferred Review of Systems per HPI Physical Examination - Vital Signs Temperature: 97.7 F Blood Pressure: 117/52 Pulse: 63 Respirations: 17 Pulse Ox (%): 96 Assessment And Plan - Plan Assessment and Plan Acute hypoxic respiratory failure secondary to fluid volume overload improving Elevated BNP BNP 7999, BNP 48373->BNP 58625->572 Dig level 1.50 Patient removed BiPAP, Lasix 40 IV ordered for elevated BNP Discontinued, IO, daily wt Cardilogy consulted, echo ordered 09/27/ Repeat ABG ordered ABG pH 3.42, CO2 42.7, O2 88.2, HCO3 27.4, ABG improving PH 7.44/C02 45.3/PO2 94.1/HCC03 30.5 Respiratory consulted for O2 nasal cannula, educated nursing to wean 02 keep sats 92-94% Ambulation sats to eval home 02 PT eval for DME DC planning Leukocytosis improving Developed on 09/29/2023, WBCs 11.7 now, 14.0, 17.30, 16.50,->12.00 1231 UA greater than 500 leukoesterase, RBCs 11-20, started on Levaquin, ceftriaxone 10/06 on ceftriaxone Blood culture negative, urine culture positive for E. coli Atrial fibrillation and flutter-resolved 09/28 currently NSR rate 10 Current Visit: Yes Status: Acute Plan: Cardiology consult, telemetry Continue to load with Digoxin per Dr. Madden Continue Metoprolol 50mg po BID Continue Lovenox 60mg sc BID Started on amiodarone 200 twice daily on 1 3 Acute on chronic kidney injury unkn baseline acute likely prerenal vs dehyrdation vs diuretic use Renal insufficiency, mild Current Visit: Yes Status: Acute Plan: Monitor electrolytes/ replenish as warranted BUN 31/1.50 estimated GFR 34-> 27/1.29 estimated GFR 40, BUN 31 creatinine 1.61- >BUN 35/1.64 est GFR 30-> BUN 42/1.52 est gfr 33 ->BUN 72/2.13 lasix po 2o daily nephrology consulted, Hypokalemia resolved Potassium 3.4 Trend electrolyte replace as needed Macrocytic anemia stable HH 11.8->11.3-> Alzheimer's/Dementia Fall precautions PT/OT eval for DC planning Dispostion, pt. lives at [facility] unit and has been doing well. Does patient have a Living Will: No Does patient have a Durable POA for Healthcare: Yes Discharge Plan: [facility] - Code Status/Comfort Care Code Status: Full Code Physician Review: Patient Assessed, Agree with Above Assessment and Plan Critical Care: No Time Spent Managing PTS Care (In Minutes): 35
[2023-10-07] MEDS: CEFTRIAXONE 1,000 MG in NA CHLORIDE 0.9% 50 ML IVPB SCH (08:04)
[2023-10-07] MEDS: JUVEN PACKET PO SCH ×2 (08:38→22:11)
[2023-10-07] MEDS: ENSURE ENLIVE 237 ML CAN PO SCH ×2 (08:38→22:11)
[2023-10-07] MEDS: CARBIDOPA/LEVODOPA 25/100 TAB PO SCH ×3 (08:50→22:11)
[2023-10-07] MEDS: FAMOTIDINE 20 MG TAB PO SCH (08:50)
[2023-10-07] MEDS: AMIODARONE HCL 200 MG TAB PO SCH ×2 (08:50→22:09)
[2023-10-07] MEDS: SPIRONOLACTONE 25 MG TABLET PO SCH (08:50)
[2023-10-07] MEDS: CLOPIDOGREL 75 MG TABLET PO SCH (08:50)
[2023-10-07] MEDS: FUROSEMIDE 20 MG TABLET PO SCH (08:51)
[2023-10-07] MEDS: METOPROLOL TAR 50 MG TAB PO SCH ×2 (08:51→22:10)
[2023-10-07] MEDS: MEMANTINE HCL 10 MG TABLET PO SCH ×2 (08:51→22:10)
[2023-10-07] MEDS: ASPIRIN EC 81 MG TAB PO SCH (08:52)
[2023-10-07] MEDS: Mupirocin NASAL 2 APPL/1 GM TUBE NAS SCH ×2 (08:52→22:11)
[2023-10-07 08:56] LABS: Absolute Lymphocytes (CBC) 1.4 K/uL (0.7-4.9); Hematocrit 34.3 % (36.0-45.0); Lymphocytes % 11.5 % (15.3-44.8); MCV 96.7 fL (80-100); MPV 7.4 fL (7.6-11.3); Platelets 404 thou/uL (152-406); RBC Red Blood Cell Count 3.54 M/uL (3.86-4.86)
[2023-10-07 09:12] LABS: AST/SGOT 10 U/L (15-37); Albumin 2.9 g/dL (3.4-5.0); Alkaline Phosphatase 58 U/L (45-117); BUN Blood Urea Nitrogen 51 mg/dL (7-18); Bicarbonate 24 mEq/L (21-32); Bilirubin Total 0.6 mg/dL (0.2-1.0); Glomerular Filtration Rate 29 ml/min (=/>90); Glucose Level 87 mg/dL (74-106); Magnesium 2.3 mg/dL (1.6-2.4); Potassium 3.9 mEq/L (3.5-5.1); Protein, Total 7.1 g/dL (6.4-8.2); Sodium Level 138 mEq/L (136-145)
[2023-10-07 09:15] LABS: ALT/SGPT < 10 U/L (13-56)
[2023-10-07] MEDS: DIVALPROEX DR 250 MG TAB PO SCH ×2 (09:17→22:09)
--- NOTE | 2023-10-07 20:11 | P.PN ---
Date of Service: 10/07/23 Vital Signs Temp Pulse Resp BP Pulse Ox 97.1 F 65 16 126/59 L 97 10/07/23 16:00 10/07/23 16:00 10/07/23 16:00 10/07/23 16:00 10/07/23 16:00 Medications Acetaminophen (Acetaminophen 325 Mg Tablet) 650 mg PO Q6H PRN PRN Reason: TEMP > 100' F Amiodarone HCl (Amiodarone Hcl 200 Mg Tab) 200 mg PO BID [facility] Last Admin: 10/07/23 08:50 Dose: 200 mg Aspirin (Aspirin Ec 81 Mg Tab) 81 mg PO DAILY [facility] Last Admin: 10/07/23 08:52 Dose: 81 mg Carbidopa/Levodopa (Carbidopa/Levodopa 25/100 Tab) 1 tab PO TID [facility] Last Admin: 10/07/23 13:47 Dose: 1 tab Clopidogrel Bisulfate (Clopidogrel 75 Mg Tablet) 75 mg PO DAILY [facility] Last Admin: 10/07/23 08:50 Dose: 75 mg Divalproex Sodium (Divalproex Dr 250 Mg Tab) 250 mg PO BID [facility] Last Admin: 10/07/23 09:17 Dose: 250 mg Famotidine (Famotidine 20 Mg Tab) 20 mg PO DAILY [facility]; Protocol Last Admin: 10/07/23 08:50 Dose: 20 mg Furosemide (Furosemide 20 Mg Tablet) 20 mg PO DAILY [facility] Last Admin: 10/07/23 08:51 Dose: 20 mg Ceftriaxone Sodium 1,000 mg/ (Sodium Chloride) 50 mls @ 100 mls/hr IVPB DAILY [facility]; Protocol Last Admin: 10/07/23 08:04 Dose: 50 mls Sodium Chloride (Sodium Chloride) 250 mls @ 999 mls/hr IV .Q16M [facility] Last Admin: 10/06/23 16:45 Dose: 250 mls L-Arginine/L-Glutamine/HMB (Nico Packet) 1 pkt PO BID [facility] Last Admin: 10/07/23 08:38 Dose: Not Given Memantine (Memantine Hcl 10 Mg Tablet) 5 mg PO BID [facility] Last Admin: 10/07/23 08:51 Dose: 5 mg Metoprolol Tartrate (Metoprolol Tar 50 Mg Tab) 50 mg PO BID [facility] Last Admin: 10/07/23 08:51 Dose: 50 mg Mirtazapine (Mirtazapine 15 Mg Tab) 15 mg PO BEDTIME [facility] Last Admin: 10/06/23 21:15 Dose: 15 mg Mupirocin (Mupirocin Nasal 2 Appl/1 Gm Tube) 1 appl DANNIE BID [facility] Stop: 10/08/23 09:01 Last Admin: 10/07/23 08:52 Dose: 1 appl Nutritional Formula (Ensure Enlive 237 Ml Can) 237 ml PO BID [facility] Last Admin: 10/07/23 08:38 Dose: Not Given Ondansetron HCl (Ondansetron 4 Mg/2 Ml Vial) 4 mg IV Q6H PRN PRN Reason: NAUSEA / VOMITING Last Admin: 09/26/23 07:53 Dose: 4 mg Spironolactone (Spironolactone 25 Mg Tablet) 25 mg PO DAILY [facility] Last Admin: 10/07/23 08:50 Dose: 25 mg Trazodone HCl (Trazodone 50 Mg Tablet) 75 mg PO BEDTIME [facility] Last Admin: 10/06/23 21:13 Dose: 75 mg Assessment/ Plan: Nephrology No chest pain No dyspnea No acute events overnight Vitals, medications, blood work and imaging reviewed in the chart. NAD. NCAT. MMM. Neck supple. Normal respiratory effort. RRR. Abd ND. No C/C. LE Edema none. No rash. Awake. Normal speech. Stage I DEEPTI in the setting of diuresis CKD III with Proteinuria -No NSAIDs Hyponatremia -Maintain nutrition Hypokalemia likely due to diuresis -Replete prn HTN with CKD/ CHF -Continue Metoprolol Diastolic CHF, A/C -Continue Furosemide 20mg once daily -Continue Spironolactone daily Anemia in chronic illness -Monitor H&H Hospitalist note reviewed
[2023-10-07] MEDS: TRAZODONE 50 MG TABLET PO SCH (22:08)
[2023-10-07] MEDS: MIRTAZAPINE 15 MG TAB PO SCH (22:10)
[2023-10-08 03:47] LABS: Absolute Lymphocytes (CBC) 1.4 K/uL (0.7-4.9); Hematocrit 34.2 % (36.0-45.0); Lymphocytes % 11.5 % (15.3-44.8); MCV 97.7 fL (80-100); MPV 7.5 fL (7.6-11.3); Platelets 377 thou/uL (152-406)
[2023-10-08 07:25] VITALS: O2SAT 98
[2023-10-08] MEDS: CLOPIDOGREL 75 MG TABLET PO SCH (09:00)
[2023-10-08] MEDS: MEMANTINE HCL 10 MG TABLET PO SCH (09:00)
[2023-10-08] MEDS: ENSURE ENLIVE 237 ML CAN PO SCH (09:00)
[2023-10-08] MEDS: METOPROLOL TAR 50 MG TAB PO SCH (09:00)
[2023-10-08] MEDS: CARBIDOPA/LEVODOPA 25/100 TAB PO SCH ×2 (09:00→13:15)
[2023-10-08] MEDS: AMIODARONE HCL 200 MG TAB PO SCH (09:00)
[2023-10-08] MEDS: FAMOTIDINE 20 MG TAB PO SCH (09:00)
[2023-10-08] MEDS: ASPIRIN EC 81 MG TAB PO SCH (09:00)
[2023-10-08] MEDS: DIVALPROEX DR 250 MG TAB PO SCH (09:00)
[2023-10-08] MEDS: JUVEN PACKET PO SCH (09:00)
[2023-10-08] MEDS: CEFTRIAXONE 1,000 MG in NA CHLORIDE 0.9% 50 ML IVPB SCH (11:17)
[2023-10-08] MEDS: Mupirocin NASAL 2 APPL/1 GM TUBE NAS SCH (11:21)
[2023-10-08 12:54] LABS: Specific Gravity 1.015 (1.005-1.030); Urine Bacteria None Seen /HPF (<20); Urine Bilirubin NEGATIVE (Negative); Urine Blood Negative (Negative); Urine Clarity Extremely Turbid (Clear); Urine Color Light-Yellow (Yellow); Urine Glucose NEGATIVE (Negative); Urine Mucus Slight /HPF (None Seen); Urine Protein NEGATIVE (Negative); Urine RBC <5 /HPF (None Seen); Urine Urobilinogen Normal (Normal); Urine WBC Clump Rare /HPF (None Seen); Urine pH 5.5 (5.0-7.0)
[2023-10-08 13:00] LABS: UR PROTEIN 21.5 mg/dL (<11.9); Urine Protein/Creatinine Ratio 0.16 ratio (<0.15)
[2023-10-08 13:06] LABS: UR MICROALBUMIN < 0.5 mg/dL (< 1.9)
[2023-10-08] MEDS: SPIRONOLACTONE 25 MG TABLET PO SCH (13:15)
[2023-10-08] MEDS: FUROSEMIDE 20 MG TABLET PO SCH (13:15)
--- NOTE | 2023-10-08 21:32 | P.PN ---
Date of Service: 10/08/23 Vital Signs Temp Pulse Resp BP Pulse Ox 96.8 F 68 16 122/64 98 10/08/23 12:00 10/08/23 12:00 10/08/23 12:00 10/08/23 12:00 10/08/23 12:00 Assessment/ Plan: Nephrology No chest pain No dyspnea No acute events overnight Vitals, medications, blood work and imaging reviewed in the chart. NAD. NCAT. MMM. Neck supple. Normal respiratory effort. RRR. Abd ND. No C/C. LE Edema none. No rash. Awake. Normal speech. Stage I DEEPTI in the setting of diuresis CKD III with Proteinuria -No NSAIDs Hyponatremia -Maintain nutrition Hypokalemia likely due to diuresis -Replete prn HTN with CKD/ CHF -Continue Metoprolol Diastolic CHF, A/C -Continue Furosemide 20mg once daily -Continue Spironolactone daily Anemia in chronic illness -Monitor H&H Hospitalist note reviewed Case reviewed with hospitalist team
[2023-10-12 07:23] VITALS: BP 114/58; TEMP 97.2
== END 2023-10-08 16:18 | disposition home or self-care (01) | DRG 308 ==
LOC: ER 18:29 → ERHOLD 22:28 → 2ND 09-25 00:47
PROVIDERS: ADMIT Hospitalist; ATTEND Hospitalist
PROC: 5A09357 Assistance with Respiratory Ventilation, Less than 24 Consecutive Hours, Continuous Positive Airway Pressure (ICD-10-PCS; principal; 2023-09-26)
PROC: 5A0935A Assistance with Respiratory Ventilation, Less than 24 Consecutive Hours, High Flow/Velocity Cannula (ICD-10-PCS; 2023-09-27)
DX: I48.92 Unspecified atrial flutter (principal); I50.33 Acute on chronic diastolic (congestive) heart failure; J96.01 Acute respiratory failure with hypoxia; I13.0 Hypertensive heart and chronic kidney disease with heart failure and stage 1 through stage 4 chronic kidney disease, or unspecified chronic kidney disease; N17.9 Acute kidney failure, unspecified; N39.0 Urinary tract infection, site not specified; E87.1 Hypo-osmolality and hyponatremia; Z79.01 Long term (current) use of anticoagulants; G30.9 Alzheimer's disease, unspecified; F02.80 Dementia in other diseases classified elsewhere, unspecified severity, without behavioral disturbance, psychotic disturbance, mood disturbance, and anxiety; I48.91 Unspecified atrial fibrillation; F32.A Depression, unspecified; N18.30 Chronic kidney disease, stage 3 unspecified; Z90.49 Acquired absence of other specified parts of digestive tract; Z90.710 Acquired absence of both cervix and uterus; D64.9 Anemia, unspecified; E87.6 Hypokalemia; B96.20 Unspecified Escherichia coli [E. coli] as the cause of diseases classified elsewhere; I47.20 Ventricular tachycardia, unspecified; L89.322 Pressure ulcer of left buttock, stage 2
CPT/HCPCS: 0241U; 36415; 36600; 71045; 71275; 80048; 80053; 80069; 80162; 81001; 82043; 82570; 82805; 82947; 83735; 83880; 84100; 84156; 84443; 84484; 84550; 85025; 85379; 85610; 85730; 87040; 87077; 87086; 87088; 87186; 93005; 93306; 94660; 94760; 97116; 97161; 97165; 97530; 99285; J0282; J0696; J1160; J1650; J1940; J2405; J3475; J7030; J7050; J7060; P9047; Q9967

== ENCOUNTER 2023-10-19 09:31 | Inpatient (IN) | payer OTHER ==
[2023-10-19 09:42] LABS: Absolute Lymphocytes (CBC) 1.9 K/uL (0.7-4.9); Hematocrit 30.5 % (36.0-45.0); Lymphocytes % 17.4 % (15.3-44.8); MCV 98.1 fL (80-100); MPV 7.7 fL (7.6-11.3); Platelets 284 thou/uL (152-406); RBC Red Blood Cell Count 3.11 M/uL (3.86-4.86)
[2023-10-19 09:53] LABS: Protime INR 1.08
[2023-10-19 10:03] LABS: AST/SGOT 8 U/L (15-37); Albumin 2.4 g/dL (3.4-5.0); Alkaline Phosphatase 56 U/L (45-117); BUN Blood Urea Nitrogen 45 mg/dL (7-18); Bicarbonate 21 mEq/L (21-32); Bilirubin Direct 0.1 mg/dL (0-0.2); Bilirubin Indirect, Calculated 0.3 mg/dL (0.2-0.8); Bilirubin Total 0.4 mg/dL (0.2-1.0); Glomerular Filtration Rate 25 ml/min (=/>90); Glucose Level 125 mg/dL (74-106); NT PRO-BNP 2203 pg/mL (<450); Potassium 3.5 mEq/L (3.5-5.1); Protein, Total 6.2 g/dL (6.4-8.2); Sodium Level 139 mEq/L (136-145); Troponin High Sensitivity 13.2 pg/mL (<58.9)
[2023-10-19 10:04] LABS: ALT/SGPT < 10 U/L (13-56)
--- NOTE | 2023-10-19 10:39 | RAD REPORT ---
EXAM DESCRIPTION: CT - Head Brain Wo Cont - 10/19/2023 9:49 am CLINICAL HISTORY: near syncope COMPARISON: Facial Bones W/ Mpr dated 12/18/2022; Head Brain Wo Cont dated 08/18/2016 TECHNIQUE: All CT scans are performed using dose optimization technique as appropriate and may inclu de automated exposure control or mA/KV adjustment according to patient size. FINDINGS: No intracranial hemorrhage, hydrocephalus or extra-axial fluid collection.No areas of brai n edema or evidence of midline shift. Remote left frontal lobe infarct. Cerebral atrophy. The paranasal sinuses and mastoids are clear. The calvarium is intact. IMPRESSION: No acute intracranial abnormality. Remote left frontal lobe infarct.
--- NOTE | 2023-10-19 10:42 | RAD REPORT ---
EXAM DESCRIPTION: RAD - Chest Single View - 10/19/2023 10:04 am CLINICAL HISTORY: SOB COMPARISON: Chest Single View dated 09/27/2023; Chest Single View dated 09/26/2023; Chest Single Vie w dated 09/24/2023; Chest Single View dated 10/10/2021 FINDINGS: Lines: None. Lungs: No evidence of edema or pneumonia. Pleural: No significant pleural effusions or pneumothorax. Cardiac: The heart size is within normal limits. Mediastinum: Within normal limits. Bones: No acute fractures. Other: None IMPRESSION: No acute cardiopulmonary disease.
[2023-10-19 11:25] LABS: Specific Gravity 1.018 (1.005-1.030); Transitional Epithelial <5 /HPF (None Seen); Urine Bacteria <20 /HPF (<20); Urine Bilirubin NEGATIVE (Negative); Urine Blood Negative (Negative); Urine Clarity Turbid (Clear); Urine Color Light-Yellow (Yellow); Urine Glucose NEGATIVE (Negative); Urine Mucus Slight /HPF (None Seen); Urine Protein TRACE (Negative); Urine RBC <5 /HPF (None Seen); Urine Urobilinogen Normal (Normal); Urine pH 5.5 (5.0-7.0)
--- NOTE | 2023-10-19 12:58 | ER ---
Nurse's Notes [facility] Name: Connie Dos Santos Age: 88 yrs Sex: Female : 1935 Arrival Date: 10/19/2023 Time: 09:31 Bed 8 Private MD: Diagnosis: Near syncope;Muscle weakness (generalized);Dehydration Presentation: 10/19 09:30 Chief complaint: EMS states: near syncope this morning while Solexant was administering iw meds, pt recently started lasix, pt has hx of alzheimers, systolic BP was in 90's on scene. Coronavirus screen: At this time, the client does not indicate any symptoms associated with coronavirus-19. Ebola Screen: Patient negative for fever greater than or equal to 101.5 degrees Fahrenheit, and additional compatible Ebola Virus Disease symptoms Patient denies exposure to infectious person. Patient denies travel to an Ebola-affected area in the 21 days before illness onset. No symptoms or risks identified at this time. Initial Sepsis Screen: Does the patient meet any 2 criteria? No. Patient's initial sepsis screen is negative. Does the patient have a suspected source of infection? No. Patient's initial sepsis screen is negative. Risk Assessment: Do you want to hurt yourself or someone else? Patient reports no desire to harm self or others. 09:30 Method Of Arrival: EMS: [facility] iw 09:37 Onset of symptoms was October 19, 2023. iw 09:37 Acuity: BRANDY 3 iw Historical: - Allergies: 09:38 Sulfa (Sulfonamide Antibiotics); iw - Home Meds: 14:12 amiodarone 200 mg Oral tablet daily [Active]; acetaminophen 325 mg Oral capsule three iw times a day [Active]; carbidopa-levodopa 25-100 mg Oral tablet 3 times per day [Active]; clopidogrel 75 mg oral tablet daily [Active]; divalproex 250 mg oral tablet, delayed release (enteric coated) 2 times per day [Active]; furosemide 20 mg Oral tablet daily [Active]; memantine 5 mg oral tablet 2 times per day [Active]; metoprolol tartrate 50 mg Oral tablet 2 times per day [Active]; trazodone 50 mg Oral tablet nightly [Active]; - PMHx: 09:38 Alzheimer's disease; Dementia; Depression; Hypertension; TIA; iw - Family history:: not pertinent. - Hospitalizations: : Patient was recently seen at. Screenin:52 [facility] ED Fall Risk Assessment (Adult) Score/Fall Risk Level 0 - 2 = Low Risk. Abuse iw screen: Denies threats or abuse. Denies injuries from another. Nutritional screening: No deficits noted. Tuberculosis screening: No symptoms or risk factors identified. Assessment: 09:51 General: Appears in no apparent distress. Behavior is anxious. Pain: Denies pain. iw Neuro: Level of Consciousness is awake, alert, confused, Oriented to person, place, Moves all extremities. Cardiovascular: Patient's skin is warm and dry. Respiratory: Respiratory effort is even, unlabored, Respiratory pattern is regular, symmetrical. GI: Abdomen is flat, non-distended. Derm: Skin is fragile, is thin. Musculoskeletal: Range of motion: intact in all extremities. 10:39 Reassessment: Patient appears in no apparent distress at this time. iw 11:08 Reassessment: Patient appears in no apparent distress at this time. Patient and/or iw family updated on plan of care and expected duration. Pain level reassessed. 13:41 Reassessment: Son Tristan [phone] updated on plan to admit pt. hb Vital Signs: 09:38 BP 124 / 56; Pulse 57; Resp 18; Temp 97.7; Pulse Ox 100% on R/A; iw 11:03 BP 113 / 72; Pulse 69; Resp 16; Pulse Ox 98% on R/A; iw ED Course: 09:32 Patient arrived in ED. sb4 09:32 Rogeloi Gillette MD is Attending Physician. rn 09:35 Ronda López RN is Primary Nurse. iw 09:37 Triage completed. iw 09:37 Maintain EMS IV. Dressing intact. Good blood return noted. Site clean \T\ dry. Gauge \T\ iw site: 20 RFA. 09:51 CT Head Brain wo Cont In Process Unspecified. EDMS 09:52 Patient has correct armband on for positive identification. Client placed on continuous iw cardiac and pulse oximetry monitoring. NIBP monitoring applied. 10:06 Chest Single View XRAY In Process Unspecified. EDMS 11:01 Urinalysis w/ reflexes Sent. iw 12:57 Yemi Gillette MD is Hospitalizing Provider. rn Administered Medications: 09:45 Drug: NS 0.9% IV 500 ml IV at bolus once Route: IV; Rate: bolus; Site: right iw antecubital; 11:00 Follow up: IV Status: Completed infusion iw 14:20 Drug: NS 0.9% IV 1000 ml IV at 55 ml/hr continuous Route: IV; Rate: 55 ml/hr; Site: iw right antecubital; 15:30 Follow up: IV Status: Infusion continued upon admission iw Medication: 09:52 VIS not applicable for this client. iw Outcome: 12:57 Decision to Hospitalize by Provider. rn 14:42 Patient left the ED. iw Signatures: Dispatcher [employer] EDRonda Priest RN RN iw Rogelio Gillette MD MD rn Baxter, Heather, RN RN hb Brown, Sophia, PAMaya PA-Arminda sb4 Corrections: (The following items were deleted from the chart) 11:09 11:08 Reassessment: Patient appears in no apparent distress at this time. iw iw
--- NOTE | 2023-10-19 12:58 | EDPHYS ---
Physician Documentation [facility] Name: Connie Dos Santos Age: 88 yrs Sex: Female : 1935 Arrival Date: 10/19/2023 Time: 09:31 Bed 8 Private MD: ED Physician Rogelio Gillette HPI: 10/19 10:39 This 88 yrs old Female presents to ER via EMS with complaints of Near Syncope. rn 10:39 The patient has experienced near-syncope. Onset: The symptoms/episode began/occurred rn just prior to arrival. Duration: This was a single episode. 10:56 Associated injury: The patient did not suffer any apparent associated injury. Current rn symptoms: Generalized weakness. The patient has not experienced similar symptoms in the past. EMS reports called out for near syncope. Patient was standing up to take medication and got lightheaded. No LOC. No trauma. EMS reports told she had recent admission for congestive heart failure and volume overload. Takes Lasix at home. Patient denies focal pain. No chest pain. No abdominal pain.. Historical: - Allergies: 09:38 Sulfa (Sulfonamide Antibiotics); iw - Home Meds: 14:12 amiodarone 200 mg Oral tablet daily [Active]; acetaminophen 325 mg Oral capsule three iw times a day [Active]; carbidopa-levodopa 25-100 mg Oral tablet 3 times per day [Active]; clopidogrel 75 mg oral tablet daily [Active]; divalproex 250 mg oral tablet, delayed release (enteric coated) 2 times per day [Active]; furosemide 20 mg Oral tablet daily [Active]; memantine 5 mg oral tablet 2 times per day [Active]; metoprolol tartrate 50 mg Oral tablet 2 times per day [Active]; trazodone 50 mg Oral tablet nightly [Active]; - PMHx: 09:38 Alzheimer's disease; Dementia; Depression; Hypertension; TIA; iw - Family history:: not pertinent. - Hospitalizations: : Patient was recently seen at. ROS: 10:56 Constitutional: Negative for fever, chills, and weight loss, Cardiovascular: Negative rn for chest pain, palpitations, and edema, Respiratory: Negative for shortness of breath, cough, wheezing, and pleuritic chest pain, Abdomen/GI: Negative for abdominal pain, nausea, vomiting, diarrhea, and constipation, Back: Negative for injury and pain, MS/Extremity: Negative for injury and deformity, Skin: Negative for injury, rash, and discoloration, Neuro: Negative for headache, numbness, tingling, and seizure, Exam: 10:56 Constitutional: This is a well developed, well nourished patient who is awake, alert, rn and in no acute distress. Head/Face: Normocephalic, atraumatic. Eyes: Pupils equal round and reactive to light, extra-ocular motions intact. ENT: Dry mucous membranes Cardiovascular: Bradycardic, regular. No pulse deficits. Respiratory: Mild tachypnea. No retractions Abdomen/GI: Soft, nontender, nondistended MS/ Extremity: Pulses equal, no cyanosis. Neuro: Awake and alert, GCS 15, oriented to person, not place or time. Cranial nerves II-XII grossly intact. Motor strength 4/5 in all extremities. Sensory grossly intact. Vital Signs: 09:38 BP 124 / 56; Pulse 57; Resp 18; Temp 97.7; Pulse Ox 100% on R/A; iw 11:03 BP 113 / 72; Pulse 69; Resp 16; Pulse Ox 98% on R/A; iw MDM: 09:32 Patient medically screened. rn 12:56 Differential Diagnosis: cardiac arrhythmia, idiopathic syncope, vasovagal episode, review rn side effect, overdiuresis, dehydration. Data reviewed: vital signs, nurses notes, lab test result(s), EKG, radiologic studies, CT scan, and as a result, I will admit patient. Consideration of Admission/Observation Patient was admitted/placed on observation. Escalation of care including admission/observation considered. Management of patient was discussed with the following: Hospitalist: . Counseling: I had a detailed discussion with the patient and/or guardian regarding the historical points, exam findings, and any diagnostic results supporting the discharge/admit diagnosis. Response to treatment: There is no appreciated change of the patient's symptoms at this time. ED course: Attempted to stand and ambulate patient, still feels very lightheaded and weak when standing, concerned she is going to fall. Admitted to hospitalist service for further care.. 10/19 09:33 Order name: Basic Metabolic Panel; Complete Time: 10:45 rn 10/19 09:33 Order name: CBC with Diff; Complete Time: 10:45 rn 10/19 09:33 Order name: Hepatic Function; Complete Time: 10:45 rn 10/19 09:33 Order name: Magnesium; Complete Time: 10:45 rn 10/19 09:33 Order name: Protime (+inr); Complete Time: 10:45 rn 10/19 09:33 Order name: Ptt, Activated; Complete Time: 10:45 rn 10/19 09:33 Order name: Troponin High Sensitivity; Complete Time: 10:45 rn 10/19 09:33 Order name: Urinalysis w/ reflexes; Complete Time: 12:04 rn 10/19 09:33 Order name: BNP; Complete Time: 10:45 rn 10/19 11:29 Order name: Urine Culture EDNC 10/19 09:33 Order name: CT Head Brain wo Cont; Complete Time: 10:45 rn 10/19 09:33 Order name: Chest Single View XRAY; Complete Time: 10:45 rn 10/19 13:09 Order name: Knee Right 3 View XRAY la1 10/19 14:16 Order name: RAD EDNC 10/19 09:33 Order name: EKG; Complete Time: 09:33 rn 10/19 09:33 Order name: Cardiac monitoring; Complete Time: 09:38 rn 10/19 09:33 Order name: EKG - Nurse/Tech; Complete Time: 10:04 rn 10/19 09:33 Order name: IV Saline Lock; Complete Time: 09:38 rn 10/19 09:33 Order name: Labs collected and sent; Complete Time: 09:38 rn 10/19 09:33 Order name: O2 Per Protocol; Complete Time: 09:38 rn 10/19 09:33 Order name: O2 Sat Monitoring; Complete Time: 09:38 rn Administered Medications: 09:45 Drug: NS 0.9% IV 500 ml IV at bolus once Route: IV; Rate: bolus; Site: right iw antecubital; 11:00 Follow up: IV Status: Completed infusion iw 14:20 Drug: NS 0.9% IV 1000 ml IV at 55 ml/hr continuous Route: IV; Rate: 55 ml/hr; Site: iw right antecubital; 15:30 Follow up: IV Status: Infusion continued upon admission iw Disposition Summary: 10/19/23 12:57 Hospitalization Ordered Notes: Hospitalization Status: Observation rn Provider: Gillette, Yemi rn Location: Telemetry/MedSurg (observation) rn Condition: Stable rn Problem: new rn Symptoms: are unchanged rn Bed/Room Type: Standard rn Room Assignment: 231(10/19/23 14:02) marsha Diagnosis - Near syncope rn - Muscle weakness (generalized) rn - Dehydration rn Forms: - Medication Reconciliation Form rn - SBAR form rn - Leadership Thank You Letter rn Signatures: Dispatcher [employer] Ronda Faust RN Rogelio Roy MD MD rn Attema, Lee, MENTALLY RETARDED TEACHER-C MENTALLY RETARDED TEACHER-Cla1 Grant Ramirez RN RN ja1 Corrections: (The following items were deleted from the chart) 14:02 12:57 rn marsha
--- NOTE | 2023-10-19 14:16 | RAD REPORT ---
EXAM DESCRIPTION: RAD - Knee Right 3 View - 10/19/2023 1:58 pm CLINICAL HISTORY: PAIN COMPARISON: Knee Right 3 View dated 10/03/2021 FINDINGS/IMPRESSION: No acute fracture. No malalignment. Tricompartmental degenerative changes are p resent. Moderate patellofemoral compartment spurring and mild mediolateral compartment spurring. Mode rate knee effusion which is nonspecific but could be secondary to degenerative changes, internal dera ngement, or occult fracture.
--- NOTE | 2023-10-19 14:24 | P.HP ---
Certification for Inpatient Patient admitted to: Observation With expected LOS: <2 Midnights Patient will require the following post-hospital care: None Practitioner: I am a practitioner with admitting privileges, knowledge of patient current condition, hospital course, and medical plan of care. Services: Services provided to patient in accordance with Admission requirements found in Title 42 Section 412.3 of the Code of Federal Regulations Patient History Date of Service: 10/19/23 Reason for admission: Near syncope, hypotension History of Present Illness: 88-year-old female with history of Alzheimer's dementia, insomnia, hypertension, atrial fibrillation, previous CVA, Parkinson's disease, chronic diastolic congestive heart failure, anemia of chronic disease, CKD 4 presents to the emergency department with chief complaint of near syncope. It was reported the patient got lightheaded when she stood up and was sent here for further evaluation. Blood pressure was reportedly in the 90s systolic on scene. She was evaluated in the emergency department labs are significant for creatinine 1.93 GFR 25 glucose 125 BNP 2203 unable to count 11.1 hemoglobin 10.1 hematocrit 30.5 chest x-ray, right knee x-ray, CT head all negative for acute findings. ED provider wishes to admit under observation for near syncope. Allergies Sulfa (Sulfonamide Antibiotics) Allergy (Verified 02/20/18 14:21) Unknown Home Medications: Clopidogrel Bisulfate [Plavix*] 75 mg PO DAILY #30 tablet 10/13/12 Acetaminophen [Pain Relief] 650 mg PO TIDP PRN 09/25/23 Carbidopa/Levodopa [Carbidopa-Levo 25-100 mg Odt] 1 each PO TID 09/25/23 Divalproex Sodium 250 mg PO BID 09/25/23 Memantine HCl [Namenda] 5 mg PO BID 09/25/23 Mirtazapine [Remeron] 30 mg PO BEDTIME 09/25/23 Trazodone [Desyrel*] 75 mg PO BEDTIME 09/25/23 Aspirin [Aspirin EC 81 MG] 81 mg PO DAILY 30 Days #30 mg 09/29/23 Furosemide [Lasix] 20 mg PO DAILY 30 Days #30 tab 09/29/23 Nico [Nico*] 1 pkt PO BID 09/29/23 Metoprolol Tartrate [Lopressor*] 50 mg PO BID tab 09/29/23 Trazodone [Desyrel*] 75 mg PO BEDTIME 09/29/23 Amiodarone HCl [Cordarone*] 200 mg PO BID #60 tab 10/08/23 Cefdinir [Cefdinir*] 300 mg PO BID #14 cap 10/08/23 Ensure Enlive 237 ml PO BID #60 can 10/08/23 Famotidine [Pepcid*] 20 mg PO DAILY #30 tab 10/08/23 Furosemide [Lasix*] 20 mg PO DAILY #30 tab 10/08/23 Spironolactone [Aldactone*] 25 mg PO DAILY #30 tab 10/08/23 - Past Medical/Surgical History Diabetic: No -: HTN -: Dementia -: pneumonia -: syncope -: CKD 4 -: Chronic diastolic congestive heart failure -: Atrial fibrillation -: Parkinson's -: Hysterectomy -: appendectomy Psychosocial/ Personal History: Lives in a memory care center - Family History Father History Unknown: Yes - Social History Alcohol use: Yes CD- Drugs: Yes Caffeine use: Yes Place of Residence: Shelter Review of Systems is unable to be obtained Physical Examination - Physical Exam General: Alert, In no apparent distress, Demented, Confused HEENT: Atraumatic, PERRLA Neck: Supple, 2+ carotid pulse no bruit, No LAD Respiratory: Clear to auscultation bilaterally, Normal air movement Cardiovascular: Regular rate/rhythm, Normal S1 S2 Gastrointestinal: Normal bowel sounds Musculoskeletal: No tenderness Integumentary: No rashes Neurological: Normal speech, Normal strength at 5/5 x4 extr, Normal tone - Studies Laboratory Data (last 24 hrs) 10/19/23 10/19/23 10/19/23 09:35 09:35 09:35 WBC 11.10 H Hgb 10.1 L Hct 30.5 L Plt Count 284 PT 11.9 INR 1.08 APTT 25.0 Sodium 139 Potassium 3.5 BUN 45 H Creatinine 1.93 H Glucose 125 H Magnesium 2.0 Total Bilirubin 0.4 AST 8 L ALT < 10 L Alkaline Phosphatase 56 Assessment and Plan - Plan Assessment: Near syncope, hypotension Chronic diastolic heart failure Chronic atrial fibrillation CKD 4 Alzheimer's dementia Anemia of chronic disease Parkinson's disease Hypertension Plan: Near syncope, hypotension On diuretics, blood pressure was low on scene Possibly overdiuresis, continue gentle IV fluids overnight Obtain orthostatic vital signs PT consult Patient very agitated, confused, anxious Chronic diastolic heart failure Hold diuretics, continue gentle IV fluids overnight Chronic atrial fibrillation Amiodarone, metoprolol continue CKD 4 Monitor chemistry daily Nephrology consult if there is worsening Alzheimer's dementia Anemia of chronic disease Parkinson's disease Hypertension Home medications continued DVT PPX: Heparin subcu Code status: Full Discharge Plan: Shelter Plan to discharge in: 24 Hours - Advance Directives Does patient have a Living Will: No Does patient have a Durable POA for Healthcare: Yes - Code Status/Comfort Care Code Status Assessed: Yes (Full code) Critical Care: No Time Spent Managing Pts Care (In Minutes): 70
[2023-10-19] MEDS: NA CHLORIDE 0.9% 1,000 ML IV SCH (15:36)
[2023-10-19] MEDS: CARBIDOPA/LEVODOPA 25/100 TAB PO SCH ×2 (16:32→21:00)
[2023-10-19] MEDS: HEPARIN 5000 UNIT/ML 1 ML VIAL SQ SCH (21:00)
[2023-10-19] MEDS: AMIODARONE HCL 200 MG TAB PO SCH (21:00)
[2023-10-19] MEDS: MEMANTINE HCL 10 MG TABLET PO SCH (21:00)
[2023-10-19] MEDS: TRAZODONE 50 MG TABLET PO SCH (21:00)
[2023-10-19] MEDS: MIRTAZAPINE 15 MG TAB PO SCH (21:00)
[2023-10-19] MEDS: DIVALPROEX DR 250 MG TAB PO SCH (21:00)
[2023-10-19] MEDS: METOPROLOL TAR 50 MG TAB PO SCH (21:01)
[2023-10-20] MEDS: AMIODARONE HCL 200 MG TAB PO SCH ×2 (08:06→20:25)
[2023-10-20] MEDS: CARBIDOPA/LEVODOPA 25/100 TAB PO SCH ×3 (08:06→20:26)
[2023-10-20] MEDS: HEPARIN 5000 UNIT/ML 1 ML VIAL SQ SCH ×2 (08:06→20:26)
[2023-10-20] MEDS: MEMANTINE HCL 10 MG TABLET PO SCH ×2 (08:07→20:25)
[2023-10-20] MEDS: DIVALPROEX DR 250 MG TAB PO SCH ×2 (08:07→20:25)
[2023-10-20] MEDS: METOPROLOL TAR 50 MG TAB PO SCH ×2 (08:07→20:26)
[2023-10-20] MEDS: CLOPIDOGREL 75 MG TABLET PO SCH (08:07)
[2023-10-20 08:27] LABS: Absolute Lymphocytes (CBC) 0.9 K/uL (0.7-4.9); Hematocrit 31.8 % (36.0-45.0); Lymphocytes % 9.4 % (15.3-44.8); MCV 98.7 fL (80-100); MPV 7.6 fL (7.6-11.3); Platelets 277 thou/uL (152-406); RBC Red Blood Cell Count 3.22 M/uL (3.86-4.86)
[2023-10-20 08:42] LABS: Magnesium 1.8 mg/dL (1.6-2.4); Potassium 3.8 mEq/L (3.5-5.1)
[2023-10-20] MEDS: NA CHLORIDE 0.9% 1,000 ML IV SCH (11:36)
--- NOTE | 2023-10-20 13:46 | P.PN ---
Date of Service: 10/20/23 Subjective: Still very anxious Feeling weak ROS: 10 point ROS as noted above, otherwise negative Physical exam GEN: Alert, confused/anxious, NAD HEENT: Normal conjunctiva, sclera anicteric CV: Regular rate and rhythm, no edema Pulm: Nonlabored respirations on room air ABD: Soft, nontender, nondistended MSK: No joint tenderness Integumentary: No rashes Neuro: Normal speech, normal affect Vitals reviewed Assessment: Near syncope, hypotension Chronic diastolic heart failure Chronic atrial fibrillation CKD 4 Alzheimer's dementia Anemia of chronic disease Parkinson's disease Hypertension Plan: Near syncope, hypotension On diuretics, blood pressure was low on scene On gentle IV fluids, borderline positive orthostatics Patient did feel dizzy/faint when standing PT consult-unable to ambulate, working on transfers Patient very agitated, confused, anxious Continue working with PT Chronic diastolic heart failure Hold diuretics, continue gentle IV fluids overnight Monitor volume status closely Chronic atrial fibrillation Amiodarone, metoprolol continue CKD 4 Monitor chemistry daily Nephrology consult if there is worsening Significant improvement overnight with gentle IV fluids Will stop IV fluids today recheck renal function in the morning Alzheimer's dementia Anemia of chronic disease Parkinson's disease Hypertension Home medications continued DVT PPX: Heparin subcu Code status: Full Discharge Plan: Senior Care Plan to discharge in: 24 Hours Time Spent Managing Pts Care (In Minutes): 35
--- NOTE | 2023-10-20 16:53 | EKG ---
Test Date: 2023-10-19 Test Time: 13:25:14 Open Hearth Furnace Laborer: STEEVN MEASUREMENT RESULTS: Intervals: Rate: 57 ME: 168 QRSD: 94 QT: 464 QTc: 451 [place]: P: 87 ME: 168 QRS: 19 T: 91 INTERPRETIVE STATEMENTS: Sinus bradycardia T wave abnormality, consider inferolateral ischemia Abnormal ECG Compared to ECG 09/30/2023 11:49:59 T-wave abnormality now present Possible ischemia now present Atrial fibrillation no longer present Right-axis deviation no longer present Right ventricular hypertrophy no longer present Myocardial infarct finding no longer present Electronically Signed On 10-20-23 16:51:29 RN MATERNITY by Masood Madden
[2023-10-20] MEDS ORDERED: NA CHLORIDE 0.9% 1,000 ML IV SCH (20:00)
[2023-10-20] MEDS: MIRTAZAPINE 15 MG TAB PO SCH (20:25)
[2023-10-20] MEDS: TRAZODONE 50 MG TABLET PO SCH (20:25)
[2023-10-21 06:55] LABS: Absolute Lymphocytes (CBC) 1.4 K/uL (0.7-4.9); Hematocrit 29.2 % (36.0-45.0); Lymphocytes % 18.3 % (15.3-44.8); MCV 98.4 fL (80-100); MPV 7.7 fL (7.6-11.3); Platelets 252 thou/uL (152-406); RBC Red Blood Cell Count 2.97 M/uL (3.86-4.86)
[2023-10-21 06:59] LABS: Magnesium 1.9 mg/dL (1.6-2.4); Potassium 3.8 mEq/L (3.5-5.1)
[2023-10-21] MEDS: CLOPIDOGREL 75 MG TABLET PO SCH (10:19)
[2023-10-21] MEDS: MEMANTINE HCL 10 MG TABLET PO SCH ×2 (10:20→20:07)
[2023-10-21] MEDS: CARBIDOPA/LEVODOPA 25/100 TAB PO SCH ×3 (10:20→20:07)
[2023-10-21] MEDS: HEPARIN 5000 UNIT/ML 1 ML VIAL SQ SCH ×2 (10:21→20:09)
[2023-10-21] MEDS: METOPROLOL TAR 50 MG TAB PO SCH ×2 (10:21→20:08)
[2023-10-21] MEDS: AMIODARONE HCL 200 MG TAB PO SCH ×2 (10:21→20:08)
[2023-10-21] MEDS: DIVALPROEX DR 250 MG TAB PO SCH ×2 (10:24→20:07)
--- NOTE | 2023-10-21 18:31 | P.PN ---
Date of Service: 10/21/23 Subjective Pleasantly confused Not feeling well this morning, shaking but afebrile. ROS 10 point ROS as noted above, otherwise negative Physical exam GEN: Alert, oriented to person and place, confused/anxious, NAD HEENT: Normal conjunctiva, sclera anicteric CV: Regular rate and rhythm, no edema, no murmur appreciated Pulm: Nonlabored respirations on room air, symmetrical chest wall movement ABD: Soft, nontender, nondistended, + BS present MSK: No joint tenderness Integumentary: No rashes Neuro: Normal speech, normal affect, anxious Vitals reviewed Assessment: Near syncope, hypotension Chronic diastolic heart failure Chronic atrial fibrillation CKD 4 Alzheimer's dementia Anemia of chronic disease Parkinson's disease Hypertension Plan: Near syncope, hypotension On diuretics, blood pressure was low on scene TAX ASSISTANT stopped gentle IV fluids, borderline positive orthostatics TAX ASSISTANT Patient did feel dizzy/faint when standing, on admission PT consult-unable to ambulate, working on transfers for now Patient very agitated, confused, anxious Continue working with PT Blood pressure stable Chronic diastolic heart failure Hold diuretics, stopped gentle IV fluids overnight Monitor volume status closely Chronic atrial fibrillation Amiodarone, metoprolol continue Rate controlled continuous telemetry CKD 4 Monitor chemistry daily Nephrology consult if there is worsening Significant improvement overnight with gentle IV fluids BUN/creatinine 18/1.14, GFR 47- continued improved with IV fluids Alzheimer's dementia Anemia of chronic disease Parkinson's disease Hypertension Home medications continued DVT PPX: Heparin subcu Code status: Full Discharge Plan: Care Home pending approval Plan to discharge in: 24 Hours
[2023-10-21] MEDS: TRAZODONE 50 MG TABLET PO SCH (20:07)
[2023-10-21] MEDS: MIRTAZAPINE 15 MG TAB PO SCH (20:09)
[2023-10-22] MEDS: CLOPIDOGREL 75 MG TABLET PO SCH (09:30)
[2023-10-22] MEDS: DIVALPROEX DR 250 MG TAB PO SCH ×2 (09:30→20:58)
[2023-10-22] MEDS: MEMANTINE HCL 10 MG TABLET PO SCH ×2 (09:30→20:52)
[2023-10-22] MEDS: METOPROLOL TAR 50 MG TAB PO SCH ×2 (09:31→20:53)
[2023-10-22] MEDS: AMIODARONE HCL 200 MG TAB PO SCH ×2 (09:31→20:53)
[2023-10-22] MEDS: HEPARIN 5000 UNIT/ML 1 ML VIAL SQ SCH ×2 (09:31→20:52)
[2023-10-22] MEDS: CARBIDOPA/LEVODOPA 25/100 TAB PO SCH ×3 (09:31→20:54)
--- NOTE | 2023-10-22 14:43 | P.PN ---
Subjective Date of Service: 10/22/23 Chief Complaint: Near syncope, hypotension Patient has no new complaint. No issues overnight. She is tolerating diet. Physical Examination - Vital Signs Temperature: 98.0 F Blood Pressure: 112/59 Pulse: 59 Respirations: 16 Pulse Ox (%): 93 Assessment And Plan - Plan Physical exam GEN: Alert, oriented to person and place, NAD HEENT: Sclera anicteric CV: Regular rate and rhythm, no edema, no murmur appreciated Pulm: Nonlabored breathing, clear to auscultation bilaterally. ABD: Soft, nontender, nondistended, normal BS. MSK: No joint tenderness Integumentary: No rashes Neuro: Normal speech, no focal motor deficit. Vitals reviewed Assessment: Near syncope, hypotension Chronic diastolic heart failure Chronic atrial fibrillation CKD 4 Alzheimer's dementia Anemia of chronic disease Parkinson's disease Hypertension E. coli UTI Plan: Near syncope, hypotension Was on diuretics, blood pressure was low on scene PULP GRINDER AND BLENDER Status post IV fluid which has been discontinued. Blood pressure has been soft. Borderline positive orthostatics PULP GRINDER AND BLENDER Patient is receiving PT, and could only stand for a moment without taking a step. She was able to sit at the edge of the bed. Chronic diastolic heart failure Diuretics on hold IV fluid discontinued. Monitor volume status closely Chronic atrial fibrillation Stable on Amiodarone and metoprolol. E. coli UTI Start IV Rocephin. DEEPTI Renal function improved with IV hydration. IV fluid discontinued. Continue to monitor renal function. Alzheimer's dementia Anemia of chronic disease Parkinson's disease Hypertension Home medications continued DVT PPX: Heparin subcu Code status: Full Discharge Plan: Skilled rehab pending approval
[2023-10-22] MEDS: CEFTRIAXONE 1,000 MG in NA CHLORIDE 0.9% 50 ML IVPB SCH (16:23)
[2023-10-22] MEDS: TRAZODONE 50 MG TABLET PO SCH (20:54)
[2023-10-22] MEDS: MIRTAZAPINE 15 MG TAB PO SCH (20:54)
[2023-10-22 23:23] VITALS: O2SAT 96
[2023-10-23 07:22] LABS: Absolute Lymphocytes (CBC) 1.2 K/uL (0.7-4.9); Hematocrit 29.6 % (36.0-45.0); Lymphocytes % 16.9 % (15.3-44.8); MCV 98.9 fL (80-100); MPV 7.5 fL (7.6-11.3); Platelets 232 thou/uL (152-406); RBC Red Blood Cell Count 2.99 M/uL (3.86-4.86)
[2023-10-23 07:36] LABS: Potassium 4.3 mEq/L (3.5-5.1)
[2023-10-23] MEDS: CEFTRIAXONE 1,000 MG in NA CHLORIDE 0.9% 50 ML IVPB SCH (09:13)
[2023-10-23] MEDS: DIVALPROEX DR 250 MG TAB PO SCH (09:14)
[2023-10-23] MEDS: HEPARIN 5000 UNIT/ML 1 ML VIAL SQ SCH (09:14)
[2023-10-23] MEDS: CARBIDOPA/LEVODOPA 25/100 TAB PO SCH (09:15)
[2023-10-23] MEDS: METOPROLOL TAR 50 MG TAB PO SCH (09:15)
[2023-10-23] MEDS: MEMANTINE HCL 10 MG TABLET PO SCH (09:15)
[2023-10-23] MEDS: AMIODARONE HCL 200 MG TAB PO SCH (09:15)
[2023-10-23] MEDS: CLOPIDOGREL 75 MG TABLET PO SCH (09:15)
--- NOTE | 2023-10-23 10:45 | P.DS ---
Admission Date: 10/21/23 Discharge Date: 10/23/23 Disposition: TRANSFER TO GROUP HOME Discharge Condition: FAIR Reason for Admission: Near syncope, hypotension Brief History of Present Illness: 88-year-old female with history of Alzheimer's dementia, insomnia, hypertension, atrial fibrillation, previous CVA, Parkinson's disease, chronic diastolic congestive heart failure, anemia of chronic disease, CKD 4 presented to the emergency department with chief complaint of near syncope. It was reported the patient got lightheaded when she stood up and was sent here for further evaluation. Blood pressure was reportedly in the 90s systolic on scene. She was evaluated in the emergency department labs are significant for creatinine 1.93 GFR 25 glucose 125 BNP 2203 unable to count 11.1 hemoglobin 10.1 hematocrit 30.5 chest x-ray, right knee x-ray, CT head all negative for acute findings. Patient was hospitalized for further management. Hospital Course: Diagnosis Near syncope, hypotension Chronic diastolic heart failure Chronic atrial fibrillation CKD 4 Alzheimer's dementia Anemia of chronic disease Parkinson's disease Hypertension E. 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 She will benefit PT. She has been accepted to [facility] for skilled rehab Chronic diastolic heart failure Held diuretics due to orthostasis. Resumed Aldactone on discharge Chronic atrial fibrillation Stable on Amiodarone and metoprolol. E. coli UTI Treated with IV Rocephin and transition to cefpodoxime on discharge. DEEPTI Renal function improved with IV hydration. IV fluid discontinued. Alzheimer's dementia Anemia of chronic disease Parkinson's disease Hypertension Was stable on home medications. Vital Signs/Physical Exam: Temp Pulse Resp BP Pulse Ox 97.2 F 61 16 123/59 L 98 10/23/23 08:00 10/23/23 09:15 10/23/23 08:00 10/23/23 09:15 10/23/23 08:00 General: In no apparent distress, Oriented x2 HEENT: Mucous membr. moist/pink Respiratory: Clear to auscultation bilaterally, Normal air movement Cardiovascular: Normal S1 S2, Irregular heart rate/rhythm Gastrointestinal: Normal bowel sounds, Soft and benign, Non-distended, No tenderness Musculoskeletal: No swelling Integumentary: No rashes, No cyanosis Neurological: Normal strength at 5/5 x4 extr, Other (Hand tremors) Laboratory Data at Discharge: WBC 7.10 thou/uL (4.3-10.9) 10/23/23 06:58 Hgb 9.9 g/dL (12.0-15.0) L 10/23/23 06:58 Hct 29.6 % (36.0-45.0) L 10/23/23 06:58 Plt Count 232 thou/uL (152-406) 10/23/23 06:58 PT 11.9 SECONDS (9.5-12.5) 10/19/23 09:35 INR 1.08 10/19/23 09:35 APTT 25.0 SECONDS (24.3-36.9) 10/19/23 09:35 Sodium 142 mEq/L (136-145) 10/23/23 06:58 Potassium 4.3 mEq/L (3.5-5.1) 10/23/23 06:58 BUN 16 mg/dL (7-18) 10/23/23 06:58 Creatinine 1.08 mg/dL (0.55-1.02) H 10/23/23 06:58 Glucose 69 mg/dL (74-106) L 10/23/23 06:58 Magnesium 1.9 mg/dL (1.6-2.4) 10/21/23 06:17 Total Bilirubin 0.4 mg/dL (0.2-1.0) 10/19/23 09:35 AST 8 U/L (15-37) L 10/19/23 09:35 ALT < 10 U/L (13-56) L 10/19/23 09:35 Alkaline Phosphatase 56 U/L (45-117) 10/19/23 09:35 Home Medications: Clopidogrel Bisulfate [Plavix*] 75 mg PO DAILY #30 tablet 10/13/12 Acetaminophen [Pain Relief] 650 mg PO TIDP PRN 09/25/23 Carbidopa/Levodopa [Carbidopa-Levo 25-100 mg Odt] 1 each PO TID 09/25/23 Divalproex Sodium 250 mg PO BID 09/25/23 Memantine HCl [Namenda] 5 mg PO BID 09/25/23 Mirtazapine [Remeron] 30 mg PO BEDTIME 09/25/23 Aspirin [Aspirin EC 81 MG] 81 mg PO DAILY 30 Days #30 mg 09/29/23 Nico [Nico*] 1 pkt PO BID 09/29/23 Metoprolol Tartrate [Lopressor*] 50 mg PO BID tab 09/29/23 Amiodarone HCl [Cordarone*] 200 mg PO BID #60 tab 10/08/23 Ensure Enlive 237 ml PO BID #60 can 10/08/23 Famotidine [Pepcid*] 20 mg PO DAILY #30 tab 10/08/23 Spironolactone [Aldactone*] 25 mg PO DAILY #30 tab 10/08/23 Cefpodoxime Proxetil 100 mg PO BID #8 tab 10/23/23 New Medications: Cefpodoxime Proxetil 100 mg PO BID #8 tab Physician Discharge Instructions: Patient with a history of dementia and Parkinson's disease was hospitalized due to lightheadedness from hypotension. Hypotension likely secondary to dehydration from Lasix use. She was found to have orthostatic hypotension and generally weak. She was needing assistance with transfers. Urine culture grew E. coli sensitive to multiple antibiotics. She was started with IV Rocephin and will continue treatment as outpatient with oral cefpodoxime. Patient has tolerated feeding, blood pressure has been stable. Diagnosis Orthostatic hypotension E. coli UTI Parkinson's disease Dementia. Diet: AHA Activity: Fall precautions Followup: NONE,NONE [Primary Care Provider] - Time spent managing pt's care (in minutes): 32
[2023-10-23 12:29] VITALS: BP 121/56; TEMP 98.6
== END 2023-10-23 12:42 | DRG 312 ==
LOC: ER 09:31 → ERHOLD 13:56 → 2ND 14:22 → OBSVTOIN 10-21 13:10
PROVIDERS: ADMIT Hospitalist; ATTEND Internal Medicine
DX: I95.1 Orthostatic hypotension (principal); I13.0 Hypertensive heart and chronic kidney disease with heart failure and stage 1 through stage 4 chronic kidney disease, or unspecified chronic kidney disease; F02.811 Dementia in other diseases classified elsewhere, unspecified severity, with agitation; N17.9 Acute kidney failure, unspecified; I50.32 Chronic diastolic (congestive) heart failure; I48.20 Chronic atrial fibrillation, unspecified; N18.4 Chronic kidney disease, stage 4 (severe); F02.84 Dementia in other diseases classified elsewhere, unspecified severity, with anxiety; N39.0 Urinary tract infection, site not specified; D63.8 Anemia in other chronic diseases classified elsewhere; E86.0 Dehydration; G30.9 Alzheimer's disease, unspecified; G20.A1 Parkinson's disease without dyskinesia, without mention of fluctuations; M25.561 Pain in right knee; B96.20 Unspecified Escherichia coli [E. coli] as the cause of diseases classified elsewhere; T50.1X5A Adverse effect of loop [high-ceiling] diuretics, initial encounter; Z86.73 Personal history of transient ischemic attack (TIA), and cerebral infarction without residual deficits; Y92.129 Unspecified place in nursing home as the place of occurrence of the external cause
CPT/HCPCS: 36415; 70450; 71045; 80048; 80076; 81001; 83735; 83880; 84484; 85025; 85610; 85730; 87077; 87086; 87088; 87186; 93005; 96360; 96361; 97116; 97161; 97530; 99284; G0378; J0696; J1644; J7030

== ENCOUNTER → 2023-11-15 | Emergency (ER) | payer OTHER ==
[~2023-11-15] MED LIST: ACETAMINOPHEN 500 MG TAB ONE
--- NOTE | 2023-11-15 22:59 | RAD REPORT ---
EXAM DESCRIPTION: CT - CTHCSPWOC - 11/15/2023 10:49 pm CLINICAL HISTORY: Trauma, head and neck injury. TRAUMA COMPARISON: Head C Spine Mpr Wo Con dated 12/18/2022; Head C Spine Mpr Wo Con dated 02/20/2018; CT-SPI [id number] dated 10/09/2012 TECHNIQUE: Axial 5 mm thick images of the head were obtained. Axial 2 mm thick images of the cervical spine were obtained with sagittal and coronal reconstruction images generated and reviewed. All CT scans are performed using dose optimization technique as appropriate and may include automated exposure control or mA/KV adjustment according to patient size. FINDINGS: CT HEAD WITHOUT CONTRAST: No acute hemorrhage, hydrocephalus or extra-axial collection is identified.No areas of brain edema or midline shift. Left frontal lobe encephalomalacia. Mild chronic small vessel ischemic changes. Cereb ral atrophy. The paranasal sinuses and mastoids are clear.No calvarial fracture. CT CERVICAL SPINE WITHOUT CONTRAST: No fracture or subluxation.No prevertebral soft tissues swelling is identified. Multilevel degenerati ve changes are present in the spine. Varying degrees of neural foraminal narrowing. IMPRESSION: No acute intracranial or cervical spine findings.
--- NOTE | 2023-11-15 23:04 | RAD REPORT ---
EXAM DESCRIPTION: CT - Pelvis Wo Cont - 11/15/2023 10:50 pm CLINICAL HISTORY: TRAUMA COMPARISON: No comparisons FINDINGS: Hysterectomy. Moderate stool in the colon. Diverticulosis without diverticulitis. Atherosc lerosis. Osteopenia. Hematoma overlying the right hip. Displaced and comminuted right subcapital femoral neck fracture. Varus deformity. Superior and latera l displacement of the distal fragment is noted. The right femoral head is located. Multilevel degener ative changes are present in the spine. IMPRESSION: Displaced comminuted right subcapital femoral neck fracture. No dislocation.
--- NOTE | 2023-11-15 23:19 | EDPHYS ---
Physician Documentation [facility] Name: Connie Dos Santos Age: 88 yrs Sex: Female : 1935 Arrival Date: 11/15/2023 Time: 22:18 Bed 15 Private MD: ED Physician Marvel Christine HPI: 11/15 22:30 This 88 yrs old Female presents to ER via EMS with complaints of Fall Injury. sb4 22:30 per long-term, patient sustained an unwitnessed mechanical fall. she is residing at [facility] for rehab due to recurrent falls. patient does not remember how she fell, she complains of mild right hip pain but has no other complaints. is on plavix. Historical: - Allergies: 22:27 Sulfa (Sulfonamide Antibiotics); tm6 - PMHx: 22:27 Alzheimer's disease; Dementia; Depression; Hypertension; TIA; Congestive heart failure; tm6 Gastroesophageal reflux disease; Anxiety; Parkinson's disease; Atrial fibrillation; - Immunization history:: Adult Immunizations up to date, Client reports receiving the 2nd dose of the Covid vaccine. - Social history:: Smoking status: unknown. ROS: 22:34 Constitutional: Negative for fever, chills, and weight loss, sb4 22:34 MS/extremity: Positive for pain, of the right hip, 22:34 All other systems are negative, Exam: 22:34 Constitutional: This is a well developed, well nourished patient who is awake, alert, sb4 and in no acute distress. Head/Face: Normocephalic, atraumatic. Eyes: Extra-ocular motions intact. Periorbital areas with no swelling, redness, or edema. ENT: Mucous membranes moist. Cardiovascular: Regular rate and rhythm with a normal S1 and S2. Respiratory: Lungs have equal breath sounds bilaterally, clear to auscultation and percussion. No rales, rhonchi or wheezes noted. No increased work of breathing, no retractions or nasal flaring. Abdomen/GI: Soft, non-tender, no distension. Skin: Warm, dry with normal turgor. Normal color with no rashes, no lesions, and no evidence of cellulitis. MS/ Extremity: Pulses equal, no cyanosis. Neurovascular intact. Full, normal range of motion. Neuro: Awake and alert, GCS 15, oriented to person, place, time, and situation. Motor strength 5/5 in all extremities. Sensory grossly intact. 22:34 Musculoskeletal/extremity: mild right hip tenderness. Vital Signs: 22:26 BP 145 / 89; Pulse 56; Resp 19; Temp 97(TE); Pulse Ox 99% on R/A; Weight 66.22 kg; Pain tm6 0/10; 23:35 BP 130 / 72; Pulse 57; Pulse Ox 99% on R/A; Pain 0/10; tm6 11/16 00:14 BP 168 / 69; Pulse 62; Resp 15; Pulse Ox 99% on R/A; tm6 00:30 Resp 20; Temp 96.8(TE); Pain 5/10; tm6 11/15 22:26 Pain Scale: Adult tm6 23:35 Pain Scale: Adult tm6 00:30 Pain Scale: Adult tm6 MDM: 11/15 22:20 Patient medically screened. sb4 22:34 Differential diagnosis: closed head injury, contusion, fracture. sb4 23:18 Data reviewed: vital signs, nurses notes, lab test result(s), radiologic studies, I sb4 have discussed the patient's presentation/case with the attending Emergency Department Physician;. Care significantly affected by the following chronic conditions: Hypertension, Congestive Heart Failure. Counseling: I had a detailed discussion with the patient and/or guardian regarding the historical points, exam findings, and any diagnostic results supporting the discharge/admit diagnosis, radiology results, the need to transfer to another facility, [facility] does not immediately have the required specialist. 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 4 11/15 23:12 Order name: Basic Metabolic Panel; Complete Time: 17:27 sb4 11/15 23:12 Order name: CBC with Diff; Complete Time: 00:23 sb4 11/15 23:12 Order name: PT-INR; Complete Time: 00:34 sb4 11/15 23:12 Order name: Ptt, Activated; Complete Time: 00:34 sb4 11/15 23:12 Order name: CPK; Complete Time: 17:27 sb4 11/15 22:21 Order name: Head C Spine MPR Wo Con CT; Complete Time: 23:02 4 11/15 22:21 Order name: Pelvis Wo Cont CT; Complete Time: 23:09 sb4 11/15 23:17 Order name: Knee Right 3 View XRAY sb4 11/15 23:12 Order name: Labs collected and sent; Complete Time: 00:13 sb4 Administered Medications: 11/16 00:30 Drug: Acetaminophen PO 1000 mg PO once Route: PO; tm6 Disposition Summary: 11/15/23 23:19 Transfer Ordered Notes: Transfer Location: [facility] sb4 Reason: Higher level of care sb4 Condition: Serious sb4 Problem: new sb4 Symptoms: are unchanged sb4 Accepting Physician: Dr. Tucker(11/16/23 00:39) tm6 Diagnosis - displaced comminuted right subcapital femoral neck fracture sb4 Forms: - Medication Reconciliation Form sb4 - SBAR form sb4 Signatures: Dispatcher [employer] EDDarlene Terry PA-C PA-C sb4 Madelaine Ceja RN RN tm6 Corrections: (The following items were deleted from the chart) 11/15 23:33 23:19 ortho sb4 sb4 11/16 00:35 11/15 23:32 ED course: initiated to [facility] for trauma services. sb4 sb4 11/16 00:39 11/15 23:33 Dr. Tucker sb4 tm6
--- NOTE | 2023-11-15 23:19 | ER ---
Nurse's Notes [facility] Name: Connie Dos Santos Age: 88 yrs Sex: Female : 1935 Arrival Date: 11/15/2023 Time: 22:18 Bed 15 Private MD: Diagnosis: displaced comminuted right subcapital femoral neck fracture Presentation: 11/15 22:23 Chief complaint: EMS states: [place] [facility] Staff found patient near tm6 the foot of her bed. Patient said she was trying to go to the bathroom. Unknown down time. Patient complaining of right hip and knee pain. Care prior to arrival: None. Mechanism of Injury: Fall unwitnessed. 22:23 Acuity: BRANDY 3 tm6 22:23 Method Of Arrival: EMS: [facility] tm6 22:26 Coronavirus screen: Vaccine status: Patient reports receiving the 2nd dose of the covid tm6 vaccine. Ebola Screen: Patient negative for fever greater than or equal to 101.5 degrees Fahrenheit, and additional compatible Ebola Virus Disease symptoms Patient denies exposure to infectious person. Patient denies travel to an Ebola-affected area in the 21 days before illness onset. No symptoms or risks identified at this time. Initial Sepsis Screen: Does the patient meet any 2 criteria? No. Patient's initial sepsis screen is negative. Does the patient have a suspected source of infection? No. Patient's initial sepsis screen is negative. Risk Assessment: Do you want to hurt yourself or someone else? Patient reports no desire to harm self or others. Onset of symptoms is unknown. Triage Assessment: 22:27 General: Appears in no apparent distress. Behavior is calm, cooperative. Pain: tm6 Complains of pain in right hip Pain radiates to right knee Unable to use pain scale. patient with dementia, having difficulty describing pain. Guarding right hip and right knee. EENT: No signs and/or symptoms were reported regarding the EENT system. Neuro: Level of Consciousness is awake, alert, obeys commands, Oriented to person, dementia, patient at baseline. Cardiovascular: Capillary refill < 3 seconds Patient's skin is warm and dry. Respiratory: Airway is patent Respiratory effort is even, unlabored, Respiratory pattern is regular, symmetrical. GI: Abdomen is flat, non-distended. : No signs and/or symptoms were reported regarding the genitourinary system. Derm: No signs and/or symptoms reported regarding the dermatologic system. Musculoskeletal: Reports pain in right hip pain in right knee. Historical: - Allergies: 22:27 Sulfa (Sulfonamide Antibiotics); tm6 - PMHx: 22:27 Alzheimer's disease; Dementia; Depression; Hypertension; TIA; Congestive heart failure; tm6 Gastroesophageal reflux disease; Anxiety; Parkinson's disease; Atrial fibrillation; - Immunization history:: Adult Immunizations up to date, Client reports receiving the 2nd dose of the Covid vaccine. - Social history:: Smoking status: unknown. Screenin:33 [facility] ED Fall Risk Assessment (Adult) History of falling in the last 3 months, [facility] including since admission Yes- fall prone (multiple falls) (3 pts) Confusion or Disorientation Yes (5 pts) Intoxicated or Sedated No (0 pts) Impaired Gait Yes (1 pt) Mobility Assist Device Used No (0 pt) Altered Elimination No (0 pt) Score/Fall Risk Level 3 or more points = High Risk Oriented to surroundings, Maintained a safe environment, Educated pt \T\ family on fall prevention, incl call for assistance when getting out of bed. Abuse screen: Denies threats or abuse. Denies injuries from another. Nutritional screening: No deficits noted. Tuberculosis screening: No symptoms or risk factors identified. Assessment: 22:33 Reassessment: see triage assessment. tm6 23:35 Reassessment: son Tristan Dos Santos notified that his mother would be transferred to [address] 23:36 Reassessment: Patient appears in no apparent distress at this time. No changes from [facility] previously documented assessment. patient states she is not in pain. Bear hugger applied to patient, due to shivering. 11/16 00:31 Reassessment: report given to Sada JUDGE at [facility]. tm6 00:39 Reassessment: Patient appears in no apparent distress at this time. taken by EMS. [facility] Vital Signs: 11/15 22:26 BP 145 / 89; Pulse 56; Resp 19; Temp 97(TE); Pulse Ox 99% on R/A; Weight 66.22 kg; Pain tm6 0/10; 23:35 BP 130 / 72; Pulse 57; Pulse Ox 99% on R/A; Pain 0/10; tm6 02/18 00:14 BP 168 / 69; Pulse 62; Resp 15; Pulse Ox 99% on R/A; tm6 00:30 Resp 20; Temp 96.8(TE); Pain 5/10; tm6 11/15 22:26 Pain Scale: Adult tm6 23:35 Pain Scale: Adult tm6 00:30 Pain Scale: Adult tm6 ED Course: 11/15 22:20 Patient arrived in ED. sb4 22:20 Darlene Yoo PA-C is PHCP. sb4 22:20 Marvel Christine MD is Attending Physician. sb4 22:23 Madelaine Ceja, ALFIE is Primary Nurse. tm6 22:25 Triage completed. tm6 22:33 Arm band placed on right wrist. tm6 22:33 Patient has correct armband on for positive identification. Bed in low position. Call tm6 light in reach. Side rails up X2. Provided Education on: plan of care. Client placed on continuous cardiac and pulse oximetry monitoring. NIBP monitoring applied. Door closed. Noise minimized. Warm blanket given. 22:34 No provider procedures requiring assistance completed. tm6 22:48 Head C Spine MPR Wo Con CT In Process Unspecified. EDMS 22:[address] In Process Unspecified. EDMS 23:22 Initiated transfer to [facility], spoke with Alyse Navarrete. 23:28 Pt accepted for transfer to [facility] ER by Dr. Nilay Tucker per Alyse Navarrete. 23:58 Knee Right 3 View XRAY In Process Unspecified. EDMS 23:59 EMS accepted for transport, ETA \T\ 0020. 11/16 00:11 Inserted saline lock: 22 gauge in right antecubital area, using aseptic technique. tm6 00:13 CPK Sent. pm6 00:13 Ptt, Activated Sent. pm6 00:13 PT-INR Sent. pm6 00:13 Basic Metabolic Panel Sent. pm6 00:13 CBC with Diff Sent. pm6 00:31 Patient transferred, IV remains in place. tm6 Administered Medications: 00:30 Drug: Acetaminophen PO 1000 mg PO once Route: PO; tm6 Medication: 11/15 22:33 VIS not applicable for this client. tm6 Outcome: 23:19 ER care complete, transfer ordered by MD. roberts 11/16 00:31 Transferred by ground EMS tm6 Condition: stable Instructed on the need for transfer, 00:39 Patient left the ED. tm6 Signatures: Dispatcher [employer] Michelle Roberts Sophia, REY PAMaya sb4 Madelaine Ceja RN RN tm6 Picket, Hoda pm6
[2023-11-16 00:20] LABS: Absolute Lymphocytes (CBC) 1.3 K/uL (0.7-4.9); Hematocrit 33.5 % (36.0-45.0); Lymphocytes % 12.4 % (15.3-44.8); MPV 7.7 fL (7.6-11.3); Platelets 191 thou/uL (152-406); RBC Red Blood Cell Count 3.32 M/uL (3.86-4.86)
[2023-11-16 00:34] LABS: Protime INR 1.07
[2023-11-16 00:38] LABS: Potassium 4.4 mEq/L (3.5-5.1)
[2023-11-16 01:00] VITALS: BP 168/69; TEMP 96.8; O2SAT 99
--- NOTE | 2023-11-17 11:54 | RAD REPORT ---
EXAM DESCRIPTION: RAD - Knee Right 3 View - 11/15/2023 11:56 pm CLINICAL HISTORY: PAIN COMPARISON: None. 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 There is a small knee effusion. There is infrapatellar soft tissue s welling. IMPRESSION: No acute osseous findings. Electronically signed by: Hal Cruz MD 11/16/2023 12:19 AM [employer] FARM[employer] Due to temporary technical issues with the PACS/Fluency reporting system, reports are being signed by the in house radiologist without review as a courtesy to ensure prompt reporting. The interpreting r adiologist is fully responsible for the content of the report.
== END ==
LOC: ER 22:18
DX: S72.011A Unspecified intracapsular fracture of right femur, initial encounter for closed fracture (principal); W18.30XA Fall on same level, unspecified, initial encounter; Z88.2 Allergy status to sulfonamides; Z79.01 Long term (current) use of anticoagulants
CPT/HCPCS: 36415; 70450; 72125; 72192